=== PATIENT | male | born 1960 | race Caucasian/White ===

== ENCOUNTER 2018-12-20 08:52 | Inpatient (IN) ==
[2018-12-20] MEDS ORDERED: *HR* Etomidate 20 MG/10 ML AMPUL IVP ONE (08:56)
[2018-12-20] MEDS ORDERED: *HR* Midazolam HCl 2 MG/2 ML VIAL IV ONE (08:56)
[2018-12-20] MEDS ORDERED: *HR* Succinylcholine 200 MG/10 ML VIAL IVP ONE (08:56)
--- NOTE | 2018-12-20 09:15 | Emergency Department Note ---
Disposition Clinical Impression: Small cell lung cancer, COPD exacerbation, Acute respiratory failure with hypoxia and hypercapnia Disposition: Admitted As Inpatient Condition: Critical General Adult HPI - General Chief complaint: ED Altered Mental Status Stated complaint: Low 02/Fever/AMS Time Seen by Provider: 12/20/18 09:06 Source: patient Limitations: no limitations - History of Present Illness Pain Scale: 0 - Related Data Home Medications Medication Instructions Recorded Confirmed RX: Aspirin [Lo-Dose Aspirin EC] 81 mg PO DAILY 09/28/18 12/19/18 RX: Cyanocobalamin (Vitamin B-12) 100 mcg PO DAILY 09/28/18 12/19/18 [Vitamin B-12] RX: DULoxetine [Cymbalta] 30 mg PO DAILY 09/28/18 12/19/18 RX: Doxepin [Sinequan] 25 mg PO HS 09/28/18 12/19/18 RX: Gabapentin [Neurontin] 600 mg PO TID 09/28/18 12/19/18 RX: Guaifenesin/Dm/Pseudoephedrine 1 each PO BID 09/28/18 12/19/18 [Capmist Dm Tablet] RX: Meloxicam [Mobic] 15 mg PO DAILY 09/28/18 12/19/18 RX: Oxycodone HCl [Roxybond] 15 mg PO 5XD 09/28/18 12/19/18 RX: Tizanidine HCl 4 mg PO Q8H 09/28/18 12/19/18 RX: diazePAM [Valium] 5 mg PO BID 09/28/18 12/19/18 Previous Rx's Medication Instructions Recorded RX: amLODIPine [Norvasc] 5 mg PO DAILY #30 tablet 10/03/18 Prochlorperazine Maleate 10 mg PO Q8HR PRN #90 tablet 10/17/18 [Compazine] RX: Dexamethasone [Decadron] 4 mg PO BID PRN #45 tab 10/17/18 Albuterol Sulfate [Proair Hfa] 1 puff IH PRN PRN #1 inh 10/31/18 Ipratropium/Albuterol Neb [Duoneb] 3 ml IH Q4HR PRN 30 Days #120 10/31/18 vial.neb RX: Budesonide/Formoterol 160/4.5 2 puff IH BIDR #1 inh 10/31/18 [Symbicort 160/4.5] RX: Ondansetron HCl 8 mg PO Q8H PRN #45 tablet 11/21/18 RX: Doxycycline Hyclate 100 mg PO BID 7 Days #14 tablet 12/18/18 RX: GuaiFENesin/Dextromethorphan 10 ml PO QID PRN #240 ml 12/18/18 [Tussin Dm Syrup] Fluconazole [Diflucan] 100 mg PO DAILY #7 tablet 12/19/18 Nystatin [Nystatin Suspension] 100,000 units PO QID #120 ml 12/19/18 RX: predniSONE [PredniSONE] 20 mg PO DAILY #60 tablet 12/19/18 RX: predniSONE [PredniSONE] 30 mg PO DAILY #90 tablet 12/19/18 Sodium Chloride [Sodium Chloride 2 gm PO DAILY #60 tablet 12/19/18 Tab] Allergies Allergy/AdvReac Type Severity Reaction Status Date / Time Penicillins [PCN] Allergy See Verified 12/19/18 15:04 Comments venlafaxine AdvReac Gastrointestinal Verified 12/19/18 15:04 Upset Past Medical History - Past Medical History Medical history: Reports: arthritis, cancer, COPD, hypertension, other Psychiatric history: Reports: depression - Social History Smoking Status: Current every day smoker Smokeless Tobacco Status: No Alcohol use: Reports: none Drug use: Reports: none Physical Exam - General Limitations: no limitations General appearance: alert Course Vital Signs Temperature 97.7 F 12/20/18 08:59 Pulse Rate 104 12/20/18 08:59 Respiratory Rate 24 12/20/18 08:59 Blood Pressure 95/58 12/20/18 08:59 O2 Sat by Pulse Oximetry 89 12/20/18 08:59 Temperature 98.4 F 12/20/18 13:31 Pulse Rate 96 12/20/18 14:00 Respiratory Rate 20 12/20/18 14:00 Blood Pressure 88/74 12/20/18 14:00 O2 Sat by Pulse Oximetry 98 12/20/18 14:00 Oxygen Delivery Oxygen Delivery Ventilator Medical Decision Making - Lab Data Result diagrams: 12/20/18 09:47 12/20/18 09:47 Lab Results 12/20/18 12/20/18 12/20/18 Range/Units 09:31 09:47 09:47 WBC 5.2 D (4.3-11.1) K/mcL RBC 3.76 L (4.19-5.50) M/mcL Hgb 11.8 L D (12.9-16.9) g/dL Hct 36.7 L (37.5-50.1) % MCV 97.6 (83.0-100.0) fL MCH 31.4 (28.0-33.3) pg MCHC 32.2 (31.6-35.5) g/dL RDW 15.9 H (11.5-14.5) % Plt Count 129 L (140-400) K/mcL MPV 10.1 (9.4-12.4) fL Immature Gran % 0.6 (0-4) % Seg Neutrophils % 74.9 % Lymphocytes % 18.1 % Monocytes % 5.6 % Eosinophils % 0.2 % Basophils % 0.6 % Neutrophils # 3.9 (1.6-8.9) K/mcL Lymphocytes # 0.9 (0.6-4.6) K/mcL Monocytes # 0.3 (0.0-1.3) K/mcL Eosinophils # 0.0 (0.0-0.6) K/mcL Basophils # 0.0 (0.0-0.2) K/mcL PT 11.7 (9.4-12.1) Seconds INR 1.0 APTT 29.7 (26.0-36.0) Seconds Sample Site R Radial ABG pH 7.28 L (7.32-7.45) pH Units ABG pCO2 86 H* (35-45) mmHg ABG pO2 64 L (85-104) mmHg ABG HCO3 41 H (21-27) mEq/L ABG Total CO2 44 H (20-26) mEq/L ABG O2 Saturation 87 L (95-98) % ABG Base Excess 11 H (-2 to 3) mEq/L Vidal Test N/A O2 Delivery Device Cannula Blood Gas Modality Inspired O2 5.0 (1-15=lpm [id number]=%) Sodium (136-145) mEq/L Potassium (3.5-5.1) mEq/L Chloride (98-107) mEq/L Carbon Dioxide (23-29) mEq/L BUN (6-20) mg/dL Creatinine (0.70-1.30) mg/dL Est GFR ( Amer) (> 60) Est GFR (Non-Af Amer) (> 60) BUN/Creatinine Ratio (6-26) Glucose (70-105) mg/dL Calculated Osmolality (280-300) Lactic Acid (0.5-2.2) mmol/L Calcium (8.6-10.3) mg/dL Magnesium (1.6-2.6) mg/dL Total Bilirubin (0.3-1.0) mg/dL Direct Bilirubin (0.0-0.2) mg/dL Indirect Bilirubin (0.0-1.2) mg/dL AST (13-39) Units/L ALT (7-52) Units/L Alkaline Phosphatase (34-104) Units/L Troponin I (< 0.04) ng/mL B-Natriuretic Peptide (Less than 100) pg/mL Serum Total Protein (6.4-8.9) g/dL Albumin (3.5-5.7) g/dL Globulin (2.4-3.5) g/dL Albumin/Globulin Ratio (1.1-2.2) 12/20/18 12/20/18 12/20/18 Range/Units 09:47 09:47 09:47 WBC (4.3-11.1) K/mcL RBC (4.19-5.50) M/mcL Hgb (12.9-16.9) g/dL Hct (37.5-50.1) % MCV (83.0-100.0) fL MCH (28.0-33.3) pg MCHC (31.6-35.5) g/dL RDW (11.5-14.5) % Plt Count (140-400) K/mcL MPV (9.4-12.4) fL Immature Gran % (0-4) % Seg Neutrophils % % Lymphocytes % % Monocytes % % Eosinophils % % Basophils % % Neutrophils # (1.6-8.9) K/mcL Lymphocytes # (0.6-4.6) K/mcL Monocytes # (0.0-1.3) K/mcL Eosinophils # (0.0-0.6) K/mcL Basophils # (0.0-0.2) K/mcL PT (9.4-12.1) Seconds INR APTT (26.0-36.0) Seconds Sample Site ABG pH (7.32-7.45) pH Units ABG pCO2 (35-45) mmHg ABG pO2 (85-104) mmHg ABG HCO3 (21-27) mEq/L ABG Total CO2 (20-26) mEq/L ABG O2 Saturation (95-98) % ABG Base Excess (-2 to 3) mEq/L Vidal Test O2 Delivery Device Blood Gas Modality Inspired O2 (1-15=lpm lp16-245=%) Sodium 134 L (136-145) mEq/L Potassium 3.7 (3.5-5.1) mEq/L Chloride 91 L (98-107) mEq/L Carbon Dioxide 40 H* (23-29) mEq/L BUN 17 (6-20) mg/dL Creatinine 0.67 L (0.70-1.30) mg/dL Est GFR ( Amer) > 60 (> 60) Est GFR (Non-Af Amer) > 60 (> 60) BUN/Creatinine Ratio 25 (6-26) Glucose 128 H (70-105) mg/dL Calculated Osmolality 281 (280-300) Lactic Acid 0.9 (0.5-2.2) mmol/L Calcium 8.9 (8.6-10.3) mg/dL Magnesium 1.7 (1.6-2.6) mg/dL Total Bilirubin 0.5 (0.3-1.0) mg/dL Direct Bilirubin 0.1 (0.0-0.2) mg/dL Indirect Bilirubin 0.4 (0.0-1.2) mg/dL AST 21 (13-39) Units/L ALT 25 (7-52) Units/L Alkaline Phosphatase 96 (34-104) Units/L Troponin I < 0.03 (< 0.04) ng/mL B-Natriuretic Peptide 52 (Less than 100) pg/mL Serum Total Protein 5.7 L (6.4-8.9) g/dL Albumin 3.5 (3.5-5.7) g/dL Globulin 2.2 L (2.4-3.5) g/dL Albumin/Globulin Ratio 1.6 (1.1-2.2) 12/20/18 Range/Units 10:55 WBC (4.3-11.1) K/mcL RBC (4.19-5.50) M/mcL Hgb (12.9-16.9) g/dL Hct (37.5-50.1) % MCV (83.0-100.0) fL MCH (28.0-33.3) pg MCHC (31.6-35.5) g/dL RDW (11.5-14.5) % Plt Count (140-400) K/mcL MPV (9.4-12.4) fL Immature Gran % (0-4) % Seg Neutrophils % % Lymphocytes % % Monocytes % % Eosinophils % % Basophils % % Neutrophils # (1.6-8.9) K/mcL Lymphocytes # (0.6-4.6) K/mcL Monocytes # (0.0-1.3) K/mcL Eosinophils # (0.0-0.6) K/mcL Basophils # (0.0-0.2) K/mcL PT (9.4-12.1) Seconds INR APTT (26.0-36.0) Seconds Sample Site R Radial ABG pH 7.24 L (7.32-7.45) pH Units ABG pCO2 100 H* (35-45) mmHg ABG pO2 68 L (85-104) mmHg ABG HCO3 43 H (21-27) mEq/L ABG Total CO2 46 H (20-26) mEq/L ABG O2 Saturation 87 L (95-98) % ABG Base Excess 11 H (-2 to 3) mEq/L Vidal Test N/A O2 Delivery Device BiPAP Blood Gas Modality BiLevel Inspired O2 40.0 (1-15=lpm bu70-140=%) Sodium (136-145) mEq/L Potassium (3.5-5.1) mEq/L Chloride (98-107) mEq/L Carbon Dioxide (23-29) mEq/L BUN (6-20) mg/dL Creatinine (0.70-1.30) mg/dL Est GFR ( Amer) (> 60) Est GFR (Non-Af Amer) (> 60) BUN/Creatinine Ratio (6-26) Glucose (70-105) mg/dL Calculated Osmolality (280-300) Lactic Acid (0.5-2.2) mmol/L Calcium (8.6-10.3) mg/dL Magnesium (1.6-2.6) mg/dL Total Bilirubin (0.3-1.0) mg/dL Direct Bilirubin (0.0-0.2) mg/dL Indirect Bilirubin (0.0-1.2) mg/dL AST (13-39) Units/L ALT (7-52) Units/L Alkaline Phosphatase (34-104) Units/L Troponin I (< 0.04) ng/mL B-Natriuretic Peptide (Less than 100) pg/mL Serum Total Protein (6.4-8.9) g/dL Albumin (3.5-5.7) g/dL Globulin (2.4-3.5) g/dL Albumin/Globulin Ratio (1.1-2.2) Critical Care Time Critical Care Time: Yes Total Critical Care Time: 30 Attestation: The high probability of a clinically significant, sudden or life threatening deterioration of the [] system(s) required my full and direct attention, intervention and personal management. The aggregate critical care time was [] minutes. This time is in addition to time spent performing reported procedures but includes the following: [] Data Review and interpretation [] Patient assessment and monitoring of vital signs [] Documentation [] Medication orders and management Attestation Statement - Attestation Attestation: I examined this patient and my medical decision-making was reviewed with the Resident Physician. I agree with the documented findings, disposition and treatment plan as described except to the extent set forth below. [id number] time provided Patient arrives in the care of family. He is oxygen dependent currently being treated for lung cancer. He appears somewhat frail. He was hypoxic at triage. Recently treated with doxycycline for suspected pneumonia 11:19: The patient's carbon dioxide increased. He is increasingly somnolent. He was electively endotracheally intubated by the resident physician under my supervision. Patient will be admitted to the ICU.
[2018-12-20 09:34] LABS: ABG Base Excess 11 mEq/L (-2 to 3); ABG HCO3 41 mEq/L (21-27); ABG Oxygen Saturation 87 % (95-98); ABG PCO2 86 mmHg (35-45); ABG PH 7.28 pH Units (7.32-7.45); ABG PO2 64 mmHg (85-104); ABG TCO2 44 mEq/L (20-26)
[2018-12-20] MEDS ORDERED: Ipratropium/Albuterol Neb 3 ML IH ONE (09:46)
[2018-12-20 10:11] LABS: Basophils % 0.6 %; Eosinophils % 0.2 %; Hematocrit 36.7 % (37.5-50.1); Hemoglobin 11.8 g/dL (12.9-16.9); Immature Granulocytes % 0.6 % (0-4); Lymphocytes # 0.9 K/mcL (0.6-4.6); Lymphocytes % 18.1 %; Mean Corpuscular HGB Conc 32.2 g/dL (31.6-35.5); Mean Corpuscular Hemoglobin 31.4 pg (28.0-33.3); Mean Corpuscular Volume 97.6 fL (83.0-100.0); Mean Platelet Volume 10.1 fL (9.4-12.4); Monocytes # 0.3 K/mcL (0.0-1.3); Monocytes % 5.6 %; Neutrophils # 3.9 K/mcL (1.6-8.9); Platelet Count 129 K/mcL (140-400); Red Blood Count 3.76 M/mcL (4.19-5.50); Red Cell Distribution Width 15.9 % (11.5-14.5); Segmented Neutrophils % 74.9 %
[2018-12-20 10:23] LABS: Prothrombin Time 11.7 Seconds (9.4-12.1)
[2018-12-20 10:26] LABS: Activated Partial Thrombo Time 29.7 Seconds (26.0-36.0)
--- NOTE | 2018-12-20 10:38 | Emergency Department Note ---
Disposition Clinical Impression: Small cell lung cancer, COPD exacerbation, Acute respiratory failure with hypoxia and hypercapnia Disposition: Admitted As Inpatient Condition: Critical Time of Disposition: 11:27 General Adult HPI - General Chief complaint: ED Altered Mental Status Stated complaint: Low 02/Fever/AMS Time Seen by Provider: 12/20/18 09:06 Source: patient, family (Sister), EMS Mode of arrival: EMS Limitations: no limitations Nursing Notes Reviewed: Yes Vital Signs Reviewed: Yes - History of Present Illness HPI Narrative: 58-year-old male history of COPD on to liter in history of lung cancer presents emergency department via EMS with concern for difficulty in breathing and altered mental status. The sister states the patient was recently diagnosed 3 months ago and has been undergoing chemotherapy for his lung cancer. Last treatment was . He has received a total of 3 total treatments which she receives Tuesday every 3 weeks. His oncologist is Dr. Sullivan. She states over the past 2 days he has been running a fever of 100 with diffi culty breathing. Was evaluated at urgent care presumed to have pneumonia and placed on doxycycline. Reports no improvement. She has noted that his oxygen level has decreased and has required increased oxygen to 4 L. He seems more weak and sleepy today. No recent hospitalization in the past 90 days. No recent travel. No history of heart failure or blood clots. He is on chronic steroids. He has been using his inhaler is as directed. Does not take any anticoagulants. No report recent falls. Pain Scale: 0 - Related Data Home Medications Medication Instructions Recorded Confirmed Aspirin [Lo-Dose Aspirin EC] 81 mg PO DAILY 09/28/18 12/19/18 Cyanocobalamin (Vitamin B-12) 100 mcg PO DAILY 09/28/18 12/19/18 [Vitamin B-12] DULoxetine [Cymbalta] 30 mg PO DAILY 09/28/18 12/19/18 Doxepin [Sinequan] 25 mg PO HS 09/28/18 12/19/18 Gabapentin [Neurontin] 600 mg PO TID 09/28/18 12/19/18 Guaifenesin/Dm/Pseudoephedrine 1 each PO BID 09/28/18 12/19/18 [Capmist Dm Tablet] Meloxicam [Mobic] 15 mg PO DAILY 09/28/18 12/19/18 Oxycodone HCl [Roxybond] 15 mg PO 5XD 09/28/18 12/19/18 Tizanidine HCl 4 mg PO Q8H 09/28/18 12/19/18 diazePAM [Valium] 5 mg PO BID 09/28/18 12/19/18 Previous Rx's Medication Instructions Recorded amLODIPine [Norvasc] 5 mg PO DAILY #30 tablet 10/03/18 Dexamethasone [Decadron] 4 mg PO BID PRN #45 tab 10/17/18 Prochlorperazine Maleate 10 mg PO Q8HR PRN #90 tablet 10/17/18 [Compazine] Albuterol Sulfate [Proair Hfa] 1 puff IH PRN PRN #1 inh 10/31/18 Budesonide/Formoterol 160/4.5 2 puff IH BIDR #1 inh 10/31/18 [Symbicort 160/4.5] Ipratropium/Albuterol Neb [Duoneb] 3 ml IH Q4HR PRN 30 Days #120 10/31/18 vial.neb Ondansetron HCl 8 mg PO Q8H PRN #45 tablet 11/21/18 Doxycycline Hyclate 100 mg PO BID 7 Days #14 tablet 12/18/18 GuaiFENesin/Dextromethorphan 10 ml PO QID PRN #240 ml 12/18/18 [Tussin Dm Syrup] Fluconazole [Diflucan] 100 mg PO DAILY #7 tablet 12/19/18 Nystatin [Nystatin Suspension] 100,000 units PO QID #120 ml 12/19/18 Sodium Chloride [Sodium Chloride 2 gm PO DAILY #60 tablet 12/19/18 Tab] predniSONE [PredniSONE] 20 mg PO DAILY #60 tablet 12/19/18 predniSONE [PredniSONE] 30 mg PO DAILY #90 tablet 12/19/18 Allergies Allergy/AdvReac Type Severity Reaction Status Date / Time Penicillins [PCN] Allergy See Verified 12/19/18 15:04 Comments venlafaxine AdvReac Gastrointestinal Verified 12/19/18 15:04 Upset All systems ED: reviewed and negative except as stated. Review of Systems: As Per HPI Constitutional: Reports: fever, weakness. Denies: chills ENT ED: Denies: congestion Cardiovascular: Denies: chest pain Respiratory: Reports: cough, dyspnea Gastrointestinal: Denies: abdominal pain, nausea, vomiting Musculoskeletal: Denies: back pain Integumentary: Denies: rash Neurological: Reports: confusion Past Medical History - Past Medical History Attestation: Yes The following information was validated with the patient. Source: patient Medical history: Reports: arthritis, cancer, COPD, hypertension, other Psychiatric history: Reports: depression - Social History Smoking Status: Current every day smoker Smokeless Tobacco Status: No Alcohol use: Reports: none Drug use: Reports: none Physical Exam - General Limitations: no limitations General appearance: in no apparent distress, cachectic, other (Patient appears somnolent and easily arousable, he is protecting his airway) - Head Head exam: atraumatic, normocephalic, normal inspection - Eye Eye exam: Present: normal appearance, PERRL, EOMI - ENT ENT exam: normal exam, normal oropharynx, mucous membranes moist - Neck Neck exam: Present: normal inspection, full ROM, trachea midline - Chest Chest inspection: Present: normal inspection, symmetric chest wall rise - Respiratory Respiratory exam: Present: respiratory distress (Mild), wheezes, prolonged expiratory phase, other (Diminished breath sounds bilaterally with expiratory wheezing) - Cardiovascular Cardiovascular exam: Present: regular rate, normal rhythm, normal heart sounds - Abdominal Exam Abdominal exam: Present: soft, Non-Tender, normal bowel sounds. Absent: tenderness, distention, guarding, rebound, rigidity - Extremities Exam Extremities exam: Present: normal inspection, full ROM, normal capillary refill. Absent: tenderness, pedal edema - Neurological Exam Neurological exam: Present: alert - Expanded Neurological Exam Patient oriented to: Present: person Coma Scale Eye Opening: Spontaneous Coma Scale Motor Response: Obeys Commands Coma Scale Verbal Response: Confused Coma Scale Total: 14 - Psychiatric Psychiatric exam: Present: normal affect, normal mood - Skin Skin exam: Present: warm, dry, intact, normal color Course Course Narrative: Patient presents with history of lung cancer currently undergoing chemotherapy. Noted to be hypoxic with recent fever and difficulty in breathing. He presents with his sister. He is currently on 5 L with oxygen saturation 98%. He is however somnolent but does answer questions. He has diminished breath sounds. Concern for sepsis. No fevers here. Patient is mildly tachycardic. Workup initiated. ABG was performed which shows retention of CO2. Will place him on BiPAP including breathing treatment. - Reevaluation(s) Reevaluation #1: Review of lab shows chronic anemia. No leukocytosis. Lactate less than 1. Arterial blood gas shows a respiratory acidosis with elevated CO2 86. Suspect this is cause for his symptoms. He is also being treated for likely COPD exacerbation. Chest x-ray does not reveal any consolidation concerning for infiltrate or pneumonia or source for infection. Patient will require admission likely secondary for his COPD exacerbation. Time: 10:51 Reevaluation #2: Patient is increasingly more somnolent. GCS 5 at this time. Repeat arterial blood gas revealed persistent CO2 retention 99. After discussing with the patient's sister we have to reverted back to patient's initial wishes of a full code which was determined 3 weeks ago when he was capable of making decisions. Sister is in agreement with this plan. Patient's daughter is on the way and is aware of the plan. Patient was transferred to resuscitation bay where rapid sequence intubation was performed successively by resident physician Dr. Bae. Please see note for further details. Patient will require admission to the intensive care unit. Due to blood pressure will require Versed and Fentanyl sedation. Impression is respiratory failure secondary to hypercapnia, hypoxia, COPD exacerbation with history of Lung CA. Time: 11:24 - Consultations Consultation #1: Spoke with on-call petal shaper hand rasheed Etienne to admit to intensive care unit for respiratory failure secondary to hypercapnia and hypoxia with likely COPD exacerbation with underlying lung cancer. No further orders at this time. Time: 12:00 Vital Signs Temperature 97.7 F 12/20/18 08:59 Pulse Rate 104 12/20/18 08:59 Respiratory Rate 24 12/20/18 08:59 Blood Pressure 95/58 12/20/18 08:59 O2 Sat by Pulse Oximetry 89 12/20/18 08:59 Temperature 97.7 F 12/20/18 08:59 Pulse Rate 83 12/20/18 11:50 Respiratory Rate 18 12/20/18 11:50 Blood Pressure 103/77 12/20/18 11:50 O2 Sat by Pulse Oximetry 100 12/20/18 11:50 Oxygen Delivery Oxygen Delivery Ventilator Medical Decision Making - MDM Narrative Medical decision making narrative: Patient was discussed with my attending physician who agrees with ED management and final disposition. They independently evaluated the patient. Please refer to their attestation to this encounter for additional information. This note was generated by Dragon voice recognition software and as a result grammatical or spelling errors may occur using this program. - Medical Records Medical records reviewed: Yes I reviewed the patient's medical records. - Lab Data Lab results reviewed: Yes I reviewed the patient's lab results. Result diagrams: 12/20/18 09:47 12/20/18 09:47 Lab Results 12/20/18 12/20/18 12/20/18 Range/Units 09:31 09:47 09:47 WBC 5.2 D (4.3-11.1) K/mcL RBC 3.76 L (4.19-5.50) M/mcL Hgb 11.8 L D (12.9-16.9) g/dL Hct 36.7 L (37.5-50.1) % MCV 97.6 (83.0-100.0) fL MCH 31.4 (28.0-33.3) pg MCHC 32.2 (31.6-35.5) g/dL RDW 15.9 H (11.5-14.5) % Plt Count 129 L (140-400) K/mcL MPV 10.1 (9.4-12.4) fL Immature Gran % 0.6 (0-4) % Seg Neutrophils % 74.9 % Lymphocytes % 18.1 % Monocytes % 5.6 % Eosinophils % 0.2 % Basophils % 0.6 % Neutrophils # 3.9 (1.6-8.9) K/mcL Lymphocytes # 0.9 (0.6-4.6) K/mcL Monocytes # 0.3 (0.0-1.3) K/mcL Eosinophils # 0.0 (0.0-0.6) K/mcL Basophils # 0.0 (0.0-0.2) K/mcL PT 11.7 (9.4-12.1) Seconds INR 1.0 APTT 29.7 (26.0-36.0) Seconds Sample Site R Radial ABG pH 7.28 L (7.32-7.45) pH Units ABG pCO2 86 H* (35-45) mmHg ABG pO2 64 L (85-104) mmHg ABG HCO3 41 H (21-27) mEq/L ABG Total CO2 44 H (20-26) mEq/L ABG O2 Saturation 87 L (95-98) % ABG Base Excess 11 H (-2 to 3) mEq/L Vidal Test N/A O2 Delivery Device Cannula Blood Gas Modality Inspired O2 5.0 (1-15=lpm [id number]=%) Sodium (136-145) mEq/L Potassium (3.5-5.1) mEq/L Chloride (98-107) mEq/L Carbon Dioxide (23-29) mEq/L BUN (6-20) mg/dL Creatinine (0.70-1.30) mg/dL Est GFR ( Amer) (> 60) Est GFR (Non-Af Amer) (> 60) BUN/Creatinine Ratio (6-26) Glucose (70-105) mg/dL Calculated Osmolality (280-300) Lactic Acid (0.5-2.2) mmol/L Calcium (8.6-10.3) mg/dL Magnesium (1.6-2.6) mg/dL Total Bilirubin (0.3-1.0) mg/dL Direct Bilirubin (0.0-0.2) mg/dL Indirect Bilirubin (0.0-1.2) mg/dL AST (13-39) Units/L ALT (7-52) Units/L Alkaline Phosphatase (34-104) Units/L Troponin I (< 0.04) ng/mL B-Natriuretic Peptide (Less than 100) pg/mL Serum Total Protein (6.4-8.9) g/dL Albumin (3.5-5.7) g/dL Globulin (2.4-3.5) g/dL Albumin/Globulin Ratio (1.1-2.2) 12/20/18 12/20/18 12/20/18 Range/Units 09:47 09:47 09:47 WBC (4.3-11.1) K/mcL RBC (4.19-5.50) M/mcL Hgb (12.9-16.9) g/dL Hct (37.5-50.1) % MCV (83.0-100.0) fL MCH (28.0-33.3) pg MCHC (31.6-35.5) g/dL RDW (11.5-14.5) % Plt Count (140-400) K/mcL MPV (9.4-12.4) fL Immature Gran % (0-4) % Seg Neutrophils % % Lymphocytes % % Monocytes % % Eosinophils % % Basophils % % Neutrophils # (1.6-8.9) K/mcL Lymphocytes # (0.6-4.6) K/mcL Monocytes # (0.0-1.3) K/mcL Eosinophils # (0.0-0.6) K/mcL Basophils # (0.0-0.2) K/mcL PT (9.4-12.1) Seconds INR APTT (26.0-36.0) Seconds Sample Site ABG pH (7.32-7.45) pH Units ABG pCO2 (35-45) mmHg ABG pO2 (85-104) mmHg ABG HCO3 (21-27) mEq/L ABG Total CO2 (20-26) mEq/L ABG O2 Saturation (95-98) % ABG Base Excess (-2 to 3) mEq/L Vidal Test O2 Delivery Device Blood Gas Modality Inspired O2 (1-15=lpm [id number]=%) Sodium 134 L (136-145) mEq/L Potassium 3.7 (3.5-5.1) mEq/L Chloride 91 L (98-107) mEq/L Carbon Dioxide 40 H* (23-29) mEq/L BUN 17 (6-20) mg/dL Creatinine 0.67 L (0.70-1.30) mg/dL Est GFR ( Amer) > 60 (> 60) Est GFR (Non-Af Amer) > 60 (> 60) BUN/Creatinine Ratio 25 (6-26) Glucose 128 H (70-105) mg/dL Calculated Osmolality 281 (280-300) Lactic Acid 0.9 (0.5-2.2) mmol/L Calcium 8.9 (8.6-10.3) mg/dL Magnesium 1.7 (1.6-2.6) mg/dL Total Bilirubin 0.5 (0.3-1.0) mg/dL Direct Bilirubin 0.1 (0.0-0.2) mg/dL Indirect Bilirubin 0.4 (0.0-1.2) mg/dL AST 21 (13-39) Units/L ALT 25 (7-52) Units/L Alkaline Phosphatase 96 (34-104) Units/L Troponin I < 0.03 (< 0.04) ng/mL B-Natriuretic Peptide 52 (Less than 100) pg/mL Serum Total Protein 5.7 L (6.4-8.9) g/dL Albumin 3.5 (3.5-5.7) g/dL Globulin 2.2 L (2.4-3.5) g/dL Albumin/Globulin Ratio 1.6 (1.1-2.2) 12/20/18 Range/Units 10:55 WBC (4.3-11.1) K/mcL RBC (4.19-5.50) M/mcL Hgb (12.9-16.9) g/dL Hct (37.5-50.1) % MCV (83.0-100.0) fL MCH (28.0-33.3) pg MCHC (31.6-35.5) g/dL RDW (11.5-14.5) % Plt Count (140-400) K/mcL MPV (9.4-12.4) fL Immature Gran % (0-4) % Seg Neutrophils % % Lymphocytes % % Monocytes % % Eosinophils % % Basophils % % Neutrophils # (1.6-8.9) K/mcL Lymphocytes # (0.6-4.6) K/mcL Monocytes # (0.0-1.3) K/mcL Eosinophils # (0.0-0.6) K/mcL Basophils # (0.0-0.2) K/mcL PT (9.4-12.1) Seconds INR APTT (26.0-36.0) Seconds Sample Site R Radial ABG pH 7.24 L (7.32-7.45) pH Units ABG pCO2 100 H* (35-45) mmHg ABG pO2 68 L (85-104) mmHg ABG HCO3 43 H (21-27) mEq/L ABG Total CO2 46 H (20-26) mEq/L ABG O2 Saturation 87 L (95-98) % ABG Base Excess 11 H (-2 to 3) mEq/L Vidal Test N/A O2 Delivery Device BiPAP Blood Gas Modality BiLevel Inspired O2 40.0 (1-15=lpm [id number]=%) Sodium (136-145) mEq/L Potassium (3.5-5.1) mEq/L Chloride (98-107) mEq/L Carbon Dioxide (23-29) mEq/L BUN (6-20) mg/dL Creatinine (0.70-1.30) mg/dL Est GFR ( Amer) (> 60) Est GFR (Non-Af Amer) (> 60) BUN/Creatinine Ratio (6-26) Glucose (70-105) mg/dL Calculated Osmolality (280-300) Lactic Acid (0.5-2.2) mmol/L Calcium (8.6-10.3) mg/dL Magnesium (1.6-2.6) mg/dL Total Bilirubin (0.3-1.0) mg/dL Direct Bilirubin (0.0-0.2) mg/dL Indirect Bilirubin (0.0-1.2) mg/dL AST (13-39) Units/L ALT (7-52) Units/L Alkaline Phosphatase (34-104) Units/L Troponin I (< 0.04) ng/mL B-Natriuretic Peptide (Less than 100) pg/mL Serum Total Protein (6.4-8.9) g/dL Albumin (3.5-5.7) g/dL Globulin (2.4-3.5) g/dL Albumin/Globulin Ratio (1.1-2.2) - Radiology Data Radiology results reviewed: Yes I reviewed the patient's radiology results. Chest X-Ray 12/20/18 09:14 IMPRESSION: COPD with mild chronic interstitial lung markings. No definite acute pulmonary finding. Note that previously described nodule within the left upper lobe not evident on plain film. D/ / Enoc Nam MD / Enoc Nam MD Interpreting Provider: Enoc Nam MD - EKG Data EKG #1 EKG attestation: Yes I reviewed and interpreted this EKG. EKG results narrative: EKG performed at 0921 sinus tachycardia 100 beats per minute, normal axis, good R wave progression, no ST elevation or depression. Compared to prior EKG performed 09/28/2018 which shows similar consistent findings is sinus tachycardia 10 5 bpm. No acute ischemic changes.
[2018-12-20 10:52] LABS: Troponin I < 0.03 ng/mL (< 0.04)
[2018-12-20] MEDS ORDERED: 0.9 % Sodium Chloride 1,000 ML IVC ONE (10:53)
[2018-12-20 11:01] LABS: ABG Base Excess 11 mEq/L (-2 to 3); ABG HCO3 43 mEq/L (21-27); ABG Oxygen Saturation 87 % (95-98); ABG PCO2 100 mmHg (35-45); ABG PH 7.24 pH Units (7.32-7.45); ABG PO2 68 mmHg (85-104); ABG TCO2 46 mEq/L (20-26); Blood Gas Modality BiLevel
[2018-12-20 11:09] LABS: Alanine Aminotransferase 25 Units/L (7-52); Albumin 3.5 g/dL (3.5-5.7); Albumin/Globulin Ratio 1.6 (1.1-2.2); Alkaline Phosphatase 96 Units/L (34-104); Aspartate Amino Transferase 21 Units/L (13-39); BUN/Creatinine Ratio 25 (6-26); Bilirubin,Direct 0.1 mg/dL (0.0-0.2); Bilirubin,Indirect 0.4 mg/dL (0.0-1.2); Bilirubin,Total 0.5 mg/dL (0.3-1.0); Blood Urea Nitrogen 17 mg/dL (6-20); Calcium 8.9 mg/dL (8.6-10.3); Carbon Dioxide 40 mEq/L (23-29); Chloride 91 mEq/L (98-107); Glucose 128 mg/dL (70-105); Magnesium 1.7 mg/dL (1.6-2.6); Osmolality,Calculated 281 (280-300); Potassium 3.7 mEq/L (3.5-5.1); Sodium 134 mEq/L (136-145); Total Protein 5.7 g/dL (6.4-8.9); eGFR For Non-African Americans > 60 (> 60)
[2018-12-20 11:10] LABS: Globulin 2.2 g/dL (2.4-3.5)
--- NOTE | 2018-12-20 11:23 | Emergency Department Note ---
Disposition Clinical Impression: Small cell lung cancer, COPD exacerbation, Acute respiratory failure with hypoxia and hypercapnia Disposition: Admitted As Inpatient Condition: Critical General Adult HPI - General Chief complaint: ED Altered Mental Status Stated complaint: Low 02/Fever/AMS Time Seen by Provider: 12/20/18 09:06 Source: patient Mode of arrival: EMS Limitations: no limitations - History of Present Illness HPI Narrative: This is a procedure note only, please see Dr. Gonzalez and Dr. Moser's notes for complete H&P, workup, and disposition. Pain Scale: 0 - Related Data Home Medications Medication Instructions Recorded Confirmed RX: Aspirin [Lo-Dose Aspirin EC] 81 mg PO DAILY 09/28/18 12/19/18 RX: Cyanocobalamin (Vitamin B-12) 100 mcg PO DAILY 09/28/18 12/19/18 [Vitamin B-12] RX: DULoxetine [Cymbalta] 30 mg PO DAILY 09/28/18 12/19/18 RX: Doxepin [Sinequan] 25 mg PO HS 09/28/18 12/19/18 RX: Gabapentin [Neurontin] 600 mg PO TID 09/28/18 12/19/18 RX: Guaifenesin/Dm/Pseudoephedrine 1 each PO BID 09/28/18 12/19/18 [Capmist Dm Tablet] RX: Meloxicam [Mobic] 15 mg PO DAILY 09/28/18 12/19/18 RX: Oxycodone HCl [Roxybond] 15 mg PO 5XD 09/28/18 12/19/18 RX: Tizanidine HCl 4 mg PO Q8H 09/28/18 12/19/18 RX: diazePAM [Valium] 5 mg PO BID 09/28/18 12/19/18 Previous Rx's Medication Instructions Recorded RX: amLODIPine [Norvasc] 5 mg PO DAILY #30 tablet 10/03/18 Prochlorperazine Maleate 10 mg PO Q8HR PRN #90 tablet 10/17/18 [Compazine] RX: Dexamethasone [Decadron] 4 mg PO BID PRN #45 tab 10/17/18 Albuterol Sulfate [Proair Hfa] 1 puff IH PRN PRN #1 inh 10/31/18 Ipratropium/Albuterol Neb [Duoneb] 3 ml IH Q4HR PRN 30 Days #120 10/31/18 vial.neb RX: Budesonide/Formoterol 160/4.5 2 puff IH BIDR #1 inh 10/31/18 [Symbicort 160/4.5] RX: Ondansetron HCl 8 mg PO Q8H PRN #45 tablet 11/21/18 RX: Doxycycline Hyclate 100 mg PO BID 7 Days #14 tablet 12/18/18 RX: GuaiFENesin/Dextromethorphan 10 ml PO QID PRN #240 ml 12/18/18 [Tussin Dm Syrup] Fluconazole [Diflucan] 100 mg PO DAILY #7 tablet 12/19/18 Nystatin [Nystatin Suspension] 100,000 units PO QID #120 ml 12/19/18 RX: predniSONE [PredniSONE] 20 mg PO DAILY #60 tablet 12/19/18 RX: predniSONE [PredniSONE] 30 mg PO DAILY #90 tablet 12/19/18 Sodium Chloride [Sodium Chloride 2 gm PO DAILY #60 tablet 12/19/18 Tab] Allergies Allergy/AdvReac Type Severity Reaction Status Date / Time Penicillins [PCN] Allergy See Verified 12/19/18 15:04 Comments venlafaxine AdvReac Gastrointestinal Verified 12/19/18 15:04 Upset Constitutional: Reports: fever, weakness. Denies: chills ENT ED: Denies: congestion Cardiovascular: Denies: chest pain Respiratory: Reports: cough, dyspnea Gastrointestinal: Denies: abdominal pain, nausea, vomiting Musculoskeletal: Denies: back pain Integumentary: Denies: rash Neurological: Reports: confusion Past Medical History - Past Medical History Medical history: Reports: arthritis, cancer, COPD, hypertension, other Psychiatric history: Reports: depression - Social History Smoking Status: Current every day smoker Smokeless Tobacco Status: No Alcohol use: Reports: none Drug use: Reports: none Physical Exam - General Limitations: no limitations General appearance: alert Course Vital Signs Temperature 97.7 F 12/20/18 08:59 Pulse Rate 104 12/20/18 08:59 Respiratory Rate 24 12/20/18 08:59 Blood Pressure 95/58 12/20/18 08:59 O2 Sat by Pulse Oximetry 89 12/20/18 08:59 Temperature 97.7 F 12/20/18 08:59 Pulse Rate 88 12/20/18 11:20 Respiratory Rate 18 12/20/18 11:20 Blood Pressure 86/69 12/20/18 11:20 O2 Sat by Pulse Oximetry 100 12/20/18 11:20 Oxygen Delivery Oxygen Delivery Ventilator Procedures - Intubation Time out performed: Yes sedative: Etomidate Mg Given: 20 paralytic: Succinylcholine Mg Given: 60 Laryngoscope: Foster ET Tube Size: 7.5 Tube Secured Depth (cm): 23 Tube Secured Location: lips Tube Placement Confirmation: visualized tube passing through cords, equal breath sounds bilaterally, confirmation by capnometry Patient Tolerated Procedure: well, no complications Intubation Complications: none Medical Decision Making - Lab Data Result diagrams: 12/20/18 09:47 12/20/18 09:47 Lab Results 12/20/18 12/20/18 12/20/18 Range/Units 09:31 09:47 09:47 WBC 5.2 D (4.3-11.1) K/mcL RBC 3.76 L (4.19-5.50) M/mcL Hgb 11.8 L D (12.9-16.9) g/dL Hct 36.7 L (37.5-50.1) % MCV 97.6 (83.0-100.0) fL MCH 31.4 (28.0-33.3) pg MCHC 32.2 (31.6-35.5) g/dL RDW 15.9 H (11.5-14.5) % Plt Count 129 L (140-400) K/mcL MPV 10.1 (9.4-12.4) fL Immature Gran % 0.6 (0-4) % Seg Neutrophils % 74.9 % Lymphocytes % 18.1 % Monocytes % 5.6 % Eosinophils % 0.2 % Basophils % 0.6 % Neutrophils # 3.9 (1.6-8.9) K/mcL Lymphocytes # 0.9 (0.6-4.6) K/mcL Monocytes # 0.3 (0.0-1.3) K/mcL Eosinophils # 0.0 (0.0-0.6) K/mcL Basophils # 0.0 (0.0-0.2) K/mcL PT 11.7 (9.4-12.1) Seconds INR 1.0 APTT 29.7 (26.0-36.0) Seconds Sample Site R Radial ABG pH 7.28 L (7.32-7.45) pH Units ABG pCO2 86 H* (35-45) mmHg ABG pO2 64 L (85-104) mmHg ABG HCO3 41 H (21-27) mEq/L ABG Total CO2 44 H (20-26) mEq/L ABG O2 Saturation 87 L (95-98) % ABG Base Excess 11 H (-2 to 3) mEq/L Vidal Test N/A O2 Delivery Device Cannula Blood Gas Modality Inspired O2 5.0 (1-15=lpm [id number]=%) Sodium (136-145) mEq/L Potassium (3.5-5.1) mEq/L Chloride (98-107) mEq/L Carbon Dioxide (23-29) mEq/L BUN (6-20) mg/dL Creatinine (0.70-1.30) mg/dL Est GFR ( Amer) (> 60) Est GFR (Non-Af Amer) (> 60) BUN/Creatinine Ratio (6-26) Glucose (70-105) mg/dL Calculated Osmolality (280-300) Lactic Acid (0.5-2.2) mmol/L Calcium (8.6-10.3) mg/dL Magnesium (1.6-2.6) mg/dL Total Bilirubin (0.3-1.0) mg/dL Direct Bilirubin (0.0-0.2) mg/dL Indirect Bilirubin (0.0-1.2) mg/dL AST (13-39) Units/L ALT (7-52) Units/L Alkaline Phosphatase (34-104) Units/L Troponin I (< 0.04) ng/mL B-Natriuretic Peptide (Less than 100) pg/mL Serum Total Protein (6.4-8.9) g/dL Albumin (3.5-5.7) g/dL Globulin (2.4-3.5) g/dL Albumin/Globulin Ratio (1.1-2.2) 12/20/18 12/20/18 12/20/18 Range/Units 09:47 09:47 09:47 WBC (4.3-11.1) K/mcL RBC (4.19-5.50) M/mcL Hgb (12.9-16.9) g/dL Hct (37.5-50.1) % MCV (83.0-100.0) fL MCH (28.0-33.3) pg MCHC (31.6-35.5) g/dL RDW (11.5-14.5) % Plt Count (140-400) K/mcL MPV (9.4-12.4) fL Immature Gran % (0-4) % Seg Neutrophils % % Lymphocytes % % Monocytes % % Eosinophils % % Basophils % % Neutrophils # (1.6-8.9) K/mcL Lymphocytes # (0.6-4.6) K/mcL Monocytes # (0.0-1.3) K/mcL Eosinophils # (0.0-0.6) K/mcL Basophils # (0.0-0.2) K/mcL PT (9.4-12.1) Seconds INR APTT (26.0-36.0) Seconds Sample Site ABG pH (7.32-7.45) pH Units ABG pCO2 (35-45) mmHg ABG pO2 (85-104) mmHg ABG HCO3 (21-27) mEq/L ABG Total CO2 (20-26) mEq/L ABG O2 Saturation (95-98) % ABG Base Excess (-2 to 3) mEq/L Vidal Test O2 Delivery Device Blood Gas Modality Inspired O2 (1-15=lpm ky30-494=%) Sodium 134 L (136-145) mEq/L Potassium 3.7 (3.5-5.1) mEq/L Chloride 91 L (98-107) mEq/L Carbon Dioxide 40 H* (23-29) mEq/L BUN 17 (6-20) mg/dL Creatinine 0.67 L (0.70-1.30) mg/dL Est GFR ( Amer) > 60 (> 60) Est GFR (Non-Af Amer) > 60 (> 60) BUN/Creatinine Ratio 25 (6-26) Glucose 128 H (70-105) mg/dL Calculated Osmolality 281 (280-300) Lactic Acid 0.9 (0.5-2.2) mmol/L Calcium 8.9 (8.6-10.3) mg/dL Magnesium 1.7 (1.6-2.6) mg/dL Total Bilirubin 0.5 (0.3-1.0) mg/dL Direct Bilirubin 0.1 (0.0-0.2) mg/dL Indirect Bilirubin 0.4 (0.0-1.2) mg/dL AST 21 (13-39) Units/L ALT 25 (7-52) Units/L Alkaline Phosphatase 96 (34-104) Units/L Troponin I < 0.03 (< 0.04) ng/mL B-Natriuretic Peptide 52 (Less than 100) pg/mL Serum Total Protein 5.7 L (6.4-8.9) g/dL Albumin 3.5 (3.5-5.7) g/dL Globulin 2.2 L (2.4-3.5) g/dL Albumin/Globulin Ratio 1.6 (1.1-2.2) 12/20/18 Range/Units 10:55 WBC (4.3-11.1) K/mcL RBC (4.19-5.50) M/mcL Hgb (12.9-16.9) g/dL Hct (37.5-50.1) % MCV (83.0-100.0) fL MCH (28.0-33.3) pg MCHC (31.6-35.5) g/dL RDW (11.5-14.5) % Plt Count (140-400) K/mcL MPV (9.4-12.4) fL Immature Gran % (0-4) % Seg Neutrophils % % Lymphocytes % % Monocytes % % Eosinophils % % Basophils % % Neutrophils # (1.6-8.9) K/mcL Lymphocytes # (0.6-4.6) K/mcL Monocytes # (0.0-1.3) K/mcL Eosinophils # (0.0-0.6) K/mcL Basophils # (0.0-0.2) K/mcL PT (9.4-12.1) Seconds INR APTT (26.0-36.0) Seconds Sample Site R Radial ABG pH 7.24 L (7.32-7.45) pH Units ABG pCO2 100 H* (35-45) mmHg ABG pO2 68 L (85-104) mmHg ABG HCO3 43 H (21-27) mEq/L ABG Total CO2 46 H (20-26) mEq/L ABG O2 Saturation 87 L (95-98) % ABG Base Excess 11 H (-2 to 3) mEq/L Vdial Test N/A O2 Delivery Device BiPAP Blood Gas Modality BiLevel Inspired O2 40.0 (1-15=lpm ty75-580=%) Sodium (136-145) mEq/L Potassium (3.5-5.1) mEq/L Chloride (98-107) mEq/L Carbon Dioxide (23-29) mEq/L BUN (6-20) mg/dL Creatinine (0.70-1.30) mg/dL Est GFR ( Amer) (> 60) Est GFR (Non-Af Amer) (> 60) BUN/Creatinine Ratio (6-26) Glucose (70-105) mg/dL Calculated Osmolality (280-300) Lactic Acid (0.5-2.2) mmol/L Calcium (8.6-10.3) mg/dL Magnesium (1.6-2.6) mg/dL Total Bilirubin (0.3-1.0) mg/dL Direct Bilirubin (0.0-0.2) mg/dL Indirect Bilirubin (0.0-1.2) mg/dL AST (13-39) Units/L ALT (7-52) Units/L Alkaline Phosphatase (34-104) Units/L Troponin I (< 0.04) ng/mL B-Natriuretic Peptide (Less than 100) pg/mL Serum Total Protein (6.4-8.9) g/dL Albumin (3.5-5.7) g/dL Globulin (2.4-3.5) g/dL Albumin/Globulin Ratio (1.1-2.2)
[2018-12-20] MEDS: FentaNYL (PF) 1,000 MCG in 0.9 % Sodium Chloride 80 ML IVC SCH ×2 (11:51→23:56)
[2018-12-20] MEDS ORDERED: Artificial Tears SOLN 15 ML BOTTLE BOTH EYES PRN (11:58)
[2018-12-20] MEDS ORDERED: Naloxone 0.4 MG/ML INJ IVP PRN (13:08)
--- NOTE | 2018-12-20 13:19 | Pulmonology History & Physical ---
<Celina Pepe M - Last Filed: 12/20/18 15:27> Date of Encounter: 12/20/18 Time of Encounter: 12:00 Assessment and Plan (1) Acute respiratory failure with hypoxia and hypercapnia Current visit: Yes Status: Acute Likely due to COPD exacerbation and possible pnemonia ABG on BiPAP with pH 7.24, CO2 100, O2 68, bicarb 46 Currently intubated, sedated, on mechanical ventilation Continue q1h duonebs Start broad spectrum abx for possible pneumonia Will repeat ABG Check CTA chest to rule out pulmonary embolism as patient was tachycardic and h ypoxic initially and has cancer history (2) Acute respiratory acidosis Current visit: Yes Status: Acute pH 7.24 with CO2 100 Some metabolic compensation with bicarb 43 Continue current mechanical vent settings with adjustments per ABG (3) Sepsis Current visit: No Status: Acute Patient tachycardic and tachypneic in ER No leukocytosis, lactate 0.9, afebrile CXR with known left upper lobe cavitary lesion and severe emphysematous changes Patient treated as outpatient for pneumonia with doxycycline x2 days. This is the possible source Blood cultures x2 on 12/19 NTD, repeat blood cultures today pending Urine culture pending Check urine legionella and strep Ag, influenza Will check procalcitonin Will start IV cefepime, vanc, and levaquin Qualifiers: Sepsis type: sepsis due to unspecified organism Qualified Code(s): A41.9 - Sepsis, unspecified organism (4) Acute encephalopathy Current visit: Yes Status: Acute Patient presented with altered mental status and had GCS 5 prior to intubation Likely due to hypercapnea , CO2 100 on ABG Continue to monitor ABG. Pt currently intubated and sedated Pupils are unequal in size, which family states is chronic. Will check CT head without contrast as patient had confusion and history of Cancer (5) COPD exacerbation Current visit: Yes Status: Acute Intubated on mechanical vent Continue vent management and q1h Duonebs Patient on chronic steroids, 30mg PO qd as outpatient. Will start IV steroids Repeat ABG pending (6) Small cell lung cancer Current visit: Yes Status: Acute Small cell lung cancer, stage IV S/p cisplatin/etoposide cycle [address] Sullivan, Oncology (7) Hypertension Current visit: No Status: Acute WIll hold home medications at this time secondary to borderline blood pressures. Most recent blood pressure 112/85 Continue to monitor Qualifiers: Hypertension type: essential hypertension Qualified Code(s): I10 - Essential (primary) hypertension History of Present Illness Chief complaint: shortness of breath HPI: Mr. Salcedo is a 58 year old male with past medical history of COPD, stage IV small cell lung cancer status post cycle 3 of chemotherapy last week, hypertension, presenting to the emergency department via EMS with chief complaint of difficulty breathing and altered mental status. Patient was seen and examined at bedside and is intubated. History obtained from patient's daughter and review of medical records. The patient finished his third cycle of chemotherapy last week. His oncologist is Dr. Sullivan. For the past 3 days, the patient has been complaining of progressively worsening shortness of breath. For the past 2 days he has had a temperature as high as 100. He has been having a productive cough with thick mucus. 2 days ago, he went to urgent care and received doxycycline for presumed pneumonia. Yesterday he had a chest x-ray with his oncologist. Results show no acute findings and chronic hyperinflation with mild prominence of interstitial lung markings. Blood cultures were obtai saeid yesterday. He was given fluconazole and nystatin for thrush. He is on prednisone 30 mg daily for COPD and nebulizer treatments. Patient presenting today with worsening symptoms. In the emergency department, the patient was in respiratory distress and hypoxic. He was placed on 5 L of oxygen. ABG showed hypercapnia and the patient was placed on BiPAP with DuoNeb treatments. Patient became somnolent and GCS was 5. Repeat ABG showed CO2 retention of 99, worse then the prior. He was intubated and remains on Versed and fentanyl. Patient admitted to ICU for COPD exacerbation and acute respiratory with hypercapnia and hypoxia. Past Med Surg Social Fam HX - Past Medical History Source: old records reviewed, obtained from family Medical history: arthritis, cancer, COPD, hypertension, other Additional medical history: stage III lung cancer Psychiatric history: depression - Past Surgical History Additional surgical history: back surgery - Social History Smoking Status: Current every day smoker Smokeless Tobacco Status: No Alcohol use: none Drug use: none - Family History Mother Living Status: Hx Family Cardiac Disorders: No Hx Family Respiratory Disorders: No Hx Family Cancer: Yes Hx Family GI Disorders: No Hx Family Endocrine Disorder: No Hx Family Neuromuscular Disorders: No Hx Family Neurologic Disorders: No Hx Family HEENT Disorders: No Hx Family Autoimmune Disorders: No Father Living Status: Hx Family Cardiac Disorders: No Hx Family Respiratory Disorders: No Hx Family Cancer: Yes Hx Family GI Disorders: No Hx Family Endocrine Disorder: No Hx Family Neuromuscular Disorders: No Hx Family Neurologic Disorders: No Hx Family HEENT Disorders: No Hx Family Autoimmune Disorders: No Medications and Allergies Aspirin [Lo-Dose Aspirin EC] 81 mg PO DAILY 09/28/18 [History] Cyanocobalamin (Vitamin B-12) [Vitamin B-12] 100 mcg PO DAILY 09/28/18 [History] DULoxetine [Cymbalta] 30 mg PO DAILY 09/28/18 [History] Doxepin [Sinequan] 25 mg PO HS 09/28/18 [History] Gabapentin [Neurontin] 600 mg PO TID 09/28/18 [History] Guaifenesin/Dm/Pseudoephedrine [Capmist Dm Tablet] 1 each PO BID 09/28/18 [History] Meloxicam [Mobic] 15 mg PO DAILY 09/28/18 [History] Oxycodone HCl [Roxybond] 15 mg PO 5XD 09/28/18 [History] Tizanidine HCl 4 mg PO Q8H 09/28/18 [History] diazePAM [Valium] 5 mg PO BID 09/28/18 [History] amLODIPine [Norvasc] 5 mg PO DAILY #30 tablet 10/03/18 [Rx] Dexamethasone [Decadron] 4 mg PO BID PRN #45 tab 10/17/18 [Rx] Prochlorperazine Maleate [Compazine] 10 mg PO Q8HR PRN #90 tablet 10/17/18 [Rx] Albuterol Sulfate [Proair Hfa] 1 puff IH PRN PRN #1 inh 10/31/18 [Rx] Budesonide/Formoterol 160/4.5 [Symbicort 160/4.5] 2 puff IH BIDR #1 inh 10/31/18 [Rx] Ipratropium/Albuterol Neb [Duoneb] 3 ml IH Q4HR PRN 30 Days #120 vial.neb 10/31/18 [Rx] Ondansetron HCl 8 mg PO Q8H PRN #45 tablet 11/21/18 [Rx] Doxycycline Hyclate 100 mg PO BID 7 Days #14 tablet 12/18/18 [Rx] GuaiFENesin/Dextromethorphan [Tussin Dm Syrup] 10 ml PO QID PRN #240 ml 12/18/18 [Rx] Fluconazole [Diflucan] 100 mg PO DAILY #7 tablet 12/19/18 [Rx] Nystatin [Nystatin Suspension] 100,000 units PO QID #120 ml 12/19/18 [Rx] Sodium Chloride [Sodium Chloride Tab] 2 gm PO DAILY #60 tablet 12/19/18 [Rx] predniSONE [PredniSONE] 20 mg PO DAILY #60 tablet 12/19/18 [Rx] predniSONE [PredniSONE] 30 mg PO DAILY #90 tablet 12/19/18 [Rx] Allergy/AdvReac Type Severity Reaction Status Date / Time Penicillins [PCN] Allergy See Verified 12/19/18 15:04 Comments venlafaxine AdvReac Gastrointestinal Verified 12/19/18 15:04 Upset ROS unobtainable: due to endotracheal tube All Systems: The remainder of the systems were reviewed and are negative Physical Examination Vital Signs: Vital Signs, Last 4 Hours Pulse Resp BP Pulse Ox 12/20/18 11:50 83 18 103/77 100 12/20/18 11:37 16 89/69 100 12/20/18 11:34 85 18 107/96 100 12/20/18 11:27 88 18 92/75 100 12/20/18 11:20 88 18 86/69 100 12/20/18 10:54 90 18 91/68 98 12/20/18 10:03 14 101/66 96 12/20/18 09:15 103 18 101/66 89 12/20/18 09:13 88 General appearance: other (sedated, intubated) Eyes: nonicteric ENT: oropharynx moist Neck: supple, no JVD Effort: other (mechanically ventilated with decreased bilateral breath sounds with crackles at bilateral bases, no wheezing) Cardiovascular: regular rate and rhythm Gastrointestinal: normoactive bowel sounds, soft, non-tender, non-distended Integumentary: other (no rash. scab on righ knee with excoriation, healing on left mccray) Extremities: no cyanosis, no edema, pulses normal (bilateral radial and dorsalis pedis pulses equal) other (Unable to assess Neurologic status as patient is sedated and intubated. Pupillary size unequal, L>R, but reactive to light) Results - Laboratory Findings CBC and BMP: 12/20/18 09:47 12/20/18 09:47 ABG ABG pH 7.24 pH Units (7.32-7.45) L 12/20/18 10:55 ABG pCO2 100 mmHg (35-45) H* 12/20/18 10:55 ABG pO2 68 mmHg (85-104) L 12/20/18 10:55 ABG O2 Saturation 87 % (95-98) L 12/20/18 10:55 PT/INR, D-dimer PT 11.7 Seconds (9.4-12.1) 12/20/18 09:47 Abnormal lab findings: Abnormal lab results RBC 3.76 M/mcL (4.19-5.50) L 12/20/18 09:47 Hgb 11.8 g/dL (12.9-16.9) L D 12/20/18 09:47 Hct 36.7 % (37.5-50.1) L 12/20/18 09:47 RDW 15.9 % (11.5-14.5) H 12/20/18 09:47 Plt Count 129 K/mcL (140-400) L 12/20/18 09:47 ABG pH 7.24 pH Units (7.32-7.45) L 12/20/18 10:55 ABG pCO2 100 mmHg (35-45) H* 12/20/18 10:55 ABG pO2 68 mmHg (85-104) L 12/20/18 10:55 ABG HCO3 43 mEq/L (21-27) H 12/20/18 10:55 ABG Total CO2 46 mEq/L (20-26) H 12/20/18 10:55 ABG O2 Saturation 87 % (95-98) L 12/20/18 10:55 ABG Base Excess 11 mEq/L (-2 to 3) H 12/20/18 10:55 Sodium 134 mEq/L (136-145) L 12/20/18 09:47 Chloride 91 mEq/L (98-107) L 12/20/18 09:47 Carbon Dioxide 40 mEq/L (23-29) H* 12/20/18 09:47 Creatinine 0.67 mg/dL (0.70-1.30) L 12/20/18 09:47 Glucose 128 mg/dL (70-105) H 12/20/18 09:47 Serum Total Protein 5.7 g/dL (6.4-8.9) L 12/20/18 09:47 Globulin 2.2 g/dL (2.4-3.5) L 12/20/18 09:47 <Fidelina Parks S - Last Filed: 12/20/18 21:44> Date of Encounter: 12/20/18 History of Present Illness HPI: Mr. Salcedo is a 58 year old male All Systems: The remainder of the systems were reviewed and are negative Physical Examination Vital Signs: Vital Signs, Last 4 Hours Temp Pulse Resp BP Pulse Ox 12/20/18 21:19 20 86/64 99 12/20/18 21:00 99.0 F 114 20 86/64 99 12/20/18 20:00 111 20 88/65 99 12/20/18 19:33 20 82/68 98 12/20/18 19:00 110 20 86/68 98 12/20/18 18:20 20 100/75 99 12/20/18 18:00 107 20 100/75 100 Results - Laboratory Findings CBC and BMP: 12/20/18 09:47 12/20/18 09:47 ABG ABG pH 7.24 pH Units (7.32-7.45) L 12/20/18 10:55 ABG pCO2 100 mmHg (35-45) H* 12/20/18 10:55 ABG pO2 68 mmHg (85-104) L 12/20/18 10:55 ABG O2 Saturation 87 % (95-98) L 12/20/18 10:55 PT/INR, D-dimer PT 11.7 Seconds (9.4-12.1) 12/20/18 09:47 Abnormal lab findings: Abnormal lab results RBC 3.76 M/mcL (4.19-5.50) L 12/20/18 09:47 Hgb 11.8 g/dL (12.9-16.9) L D 12/20/18 09:47 Hct 36.7 % (37.5-50.1) L 12/20/18 09:47 RDW 15.9 % (11.5-14.5) H 12/20/18 09:47 Plt Count 129 K/mcL (140-400) L 12/20/18 09:47 Heparin Anti-Xa, Unfract 0.00 IU/mL (0.30-0.70) L 12/20/18 15:53 ABG pH 7.24 pH Units (7.32-7.45) L 12/20/18 10:55 ABG pCO2 100 mmHg (35-45) H* 12/20/18 10:55 ABG pO2 68 mmHg (85-104) L 12/20/18 10:55 ABG HCO3 43 mEq/L (21-27) H 12/20/18 10:55 ABG Total CO2 46 mEq/L (20-26) H 12/20/18 10:55 ABG O2 Saturation 87 % (95-98) L 12/20/18 10:55 ABG Base Excess 11 mEq/L (-2 to 3) H 12/20/18 10:55 Sodium 134 mEq/L (136-145) L 12/20/18 09:47 Chloride 91 mEq/L (98-107) L 12/20/18 09:47 Carbon Dioxide 40 mEq/L (23-29) H* 12/20/18 09:47 Creatinine 0.67 mg/dL (0.70-1.30) L 12/20/18 09:47 Glucose 128 mg/dL (70-105) H 12/20/18 09:47 Serum Total Protein 5.7 g/dL (6.4-8.9) L 12/20/18 09:47 Globulin 2.2 g/dL (2.4-3.5) L 12/20/18 09:47 Urine Protein 30 mg/dL (Neg-Trace) H 12/20/18 16:35 Urine Microscopic RBC 5-15 per hpf (0-3) H 12/20/18 16:35 Urine Microscopic WBC 5-15 per hpf (0-3) H 12/20/18 16:35 Ur Squamous Epith Cells Many per lpf (None-Few) H 12/20/18 16:35 Hyaline Casts Moderate per lpf (None-Few) H 12/20/18 16:35 Nasal Screen MRSA (PCR) Positive (Negative) A 12/20/18 14:20 - Attending Attestation I saw and evaluated this patient and my medical decision-making was reviewed with the Resident Physician. I agree with the documented findings, disposition and treatment plan as described except to the extent set forth below. We independently had [id number] contact with the patient I spent 45 minutes of Critical Care time with this patient. It involved decision making of high complexity to assess, manipulate, and support vital organ system failure and/or to prevent further life threatening deterioration of the patient's condition. The time involved in the performance of separately reportable procedures was not counted toward critical care time. Patient seen and examined at bedside Labs, radiology, chart personally reviewed. Management was reviewed during multidisciplinary critical care rounds. HAIR BOILER: Patient is intubated and ventilated he is following commands no evidence of significant toxic/metabolic encephalopathy no evidence of focal neurological deficit. Pulm: Patient has bilateral PE that caused this V/Q mismatch patient has acceptable oxygenation and ventilation with low tidal volume strategy . Current broad-spectrum antibiotics as patient presented with sepsis criteria Cards: Patient presented with sepsis criteria but no evidence of hypotension, no evidence of septic shock currently FEN-GI: Advance diet tomorrow. Renal: Labs and output were reviewed ID: To cover with broad-spectrum antibiotics Heme/Onc: Patient with small cell lung carcinoma undergoing chemoradiation therapy Endo: Glucose Monitored Integ/MSK: Skin Care per routine ICU Nursing Protocol to prevent ulcers. Lines: All lines examined without evidence of infection : Dispo: Critically ill CODE: Full Code
[2018-12-20] MEDS ORDERED: Ipratropium/Albuterol Neb 3 ML IH PRN (13:23)
[2018-12-20] MEDS ORDERED: Levofloxacin 750 MG/150 ML 750 MG/150 ML BAG IVPB SCH (13:45)
[2018-12-20] MEDS ORDERED: Isovue-370 500 ML BOTTLE IVP ONE (14:17)
[2018-12-20] MEDS ORDERED: *HR* Heparin 5,000 UNIT/ML VIAL IVP ONE (15:34)
[2018-12-20] MEDS ORDERED: *HR* Heparin 5,000 UNIT/ML VIAL IVP PRN ×2 (15:34)
--- NOTE | 2018-12-20 15:43 | Electrocardiograph Report ---
[address] [address] Test Date: 2018-12-20 Pat Name: Rishabh Salcedo Department: [facility] Room: 10 Gender: M [employer]: : 1960 Requested By: Everett Moser Order Number: [id number] Reading MD: Erin Skinner Measurements Intervals [place] Rate: 100 P: 41 [place]: 148 QRS: 34 QRSD: 99 T: 56 QT: 334 QTc: 431 Interpretive Statements Sinus tachycardia Baseline wander Electronically Signed On 12-20-2018 15:41:50 EDT by Erin Skinner
--- NOTE | 2018-12-20 15:44 | Event Note ---
Date of Encounter: 12/20/18 Time of Encounter: 15:35 Discussed with [facility] radiology results of the CTA chest. Patient has bilateral pulmonary embolism. Will obtain heparin anti factor XA lab and will start the patient on heparin drip at this time. CT head without acute intracranial abnormality. Patient is also positive for influenza A and will be started on Tamiflu.
[2018-12-20] MEDS ORDERED: Heparin 25,000 UNIT/250 ML D5W 25,000 UNIT/250 ML IV.SOLN IVC SCH (15:45)
--- NOTE | 2018-12-20 16:01 | Oncology Inp Consult Note ---
<Mary Ruelas L - Last Filed: 12/20/18 16:39> Date of Encounter: 12/20/18 Time of Encounter: 14:00 Assessment and Plan (1) Pulmonary embolism Status: Acute Assessment and plan: CTA reveals acute bilateral pulmonary emboli involving the lower lobe and right middle lobe segmental pulmonary arteries Plan: Started on heparin gtt Qualifiers: Qualified Code(s): I26.99 - Other pulmonary embolism without acute cor p ulmonale (2) Small cell lung cancer Status: Acute Assessment and plan: MSmall cell lung cancer, Stage IV. Initiated on cisplatin/etoposide cycle 1 and 2 with partial response. Most recently status post cycle #3 carboplatin/etoposide 12/14/2018, planning to add atezolizumab with cycle #4. Plan: Continue to monitor course of hospitalization and recovery of acute issues Further treatment to be explored on outpatient basis CTA does note findings consistent with a response to therapy manifested by interval decrease in size of a cavitary mass in the left upper lobe, decreased in size of a lingular mass and interval decrease in mediastinal adenopathy, multiple persistent bilateral pulmonary nodules (3) Acute respiratory failure with hypoxia and hypercapnia Status: Acute Assessment and plan: Likely multifactorial in setting of acute bilateral pulmonary emboli, COPD exacerbation, suspected pneumonia, influenza A Currently intubated On atb per ICU-cefepime, vanc, and levaquin Cultures pending, procal pending - Data of Consult Patient: new to practice Consult date: 12/20/18 Requesting Physician: Fidelina Parks MD Primary Care Provider: Jeferson Townsend MD - Consult Narrative Reason for consult: Small cell lung cancer History of present illness: Mr. Salcedo is a 58 year old with small cell lung cancer, Stage IV. Initiated on cisplatin/etoposide cycle 1 and 2 with partial response. Most recently status post cycle #3 carboplatin/etoposide 12/14/2018, planning to add atezolizumab with cycle #4. He presented to urgent care on 12/18/2018 with complaint of increasing SOB. Given rx for doxycycline. Presented to oncology visit on 12/19/2018 with continued productive cough, fever and SOB. He was given fluconazole and nystatin for thrush. Blood cultures obtained. CXR with no acute findings, lung hyperinflation. He presented to ER on 12/20/2018 for SOB and AMS. In the ER he was noted to have hypoxia and respiratory distress, ABG showed hypercapnia, he was placed on bipap. He became somnolent in ER with worsening hypercapnia and intubated. He was transferred to ICU. Past Med Surg Social Fam HX - Past Medical History Medical history: arthritis, cancer, COPD, hypertension, other Additional medical history: stage III lung cancer Psychiatric history: depression - Past Surgical History Additional surgical history: back surgery - Social History Smoking Status: Current every day smoker Smokeless Tobacco Status: No Alcohol use: none Drug use: none - Family History Father Living Status: Hx Family Cardiac Disorders: No Hx Family Respiratory Disorders: No Hx Family Cancer: Yes Hx Family GI Disorders: No Hx Family Endocrine Disorder: No Hx Family Neuromuscular Disorders: No Hx Family Neurologic Disorders: No Hx Family HEENT Disorders: No Hx Family Autoimmune Disorders: No Mother Living Status: Hx Family Cardiac Disorders: No Hx Family Respiratory Disorders: No Hx Family Cancer: Yes Hx Family GI Disorders: No Hx Family Endocrine Disorder: No Hx Family Neuromuscular Disorders: No Hx Family Neurologic Disorders: No Hx Family HEENT Disorders: No Hx Family Autoimmune Disorders: No Medications and Allergies RX: Aspirin [Lo-Dose Aspirin EC] 81 mg PO DAILY 09/28/18 [History] RX: Cyanocobalamin (Vitamin B-12) [Vitamin B-12] 100 mcg PO DAILY 09/28/18 [History] RX: DULoxetine [Cymbalta] 30 mg PO DAILY 09/28/18 [History] RX: Doxepin [Sinequan] 25 mg PO HS 09/28/18 [History] RX: Gabapentin [Neurontin] 600 mg PO TID 09/28/18 [History] RX: Guaifenesin/Dm/Pseudoephedrine [Capmist Dm Tablet] 1 each PO BID 09/28/18 [History] RX: Meloxicam [Mobic] 15 mg PO DAILY 09/28/18 [History] RX: Oxycodone HCl [Roxybond] 15 mg PO 5XD 09/28/18 [History] RX: Tizanidine HCl 4 mg PO Q8H 09/28/18 [History] RX: diazePAM [Valium] 5 mg PO BID 09/28/18 [History] RX: amLODIPine [Norvasc] 5 mg PO DAILY #30 tablet 10/03/18 [Rx] Prochlorperazine Maleate [Compazine] 10 mg PO Q8HR PRN #90 tablet 10/17/18 [Rx] RX: Dexamethasone [Decadron] 4 mg PO BID PRN #45 tab 10/17/18 [Rx] Albuterol Sulfate [Proair Hfa] 1 puff IH PRN PRN #1 inh 10/31/18 [Rx] Ipratropium/Albuterol Neb [Duoneb] 3 ml IH Q4HR PRN 30 Days #120 vial.neb 10/31/18 [Rx] RX: Budesonide/Formoterol 160/4.5 [Symbicort 160/4.5] 2 puff IH BIDR #1 inh [Rx] RX: Ondansetron HCl 8 mg PO Q8H PRN #45 tablet 11/21/18 [Rx] RX: Doxycycline Hyclate 100 mg PO BID 7 Days #14 tablet 12/18/18 [Rx] RX: GuaiFENesin/Dextromethorphan [Tussin Dm Syrup] 10 ml PO QID PRN #240 ml 12/18/18 [Rx] Fluconazole [Diflucan] 100 mg PO DAILY #7 tablet 12/19/18 [Rx] Nystatin [Nystatin Suspension] 100,000 units PO QID #120 ml 12/19/18 [Rx] RX: predniSONE [PredniSONE] 20 mg PO DAILY #60 tablet 12/19/18 [Rx] RX: predniSONE [PredniSONE] 30 mg PO DAILY #90 tablet 12/19/18 [Rx] Sodium Chloride [Sodium Chloride Tab] 2 gm PO DAILY #60 tablet 12/19/18 [Rx] Allergy/AdvReac Type Severity Reaction Status Date / Time Penicillins [PCN] Allergy See Verified 12/19/18 15:04 Comments venlafaxine AdvReac Gastrointestinal Verified 12/19/18 15:04 Upset ROS unobtainable: due to endotracheal tube Oncology - Exam - Constitutional General appearance: no acute distress, no febrile Exam: sedated and intubated - Head Head exam: Present: atraumatic - Respiratory Respiratory exam: Present: decreased breath sounds. Absent: respiratory distress - Cardiovascular Cardiovascular exam: Present: RRR, +S1, +S2 - GI/Abdominal GI/Abdominal exam: Present: normal bowel sounds, soft - Extremities Exam Extremities exam: Present: normal inspection. Absent: calf tenderness - Neurological Exam Additional comments: sedated - Psychiatric Additional comments: unable to assess - Skin Skin exam: Present: dry, intact, normal color, warm Consult Discharge Plan - Plan Referrals: Jeferson Townsend MD [Primary Care Provider] - Inpatient Charges Provider: Dr. Omayra Bustillos <ApolloTadeo - Last Filed: 12/20/18 17:33> Date of Encounter: 12/20/18 - Data of Consult Requesting Physician: Fidelina aPrks MD Primary Care Provider: Jeferson Townsend MD - Attending Attestation Patient with emphysema, metastatic small cell lung cancer status post recent chemotherapy with cisplatin etoposide, influenza positive, bilateral pulmonary embolism hypercapnia hypoxemia patient is intubated awake but lethargic. Prognosis guarded continue supportive treatment, imaging findings, care discussed with family and staff bedside. I examined this patient and my medical decision-making was reviewed with the Advanced Practice Nurse, Mary Ruelas. I agree with the documented findings, disposition and treatment plan as described except to the extent set forth below. Inpatient Charges Provider: Dr. Omayra Bustillos Consult - Inpatient: [id number]
[2018-12-20] MEDS: Cefepime HCl 1,000 MG in 0.9 % Sodium Chloride Mini Bag 100 ML IVP SCH (16:07)
[2018-12-20] MEDS: Artificial Tears SOLN 15 ML BOTTLE BOTH EYES SCH ×3 (16:08→21:25)
[2018-12-20 16:51] LABS: Bacteria,Urine None Seen per hpf (None-Few); Bilirubin,Urine Negative (Negative); Blood,Urine Negative (Negative); Clarity,Urine Clear (Clear); Color,Urine Dark Yellow (Yellow); Glucose,Urine (UA) Normal (Normal); Hyaline Casts,Urine Moderate per lpf (None-Few); Ketones,Urine Negative (Negative); Leukocyte Esterase,Urine Negative (Negative); Nitrite,Urine Negative (Negative); Protein,Urine 30 mg/dL (Neg-Trace); Squamous Epithelial Cell,Urine Many per lpf (None-Few); Urobilinogen,Urine Normal (Normal)
[2018-12-20] MEDS: *HR* Enoxaparin 80 MG/0.8 ML SYRINGE SQ SCH (18:06)
[2018-12-20] MEDS ORDERED: Perflutren Lipid Microsphere 1.3 ML in 0.9 % Sodium Chloride 8.7 ML IVP ONE (20:40)
[2018-12-20] MEDS: Chlorhexidine Rinse 15 ML MOUTHWASH MM SCH (21:26)
[2018-12-21] MEDS: Artificial Tears SOLN 15 ML BOTTLE BOTH EYES SCH ×7 (00:09→23:15)
[2018-12-21] MEDS: Cefepime HCl 1,000 MG in 0.9 % Sodium Chloride Mini Bag 100 ML IVP SCH ×2 (00:11→07:08)
[2018-12-21] MEDS: *HR* Enoxaparin 80 MG/0.8 ML SYRINGE SQ SCH ×2 (04:45→16:46)
[2018-12-21 04:55] LABS: Basophils % 0.5 %; Eosinophils % 0.2 %; Hematocrit 30.7 % (37.5-50.1); Lymphocytes # 1.4 K/mcL (0.6-4.6); Lymphocytes % 34.1 %; Mean Corpuscular HGB Conc 32.6 g/dL (31.6-35.5); Mean Corpuscular Hemoglobin 30.9 pg (28.0-33.3); Mean Corpuscular Volume 94.8 fL (83.0-100.0); Mean Platelet Volume 9.7 fL (9.4-12.4); Monocytes # 0.2 K/mcL (0.0-1.3); Monocytes % 4.2 %; Neutrophils # 2.4 K/mcL (1.6-8.9); Platelet Count 102 K/mcL (140-400); Red Blood Count 3.24 M/mcL (4.19-5.50); Red Cell Distribution Width 15.9 % (11.5-14.5)
[2018-12-21 05:14] LABS: BUN/Creatinine Ratio 37 (6-26); Blood Urea Nitrogen 21 mg/dL (6-20); Calcium 8.5 mg/dL (8.6-10.3); Carbon Dioxide 31 mEq/L (23-29); Chloride 97 mEq/L (98-107); Dohle Bodies Present (Not Present); Glucose 102 mg/dL (70-105); Osmolality,Calculated 279 (280-300); Platelet Estimate Slight Decrease (Normal); Potassium 3.6 mEq/L (3.5-5.1); Sodium 133 mEq/L (136-145); eGFR For Non-African Americans > 60 (> 60)
[2018-12-21 05:17] LABS: ABG Base Excess 10 mEq/L (-2 to 3); ABG HCO3 34 mEq/L (21-27); ABG Oxygen Saturation 96 % (95-98); ABG PCO2 42 mmHg (35-45); ABG PH 7.51 pH Units (7.32-7.45); ABG PO2 73 mmHg (85-104); ABG TCO2 35 mEq/L (20-26); Blood Gas Modality ASSIST CONTROL; Blood Gas PEEP 5 cm H2O; Blood Gas Respiration Rate 20; Blood Gas VT 600 cc
[2018-12-21] MEDS: Chlorhexidine Rinse 15 ML MOUTHWASH MM SCH ×2 (07:14→16:59)
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
[2018-12-21] MEDS ORDERED: diazePAM 5 MG TABLET PO PRN (11:07)
[2018-12-21] MEDS ORDERED: Ondansetron 4 MG/2 ML VIAL IVP PRN (11:36)
[2018-12-21] MEDS: Nystatin SUSP 5 ML UD.LIQ PO SCH ×3 (13:19→20:12)
[2018-12-21] MEDS: Gentamicin Oint 15 GM TUBE TP SCH (16:58)
[2018-12-21] MEDS ORDERED: Furosemide 20 MG/2 ML VIAL IVP ONE (18:11)
[2018-12-21 18:27] LABS: ABG Base Excess 11 mEq/L (-2 to 3); ABG HCO3 41 mEq/L (21-27); ABG Oxygen Saturation 88 % (95-98); ABG PCO2 90 mmHg (35-45); ABG PH 7.27 pH Units (7.32-7.45); ABG PO2 66 mmHg (85-104); ABG TCO2 44 mEq/L (20-26)
[2018-12-21] MEDS: *HR* OxyCODONE Immed Rel 15 MG TABLET PO PRN (20:11)
[2018-12-21] MEDS: Ipratropium/Albuterol Neb 3 ML IH SCH (20:37)
[2018-12-21 20:42] LABS: ABG Base Excess 12 mEq/L (-2 to 3); ABG HCO3 40 mEq/L (21-27); ABG Oxygen Saturation 91 % (95-98); ABG PCO2 72 mmHg (35-45); ABG PH 7.35 pH Units (7.32-7.45); ABG PO2 67 mmHg (85-104); ABG TCO2 42 mEq/L (20-26)
[2018-12-22] MEDS ORDERED: Furosemide 20 MG/2 ML VIAL IVP ONE (00:01)
[2018-12-22] MEDS: *HR* OxyCODONE Immed Rel 15 MG TABLET PO PRN ×6 (00:19→18:26)
[2018-12-22] MEDS: Ipratropium/Albuterol Neb 3 ML IH SCH ×7 (00:22→23:46)
[2018-12-22 05:53] LABS: Basophils % 0.3 %; Eosinophils % 0.7 %; Hematocrit 32.9 % (37.5-50.1); Hemoglobin 10.5 g/dL (12.9-16.9); Immature Granulocytes % 1.3 % (0-4); Mean Corpuscular HGB Conc 31.9 g/dL (31.6-35.5); Mean Corpuscular Hemoglobin 30.8 pg (28.0-33.3); Mean Corpuscular Volume 96.5 fL (83.0-100.0); Mean Platelet Volume 10.6 fL (9.4-12.4); Monocytes # 0.2 K/mcL (0.0-1.3); Monocytes % 5.3 %; Neutrophils # 1.8 K/mcL (1.6-8.9); Platelet Count 113 K/mcL (140-400); Red Blood Count 3.41 M/mcL (4.19-5.50); Red Cell Distribution Width 15.9 % (11.5-14.5); Segmented Neutrophils % 58.4 %
[2018-12-22] MEDS: *HR* Enoxaparin 80 MG/0.8 ML SYRINGE SQ SCH ×2 (05:55→18:26)
[2018-12-22 06:03] LABS: INR 1.2; Prothrombin Time 13.1 Seconds (9.4-12.1)
[2018-12-22 06:06] LABS: Activated Partial Thrombo Time 32.3 Seconds (26.0-36.0)
[2018-12-22 06:16] LABS: BUN/Creatinine Ratio 19 (6-26); Blood Urea Nitrogen 9 mg/dL (6-20); Carbon Dioxide 41 mEq/L (23-29); Chloride 92 mEq/L (98-107); Glucose 145 mg/dL (70-105); Osmolality,Calculated 285 (280-300); Potassium 3.2 mEq/L (3.5-5.1); Sodium 137 mEq/L (136-145); eGFR For Non-African Americans > 60 (> 60)
[2018-12-22 06:53] LABS: Platelet Estimate Decreased (Normal)
[2018-12-22 07:15] LABS: Calcium 8.5 mg/dL (8.6-10.3)
[2018-12-22] MEDS: Nystatin SUSP 5 ML UD.LIQ PO SCH ×4 (08:17→21:32)
[2018-12-22] MEDS: Gentamicin Oint 15 GM TUBE TP SCH (08:18)
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
[2018-12-22 14:14] LABS: ABG Base Excess 15 mEq/L (-2 to 3); ABG HCO3 44 mEq/L (21-27); ABG Oxygen Saturation 95 % (95-98); ABG PCO2 86 mmHg (35-45); ABG PH 7.32 pH Units (7.32-7.45); ABG PO2 90 mmHg (85-104); ABG TCO2 47 mEq/L (20-26)
[2018-12-22] MEDS: Gabapentin 300 MG CAPSULE PO SCH ×2 (15:09→21:33)
[2018-12-23] MEDS: Gabapentin 300 MG CAPSULE PO SCH ×4 (01:21→20:40)
[2018-12-23] MEDS: *HR* OxyCODONE Immed Rel 15 MG TABLET PO PRN ×2 (01:21→06:22)
[2018-12-23] MEDS: Ipratropium/Albuterol Neb 3 ML IH SCH ×6 (04:22→20:41)
[2018-12-23 06:03] LABS: Basophils % 0.6 %; Eosinophils % 0.6 %; Hematocrit 34.8 % (37.5-50.1); Immature Granulocytes % 0.9 % (0-4); Lymphocytes # 1.5 K/mcL (0.6-4.6); Mean Corpuscular HGB Conc 31.6 g/dL (31.6-35.5); Mean Corpuscular Hemoglobin 30.8 pg (28.0-33.3); Mean Corpuscular Volume 97.5 fL (83.0-100.0); Monocytes # 0.3 K/mcL (0.0-1.3); Monocytes % 7.3 %; Neutrophils # 1.6 K/mcL (1.6-8.9); Platelet Count 125 K/mcL (140-400); Red Blood Count 3.57 M/mcL (4.19-5.50); Red Cell Distribution Width 15.3 % (11.5-14.5); Segmented Neutrophils % 45.6 %
[2018-12-23] MEDS: *HR* Enoxaparin 80 MG/0.8 ML SYRINGE SQ SCH ×2 (06:23→17:07)
[2018-12-23 06:24] LABS: BUN/Creatinine Ratio 12 (6-26); Blood Urea Nitrogen 6 mg/dL (6-20); Carbon Dioxide 42 mEq/L (23-29); Chloride 90 mEq/L (98-107); Glucose 125 mg/dL (70-105); Osmolality,Calculated 285 (280-300); Potassium 4.6 mEq/L (3.5-5.1); Sodium 138 mEq/L (136-145); eGFR For Non-African Americans > 60 (> 60)
[2018-12-23 06:31] LABS: Anisocytosis 2+ (Not Present); Reactive Lymphocytes Present (Not Present)
[2018-12-23 06:32] LABS: Platelet Estimate Decreased (Normal); Stomatocytes 3+ (Not Present)
[2018-12-23] MEDS ORDERED: diazePAM 5 MG TABLET PO PRN (07:40)
[2018-12-23] MEDS ORDERED: Naloxone 0.4 MG/ML INJ IVP PRN (07:40)
[2018-12-23] MEDS ORDERED: Artificial Tears SOLN 15 ML BOTTLE BOTH EYES PRN (07:40)
[2018-12-23] MEDS ORDERED: *HR* OxyCODONE Immed Rel 15 MG TABLET PO PRN (07:40)
[2018-12-23] MEDS ORDERED: Ondansetron 4 MG/2 ML VIAL IVP PRN (07:40)
[2018-12-23] MEDS: amLODIPine 5 MG TABLET PO SCH (08:41)
[2018-12-23] MEDS: Aspirin Enteric Coated 81 MG Tablet PO SCH (08:41)
[2018-12-23] MEDS: Nystatin SUSP 5 ML UD.LIQ PO SCH ×4 (08:43→20:40)
[2018-12-23] MEDS ORDERED: Aspirin Enteric Coated 81 MG Tablet PO SCH (09:00)
[2018-12-23] MEDS ORDERED: amLODIPine 5 MG TABLET PO SCH (09:00)
--- NOTE | 2018-12-23 10:21 | Pulmonology Progress Note ---
Date of Encounter: 12/23/18 Time of Encounter: 10:21 Assessment and Plan (1) Acute respiratory failure with hypoxia and hypercapnia Current Visit: Yes Status: Acute Mr Salcedo presented with respiratory failure secondary to influenza A and acute bilateral pulmonary embolus he is a history of small cell lung cancer (stage IV) he had the improvement in the ICU prompting transfer to the [facility] telemetry but has become more encephalopathic I think that this is a combination of factors including rising hypercarbia and likely medication effect from sedative (narcotic and benzodiazepine) also cannot fully exclude possibility of developing sepsis. Recs: -Given anticoagulation agree with the urgent CT of head to rule out acute PLAYER MANAGER process -Continue BiPAP for now if continues to clinically decline with continued medical altered mental status will likely need intubation. To this end I recommend transferring patient back to ICU for closer monitoring. I have also adjusted his IPAP/EPAP hopefully improve minute ventilation -Clinically appears to be mildly volume overloaded will give one-time dose of 40 mg IV Lasix -Stop any PLAYER MANAGER depressant medication at this time and keep nothing by mouth for now -Obtained of cultures including urine blood and if possible sputum -Consider starting empiric antimicrobials for hospital associated pneumonia no clear evidence on chest x-ray but he is at very high risk for aspiration -Recommend checking ABG in 1-2 hours if worsening and becomes less responsive recommend intubation -Continue anticoagulation for PE -Continue antiviral treatment with Tamiflu tomorrow should complete therapy I updated the primary hospitalist service directly as well as the nursing staff in ICU nursing staff patient will need close monitoring until transfer to ICU Do not hesitate to call me with any questions or concerns [facility] [phone] (2) Acute encephalopathy Current Visit: Yes Status: Acute (3) Pulmonary embolism Current Visit: Yes Status: Acute Qualifiers: Pulmonary embolism type: other Chronicity: acute Acute cor pulmonale presence: without acute cor pulmonale Qualified Code(s): I26.99 - Other pulmonary embolism without acute cor pulmonale (4) Influenza A Current Visit: Yes Status: Acute Subjective Principal diagnosis: Pneumonia Interval history: I was called urgently evaluate the patient by the primary hospitalist service. Patient has had increasing lethargy over the morning. Per RT for BiPAP overnight but did not have it on this morning was noted to be saturating in the low 70s. Upon my arrival into the room patient is lethargic but able to be aroused wake up and follow some simple commands blood pressure is stable today as his heart rate he remains afebrile. Objective PUL Vital signs: Last Vital Signs Temp 99.6 F 12/23/18 09:04 Pulse 65 12/23/18 06:34 Resp 18 12/23/18 07:36 BP 136/70 12/23/18 06:34 Pulse Ox 96 12/23/18 07:36 The patient is sitting in bed he is lethargic able to be arousable however to voice wakes up opened his eyes and is able to follow commands and move all extremities there is no clear focal weakness on examination and his pupils are equal round and reactive to light Neck is supple He has breath sounds bilaterally with scattered rhonchi in the lung bases Heart sounds are audible without any murmur Abdomen is soft and nontender there are active bowel sounds appreciated No new rash or ecchymotic changes Lower extremity edema Distal pulses are easily palpable Results - Laboratory Findings CBC and BMP: 12/23/18 05:40 12/23/18 05:40 ABG ABG pH 7.32 pH Units (7.32-7.45) 12/22/18 14:10 ABG pCO2 86 mmHg (35-45) H* 12/22/18 14:10 ABG pO2 90 mmHg (85-104) 12/22/18 14:10 ABG O2 Saturation 95 % (95-98) 12/22/18 14:10 PT/INR, D-dimer PT 13.1 Seconds (9.4-12.1) H 12/22/18 05:13 Abnormal lab findings: Abnormal lab results WBC 3.4 K/mcL (4.3-11.1) L 12/23/18 05:40 RBC 3.57 M/mcL (4.19-5.50) L 12/23/18 05:40 Hgb 11.0 g/dL (12.9-16.9) L 12/23/18 05:40 Hct 34.8 % (37.5-50.1) L 12/23/18 05:40 RDW 15.3 % (11.5-14.5) H 12/23/18 05:40 Plt Count 125 K/mcL (140-400) L 12/23/18 05:40 Reactive Lymphocytes Present (Not Present) A 12/23/18 05:40 Dohle Bodies Present (Not Present) A 12/21/18 04:47 Platelet Estimate Decreased (Normal) L 12/23/18 05:40 Anisocytosis 2+ (Not Present) A 12/23/18 05:40 Stomatocytes 3+ (Not Present) A 12/23/18 05:40 PT 13.1 Seconds (9.4-12.1) H 12/22/18 05:13 Heparin Anti-Xa, Unfract 0.00 IU/mL (0.30-0.70) L 12/20/18 15:53 ABG pCO2 86 mmHg (35-45) H* 12/22/18 14:10 ABG HCO3 44 mEq/L (21-27) H 12/22/18 14:10 ABG Total CO2 47 mEq/L (20-26) H 12/22/18 14:10 ABG Base Excess 15 mEq/L (-2 to 3) H 12/22/18 14:10 Chloride 90 mEq/L (98-107) L 12/23/18 05:40 Carbon Dioxide 42 mEq/L (23-29) H* 12/23/18 05:40 Creatinine 0.49 mg/dL (0.70-1.30) L 12/23/18 05:40 Glucose 125 mg/dL (70-105) H 12/23/18 05:40 POC Glucose 115 mg/dL (70-99) H 12/22/18 12:10 Serum Total Protein 5.7 g/dL (6.4-8.9) L 12/20/18 09:47 Globulin 2.2 g/dL (2.4-3.5) L 12/20/18 09:47 Procalcitonin 0.18 ng/mL (<=0.07) H 12/20/18 15:44 Urine Protein 30 mg/dL (Neg-Trace) H 12/20/18 16:35 Urine Microscopic RBC 5-15 per hpf (0-3) H 12/20/18 16:35 Urine Microscopic WBC 5-15 per hpf (0-3) H 12/20/18 16:35 Ur Squamous Epith Cells Many per lpf (None-Few) H 12/20/18 16:35 Hyaline Casts Moderate per lpf (None-Few) H 12/20/18 16:35 Nasal Screen MRSA (PCR) Positive (Negative) A 12/20/18 14:20 - Diagnostic Findings Chest x-ray: report reviewed, image reviewed - Clinical Findings Intake & Output: Intake & Output 12/22/18 12/23/18 12/23/18 23:59 07:59 15:59 Intake Total 240 / 240 0 / 0 Output Total 575 / 575 Balance -335 / -335 0 / 0 Weight 65.2 kg Consult Discharge Plan - Plan Referrals: Jeferson Townsend MD [Primary Care Provider] -
[2018-12-23] MEDS ORDERED: Furosemide 40 MG/4 ML VIAL IVP STA (10:44)
[2018-12-23 10:46] LABS: ABG Base Excess 15 mEq/L (-2 to 3); ABG HCO3 45 mEq/L (21-27); ABG Oxygen Saturation 85 % (95-98); ABG PCO2 92 mmHg (35-45); ABG PO2 59 mmHg (85-104); ABG TCO2 48 mEq/L (20-26)
[2018-12-23] MEDS ORDERED: Furosemide 40 MG/4 ML VIAL ONE (10:48)
--- NOTE | 2018-12-23 11:06 | Internal Med Progress Note ---
Hospitalist Progress Note - Encounter Date of Encounter: 12/23/18 Time of Encounter: 09:03 - Subjective Interval History: Patient was seen and examined at bedside. He is drowsy and not following commands. Opens his eyes on deep palpation of his chest however falls quickly back to sleep. Not following commands. On BiPAP. Not responding to any questions. Was unable to obtain review of systems have urinary to mental status. Family at bedside it is discussed the plan of care and they understand that he is at low threshold for intubation again secondary to poor mental status - Exam Vitals: Temp Pulse Resp BP Pulse Ox 99.3 F 93 18 123/28 97 12/23/18 11:00 12/23/18 11:00 12/23/18 11:00 12/23/18 11:00 12/23/18 11:00 Exam: General: Patient lethargic, drowsy, not following any commands on BiPAP Head: atraumatic, normocephalic, Eye: Anicteric, pinpoint, EOMI Neck: normal inspection, trachea midline, full ROM, no JVD Chest: normal inspection, symmetric chest rise Respiratory: Decreased breath sounds bilaterally, crackles in the posterior lung field, no wheezing appreciated Cardiovascular: Regular rate and rhythm. s1 and s2 No clicks, rubs, gallops, or murmors. Abdomen: Bowel sounds present normoactive x-4 quadrants. Abdomen is soft, nondistended. no Epigastric tenderness. No guarding or rebound. No organomegaly noted, musculoskeletal: no edema, no calf tenderness Skin: warm, dry, intact. Neuro: Drowsy, lethargic, not following any commands, arousable on deep palpation of the chest. Falls back to sleep quickly, pupils are pinpoint could not appreciate reaction - Assessment and Plan (1) Acute respiratory failure with hypoxia and hypercapnia Current Visit: Yes Status: Acute Assessment and Plan: Acute respiratory failure with hypoxia and hypercapnia We will repeat ABG stat as mental status has worsened Continue with BiPAP Pulmonary was consulted will follow recommendations Blood cultures no growth to date Urine antigens negative Influenza positive on antivirals Chest x-ray STAT We will give Lasix IV once Nothing by mouth Strict aspiration precautions Elevate the head of the bed (2) Acute encephalopathy Current Visit: Yes Status: Acute Assessment and Plan: Acute encephalopathy most likely combination of medication induced and metabolic Most likely hyper and Will follow ABG CT head stat Neuro checks every 4 hours Avoid benzodiazepines and opiates ( last dose of opiate at around 630 AM) pulm reconsulted for Bipap vs intubation elevate HOB Aspiration, fall, seizure precautions ICU reconsulted as he will be transferred back to the ICU for close monitoring- will follow recommendation. (3) Influenza A Current Visit: Yes Status: Acute Assessment and Plan: continue with tamiflu (4) Pulmonary embolism Current Visit: Yes Status: Acute Assessment and Plan: continue with lovenox heme/onc on board TTE: Impressions: LVEF 60-65%. Mild left ventricular diastolic dysfunction. Normal right ventricular structure and function. No evidence of pulmonary hypertension. Atypical septal motion consistent with flattened septum with septal bounce. Clinical correlation is suggested. No significant valvular dysfunction. (5) Small cell lung cancer Current Visit: Yes Status: Acute Assessment and Plan: Small cell lung cancer, Stage IV. Initiated on cisplatin/etoposide cycle 1 and 2 with partial response. Most recently status post cycle #3 carboplatin/etoposide 12/14/2018, planning to add atezolizumab with cycle #4. oncology on board (6) Wound of left lower extremity Current Visit: Yes Status: Acute Assessment and Plan: wound care consulted by ICU team will follow recommendations. (7) DVT prophylaxis Current Visit: Yes Status: Acute Assessment and Plan: on therapeutic lovenox - Time Spent with Patient Total time spent is greater than 50% in coordination of care (as documented) at patient's floor/unit and/or counseling patient: Internal Medicine: Result - Labs CBC & Chem 7: 12/23/18 05:40 12/23/18 05:40 Labs: Short CBC 12/23/18 Range/Units 05:40 WBC 3.4 L (4.3-11.1) K/mcL Hgb 11.0 L (12.9-16.9) g/dL Hct 34.8 L (37.5-50.1) % Plt Count 125 L (140-400) K/mcL Neutrophils # 1.6 (1.6-8.9) K/mcL BMP 12/23/18 05:40 Sodium 138 Potassium 4.6 Chloride 90 L Carbon Dioxide 42 H* BUN 6 Creatinine 0.49 L Glucose 125 H Calcium 9.0 - ABG Interpretation ABG results: ABG ABG pH 7.30 pH Units (7.32-7.45) L 12/23/18 10:32 ABG pCO2 92 mmHg (35-45) H* 12/23/18 10:32 ABG pO2 59 mmHg (85-104) L 12/23/18 10:32 ABG O2 Saturation 85 % (95-98) L 12/23/18 10:32 PT/INR, D-dimer PT 13.1 Seconds (9.4-12.1) H 12/22/18 05:13 - Impressions Impressions Chest X-Ray 12/23/18 10:24 IMPRESSION: Extubation. Otherwise no change. D/ / Pankaj Pantoja MD / Pankaj Pantoja MD Interpreting Provider: Pankaj Pantoja MD Consult Discharge Plan - Plan Referrals: Jeferson Townsend MD [Primary Care Provider] - (4) Pulmonary embolism Qualifiers: Pulmonary embolism type: other Chronicity: acute Acute cor pulmonale presence: without acute cor pulmonale Qualified Code(s): I26.99 - Other pulmonary embolism without acute cor pulmonale (6) Wound of left lower extremity Qualifiers: Encounter type: initial encounter Qualified Code(s): S81.802A - Unspecified o pen wound, left lower leg, initial encounter
[2018-12-23 13:57] LABS: ABG Base Excess 17 mEq/L (-2 to 3); ABG HCO3 45 mEq/L (21-27); ABG Oxygen Saturation 93 % (95-98); ABG PCO2 78 mmHg (35-45); ABG PH 7.37 pH Units (7.32-7.45); ABG PO2 74 mmHg (85-104); ABG TCO2 48 mEq/L (20-26)
[2018-12-23] MEDS: Gentamicin Oint 15 GM TUBE TP SCH (15:50)
[2018-12-23] MEDS: Clindamycin 600 MG/50 ML 600 MG/50 ML IV.SOLN IVPB SCH (16:34)
[2018-12-23] MEDS: Aztreonam 2,000 MG in Water for inj. (sterile) 20 ML 20 ML IVP SCH (17:06)
[2018-12-23] MEDS: Ketorolac 15 MG/ML VIAL IVP PRN (18:40)
[2018-12-24] MEDS: Aztreonam 2,000 MG in Water for inj. (sterile) 20 ML 20 ML IVP SCH ×4 (00:01→23:25)
[2018-12-24] MEDS: Clindamycin 600 MG/50 ML 600 MG/50 ML IV.SOLN IVPB SCH ×4 (00:02→23:26)
[2018-12-24] MEDS: Ketorolac 15 MG/ML VIAL IVP PRN ×4 (00:15→17:37)
[2018-12-24] MEDS: Ipratropium/Albuterol Neb 3 ML IH SCH ×7 (00:26→23:27)
[2018-12-24] MEDS: *HR* Enoxaparin 80 MG/0.8 ML SYRINGE SQ SCH (04:12)
[2018-12-24 05:49] LABS: ABG Base Excess 16 mEq/L (-2 to 3); ABG HCO3 44 mEq/L (21-27); ABG Oxygen Saturation 94 % (95-98); ABG PCO2 68 mmHg (35-45); ABG PH 7.41 pH Units (7.32-7.45); ABG PO2 75 mmHg (85-104); ABG TCO2 46 mEq/L (20-26); Blood Gas PEEP 14 cm H2O; Blood Gas Pressure Support 8 cm H2O
[2018-12-24 07:05] LABS: Hematocrit 33.2 % (37.5-50.1); Hemoglobin 10.6 g/dL (12.9-16.9); Mean Corpuscular HGB Conc 31.9 g/dL (31.6-35.5); Mean Corpuscular Hemoglobin 30.9 pg (28.0-33.3); Mean Corpuscular Volume 96.8 fL (83.0-100.0); Mean Platelet Volume 10.2 fL (9.4-12.4); Platelet Count 134 K/mcL (140-400); Red Blood Count 3.43 M/mcL (4.19-5.50); Red Cell Distribution Width 15.4 % (11.5-14.5)
[2018-12-24 07:30] LABS: BUN/Creatinine Ratio 33 (6-26); Blood Urea Nitrogen 15 mg/dL (6-20); Calcium 9.1 mg/dL (8.6-10.3); Carbon Dioxide 44 mEq/L (23-29); Chloride 90 mEq/L (98-107); Glucose 107 mg/dL (70-105); Osmolality,Calculated 287 (280-300); Potassium 4.2 mEq/L (3.5-5.1); Sodium 138 mEq/L (136-145); eGFR For Non-African Americans > 60 (> 60)
[2018-12-24 07:47] LABS: Eosinophils # 0.1 K/mcL (0.0-0.6); Lymphocytes # 1.1 K/mcL (0.6-4.6); Monocytes # 0.1 K/mcL (0.0-1.3); Neutrophils # 1.5 K/mcL (1.6-8.9); Reactive Lymphocytes Present (Not Present); Toxic Granulation Present (Not Present)
[2018-12-24 07:49] LABS: Platelet Estimate Slight Decrease (Normal)
[2018-12-24] MEDS: Gabapentin 300 MG CAPSULE PO SCH ×3 (07:56→20:19)
[2018-12-24] MEDS: Aspirin Enteric Coated 81 MG Tablet PO SCH (07:57)
[2018-12-24] MEDS: Nystatin SUSP 5 ML UD.LIQ PO SCH ×4 (07:57→20:19)
[2018-12-24] MEDS: amLODIPine 5 MG TABLET PO SCH (07:57)
[2018-12-24] MEDS: Gentamicin Oint 15 GM TUBE TP SCH (07:58)
[2018-12-24] MEDS ORDERED: Furosemide 40 MG/4 ML VIAL IVP ONE (08:06)
--- NOTE | 2018-12-24 09:07 | Pulmonology Progress Note ---
Date of Encounter: 12/24/18 Time of Encounter: 09:07 Assessment and Plan (1) Acute respiratory failure with hypoxia and hypercapnia Current Visit: Yes Status: Acute Continue nasal cannula O2 and BiPAP as needed for work of breathing at this point I recommend patient use BiPAP at night and a time that he sleeping He will continue to respond to diuresis Possibly a component of pneumonia although cultures as far remain negative I suspect if no clear evidence of pneumonia the 24-40 hour. Antibiotics can be stopped (2) Acute encephalopathy Current Visit: Yes Status: Acute This is multifactorial and is resolving large part I suspect related to hypercarbia and hypoxia is resolving (3) Pulmonary embolism Current Visit: Yes Status: Acute Continue anticoagulation Qualifiers: Pulmonary embolism type: other Chronicity: acute Acute cor pulmonale presence: without acute cor pulmonale Qualified Code(s): I26.99 - Other pulmonary embolism without acute cor pulmonale (4) Influenza A Current Visit: Yes Status: Acute He has completed treatment for this Stable for transfer to second floor telemetry for ongoing care family updated at bedside Subjective Principal diagnosis: Pneumonia Interval history: Mr Salcedo has done well the last 24 hours he responded to BiPAP therapy much more awake now in fact he was sitting up eating breakfast when I came into the room. Has remained hemodynamically stable responsive to diuretic Objective PUL Vital signs: Last Vital Signs Temp 97.6 F 12/24/18 04:19 Pulse 92 12/24/18 08:00 Resp 24 12/24/18 08:00 BP 129/77 12/24/18 08:00 Pulse Ox 90 12/24/18 08:00 General appearance: no acute distress Eyes: nonicteric Neck: supple Auscultation: bilateral: rales (in lung bases ) Cardiovascular: regular rate and rhythm Gastrointestinal: soft, non-tender Integumentary: normal Extremities: no cyanosis, no clubbing, edema Musculoskeletal: no deformities normal mental status, non-focal exam mood appropriate Results - Laboratory Findings CBC and BMP: 12/24/18 06:33 12/24/18 06:33 ABG ABG pH 7.41 pH Units (7.32-7.45) 12/24/18 05:46 ABG pCO2 68 mmHg (35-45) H 12/24/18 05:46 ABG pO2 75 mmHg (85-104) L 12/24/18 05:46 ABG O2 Saturation 94 % (95-98) L 12/24/18 05:46 PT/INR, D-dimer PT 13.1 Seconds (9.4-12.1) H 12/22/18 05:13 Abnormal lab findings: Abnormal lab results WBC 2.8 K/mcL (4.3-11.1) L 12/24/18 06:33 RBC 3.43 M/mcL (4.19-5.50) L 12/24/18 06:33 Hgb 10.6 g/dL (12.9-16.9) L 12/24/18 06:33 Hct 33.2 % (37.5-50.1) L 12/24/18 06:33 RDW 15.4 % (11.5-14.5) H 12/24/18 06:33 Plt Count 134 K/mcL (140-400) L 12/24/18 06:33 Band Neutrophils % 10.0 % (0-4) H 12/24/18 06:33 Neutrophils # 1.5 K/mcL (1.6-8.9) L 12/24/18 06:33 Reactive Lymphocytes Present (Not Present) A 12/24/18 06:33 Toxic Granulation Present (Not Present) A 12/24/18 06:33 Dohle Bodies Present (Not Present) A 12/21/18 04:47 Platelet Estimate Slight Decrease (Normal) L 12/24/18 06:33 Anisocytosis 2+ (Not Present) A 12/23/18 05:40 Stomatocytes 3+ (Not Present) A 12/23/18 05:40 PT 13.1 Seconds (9.4-12.1) H 12/22/18 05:13 Heparin Anti-Xa, Unfract 0.00 IU/mL (0.30-0.70) L 12/20/18 15:53 ABG pCO2 68 mmHg (35-45) H 12/24/18 05:46 ABG pO2 75 mmHg (85-104) L 12/24/18 05:46 ABG HCO3 44 mEq/L (21-27) H 12/24/18 05:46 ABG Total CO2 46 mEq/L (20-26) H 12/24/18 05:46 ABG O2 Saturation 94 % (95-98) L 12/24/18 05:46 ABG Base Excess 16 mEq/L (-2 to 3) H 12/24/18 05:46 Chloride 90 mEq/L (98-107) L 12/24/18 06:33 Carbon Dioxide 44 mEq/L (23-29) H* 12/24/18 06:33 Creatinine 0.46 mg/dL (0.70-1.30) L 12/24/18 06:33 BUN/Creatinine Ratio 33 (6-26) H 12/24/18 06:33 Glucose 107 mg/dL (70-105) H 12/24/18 06:33 POC Glucose 111 mg/dL (70-99) H 12/24/18 00:02 Serum Total Protein 5.7 g/dL (6.4-8.9) L 12/20/18 09:47 Globulin 2.2 g/dL (2.4-3.5) L 12/20/18 09:47 Procalcitonin 0.18 ng/mL (<=0.07) H 12/20/18 15:44 Urine Protein 30 mg/dL (Neg-Trace) H 12/20/18 16:35 Urine Microscopic RBC 5-15 per hpf (0-3) H 12/20/18 16:35 Urine Microscopic WBC 5-15 per hpf (0-3) H 12/20/18 16:35 Ur Squamous Epith Cells Many per lpf (None-Few) H 12/20/18 16:35 Hyaline Casts Moderate per lpf (None-Few) H 12/20/18 16:35 Nasal Screen MRSA (PCR) Positive (Negative) A 12/20/18 14:20 - Microbiology Findings Microbiology Findings: Microbiology, Last 48 Hours 12/23/18 17:36 Blood Culture - Preliminary Peripheral Venipuncture Culture is incubating and being continuously monitored for growth. Final report to follow. 12/23/18 17:32 Blood Culture - Preliminary Peripheral Venipuncture Culture is incubating and being continuously monitored for growth. Final report to follow. - Clinical Findings Intake & Output: Intake & Output 12/23/18 12/24/18 12/24/18 23:59 07:59 15:59 Intake Total 320 / 320 320 / 320 70 / 70 Output Total 125 / 125 100 / 100 100 / 100 Balance 195 / 195 220 / 220 -30 / -30 Weight 62.7 kg Consult Discharge Plan - Plan Referrals: Jeferson Townsend MD [Primary Care Provider] -
[2018-12-24] MEDS ORDERED: Naloxone 0.4 MG/ML INJ IVP PRN (13:41)
[2018-12-24] MEDS ORDERED: Ondansetron 4 MG/2 ML VIAL IVP PRN (13:41)
[2018-12-24] MEDS ORDERED: Artificial Tears SOLN 15 ML BOTTLE BOTH EYES PRN (13:41)
--- NOTE | 2018-12-24 15:07 | Internal Med Progress Note ---
Hospitalist Progress Note - Encounter Date of Encounter: 12/24/18 Time of Encounter: 08:00 - Subjective Interval History: Patient was seen and examined at bedside. He is alert and oriented sitting up eating breakfast. He continues to follow commands. He has no complaints. Family at bedside and all questions was answered. Currently he denies any pain. And tolerating by mouth diet - Exam Vitals: Temp Pulse Resp BP Pulse Ox 97.8 F 96 20 111/83 93 12/24/18 11:00 12/24/18 11:00 12/24/18 11:40 12/24/18 11:40 12/24/18 11:40 Exam: General: Alert, oriented, eating breakfast Head: atraumatic, normocephalic, Eye: Anicteric, pinpoint, EOMI Neck: normal inspection, trachea midline, full ROM, no JVD Chest: normal inspection, symmetric chest rise Respiratory: Decreased breath sounds bilaterally, crackles in the posterior lung field, no wheezing appreciated Cardiovascular: Regular rate and rhythm. s1 and s2 No clicks, rubs, gallops, or murmors. Abdomen: Bowel sounds present normoactive x-4 quadrants. Abdomen is soft, nondistended. no Epigastric tenderness. No guarding or rebound. No organomegaly noted, musculoskeletal: no edema, no calf tenderness Skin: warm, dry, intact. Neuro: Alert and oriented, moving all extremities, no focal deficit - Assessment and Plan (1) Acute respiratory failure with hypoxia and hypercapnia Current Visit: Yes Status: Acute Assessment and Plan: Acute respiratory failure with hypoxia and hypercapnia requiring noninvasive mechanical ventilation Continue with BiPAP at night's and as needed for respiratory distress Oxygen via nasal cannula to keep sats above 92 Pulmonary recommendations appreciated Blood cultures no growth to date Urine antigens negative Influenza positive on antivirals Continue with antibiotics for now- if cultures remain negative and if no clear evidence of pneumonia the 24-48 hour discontinue antibiotics Strict aspiration precautions Elevate the head of the bed (2) Acute encephalopathy Current Visit: Yes Status: Acute Assessment and Plan: Acute encephalopathy most likely combination of medication induced and metabolic Most likely secondary to hypercapnia and pain medication induced CT head- without any acute abnormalities Neuro checks every 4 hours Avoid benzodiazepines and opiates ( last dose of opiate at around 630 AM) Continue with BiPAP that night elevate HOB Aspiration, fall, seizure precautions Pulmonary recommendations appreciated (3) Influenza A Current Visit: Yes Status: Acute Assessment and Plan: continue with tamiflu (4) Pulmonary embolism Current Visit: Yes Status: Acute Assessment and Plan: continue with lovenox heme/onc on board TTE: Impressions: LVEF 60-65%. Mild left ventricular diastolic dysfunction. Normal right ventricular structure and function. No evidence of pulmonary hypertension. Atypical septal motion consistent with flattened septum with septal bounce. Clinical correlation is suggested. No significant valvular dysfunction. (5) Small cell lung cancer Current Visit: Yes Status: Acute Assessment and Plan: Small cell lung cancer, Stage IV. Initiated on cisplatin/etoposide cycle 1 and 2 with partial response. Most recently status post cycle #3 carboplatin/etoposide 12/14/2018, planning to add atezolizumab with cycle #4. oncology on board (6) Wound of left lower extremity Current Visit: Yes Status: Acute Assessment and Plan: wound care consulted by ICU team will follow recommendations. (7) DVT prophylaxis Current Visit: Yes Status: Acute Assessment and Plan: on therapeutic lovenox - Time Spent with Patient Total time spent is greater than 50% in coordination of care (as documented) at patient's floor/unit and/or counseling patient: Internal Medicine: Result - Labs CBC & Chem 7: 12/24/18 06:33 12/24/18 06:33 Labs: Short CBC 12/24/18 Range/Units 06:33 WBC 2.8 L (4.3-11.1) K/mcL Hgb 10.6 L (12.9-16.9) g/dL Hct 33.2 L (37.5-50.1) % Plt Count 134 L (140-400) K/mcL Neutrophils # 1.5 L (1.6-8.9) K/mcL BMP 12/24/18 06:33 Sodium 138 Potassium 4.2 Chloride 90 L Carbon Dioxide 44 H* BUN 15 Creatinine 0.46 L Glucose 107 H Calcium 9.1 - ABG Interpretation ABG results: ABG ABG pH 7.41 pH Units (7.32-7.45) 12/24/18 05:46 ABG pCO2 68 mmHg (35-45) H 12/24/18 05:46 ABG pO2 75 mmHg (85-104) L 12/24/18 05:46 ABG O2 Saturation 94 % (95-98) L 12/24/18 05:46 PT/INR, D-dimer PT 13.1 Seconds (9.4-12.1) H 12/22/18 05:13 - Impressions Impressions Head CT 12/23/18 10:03 IMPRESSION: No acute intracranial abnormality. MRI would be more sensitive for acute ischemic change. D/ / 12/23/2018 15:28:21 Alfredo Dee MD / chtio Interpreting Provider: Alfredo Dee MD Consult Discharge Plan - Plan Referrals: Jeferson Townsend MD [Primary Care Provider] - (4) Pulmonary embolism Qualifiers: Pulmonary embolism type: other Chronicity: acute Acute cor pulmonale presence: without acute cor pulmonale Qualified Code(s): I26.99 - Other pulmonary embolism without acute cor pulmonale (6) Wound of left lower extremity Qualifiers: Encounter type: initial encounter Qualified Code(s): S81.802A - Unspecified open wound, left lower leg, initial encounter
[2018-12-24] MEDS: *HR* Enoxaparin 60 MG/0.6 ML SYRINGE SQ SCH (17:37)
[2018-12-25] MEDS: Ketorolac 15 MG/ML VIAL IVP PRN ×3 (03:32→20:40)
[2018-12-25] MEDS: Ipratropium/Albuterol Neb 3 ML IH SCH ×5 (03:42→19:49)
[2018-12-25 05:43] LABS: Basophils % 0.7 %; Eosinophils % 1.4 %; Hematocrit 31.4 % (37.5-50.1); Hemoglobin 9.9 g/dL (12.9-16.9); Immature Granulocytes % 0.7 % (0-4); Lymphocytes # 0.8 K/mcL (0.6-4.6); Lymphocytes % 27.4 %; Mean Corpuscular HGB Conc 31.5 g/dL (31.6-35.5); Mean Corpuscular Hemoglobin 30.6 pg (28.0-33.3); Mean Corpuscular Volume 96.9 fL (83.0-100.0); Mean Platelet Volume 9.7 fL (9.4-12.4); Monocytes # 0.2 K/mcL (0.0-1.3); Monocytes % 7.8 %; Neutrophils # 1.7 K/mcL (1.6-8.9); Platelet Count 155 K/mcL (140-400); Red Blood Count 3.24 M/mcL (4.19-5.50); Red Cell Distribution Width 15.2 % (11.5-14.5)
[2018-12-25] MEDS: *HR* Enoxaparin 60 MG/0.6 ML SYRINGE SQ SCH ×3 (06:01→18:08)
[2018-12-25 06:08] LABS: BUN/Creatinine Ratio 40 (6-26); Blood Urea Nitrogen 17 mg/dL (6-20); Calcium 8.6 mg/dL (8.6-10.3); Carbon Dioxide 44 mEq/L (23-29); Chloride 91 mEq/L (98-107); Glucose 155 mg/dL (70-105); Osmolality,Calculated 287 (280-300); Potassium 3.6 mEq/L (3.5-5.1); Sodium 136 mEq/L (136-145); eGFR For Non-African Americans > 60 (> 60)
[2018-12-25 06:10] LABS: Platelet Estimate Slight Decrease (Normal)
[2018-12-25] MEDS: Aztreonam 2,000 MG in Water for inj. (sterile) 20 ML 20 ML IVP SCH ×2 (07:56→15:43)
[2018-12-25] MEDS: Clindamycin 600 MG/50 ML 600 MG/50 ML IV.SOLN IVPB SCH ×2 (07:58→15:42)
[2018-12-25] MEDS: Nystatin SUSP 5 ML UD.LIQ PO SCH ×4 (07:59→20:40)
[2018-12-25] MEDS: Gabapentin 300 MG CAPSULE PO SCH ×3 (08:00→20:39)
[2018-12-25] MEDS: Aspirin Enteric Coated 81 MG Tablet PO SCH (08:01)
[2018-12-25] MEDS: amLODIPine 5 MG TABLET PO SCH (08:01)
[2018-12-25] MEDS: Gentamicin Oint 15 GM TUBE TP SCH (08:02)
--- NOTE | 2018-12-25 09:27 | Internal Med Progress Note ---
Hospitalist Progress Note - Encounter Date of Encounter: 12/25/18 Time of Encounter: 08:00 - Subjective Interval History: She was seen and examined at bedside. Reports that he is experiencing back pain. Is inquiring about pain medications, I discussed with the patient that the pain medications that he was on was a little bit too strong for him but we w ill try new pain medications at a lower dose to see if that will help his back pain. I encouraged him to get out of bed and will place a physical therapy consult. He is tolerating by mouth diet. He denies fever, chills, nausea, vomiting, diarrhea. Has had no chest pain or hemoptysis or shortness of breath. - Exam Vitals: Temp Pulse Resp BP Pulse Ox 98.1 F 96 25 136/83 90 12/25/18 07:50 12/25/18 08:00 12/25/18 08:00 12/25/18 08:00 12/25/18 08:00 Exam: General: Alert, oriented, speaking in full sentences, thin Head: atraumatic, normocephalic, Eye: Anicteric, pinpoint, EOMI Neck: normal inspection, trachea midline, full ROM, no JVD Chest: normal inspection, symmetric chest rise Respiratory: Decreased breath sounds bilaterally, crackles in the posterior lung field, no wheezing appreciated Cardiovascular: Regular rate and rhythm. s1 and s2 No clicks, rubs, gallops, or murmors. Abdomen: Bowel sounds present normoactive x-4 quadrants. Abdomen is soft, nondistended. no Epigastric tenderness. No guarding or rebound. No organomegaly noted, musculoskeletal: no edema, no calf tenderness Skin: warm, dry, intact. Neuro: Alert and oriented, moving all extremities, no focal deficit - Assessment and Plan (1) Acute respiratory failure with hypoxia and hypercapnia Current Visit: Yes Status: Acute Assessment and Plan: Acute respiratory failure with hypoxia and hypercapnia requiring noninvasive mechanical ventilation- improved Continue with BiPAP at night's and as needed for respiratory distress Oxygen via nasal cannula to keep sats above 92 Pulmonary recommendations appreciated Blood cultures x4 no growth to date Urine antigens negative Influenza positive on antivirals Continue with antibiotics for now- if cultures remain negative and if no clear evidence of pneumonia consider discontinuing antibiotics in the next 24 hours - day 6 on 12/25 Strict aspiration precautions Elevate the head of the bed (2) Acute encephalopathy Current Visit: Yes Status: Acute Assessment and Plan: Acute encephalopathy most likely combination of medication induced and metabolic Most likely secondary to hypercapnia and pain medication induced CT head- without any acute abnormalities Avoid benzodiazepines and opiates as much as possible. does have pain so will start him on low dose percocet for pain control - hold for RR <12, decreased mental status and oxygen saturation <92% Continue with BiPAP that night elevate HOB Aspiration, fall, seizure precautions Pulmonary recommendations appreciated (3) Influenza A Current Visit: Yes Status: Acute Assessment and Plan: continue with tamiflu to finish course (4) Pulmonary embolism Current Visit: Yes Status: Acute Assessment and Plan: continue with lovenox heme/onc on board TTE: Impressions: LVEF 60-65%. Mild left ventricular diastolic dysfunction. Normal right ventricular structure and function. No evidence of pulmonary hypertension. Atypical septal motion consistent with flattened septum with septal bounce. Clinical correlation is suggested. No significant valvular dysfunction. (5) Small cell lung cancer Current Visit: Yes Status: Acute Assessment and Plan: Small cell lung cancer, Stage IV. Initiated on cisplatin/etoposide cycle 1 and 2 with partial response. Most recently status post cycle #3 carboplatin/etoposide 12/14/2018, planning to add atezolizumab with cycle #4. oncology on board (6) Wound of left lower extremity Current Visit: Yes Status: Acute Assessment and Plan: wound care consulted by ICU team will follow recommendations. (7) DVT prophylaxis Current Visit: Yes Status: Acute Assessment and Plan: on therapeutic lovenox - Time Spent with Patient Total time spent is greater than 50% in coordination of care (as documented) at patient's floor/unit and/or counseling patient: Internal Medicine: Result - Labs CBC & Chem 7: 12/25/18 05:01 12/25/18 05:01 Labs: Short CBC 12/25/18 Range/Units 05:01 WBC 2.8 L (4.3-11.1) K/mcL Hgb 9.9 L (12.9-16.9) g/dL Hct 31.4 L (37.5-50.1) % Plt Count 155 (140-400) K/mcL Neutrophils # 1.7 (1.6-8.9) K/mcL BMP 12/25/18 05:01 Sodium 136 Potassium 3.6 Chloride 91 L Carbon Dioxide 44 H* BUN 17 Creatinine 0.42 L Glucose 155 H Calcium 8.6 - ABG Interpretation ABG results: ABG ABG pH 7.41 pH Units (7.32-7.45) 12/24/18 05:46 ABG pCO2 68 mmHg (35-45) H 12/24/18 05:46 ABG pO2 75 mmHg (85-104) L 12/24/18 05:46 ABG O2 Saturation 94 % (95-98) L 12/24/18 05:46 PT/INR, D-dimer PT 13.1 Seconds (9.4-12.1) H 12/22/18 05:13 Consult Discharge Plan - Plan Referrals: Jeferson Townsend MD [Primary Care Provider] - _ (4) Pulmonary embolism Qualifiers: Pulmonary embolism type: other Chronicity: acute Acute cor pulmonale presence: without acute cor pulmonale Qualified Code(s): I26.99 - Other pulmonary embolism without acute cor pulmonale (6) Wound of left lower extremity Qualifiers: Encounter type: initial encounter Qualified Code(s): S81.802A - Unspecified open wound, left lower leg, initial encounter
[2018-12-25] MEDS: *HR* OxyCODONE/APAP 5/325 TABLET PO PRN ×2 (12:11→19:41)
[2018-12-25] MEDS ORDERED: Aminoglycoside Consult 1 EACH MC ONE (13:55)
[2018-12-26] MEDS: Ipratropium/Albuterol Neb 3 ML IH SCH ×7 (00:14→23:47)
[2018-12-26] MEDS: *HR* OxyCODONE/APAP 5/325 TABLET PO PRN ×3 (05:03→21:12)
[2018-12-26] MEDS: *HR* Enoxaparin 60 MG/0.6 ML SYRINGE SQ SCH (05:03)
[2018-12-26] MEDS: Ketorolac 15 MG/ML VIAL IVP PRN ×3 (06:05→19:33)
[2018-12-26 07:18] LABS: Hematocrit 32.6 % (37.5-50.1); Hemoglobin 10.5 g/dL (12.9-16.9); Mean Corpuscular HGB Conc 32.2 g/dL (31.6-35.5); Mean Corpuscular Hemoglobin 30.8 pg (28.0-33.3); Mean Corpuscular Volume 95.6 fL (83.0-100.0); Mean Platelet Volume 9.9 fL (9.4-12.4); Platelet Count 202 K/mcL (140-400); Red Blood Count 3.41 M/mcL (4.19-5.50); Red Cell Distribution Width 15.2 % (11.5-14.5)
[2018-12-26 07:41] LABS: BUN/Creatinine Ratio 26 (6-26); Blood Urea Nitrogen 9 mg/dL (6-20); Calcium 8.7 mg/dL (8.6-10.3); Carbon Dioxide 39 mEq/L (23-29); Chloride 93 mEq/L (98-107); Glucose 99 mg/dL (70-105); Osmolality,Calculated 279 (280-300); Potassium 3.9 mEq/L (3.5-5.1); Sodium 135 mEq/L (136-145); eGFR For Non-African Americans > 60 (> 60)
--- NOTE | 2018-12-26 08:06 | Internal Med Progress Note ---
Hospitalist Progress Note - Encounter Date of Encounter: 12/26/18 Time of Encounter: 08:06 - Subjective Interval History: Pt states he still feels weak although is improving. No CP or palpitations. No N/V/D. Appetite is good. - Exam Vitals: Temp Pulse Resp BP Pulse Ox 97.5 F L 106 16 139/87 90 12/26/18 07:59 12/26/18 07:59 12/26/18 07:59 12/26/18 07:59 12/26/18 07:59 Exam: General: Alert, oriented, speaking in full sentences, thin Respiratory: Diminished breath sounds bilaterally, no crackles, does have expiratory wheezing on forced expiration Cardiovascular: Regular rate and rhythm. Abdomen: Abdomen is soft, nondistended. musculoskeletal: no edema, no calf tenderness Skin: warm, dry, intact. Neuro: Alert and oriented, moving all extremities, no focal deficit - Summary of Assessment and Plan Summary of Assessment and Plan: Influenza A: tamiflu 75 bid ending 12/26 COPD in acute exacerbation: - nebs q4h&prn - prednisone 40 daily, extended taper - completed azithromycin 500 po daily x5d - home inhalers Acute PEs: no s/sx RH strain on TTE - stop lovenox - start xarelto 15 bid x21d then 20 daily thereafter for 3m Acute hypoxic and hypercapneic respiratory failure: 2/2 influenza and acute PEs causing COPD exacerbation. Pt noted to be retaining CO2 and hypercarbic, causing confusion, improved with BiPAP - overnight bipap qualification - will need walk test tomorrow Deconditioning: PT/OT consults Smoker: nicotine patch prn Acute metabolic encephalopathy: resolved, 2/2 hypercapnia Small cell lung cancer, stage IV: s/p 3 cycles [place] based chemo, follow up Onc outpatient Wound: on LLE, wound RN following PPx: therapeutic FEN: regular, no MIVF Lines: PIV Consults: Code: Full Dispo: patient requires inpatient eval and management at this time. Anticipate 2-3 days. Will likely need swing bed / SNF Internal Medicine: Result - Labs CBC & Chem 7: 12/26/18 06:22 12/26/18 06:22 Labs: Short CBC 12/26/18 Range/Units 06:22 WBC 4.3 D (4.3-11.1) K/mcL Hgb 10.5 L (12.9-16.9) g/dL Hct 32.6 L (37.5-50.1) % Plt Count 202 (140-400) K/mcL BMP 12/26/18 06:22 Sodium 135 L Potassium 3.9 Chloride 93 L Carbon Dioxide 39 H BUN 9 Creatinine 0.34 L Glucose 99 Calcium 8.7 - ABG Interpretation ABG results: ABG ABG pH 7.41 pH Units (7.32-7.45) 12/24/18 05:46 ABG pCO2 68 mmHg (35-45) H 12/24/18 05:46 ABG pO2 75 mmHg (85-104) L 12/24/18 05:46 ABG O2 Saturation 94 % (95-98) L 12/24/18 05:46 PT/INR, D-dimer PT 13.1 Seconds (9.4-12.1) H 12/22/18 05:13 Consult Discharge Plan - Plan Referrals: Jeferson Townsend MD [Primary Care Provider] -
[2018-12-26] MEDS: amLODIPine 5 MG TABLET PO SCH (09:49)
[2018-12-26] MEDS: Aspirin Enteric Coated 81 MG Tablet PO SCH (09:49)
[2018-12-26] MEDS: Gabapentin 300 MG CAPSULE PO SCH ×3 (09:49→21:12)
[2018-12-26] MEDS: Nystatin SUSP 5 ML UD.LIQ PO SCH ×4 (09:50→21:12)
[2018-12-26] MEDS: Gentamicin Oint 15 GM TUBE TP SCH (09:54)
--- NOTE | 2018-12-26 16:36 | Oncology Inp Progress Note ---
<Mary Ruelas L - Last Filed: 12/28/18 13:27> Date of Encounter: 12/26/18 Time of Encounter: 15:00 (1) Pulmonary embolism Status: Acute Assessment and plan: CTA reveals acute bilateral pulmonary emboli involving the lower lobe and right middle lobe segmental pulmonary arteries Plan: Started on heparin gtt---transitioned to lovenox---hospitalist transitioned to xarelto last evening. Weaning as tolerated from O2-currently on 2 L nasal cannula Qualifiers: Pulmonary embolism type: other Chronicity: acute Acute cor pulmonale presence: without acute cor pulmonale Qualified Code(s): I26.99 - Other pulmonary embolism without acute cor pulmonale (2) Small cell lung cancer Status: Acute Assessment and plan: MSmall cell lung cancer, Stage IV. Initiated on cisplatin/etoposide cycle 1 and 2 with partial response. Most recently status post cycle #3 carboplatin/etoposide 12/14/2018, planning to add atezolizumab with cycle #4. Plan: Further treatment to be explored on outpatient basis once he has completed rehabilitation CTA does note findings consistent with a response to therapy manifested by interval decrease in size of a cavitary mass in the left upper lobe, decreased in size of a lingular mass and interval decrease in mediastinal adenopathy, multiple persistent bilateral pulmonary nodules (3) Acute respiratory failure with hypoxia and hypercapnia Status: Acute Assessment and plan: Improved Likely multifactorial in setting of acute bilateral pulmonary emboli, COPD exacerbation, suspected pneumonia, influenza A Weaned to 2L nasal cannula Did not qualify for night bipap On extended prednisone taper Completed azithromycin 500 po daily x5d Oncology: Subj Interval history: Patient is resting in bed. States he is gradually feeling better but overall is very weak. He has been able to stand up with assistance of therapy but is too weak to ambulate. He feels discouraged because of this. His appetite is poor. He is on 2L O2 per NC. Pain very uncontrolled, he had his pain medication regimen changed following his admission, his PCP helps to prescribed his pain medication, takes oxycodone 15 mg Q4-6 hours prior to admission. He is unsure as to why this was changed. He denies fevers, chills, chest pain, SOB, nausea, vomiting or diarrhea. - Constitutional General appearance: cooperative, no acute distress, thin, no febrile - Head Head exam: Present: atraumatic Additional comments: alopecia - ENT ENT exam: Present: mucous membranes moist, normal oropharynx - Respiratory Respiratory exam: Present: decreased breath sounds, CTAB. Absent: respiratory distress - Cardiovascular Cardiovascular exam: Present: RRR, +S1, +S2 - GI/Abdominal GI/Abdominal exam: Present: normal bowel sounds, soft. Absent: guarding, rebound, tenderness - Extremities Exam Extremities exam: Present: normal inspection. Absent: calf tenderness - Neurological Exam Neurological exam: Present: alert, oriented X3, no focal deficits, strengths equal and symetr throughout - Psychiatric Psychiatric exam: Present: normal affect, normal mood - Skin Skin exam: Present: dry, intact, pallor, warm Oncology: Obj Data - Labs CBC & Chem 7: 12/26/18 06:22 12/26/18 06:22 Consult Discharge Plan - Plan Instructions: Pulmonary Embolism (DC), Chronic Obstructive Pulmonary Disease (DC) Additional Instructions: Follow-up appointments: If there is not an appointment listed below, please call your physician and schedule a follow-up appointment. If you have congestive heart failure and your symptoms return, make an appointment with your physician. Medication List: Carry an up to date list of medications you are taking at all time. We have given you an updated medication list including any new medications that you have been prescribed. Please provide that list to your primary provider Symptoms: If your condition changes or you experience any of the following symptoms, notify your physician immediately: Unusual or worsening pain, fever, persistent nausea and vomiting, bleeding, increase in swelling (especially in your legs), sudden weight gain, extreme dizziness, chest pain, increased drainage or redness from a wound or incision. Go to the emergency department if you experience a problem with breathing. Weights: If you have a history of swelling or shortness of breath, weigh yourself daily and notify your physician if you have a weight gain of two or more pounds in one day or 5 or more pounds in a week. If you experience any of the warning signs for stroke: Sudden numbness or weakness of the face, arm or leg; especially on one side of the body, sudden confusion, trouble speaking or understanding, sudden trouble seeing in one or both eyes, sudden trouble walking, dizziness, loss of balance or coordination, sudden sever headache with no cause; Call 911 or go to the emergency room. Stroke is a medical emergency. Some risk factors for stroke: Age, cigarette smoking, diabetes, excessive alcohol consumption, family history, high blood pressure, overweight, physical inactivity, prior stroke, heart attack, diagnosis of carotid artery stenosis or other artery disease. If you smoke, STOP: Smoking or tobacco use significantly increases your risk of heart and lung disease. Your chance of disease greatly increases if you continue to smoke. For more information, call the [place] tobacco quit line for smoking cessation 10-17-QUIT-NOW ( ) Referrals: Jeferson Townsend MD [Primary Care Provider] - (in 1 week) Tadeo Bustillos MD [Partnered Physician] - 01/01/19 9:00 am Prescriptions: RX: diazePAM [Valium] 5 mg PO BID PRN 5 Days #10 tablet PRN Reason: Anxiety/ Muscle spasm Oxycodone HCl [Roxybond] 15 mg PO QID PRN 5 Days #20 tablet.orl PRN Reason: Severe Pain Rivaroxaban [Xarelto] 20 mg PO DAILY #30 tablet Inpatient Charges Provider: Dr. Carl Partida <Kala Partida S - Last Filed: 12/28/18 17:40> Date of Encounter: 12/28/18 Oncology: Obj Data - Labs CBC & Chem 7: 12/26/18 06:22 12/26/18 06:22 - Attending Attestation I examined this patient and my medical decision-making was reviewed with the Advanced Practice Nurse. I agree with the documented findings, disposition and treatment plan as described except to the extent set forth below. 1. Stage IV small cell lung cancer. 2 cycles of cisplatin and etoposide. From cycle 3 changed to carboplatin and etoposide which he completed 12/14/2018. 2. Admitted with influence IA respiratory distress. Workup revealed pulmonary embolus some acute He was transitioned from Lovenox to Xarelto 20 mg by mouth daily. 6 we will continue to watch him closely. If he does not have adequate response on Xarelto may switch him back to Lovenox 3. Cancer related pain. He was on oxycodone 15 mg by mouth every 6 hours when necessary and outpatient and will continue that. It is also getting Ativan through PCP
[2018-12-26] MEDS: *HR* Rivaroxaban 15 MG TABLET PO SCH (17:30)
[2018-12-27] MEDS: Ketorolac 15 MG/ML VIAL IVP PRN ×4 (02:36→20:55)
[2018-12-27] MEDS: Ipratropium/Albuterol Neb 3 ML IH SCH ×5 (03:51→20:13)
[2018-12-27] MEDS: *HR* OxyCODONE/APAP 5/325 TABLET PO PRN ×2 (05:17→13:08)
[2018-12-27] MEDS: Gabapentin 300 MG CAPSULE PO SCH ×3 (08:57→20:56)
[2018-12-27] MEDS: *HR* Rivaroxaban 15 MG TABLET PO SCH ×2 (08:58→18:38)
[2018-12-27] MEDS: Aspirin Enteric Coated 81 MG Tablet PO SCH (08:58)
[2018-12-27] MEDS: amLODIPine 5 MG TABLET PO SCH (08:58)
[2018-12-27] MEDS: Nystatin SUSP 5 ML UD.LIQ PO SCH ×4 (09:06→20:56)
[2018-12-27] MEDS: Gentamicin Oint 15 GM TUBE TP SCH (09:07)
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
--- NOTE | 2018-12-27 13:57 | Discharge Summary ---
- NOTES TO OUTPATIENT PROVIDER Notes to Outpatient Provider: Patient with history of small cell lung cancer stage IV, COPD, hypertension who was hospitalized here with sepsis, COPD exacerbation, acute hypoxic respiratory failure and acute encephalopathy and influenza A. He initially required endotracheal intubation and mechanical margaret tilation and was admitted to the ICU. He was also found to have acute bilateral pulmonary emboli with right heart strain. He was started on anticoagulation for this and is currently on Xarelto. [facility] and has been recovering well. He does remain hypercapnic and has been using BiPAP at night. He he did qualify for home BiPAP use based on O2 saturation studies done overnight. He has been evaluated by physical therapy and recommended placement to skilled rehabilitation. Patient will be discharged to skilled rehabilitation later today. Patient will be on Xarelto 15 mg twice daily for 20 more days and then will need to take 20 milligrams tablet once daily Orders not resulted at time of discharge: Pending orders 12/23/18 17:36 Culture,Blood [BC] Stat Date of Encounter: 12/27/18 Time of Encounter: 13:53 - Discharge Diagnosis (1) Acute respiratory failure with hypoxia and hypercapnia Priority: Primary Status: Acute (2) Small cell lung cancer Priority: Secondary Status: Acute (3) Acute encephalopathy Priority: Secondary Status: Resolved (4) Pulmonary embolism Priority: Secondary Status: Acute Qualifiers: Pulmonary embolism type: other Chronicity: acute Acute cor pulmonale presence: without acute cor pulmonale Qualified Code(s): I26.99 - Other pulmonary embolism without acute cor pulmonale (5) Influenza A Priority: Secondary Status: Acute (6) Wound of left lower extremity Priority: Secondary Status: Acute Qualifiers: Encounter type: initial encounter Qualified Code(s): S81.802A - Unspecified open wound, left lower leg, initial encounter (7) DVT prophylaxis Priority: Secondary Status: Acute (8) COPD exacerbation Priority: Secondary Status: Acute (9) Sepsis Priority: Secondary Status: Acute Qualifiers: Sepsis type: sepsis due to unspecified organism Qualified Code(s): A41.9 - Sepsis, unspecified organism Hospital course: Mr. Salcedo is a 58 year old male Patient with history of small cell lung cancer stage IV, COPD, hypertension who was hospitalized here with sepsis, COPD exacerbation, acute hypoxic respiratory failure and acute encephalopathy and influenza A. He initially required endotracheal intubation and mechanical ventilation and was admitted to the ICU. He was also found to have acute bilateral pulmonary emboli with right heart strain. He was started on anticoagulation for this and is currently on Xarelto. He was eventually extubated and transferred to the [facility] and has been recovering well. He does remain hypercapnic and has been using BiPAP at night. He he did qualify for home BiPAP use based on O2 saturation studies done overnight. He has been evaluated by physical therapy and recommended placement to skilled rehabilitation. Patient will be discharged to skilled rehabilitation later today. Patient will be on Xarelto 15 mg twice daily for 20 more days and then will need to take 20 milligrams tablet once daily Discharge discussed with: patient, nurse, case management - Time Spent with Patient Total time spent providing and/or coordinating discharge services: Time spent: Greater than 30 minutes (45 min) - Discharge Medications Prescriptions: New Artificial Tears SOLN [Akwa Tears] 1 drop BOTH EYES Q2HR PRN bottle PRN Reason: Dry Eyes Rivaroxaban [Xarelto] 15 mg PO BIDWM tablet Collagenase Oint [Santyl] 1 appl TP DAILY tube Gentamicin Oint [Garamycin] 1 appl TP DAILY tube Rivaroxaban [Xarelto] 20 mg PO DAILY #30 tablet Oxycodone HCl [Roxybond] 15 mg PO QID PRN 5 Days #20 tablet.orl PRN Reason: Severe Pain Continue Tizanidine HCl 4 mg PO Q8H Doxepin [Sinequan] 25 mg PO HS Cyanocobalamin (Vitamin B-12) [Vitamin B-12] 100 mcg PO DAILY Meloxicam [Mobic] 15 mg PO DAILY DULoxetine [Cymbalta] 30 mg PO DAILY Aspirin [Lo-Dose Aspirin EC] 81 mg PO DAILY Gabapentin [Neurontin] 600 mg PO TID amLODIPine [Norvasc] 5 mg PO DAILY #30 tablet Prochlorperazine Maleate [Compazine] 10 mg PO Q8HR PRN #90 tablet PRN Reason: Nausea Dexamethasone [Decadron] 4 mg PO BID PRN #45 tab PRN Reason: as directed Budesonide/Formoterol 160/4.5 [Symbicort 160/4.5] 2 puff IH BIDR #1 inh Ipratropium/Albuterol Neb [Duoneb] 3 ml IH Q4HR PRN 30 Days #120 vial.neb PRN Reason: sob Ondansetron HCl 8 mg PO Q8H PRN #45 tablet PRN Reason: Nausea GuaiFENesin/Dextromethorphan [Tussin Dm Syrup] 10 ml PO QID PRN #240 ml PRN Reason: cough and congestion Nystatin [Nystatin Suspension] 100,000 units PO QID #120 ml Sodium Chloride [Sodium Chloride Tab] 2 gm PO DAILY #60 tablet Albuterol Sulfate [Proair Hfa] 1 puff IH Q4H PRN PRN Reason: sob Fluconazole [Diflucan] 100 mg PO DAILY PRN PRN Reason: THRUSH Dronabinol [Marinol] 2.5 mg PO TID Changed diazePAM [Valium] 5 mg PO BID PRN 5 Days #10 tablet PRN Reason: Anxiety/ Muscle spasm Discontinued Guaifenesin/Dm/Pseudoephedrine [Capmist Dm Tablet] 1 each PO BID PRN PRN Reason: Congestion Oxycodone HCl [Roxybond] 15 mg PO 5XD predniSONE [PredniSONE] 30 mg PO DAILY #90 tablet Home Medications: Aspirin [Lo-Dose Aspirin EC] 81 mg PO DAILY 09/28/18 [History] Cyanocobalamin (Vitamin B-12) [Vitamin B-12] 100 mcg PO DAILY 09/28/18 [History] DULoxetine [Cymbalta] 30 mg PO DAILY 09/28/18 [History] Doxepin [Sinequan] 25 mg PO HS 09/28/18 [History] Gabapentin [Neurontin] 600 mg PO TID 09/28/18 [History] Meloxicam [Mobic] 15 mg PO DAILY 09/28/18 [History] Tizanidine HCl 4 mg PO Q8H 09/28/18 [History] amLODIPine [Norvasc] 5 mg PO DAILY #30 tablet 10/03/18 [Rx] Dexamethasone [Decadron] 4 mg PO BID PRN #45 tab 10/17/18 [Rx] Prochlorperazine Maleate [Compazine] 10 mg PO Q8HR PRN #90 tablet 10/17/18 [Rx] Budesonide/Formoterol 160/4.5 [Symbicort 160/4.5] 2 puff IH BIDR #1 inh 10/31/18 [Rx] Ipratropium/Albuterol Neb [Duoneb] 3 ml IH Q4HR PRN 30 Days #120 vial.neb 10/31/18 [Rx] Ondansetron HCl 8 mg PO Q8H PRN #45 tablet 11/21/18 [Rx] GuaiFENesin/Dextromethorphan [Tussin Dm Syrup] 10 ml PO QID PRN #240 ml 12/18/18 [Rx] Nystatin [Nystatin Suspension] 100,000 units PO QID #120 ml 12/19/18 [Rx] Sodium Chloride [Sodium Chloride Tab] 2 gm PO DAILY #60 tablet 12/19/18 [Rx] Albuterol Sulfate [Proair Hfa] 1 puff IH Q4H PRN 12/21/18 [History] Dronabinol [Marinol] 2.5 mg PO TID 12/21/18 [History] Fluconazole [Diflucan] 100 mg PO DAILY PRN 12/21/18 [History] Artificial Tears SOLN [Akwa Tears] 1 drop BOTH EYES Q2HR PRN bottle 12/27/18 [Rx] Collagenase Oint [Santyl] 1 appl TP DAILY tube 12/27/18 [Rx] Gentamicin Oint [Garamycin] 1 appl TP DAILY tube 12/27/18 [Rx] Rivaroxaban [Xarelto] 15 mg PO BIDWM tablet 12/27/18 [Rx] Rivaroxaban [Xarelto] 20 mg PO DAILY #30 tablet 12/27/18 [Rx] diazePAM [Valium] 5 mg PO BID PRN 5 Days #10 tablet 12/27/18 [Rx] Oxycodone HCl [Roxybond] 15 mg PO QID PRN 5 Days #20 tablet.orl 12/28/18 [Rx] Allergies/Adverse Reactions: Allergy/AdvReac Type Severity Reaction Status Date / Time Penicillins [PCN] Allergy See Verified 12/19/18 15:04 Comments venlafaxine AdvReac Gastrointestinal Verified 12/19/18 15:04 Upset Date of admission: 12/20/18 12:03 Primary care physician: Jeferson Townsend MD Consults: 12/20/18 19:18 Consult to Oncology [CONS] Routine Consulting Provider: [facility] Reason for Consult: known patient of Dr. Sullivan, small cell carcinoma, now has bilateral PE and influenza A Time Notified: 19:19 Call Completed: Yes 12/21/18 08:35 Consult to Wound Care [CONS] Routine Reason for Consult: Left lower extremity burn Call Completed: Yes 12/22/18 09:21 Consult to Nurse Navigator [CONS] Routine Comment: copd 12/25/18 09:25 Consult to Physical Therapy [CONS] Routine Comment: Evaluate, develop and implement POC Reason for Consult: dispostion Does patient have active BEDREST order?: No Is patient medically & hemodynamically stable?: Yes Patient assessed for mobility or mobilized this visit?: Yes Discharging clinician: Paul Brice Anticipated date of discharge: 12/28/18 - Constitutional Vitals: Temp Pulse Resp BP Pulse Ox 97.3 F L 97 16 112/98 88 12/27/18 11:00 12/27/18 11:00 12/27/18 11:47 12/27/18 11:00 12/27/18 11:47 General appearance: Present: mild distress, A&O X 3, answers questions appropriately Exam: . - Respiratory Respiratory exam: Present: prolonged expiratory phase, rhonchi, wheezes. Absent: accessory muscle use, rales - Cardiovascular Cardiovascular exam: Present: RRR, +S1, +S2. Absent: diastolic murmur, gallop, rubs, systolic murmur - Extremities Exam Extremities exam: Present: warm, radial pulses palpable and symmetrical. Absent: calf tenderness, cyanotic, pedal edema - Patient Status Disposition: Transfer SNF Condition: Critical Functional capacity at discharge: bed bound Overall status at discharge: patient is progressing back to baseline - Discharge Instructions Instructions: Pulmonary Embolism (DC) Follow Up With: Jeferson Townsend MD [Primary Care Provider] - (in 1 week) - Diet and Activity Activity: as per physical therapy, increase activity as tolerated, wear oxygen at all times Diet: advance to your usual diet
--- NOTE | 2018-12-27 14:08 | Physician Discharge Referral ---
ExtendedCare Referral Info Institutional Level of Care: Skilled - Diagnosis (1) Acute respiratory failure with hypoxia and hypercapnia Priority: Primary Status: Acute (2) Small cell lung cancer Priority: Secondary Status: Acute (3) Acute encephalopathy Priority: Secondary Status: Resolved (4) Pulmonary embolism Priority: Secondary Status: Acute (5) Influenza A Priority: Secondary Status: Acute (6) Wound of left lower extremity Priority: Secondary Status: Acute (7) DVT prophylaxis Priority: Secondary Status: Acute (8) COPD exacerbation Priority: Secondary Status: Acute (9) Sepsis Priority: Secondary Status: Acute Prognosis: Fair Aware of Diagnosis: Patient Aware of Prognosis: Patient - Transfer Medications Prescriptions: OxyCODONE/APAP 5/325 [Percocet 5/325 MG] 1 each PO Q8HR PRN 5 Days #20 tablet PRN Reason: Pain diazePAM [Valium] 5 mg PO BID PRN 5 Days #10 tablet PRN Reason: Anxiety/ Muscle spasm Home Medications: Aspirin [Lo-Dose Aspirin EC] 81 mg PO DAILY 09/28/18 [History] Cyanocobalamin (Vitamin B-12) [Vitamin B-12] 100 mcg PO DAILY 09/28/18 [History] DULoxetine [Cymbalta] 30 mg PO DAILY 09/28/18 [History] Doxepin [Sinequan] 25 mg PO HS 09/28/18 [History] Gabapentin [Neurontin] 600 mg PO TID 09/28/18 [History] Meloxicam [Mobic] 15 mg PO DAILY 09/28/18 [History] Tizanidine HCl 4 mg PO Q8H 09/28/18 [History] amLODIPine [Norvasc] 5 mg PO DAILY #30 tablet 10/03/18 [Rx] Dexamethasone [Decadron] 4 mg PO BID PRN #45 tab 10/17/18 [Rx] Prochlorperazine Maleate [Compazine] 10 mg PO Q8HR PRN #90 tablet 10/17/18 [Rx] Budesonide/Formoterol 160/4.5 [Symbicort 160/4.5] 2 puff IH BIDR #1 inh 10/31/18 [Rx] Ipratropium/Albuterol Neb [Duoneb] 3 ml IH Q4HR PRN 30 Days #120 vial.neb 10/31/18 [Rx] Ondansetron HCl 8 mg PO Q8H PRN #45 tablet 11/21/18 [Rx] GuaiFENesin/Dextromethorphan [Tussin Dm Syrup] 10 ml PO QID PRN #240 ml 12/18/18 [Rx] Nystatin [Nystatin Suspension] 100,000 units PO QID #120 ml 12/19/18 [Rx] Sodium Chloride [Sodium Chloride Tab] 2 gm PO DAILY #60 tablet 12/19/18 [Rx] Albuterol Sulfate [Proair Hfa] 1 puff IH Q4H PRN 12/21/18 [History] Dronabinol [Marinol] 2.5 mg PO TID 12/21/18 [History] Fluconazole [Diflucan] 100 mg PO DAILY PRN 12/21/18 [History] Artificial Tears SOLN [Akwa Tears] 1 drop BOTH EYES Q2HR PRN bottle 12/27/18 [Rx] Collagenase Oint [Santyl] 1 appl TP DAILY tube 12/27/18 [Rx] Gentamicin Oint [Garamycin] 1 appl TP DAILY tube 12/27/18 [Rx] OxyCODONE/APAP 5/325 [Percocet 5/325 MG] 1 each PO Q8HR PRN 5 Days #20 tablet 12/27/18 [Rx] Rivaroxaban [Xarelto] 15 mg PO BIDWM tablet 12/27/18 [Rx] diazePAM [Valium] 5 mg PO BID PRN 5 Days #10 tablet 12/27/18 [Rx] Allergies/Adverse Reactions: Allergy/AdvReac Type Severity Reaction Status Date / Time Penicillins [PCN] Allergy See Verified 12/19/18 15:04 Comments venlafaxine AdvReac Gastrointestinal Verified 12/19/18 15:04 Upset - Respiratory Orders Oxygen / L per min (3), Other (Use BiPAP when lying down and as needed) Smoking Cessation: Smoking cessation has been advised. For more information, call the [employer] Tobacco Quit Line at 6-100-OFBZ-NOW. - Advance Directives Code Status: Full Code - Mobility Orders Other (per PT) - Rehabiliation Orders Rehab Potential: Fair Rehab Orders: Evaluation for Physical Therapy, Evaluation for Occupational Therapy - Treatments List/Other: Patient will be on Xarelto 15 mg twice daily for 20 more days and then will need to take 20 milligrams tablet once daily - Diet Orders Cardiac CERTIFICATION: I certify that the transfer of the above named patient to an Extended Care Facility is necessary for the continuing treatment of the diagnosis listed. The above information is true and accurate reflection of patient's current condition. Confidential - Redisclosure prohibited without a patient's written consent.
[2018-12-27] MEDS ORDERED: *HR* OxyCODONE/APAP 7.5/325 TABLET PO PRN (19:44)
[2018-12-28] MEDS: Ipratropium/Albuterol Neb 3 ML IH SCH ×5 (00:20→15:15)
[2018-12-28] MEDS: Ketorolac 15 MG/ML VIAL IVP PRN ×3 (03:32→13:36)
[2018-12-28] MEDS: *HR* OxyCODONE/APAP 7.5/325 TABLET PO PRN ×3 (03:36→13:36)
[2018-12-28 06:28] VITALS: BP 124/87
[2018-12-28] MEDS: Gabapentin 300 MG CAPSULE PO SCH ×2 (08:21→13:36)
[2018-12-28] MEDS: *HR* Rivaroxaban 15 MG TABLET PO SCH (08:21)
[2018-12-28] MEDS: Aspirin Enteric Coated 81 MG Tablet PO SCH (08:21)
[2018-12-28] MEDS: amLODIPine 5 MG TABLET PO SCH (08:21)
[2018-12-28] MEDS: Nystatin SUSP 5 ML UD.LIQ PO SCH ×3 (08:23→13:37)
[2018-12-28] MEDS: Gentamicin Oint 15 GM TUBE TP SCH (08:23)
--- NOTE | 2018-12-28 11:47 | Event Note ---
Date of Encounter: 12/28/18 Time of Encounter: 11:46 Patient stayed in the hospital overnight due to issues with his pain medications. I have changed prescription on his pain medications and he will be discharged on oxycodone 15 mg up to 4 times daily as needed for severe pain. Patient is okay to be discharged at this point to skilled rehabilitation.
== END 2018-12-28 16:00 | DRG 871 ==
LOC: EMEROOARM 08:52 → ICNU 12:03 → SUATTDRO 12:03 → ICNU 13:13 → 3ANU 12-23 05:16 → ICNU 12-23 14:56 → 2NENU 12-25 20:17
PROVIDERS: ADMIT Internal Medicine Pulmonary Disease; ATTEND Internal Medicine

== ENCOUNTER 2019-03-20 18:05 | Inpatient (IN) ==
--- NOTE | 2019-03-20 18:55 | Emergency Department Note ---
Disposition Clinical Impression: Hypoxia, Pneumothorax on right Lung cancer Qualifiers: Laterality: left Lung location: upper lobe of lung Qualified Code(s): C34.12 - Malignant neoplasm of upper lobe, left bronchus or lung Disposition: Admitted As Inpatient Condition: Fair Time of Disposition: 18:55 General Adult HPI - General Chief complaint: ED Shortness of Breath/Dyspnea Time Seen by Provider: 03/20/19 18:12 Source: patient, EMS Limitations: no limitations Nursing Notes Reviewed: Yes Vital Signs Reviewed: Yes - History of Present Illness HPI Narrative: Attestation note: Patient was seen with the emergency medicine resident/nurse practitioner/physician funeral director's assistant/transitional resident/medical student: Dr. Salinas Espinoza. I was present for the significant portions of the performance and interpretation of procedures and EKGs. I have personally performed a face to face evaluation on this patient. I have reviewed and agree with history and physical examination patient management and disposition. Briefly the salient points of the case are as follows: 58-year-old male history of lung cancer comes in with chief complaint of hypoxia patient has a discharge no positive pressure BiPAP because he is a large bleb in his lungs. Patient was placed on facemask of oxygen which improved his oxygenation screening labs are pending. Patient is in just mild distress. Had a portable x-ray radiology called back to state he had a moderate left-sided pneumothorax. We will can speak with pulmonology to determine if they want us to do any intervention for observation with high flow oxygen and then reassessment. Providing 30 minutes critical care service for this patient. Disposition pending Pain Scale: 5 - Related Data Home Medications Medication Instructions Recorded Confirmed Cyanocobalamin (Vitamin B-12) 100 mcg PO DAILY 09/28/18 03/13/19 [Vitamin B-12] DULoxetine [Cymbalta] 30 mg PO DAILY 09/28/18 03/13/19 Albuterol Sulfate [Proair Hfa] 2 puff IH Q4H PRN 12/21/18 03/13/19 Gabapentin [Neurontin] 100 mg PO TID 02/26/19 03/13/19 amLODIPine [Norvasc] 2.5 mg PO PRN PRN 02/26/19 03/13/19 Sodium Chloride [Sodium Chloride 3 gm PO DAILY 03/12/19 03/13/19 Tab] Doxepin [Sinequan] 25 mg PO HS 03/13/19 03/13/19 Ipratropium/Albuterol Neb [Duoneb] 3 ml IH Q4HR PRN 03/13/19 03/13/19 Rivaroxaban [Xarelto] 20 mg PO 2130 03/13/19 03/13/19 Previous Rx's Medication Instructions Recorded Budesonide/Formoterol 160/4.5 2 puff IH BIDR #1 inh 10/31/18 [Symbicort 160/4.5] Ondansetron HCl 8 mg PO Q8H PRN #45 tablet 11/21/18 Dexamethasone [Decadron] 4 mg PO BID PRN #45 tab 01/29/19 Prochlorperazine Maleate 10 mg PO Q8HR PRN #90 tablet 01/29/19 [Compazine] predniSONE [PredniSONE] 20 mg PO DAILY #30 tablet 02/26/19 Dronabinol [Marinol] 2.5 mg PO TID 30 Days #90 capsule 03/16/19 Oxycodone HCl 15 mg PO Q4H PRN 7 Days #30 tablet 03/16/19 diazePAM [Valium] 5 mg PO BID PRN 10 Days #20 tablet 03/16/19 Allergies Allergy/AdvReac Type Severity Reaction Status Date / Time Penicillins [PCN] Allergy See Verified 03/12/19 09:04 Comments venlafaxine AdvReac Gastrointestinal Verified 03/12/19 09:04 Upset Past Medical History - Past Medical History Medical history: Reports: arthritis, cancer, COPD, hypertension, pulmonary embolus, other Psychiatric history: Reports: depression - Social History Smoking Status: Current every day smoker Smokeless Tobacco Status: No Alcohol use: Reports: none Drug use: Reports: none Physical Exam - General Limitations: no limitations General appearance: alert Course Vital Signs Temperature 98.7 F 03/20/19 18:13 Pulse Rate 109 03/20/19 18:13 Respiratory Rate 16 03/20/19 18:13 Blood Pressure 137/92 03/20/19 18:13 O2 Sat by Pulse Oximetry 95 03/20/19 18:13 Temperature 98.7 F 03/20/19 18:13 Pulse Rate 109 03/20/19 18:13 Respiratory Rate 16 03/20/19 18:13 Blood Pressure 137/92 03/20/19 18:13 O2 Sat by Pulse Oximetry 95 03/20/19 18:13 Oxygen Delivery Oxygen Delivery Simple Mask
[2019-03-20] MEDS ORDERED: Isovue-370 500 ML BOTTLE IVP ONE (18:59)
--- NOTE | 2019-03-20 19:18 | Emergency Department Note ---
Disposition Clinical Impression: Hypoxia, Pneumothorax on right Lung cancer Qualifiers: Laterality: left Lung location: upper lobe of lung Qualified Code(s): C34.12 - Malignant neoplasm of upper lobe, left bronchus or lung Disposition: Admitted As Inpatient Condition: Fair Referrals: Jeferson Townsend MD [Primary Care Provider] - Forms: ED Satisfaction Letter Time of Disposition: 23:12 General Adult HPI - General Chief complaint: ED Shortness of Breath/Dyspnea Stated complaint: jeffrey Time Seen by Provider: 03/20/19 18:12 Source: patient, EMS Mode of arrival: EMS Limitations: no limitations Nursing Notes Reviewed: Yes Vital Signs Reviewed: Yes - History of Present Illness HPI Narrative: 58-year-old male presents to the emergency department with low oxygenation and hypoxia. He has not been shortness of any shortness of breath. He says that he was doing his normal stuff [facility] checked his pulse ox and said it was in the 60s like old EMS. Patient's I have any pain is a have any other complaints. He is very anxious. Patient does have lung cancer stage IV is not currently undergoing chemotherapy due to recent hospital visits as he did have a broken hip. His last treatment was partially 6 weeks ago. He does have history of a bleb in his left upper lung and is told not to have any positive pressure. Patient otherwise not having any complaints at this time. This he has been mildly confusedhe has been tired more recently. Patient otherwise has no other complaints at this time. They have not noticed any fevers, chills, cough, congestion. Pain Scale: 5 - Related Data Home Medications Medication Instructions Recorded Confirmed Cyanocobalamin (Vitamin B-12) 100 mcg PO DAILY 09/28/18 03/13/19 [Vitamin B-12] DULoxetine [Cymbalta] 30 mg PO DAILY 09/28/18 03/13/19 Albuterol Sulfate [Proair Hfa] 2 puff IH Q4H PRN 12/21/18 03/13/19 Gabapentin [Neurontin] 100 mg PO TID 02/26/19 03/13/19 amLODIPine [Norvasc] 2.5 mg PO PRN PRN 02/26/19 03/13/19 Sodium Chloride [Sodium Chloride 3 gm PO DAILY 03/12/19 03/13/19 Tab] Doxepin [Sinequan] 25 mg PO HS 03/13/19 03/13/19 Ipratropium/Albuterol Neb [Duoneb] 3 ml IH Q4HR PRN 03/13/19 03/13/19 Rivaroxaban [Xarelto] 20 mg PO 2130 03/13/19 03/13/19 Previous Rx's Medication Instructions Recorded Budesonide/Formoterol 160/4.5 2 puff IH BIDR #1 inh 10/31/18 [Symbicort 160/4.5] Ondansetron HCl 8 mg PO Q8H PRN #45 tablet 11/21/18 Dexamethasone [Decadron] 4 mg PO BID PRN #45 tab 01/29/19 Prochlorperazine Maleate 10 mg PO Q8HR PRN #90 tablet 01/29/19 [Compazine] predniSONE [PredniSONE] 20 mg PO DAILY #30 tablet 02/26/19 Dronabinol [Marinol] 2.5 mg PO TID 30 Days #90 capsule 03/16/19 Oxycodone HCl 15 mg PO Q4H PRN 7 Days #30 tablet 03/16/19 diazePAM [Valium] 5 mg PO BID PRN 10 Days #20 tablet 03/16/19 Allergies Allergy/AdvReac Type Severity Reaction Status Date / Time Penicillins [PCN] Allergy See Verified 03/12/19 09:04 Comments venlafaxine AdvReac Gastrointestinal Verified 03/12/19 09:04 Upset All systems ED: reviewed and negative except as stated. Review of Systems: As Per HPI Past Medical History - Past Medical History Attestation: Yes The following information was validated with the patient. Source: patient Medical history: Reports: arthritis, cancer, COPD, hypertension, pulmonary embolus, other Psychiatric history: Reports: depression - Social History Smoking Status: Current every day smoker Smokeless Tobacco Status: No Alcohol use: Reports: none Drug use: Reports: none Physical Exam - General Limitations: no limitations General appearance: alert - Head Head exam: atraumatic, normocephalic, normal inspection - Eye Eye exam: Present: normal appearance, PERRL, EOMI - ENT ENT exam: normal exam, normal oropharynx, mucous membranes moist - Neck Neck exam: Present: normal inspection, full ROM, trachea midline - Chest Chest inspection: Present: normal inspection, symmetric chest wall rise - Respiratory Respiratory exam: Present: normal lung sounds bilaterally. Absent: respiratory distress, wheezes, stridor, accessory muscle use, prolonged expiratory phase - Cardiovascular Cardiovascular exam: Present: regular rate, normal rhythm, normal heart sounds - Abdominal Exam Abdominal exam: Present: soft, Non-Tender, normal bowel sounds. Absent: tenderness, distention, guarding, rebound, rigidity - Extremities Exam Extremities exam: Present: normal inspection, full ROM. Absent: tenderness, pedal edema - Back Exam Back exam: Present: normal inspection, full ROM. Absent: tenderness - Neurological Exam Neurological exam: Present: alert, oriented X3 - Skin Skin exam: Present: warm, dry, intact, normal color Course Course Narrative: We have CBC BMP troponin and EKG we will keep patient on oxygen at this time. We will get d-dimer. His physician pending results or patient stable this time and no respiratory distress. - Consultations Consultation #1: Spoke with on-call pulmonology Dr. Adamson who agreed with no chest tube or new mode R at this time due to patient having a pneumothorax. He recommended CT and then further treatment based on that. Patient is okay with this plan. Patient still stable. Spoke to him again and he was unable to review the CTs but he said if patient does need a chest tube he said maybe recommend getting IR involved. They did recommend that we try and wean down the oxygen to keep him around the 90% try and decrease his oxygen need. Time: 19:10 Consultation #2: Spoke with interventional radiology based on pneumothorax read on the CT scan. He recommended we get a repeat chest x-ray at it as it has been 2 hours later as long as the chest x-ray does not look like it is getting worse. He would recommend that we just admits and then's have interventional radiology look at it tomorrow to see if they want to put a tube in at that time. He did recommend that if you do need to put a tube and he recommended just a small pigtail catheter right over the V5 lead as does be her best to most safest area. At this time we will order a chest x-ray and see if the pneumothorax is worsening. Time: 22:10 Vital Signs Temperature 98.7 F 03/20/19 18:13 Pulse Rate 109 03/20/19 18:13 Respiratory Rate 16 03/20/19 18:13 Blood Pressure 137/92 03/20/19 18:13 O2 Sat by Pulse Oximetry 95 03/20/19 18:13 Temperature 98.7 F 03/20/19 18:13 Pulse Rate 93 03/20/19 21:20 Respiratory Rate 16 03/20/19 21:20 Blood Pressure 122/74 03/20/19 21:20 O2 Sat by Pulse Oximetry 99 03/20/19 21:20 Oxygen Delivery Oxygen Delivery Simple Mask Medical Decision Making - MDM Narrative Medical decision making narrative: 58-year-old male presented to the emergency department with hypoxia. Does not history of lung cancer. Chest x-ray did show pneumothorax we did do CT angiogram of the chest which also showed pneumothorax and no pulmonary and was not. D-dimer was elevated. All other patient's labs were negative he did have leukocytosis which is expected based on his cancer. Do not see any signs of infection at this time. We initially increased patient's oxygenation up to 8 L and she found the pneumothorax since then we have weaned him down to 2 L and he is sat is at 98%. Patient is stable at this time is in no respiratory distress. I did speak with pulmonology and they recommended that if patient worsens do recommend a pneumothorax but recommended we talked interventional radiology for possible placement or their recommendations. I spoke with interventional radiology they recommended repeat chest x-ray and if it is not worsening to watch overnight continue with oxygen and consider placement in the morning or see if it resolves on its own. If we are to place a chest tube he recommended over the V5 lead is here place that is most safest. And only placing a small pigtail catheter. Patient is stable at this time. I spoke with the hospitalist Dr. Payan who agreed to admit the patient to the ICU. Patient is admitted in stable condition. At this time the repeat chest x- ray was done and it shows stable to minimally increased pneumothorax this is based on the chest x-ray that was done approximately 5 hours ago. They recommend continued surveillance. This time we felt that is more beneficial to wait and continue to monitor the pneumothorax rather than place the pigtail catheter in at this time. Patient family are agreeable do this. Also with him being on Xarelto he is last dose was today at 8 AM. Based on this is also gives and is time for the blood thinners to be well throughout the system. Consult for interventional radiology was placed that they can evaluate in the morning to see if he does need a pigtail catheter placed at that time. Patient is stable at time of admission. Chest CTA 03/20/19 18:59 IMPRESSION: 1. Moderate left-sided pneumothorax. 2. Multifocal airspace disease identified on prior exam from February 13, 2019 has near completely resolved. Tree-in-bud nodular opacities within the left lower lobe most compatible with ongoing infectious/inflammatory process. 3. Secretions throughout the right mainstem bronchus extending into the right middle lobe and lower lobe bronchi most suggestive of aspiration. There is also bronchial wall thickening throughout the lungs which is most pronounced within the right lower lobe compatible with bronchitis. 4. Nodule within the superior aspect of the right lower lobe measuring 1 cm. While findings may be infectious/inflammatory, recommend follow-up per oncologic protocol given history of lung cancer. 5. Worsening mediastinal lymphadenopathy. D/ / Boy Hill MD / Boy Hill MD Interpreting Provider: Boy Hill MD Chest X-Ray 03/20/19 22:11 IMPRESSION: Moderate-sized left pneumothorax again identified at the left lung base, stable to minimally increased in size. Continued surveillance recommended. D/ / Darren Vaca MD / Darren Vaca MD Interpreting Provider: Darren Vaca MD - Medical Records Medical records reviewed: Yes I reviewed the patient's medical records. - Lab Data Lab results reviewed: Yes I reviewed the patient's lab results. Result diagrams: 03/20/19 18:22 03/20/19 18:22 Lab Results 03/20/19 03/20/19 03/20/19 Range/Units 18:22 18:22 18:22 WBC 12.1 H D (4.3-11.1) K/mcL RBC 3.32 L (4.19-5.50) M/mcL Hgb 9.9 L (12.9-16.9) g/dL Hct 31.9 L (37.5-50.1) % MCV 96.1 (83.0-100.0) fL MCH 29.8 (28.0-33.3) pg MCHC 31.0 L (31.6-35.5) g/dL RDW 14.6 H (11.5-14.5) % Plt Count 299 (140-400) K/mcL MPV 9.8 (9.4-12.4) fL Immature Gran % 0.7 (0-4) % Seg Neutrophils % 83.3 % Lymphocytes % 10.2 % Monocytes % 5.5 % Eosinophils % 0.2 % Basophils % 0.1 % Neutrophils # 10.1 H (1.6-8.9) K/mcL Lymphocytes # 1.2 (0.6-4.6) K/mcL Monocytes # 0.7 (0.0-1.3) K/mcL Eosinophils # 0.0 (0.0-0.6) K/mcL Basophils # 0.0 (0.0-0.2) K/mcL D-Dimer 1398 H (0-500) ng/mLFEU Sodium 135 L (136-145) mEq/L Potassium 4.5 (3.5-5.1) mEq/L Chloride 95 L (98-107) mEq/L Carbon Dioxide 36 H (23-29) mEq/L BUN 9 (6-20) mg/dL Creatinine 0.41 L (0.70-1.30) mg/dL Est GFR ( Amer) > 60 (> 60) Est GFR (Non-Af Amer) > 60 (> 60) BUN/Creatinine Ratio 22 (6-26) Glucose 147 H (70-105) mg/dL Calculated Osmolality 281 (280-300) Calcium 8.7 (8.6-10.3) mg/dL Troponin I < 0.03 (< 0.04) ng/mL - Radiology Data Radiology results reviewed: Yes I reviewed the patient's radiology results. - EKG Data EKG #1 EKG attestation: Yes I reviewed and interpreted this EKG. EKG results narrative: EKG done at 1817 review myself and the attending shows sinus tachycardia rate of 105, NM interval 145, QRS 90, QTC 427. There is no acute ST changes no acute T-wave changes no other signs of ischemia. No signs of hypertrophy, heart strain, heart block. No WPW/Brugada/HOCM. Otherwise no other signs on the EKG. Unchanged when compared with old EKG done 03/13/19
[2019-03-20 19:26] LABS: Basophils % 0.1 %; Eosinophils % 0.2 %; Hematocrit 31.9 % (37.5-50.1); Hemoglobin 9.9 g/dL (12.9-16.9); Immature Granulocytes % 0.7 % (0-4); Lymphocytes # 1.2 K/mcL (0.6-4.6); Lymphocytes % 10.2 %; Mean Corpuscular Hemoglobin 29.8 pg (28.0-33.3); Mean Corpuscular Volume 96.1 fL (83.0-100.0); Mean Platelet Volume 9.8 fL (9.4-12.4); Monocytes # 0.7 K/mcL (0.0-1.3); Monocytes % 5.5 %; Platelet Count 299 K/mcL (140-400); Red Blood Count 3.32 M/mcL (4.19-5.50); Red Cell Distribution Width 14.6 % (11.5-14.5); Segmented Neutrophils % 83.3 %
[2019-03-20 19:31] LABS: Neutrophils # 10.1 K/mcL (1.6-8.9); White Blood Count 12.1 K/mcL (4.3-11.1)
[2019-03-20 19:40] LABS: BUN/Creatinine Ratio 22 (6-26); Blood Urea Nitrogen 9 mg/dL (6-20); Calcium 8.7 mg/dL (8.6-10.3); Carbon Dioxide 36 mEq/L (23-29); Chloride 95 mEq/L (98-107); Glucose 147 mg/dL (70-105); Osmolality,Calculated 281 (280-300); Potassium 4.5 mEq/L (3.5-5.1); Sodium 135 mEq/L (136-145); Troponin I < 0.03 ng/mL (< 0.04); eGFR For African Americans > 60 (> 60); eGFR For Non-African Americans > 60 (> 60)
[2019-03-21] MEDS ORDERED: *HR* OxyCODONE Immed Rel 5 MG TABLET PO PRN (00:38)
[2019-03-21] MEDS ORDERED: *HR* HYDROcodone/Acet 5/325 mg TABLET PO PRN (00:38)
[2019-03-21] MEDS ORDERED: Naloxone 0.4 MG/ML INJ IVP PRN ×2 (00:38→16:03)
[2019-03-21] MEDS ORDERED: Acetaminophen 325 MG TABLET PO PRN ×2 (00:38→16:03)
--- NOTE | 2019-03-21 01:04 | Internal Med History&Physical ---
<Jameson Brower - Last Filed: 03/21/19 04:13> Date of Encounter: 03/21/19 Time of Encounter: 01:04 Internal Medicine - H&P: HPI History of present illness: Mr. Salcedo is a 58 year old male with a PMH of small cell lung carcinoma, COPD, arthritis, and HTN who presented to [facility] ED on 03/20/19 with hypoxia. He reported that he was doing his normal daily activities in [facility] facility when he checked his pulse ox, which indicated his O2 saturation was in the 60s. Denied any shortness of breath. Has a known history of a bleb in his left upper lung. Also has an lung cancer, stage IV. He is not currently undergoing therapy, and reports that his last treatment was 6 weeks ago. Upon arrival to the emergency department, vital signs were significant for an elevated heart rate at 109 bpm. All other vitals were within normal limits. Labs demonstrated an elevated white count at 12.1 with left shift, d-dimer 1398, and a sodium of 135. CXR demonstrated moderate sized left-sided pneumothorax identified at left lung base. Chest CTA demonstrated moderate left-sided pne umothorax, tree-in-bud nodular opacities within the left lower lobe most compatible with ongoing infectious/inflammatory process, secretions in right mainstem bronchus extending into right middle lobe and lower lobe bronchi suggestive of aspiration. EKG showed sinus tachycardia with no acute ST changes or other signs of ischemia. Interventional radiology was contacted from the ED; they recommended repeat chest x-ray and observation overnight. Patient is stable at this time. We will perform serial x-rays to monitor for increasing sized pneumothorax. Interventional radiology has been consulted; will assess patient in the morning for placement of a chest tube. During interview, patient is receiving oxygen via nasal cannula. She complains of some mild pain in his chest and his back. On physical exam, he has markedly diminished breath sounds on his left side, as well as crackles in the left lung base. No wheezes or rhonchi appreciated. He does not appear to be in any acute distress. We will repeat CXR in the morning and continue to observe in the ICU. Past Med Surg Social Fam HX - Past Medical History Medical history: arthritis, cancer, COPD, hypertension, pulmonary embolus, other Additional medical history: stage III lung cancer Psychiatric history: anxiety, depression - Past Surgical History Additional surgical history: back surgery - Social History Smoking Status: Current every day smoker Packs per day: 1/2 pack or less Smokeless Tobacco Status: No Alcohol use: none Drug use: none - Family History Mother Living Status: Hx Family Cardiac Disorders: No Hx Family Respiratory Disorders: No Hx Family Cancer: Yes (Breast) Hx Family GI Disorders: No Hx Family Endocrine Disorder: No Hx Family Neuromuscular Disorders: No Hx Family Neurologic Disorders: No Hx Family HEENT Disorders: No Hx Family Autoimmune Disorders: No Father Living Status: Hx Family Cardiac Disorders: No Hx Family Respiratory Disorders: No Hx Family Cancer: Yes (Bladder cancer) Hx Family GI Disorders: No Hx Family Endocrine Disorder: No Hx Family Neuromuscular Disorders: No Hx Family Neurologic Disorders: No Hx Family HEENT Disorders: No Hx Family Autoimmune Disorders: No Internal Medicine - H&P: Meds Cyanocobalamin (Vitamin B-12) [Vitamin B-12] 100 mcg PO DAILY 09/28/18 [History] DULoxetine [Cymbalta] 30 mg PO DAILY 09/28/18 [History] Budesonide/Formoterol 160/4.5 [Symbicort 160/4.5] 2 puff IH BIDR #1 inh 10/31/18 [Rx] Ondansetron HCl 8 mg PO Q8H PRN #45 tablet 11/21/18 [Rx] Albuterol Sulfate [Proair Hfa] 2 puff IH Q4H PRN 12/21/18 [History] Dexamethasone [Decadron] 4 mg PO BID PRN #45 tab 01/29/19 [Rx] Prochlorperazine Maleate [Compazine] 10 mg PO Q8HR PRN #90 tablet 01/29/19 [Rx] Gabapentin [Neurontin] 100 mg PO TID 02/26/19 [History] amLODIPine [Norvasc] 2.5 mg PO PRN PRN 02/26/19 [History] predniSONE [PredniSONE] 20 mg PO DAILY #30 tablet 02/26/19 [Rx] Sodium Chloride [Sodium Chloride Tab] 3 gm PO DAILY 03/12/19 [History] Doxepin [Sinequan] 25 mg PO HS 03/13/19 [History] Ipratropium/Albuterol Neb [Duoneb] 3 ml IH Q4HR PRN 03/13/19 [History] Rivaroxaban [Xarelto] 20 mg PO 2130 03/13/19 [History] Dronabinol [Marinol] 2.5 mg PO TID 30 Days #90 capsule 03/16/19 [Rx] Oxycodone HCl 15 mg PO Q4H PRN 7 Days #30 tablet 03/16/19 [Rx] diazePAM [Valium] 5 mg PO BID PRN 10 Days #20 tablet 03/16/19 [Rx] Allergy/AdvReac Type Severity Reaction Status Date / Time Penicillins [PCN] Allergy See Verified 03/20/19 23:12 Comments venlafaxine AdvReac Gastrointestinal Verified 03/20/19 23:12 Upset All Systems PM: A 10-system review of systems was performed and is negative for pertinent findings except as documented above in the HPI. - Constitutional Vitals: Temp Pulse Resp BP Pulse Ox 98.2 F 103 26 171/87 99 03/21/19 00:05 03/21/19 00:05 03/21/19 00:05 03/21/19 00:05 03/21/19 00:05 Exam: General: A&O X3, conversant, no acute distress Head: atraumatic, normocephalic Eye: PERRL, EOMI, conjuntiva pink, sclera anicteric Neck: Supple, trachea midline; No lymphadenopathy Respiratory: Markedly diminished breath sounds on the left, left basilar crackles; no wheezes or rhonchi Cardiovascular: RRR, +S1, +S2; no murmurs, rubs, gallops Abdomen: Soft, nontender Extremities: warm, radial pulses palpable and symmetrical Psychiatric: Normal affect, normal mood Skin: Dry, intact Internal Med - H&P Results - Labs CBC & Chem 7: 03/20/19 18:22 03/20/19 18:22 Labs: Short CBC 03/20/19 Range/Units 18:22 WBC 12.1 H D (4.3-11.1) K/mcL Hgb 9.9 L (12.9-16.9) g/dL Hct 31.9 L (37.5-50.1) % Plt Count 299 (140-400) K/mcL Neutrophils # 10.1 H (1.6-8.9) K/mcL BMP 06/11/19 18:22 Sodium 135 L Potassium 4.5 Chloride 95 L Carbon Dioxide 36 H BUN 9 Creatinine 0.41 L Glucose 147 H Calcium 8.7 Cardiac Enzymes 03/20/19 Range/Units 18:22 Troponin I < 0.03 (< 0.04) ng/mL - Impressions ITS Impressions Chest X-Ray 03/20/19 18:12 IMPRESSION: Moderate left pneumothorax, Critical results were called by Dr. Justin Calderon MD to Salinas Espinoza DO on 03/20/2019 at 18:41. D/ / 03/20/2019 18:54:36 Justin Calderon MD / [facility]any Interpreting Provider: Justin Calderon MD Chest CTA 03/20/19 18:59 IMPRESSION: 1. Moderate left-sided pneumothorax. 2. Multifocal airspace disease identified on prior exam from February 13, 2019 has near completely resolved. Tree-in-bud nodular opacities within the left lower lobe most compatible with ongoing infectious/inflammatory process. 3. Secretions throughout the right mainstem bronchus extending into the right middle lobe and lower lobe bronchi most suggestive of aspiration. There is also bronchial wall thickening throughout the lungs which is most pronounced within the right lower lobe compatible with bronchitis. 4. Nodule within the superior aspect of the right lower lobe measuring 1 cm. While findings may be infectious/inflammatory, recommend follow-up per oncologic protocol given history of lung cancer. 5. Worsening mediastinal lymphadenopathy. D/ / Boy Hill MD / Boy Hill MD Interpreting Provider: Boy Hill MD Chest X-Ray 03/20/19 22:11 IMPRESSION: Moderate-sized left pneumothorax again identified at the left lung base, stable to minimally increased in size. Continued surveillance recommended. D/ / Darren Vaca MD / Darren Vaca MD Interpreting Provider: Darren Vaca MD - Assessment and Plan (1) Pneumothorax Current Visit: Yes Status: Acute Assessment and plan: - As demonstrated on imaging; CXR performed in ED demonstrated a moderately sized pneumothorax without mediastinal shift - CT scan of the chest demonstrated moderate left-sided pneumothorax, as well as tree-in-bud opacities within left lower lobe - Patient does have a known history of a bleb in his left upper lung as well as a known history of stage IV lung cancer Plan: - Observe patient in the ICU overnight; repeat CXR in the morning - Continuous pulse ox and telemetry - Interventional radiology has been consulted for the placement of the chest tube tomorrow - IV Toradol for pain control - Consult pulmonology Qualifiers: Qualified Code(s): J93.9 - Pneumothorax, unspecified (2) Aspiration pneumonia Current Visit: Yes Status: Acute Assessment and plan: - Suspected based on leukocytosis and findings on imaging - Patient has been aspirating even small sips of water since he arrived to ICU - Aspiration precautions; All PO meds are being held - Consult speech therapy - Labs on arrival demonstrated an elevated white count at 12.1 with left shift - Will start IV antibiotics: Flagyl and Levaquin (patient has documented penicillin allergy) Qualifiers: Qualified Code(s): J69.0 - Pneumonitis due to inhalation of food and vomit (3) COPD (chronic obstructive pulmonary disease) Current Visit: No Status: Acute Assessment and plan: - Known history of COPD - Normally takes PO prednisone at home - PO meds are being held at this time - JUAN J Nieves Qualifiers: Qualified Code(s): J44.9 - Chronic obstructive pulmonary disease, unspecified (4) Small cell lung cancer Current Visit: No Status: Chronic Assessment and plan: - Patient has a known history of small cell lung cancer, stage IV - He is not currently undergoing a treatments - He states that his last treatment was approximately 6 weeks ago - Consult hemeon (5) History of pulmonary embolism Current Visit: Yes Status: Acute Assessment and plan: - Patient has previous history of pulmonary embolism - Normally takes Xarelto - Xarelto is being held for the time being in anticipation for possible procedure - Time Spent With Patient Total time spent is greater than 50% in coordination of care (as documented) at patient's floor/unit and/or counseling patient: <Maicol Lucio - Last Filed: 03/21/19 04:26> Date of Encounter: 03/21/19 Internal Medicine - H&P: HPI History of present illness: Mr. Salcedo is a 58 year old male All Systems PM: A 10-system review of systems was performed and is negative for pertinent findings except as documented above in the HPI. - Constitutional Vitals: Temp Pulse Resp BP Pulse Ox 98.2 F 102 19 132/81 99 03/21/19 00:05 03/21/19 03:00 03/21/19 03:00 03/21/19 03:00 03/21/19 03:00 Internal Med - H&P Results - Labs CBC & Chem 7: 03/20/19 18:22 03/20/19 18:22 Labs: Short CBC 03/20/19 Range/Units 18:22 WBC 12.1 H D (4.3-11.1) K/mcL Hgb 9.9 L (12.9-16.9) g/dL Hct 31.9 L (37.5-50.1) % Plt Count 299 (140-400) K/mcL Neutrophils # 10.1 H (1.6-8.9) K/mcL BMP 03/20/19 18:22 Sodium 135 L Potassium 4.5 Chloride 95 L Carbon Dioxide 36 H BUN 9 Creatinine 0.41 L Glucose 147 H Calcium 8.7 Cardiac Enzymes 03/20/19 Range/Units 18:22 Troponin I < 0.03 (< 0.04) ng/mL - Impressions ITS Impressions Chest X-Ray 03/20/19 18:12 IMPRESSION: Moderate left pneumothorax, Critical results were called by Dr. Justin Calderon MD to Salinas Espinoza DO on 03/20/2019 at 18:41. D/ / 03/20/2019 18:54:36 Justin Calderon MD / [facility] Interpreting Provider: Justin Calderon MD Chest CTA 03/20/19 18:59 IMPRESSION: 1. Moderate left-sided pneumothorax. 2. Multifocal airspace disease identified on prior exam from February 13, 2019 has near completely resolved. Tree-in-bud nodular opacities within the left lower lobe most compatible with ongoing infectious/inflammatory process. 3. Secretions throughout the right mainstem bronchus extending into the right middle lobe and lower lobe bronchi most suggestive of aspiration. There is also bronchial wall thickening throughout the lungs which is most pronounced within the right lower lobe compatible with bronchitis. 4. Nodule within the superior aspect of the right lower lobe measuring 1 cm. While findings may be infectious/inflammatory, recommend follow-up per oncologic protocol given history of lung cancer. 5. Worsening mediastinal lymphadenopathy. D/ / Boy Hill MD / Boy Hill MD Interpreting Provider: Boy Hill MD Chest X-Ray 03/20/19 22:11 IMPRESSION: Moderate-sized left pneumothorax again identified at the left lung base, stable to minimally increased in size. Continued surveillance recommended. D/ / Darren Vaca MD / Darren Vaca MD Interpreting Provider: Darren Vaca MD - Time Spent With Patient Total time spent is greater than 50% in coordination of care (as documented) at patient's floor/unit and/or counseling patient: - Attending Attestation I examined this patient and my medical decision-making was reviewed with the Resident Physician. I agree with the documented findings, disposition and treatment plan as described except to the extent set forth below. Patient is a 58-year-old male with history of small cell lung cancer who presents with hypoxia and shortness of breath. He states [facility]. He denies any falls or trauma. Medical history reviewed and does have a history of recent hip fracture and small cell lung cancer. Also has a history of PE on anticoagulation. Denies any significant family history. On exam patient is resting comfortably and does not appear to be in any respiratory distress. Lungs are diffusely diminished bilaterally. Heart is regular rate and rhythm with no murmurs, rubs, gallops. Stage II ulcer noted his left lower leg that does not appear to be acutely infected. Laboratory evaluation reveals mildly elevated leukocytosis that is new from March 16. Otherwise labs are stable. Chest CTA revealed moderate left sided lower lobe pneumothorax with tree-in-bud nodular opacities in the left lower lobe as w ell as secretion in the right mainstem bronchus concerning for aspiration. Assessment and plan: Pneumothorax: Spontaneous, appears to be isolated to the lower lobe. Overall patient is stable. No evidence of tension, blood pressure stable. He is hypoxic and will give high flow oxygen through [employer] to deliver as much oxygen as possible. Pulmonology and interventional radiology consult in the morning as given the location the ER did not feel comfortable placing a chest tube. Pneumonia: Suspected given the patients elevated white count and CT findings with shortness of breath and hypoxia we will treat empirically for pneumonia. Concern that this may be related to aspiration. Start Garrison Fitzgerald. Speech consult in AM
[2019-03-21] MEDS: Ketorolac 30 MG/ML VIAL IVP PRN ×4 (01:20→19:28)
[2019-03-21] MEDS ORDERED: Ipratropium/Albuterol Neb 3 ML IH PRN ×2 (03:44→16:03)
[2019-03-21] MEDS ORDERED: MetroNIDAZOLE 500 MG/100 ML 500 MG/100 ML BAG IVPB SCH (04:00)
[2019-03-21 05:15] LABS: Basophils % 0.1 %; Eosinophils # 0.1 K/mcL (0.0-0.6); Eosinophils % 0.9 %; Hematocrit 33.1 % (37.5-50.1); Hemoglobin 10.4 g/dL (12.9-16.9); Immature Granulocytes % 0.6 % (0-4); Lymphocytes # 1.4 K/mcL (0.6-4.6); Lymphocytes % 11.1 %; Mean Corpuscular HGB Conc 31.4 g/dL (31.6-35.5); Mean Corpuscular Hemoglobin 30.7 pg (28.0-33.3); Mean Corpuscular Volume 97.6 fL (83.0-100.0); Mean Platelet Volume 9.5 fL (9.4-12.4); Monocytes # 0.8 K/mcL (0.0-1.3); Monocytes % 5.9 %; Neutrophils # 10.4 K/mcL (1.6-8.9); Platelet Count 307 K/mcL (140-400); Red Blood Count 3.39 M/mcL (4.19-5.50); Red Cell Distribution Width 14.6 % (11.5-14.5); Segmented Neutrophils % 81.4 %; White Blood Count 12.8 K/mcL (4.3-11.1)
[2019-03-21 05:23] LABS: INR 1.1; Prothrombin Time 12.9 Seconds (9.4-12.1)
[2019-03-21 05:38] LABS: BUN/Creatinine Ratio 22 (6-26); Blood Urea Nitrogen 8 mg/dL (6-20); Calcium 9.1 mg/dL (8.6-10.3); Carbon Dioxide 42 mEq/L (23-29); Chloride 94 mEq/L (98-107); Glucose 117 mg/dL (70-105); Osmolality,Calculated 285 (280-300); Sodium 138 mEq/L (136-145); eGFR For African Americans > 60 (> 60); eGFR For Non-African Americans > 60 (> 60)
--- NOTE | 2019-03-21 06:44 | Pulmonology Consult Note ---
Date of Encounter: 03/21/19 Time of Encounter: 06:44 Assessment and Plan (1) Acute respiratory failure with hypoxia and hypercapnia Current Visit: No Status: Resolved This is secondary to pneumonia COPD exacerbation and pneumothorax. We will avoid positive pressure ventilation as much as possible giving severity of his underlying bullous emphysema he is currently tolerating high flow oxygen would aim for a higher FiO2/SaO2 ratio because of pneumothorax to improve nitrogen washout (2) Pneumothorax on left Current Visit: No Status: Acute Very difficult situation of bilateral bullous emphysema which is quite severe with history of pneumothoraces. Given underlying stage IV lung cancer and overall clinical debility is not a very good surgical candidate discussed with the cardiothoracic surgeon and the plan at this time would be on the left to place a larger bore test chest tube with talc slurry to hopefully prevent recurrence. I appreciate Dr Sutton (Thoracic Surgery) evaluating this patient and responding quickly with placement of large bore chest tube at bedside (3) Pneumonia Current Visit: Yes Status: Acute There is concern for aspiration patient is on broad-spectrum antibiotics cultures of been obtained we will de-escalate based upon clinical course patient will need formal speech and swallow evaluation Qualifiers: Qualified Code(s): J18.9 - Pneumonia, unspecified organism (4) Pulmonary embolism Current Visit: No Status: Chronic History of pulmonary embolus within the last 3 months in the context of malignancy he is high risk we will resume home NOAC with Lovenox bridge Qualifiers: Pulmonary embolism type: other Chronicity: acute Acute cor pulmonale presence: without acute cor pulmonale Qualified Code(s): I26.99 - Other pulmonary embolism without acute cor pulmonale (5) Acute exacerbation of chronic obstructive airways disease Current Visit: No Status: Resolved Continue schedule bronchodilators and will start IV systemic glucocorticoids Symbicort 160/4.5 twice a day (6) History of lung cancer Current Visit: No Status: Acute He is following with [facility] for this History of Present Illness Consult date: 03/21/19 Requesting physician: Jameson Brower Reason for consult: COPD Chief complaint: Difficulty in Breathing History of present illness: Mr. Salcedo is a pleasant 58-year-old gentleman who unfortunately suffers from chronic respiratory failure secondary to advanced emphysema and in fact he has severe bullous emphysema with history of pneumothorax in the past unfortunately he also suffers from stage IV small cell lung cancer and is being followed here is [facility] and had been undergoing chemotherapy. He was currently at the [facility] and noted to have low oxygen level was feeling more short of breath usually wears 2-4 L of oxygen at all times requiring up to 8 L when he presented to the emergency room yesterday chest x-ray was concerning for a left-sided pneumothorax which was confirmed by CT scan. Because of the location and size of the pneumothorax emergency medicine team and consulted interventional radiology for possible CT-guided placement this was deferred overnight and the panic patient was managed conservatively. When I evaluated the patient he was complaining of severe 8-10 out of 10 right-sided chest pain and it was having increased difficulty breathing he was awake and able to follow all commands and denied any other symptoms except that he has been having difficulty swallowing recently and was actually choking on food. He was otherwise hemodynamically stable with oxygen saturation in the 90s on 15 L high flow oxygen Past Med Surg Social Fam HX - Past Medical History Medical history: arthritis, cancer, COPD, hypertension, pulmonary embolus, other Additional medical history: stage III lung cancer Psychiatric history: anxiety, depression - Past Surgical History Additional surgical history: back surgery - Social History Smoking Status: Current every day smoker Packs per day: 1/2 pack or less Smokeless Tobacco Status: No Alcohol use: none Drug use: none - Family History Mother Living Status: Hx Family Cardiac Disorders: No Hx Family Respiratory Disorders: No Hx Family Cancer: Yes (Breast) Hx Family GI Disorders: No Hx Family Endocrine Disorder: No Hx Family Neuromuscular Disorders: No Hx Family Neurologic Disorders: No Hx Family HEENT Disorders: No Hx Family Autoimmune Disorders: No Father Living Status: Hx Family Cardiac Disorders: No Hx Family Respiratory Disorders: No Hx Family Cancer: Yes (Bladder cancer) Hx Family GI Disorders: No Hx Family Endocrine Disorder: No Hx Family Neuromuscular Disorders: No Hx Family Neurologic Disorders: No Hx Family HEENT Disorders: No Hx Family Autoimmune Disorders: No Medications and Allergies Cyanocobalamin (Vitamin B-12) [Vitamin B-12] 100 mcg PO DAILY 09/28/18 [History] DULoxetine [Cymbalta] 30 mg PO DAILY 09/28/18 [History] Budesonide/Formoterol 160/4.5 [Symbicort 160/4.5] 2 puff IH BIDR #1 inh 10/31/18 [Rx] Ondansetron HCl 8 mg PO Q8H PRN #45 tablet 11/21/18 [Rx] Albuterol Sulfate [Proair Hfa] 2 puff IH Q4H PRN 12/21/18 [History] Dexamethasone [Decadron] 4 mg PO BID PRN #45 tab 01/29/19 [Rx] Prochlorperazine Maleate [Compazine] 10 mg PO Q8HR PRN #90 tablet 01/29/19 [Rx] Gabapentin [Neurontin] 100 mg PO TID 02/26/19 [History] amLODIPine [Norvasc] 2.5 mg PO PRN PRN 02/26/19 [History] predniSONE [PredniSONE] 20 mg PO DAILY #30 tablet 02/26/19 [Rx] Sodium Chloride [Sodium Chloride Tab] 3 gm PO DAILY 03/12/19 [History] Doxepin [Sinequan] 25 mg PO HS 03/13/19 [History] Ipratropium/Albuterol Neb [Duoneb] 3 ml IH Q4HR PRN 03/13/19 [History] Rivaroxaban [Xarelto] 20 mg PO 2130 03/13/19 [History] Dronabinol [Marinol] 2.5 mg PO TID 30 Days #90 capsule 03/16/19 [Rx] Oxycodone HCl 15 mg PO Q4H PRN 7 Days #30 tablet 03/16/19 [Rx] diazePAM [Valium] 5 mg PO BID PRN 10 Days #20 tablet 03/16/19 [Rx] Allergy/AdvReac Type Severity Reaction Status Date / Time Penicillins [PCN] Allergy See Verified 03/20/19 23:12 Comments venlafaxine AdvReac Gastrointestinal Verified 03/20/19 23:12 Upset All Systems: The remainder of the systems were reviewed and are negative Physical Examination Vital Signs: Vital Signs, Last 4 Hours Temp Pulse Resp BP Pulse Ox 03/21/19 06:00 104 18 113/84 92 03/21/19 05:13 97 F L 03/21/19 05:00 100 22 138/84 95 03/21/19 04:00 101 20 130/80 93 03/21/19 03:00 102 19 132/81 99 General appearance: appears uncomfortable Eyes: nonicteric ENT: oropharynx moist Neck: supple, no JVD Effort: very labored Auscultation: bilateral: wheezes Cardiovascular: regular rate and rhythm Gastrointestinal: normoactive bowel sounds, soft, non-tender Integumentary: normal Extremities: no cyanosis, no edema, no clubbing Musculoskeletal: no deformities normal mental status, non-focal exam mood appropriate Results - Laboratory Findings CBC and BMP: 03/21/19 04:35 03/21/19 04:35 PT/INR, D-dimer PT 12.9 Seconds (9.4-12.1) H 03/21/19 04:35 1398 ng/mLFEU (0-500) H 03/20/19 18:22 Abnormal lab findings: Abnormal lab results WBC 12.8 K/mcL (4.3-11.1) H 03/21/19 04:35 RBC 3.39 M/mcL (4.19-5.50) L 03/21/19 04:35 Hgb 10.4 g/dL (12.9-16.9) L 03/21/19 04:35 Hct 33.1 % (37.5-50.1) L 03/21/19 04:35 MCHC 31.4 g/dL (31.6-35.5) L 03/21/19 04:35 RDW 14.6 % (11.5-14.5) H 03/21/19 04:35 10.4 K/mcL (1.6-8.9) H 03/21/19 04:35 PT 12.9 Seconds (9.4-12.1) H 03/21/19 04:35 1398 ng/mLFEU (0-500) H 03/20/19 18:22 Sodium 135 mEq/L (136-145) L 03/20/19 18:22 Chloride 94 mEq/L (98-107) L 03/21/19 04:35 Carbon Dioxide 42 mEq/L (23-29) H* 03/21/19 04:35 0.37 mg/dL (0.70-1.30) L 03/21/19 04:35 Glucose 117 mg/dL (70-105) H 03/21/19 04:35 POC Glucose 118 mg/dL (70-99) H 03/21/19 00:14 - Diagnostic Findings Chest x-ray: report reviewed, image reviewed CT scan - chest: report reviewed, image reviewed - Clinical Findings Intake & Output: Intake & Output 03/20/19 03/20/19 03/21/19 15:59 23:59 07:59 Intake Total 100 / 100 Output Total 550 / 550 Balance -450 / -450 Weight 64.637 kg 63.9 kg Consult Discharge Plan - Plan Referrals: Jeferson Townsend MD [Primary Care Provider] -
[2019-03-21] MEDS ORDERED: *HR* Midazolam HCl 2 MG/2 ML VIAL IVP ONE (07:19)
[2019-03-21] MEDS ORDERED: *HR* HYDROmorphone 2 MG/ML SYRINGE IVP ONE (08:18)
[2019-03-21] MEDS ORDERED: Levofloxacin 750 MG/150 ML 750 MG/150 ML BAG IVPB SCH (09:00)
--- NOTE | 2019-03-21 10:07 | Operative Note ---
Date of procedure: 03/21/19 Pre-op diagnosis: bullous emphysema wiht collapse Post-op diagnosis: same Procedure: left tube thoracostomy Complications: none Anesthesia: IV sedation Surgeon: John Sutton Was there an radiology physician assistant present: No Estimated blood loss (cc): 0 Specimen: o Condition: stable Disposition: ICU Procedure in Detail: This is a thoracic procedure on Mr. Salcedo. In the intensive care unit with cardiopulmonary monitoring is prepped with chlorhexidine and draped in the usual sterile fashion he was given 2 mg Versed IV 2 mg Tylenol on an IV. 40 mL 1% lidocaine plain were used to anesthetize the skin the subcutaneous tissue and the intercostal space. A small incision was made with a #10 scalpel blade and with blunt dissection the pleural space was entered. A [place] chest tube was placed at 8 cm where it met resistance. Chest tube was secured into place with Ethibond suture. Sterile dressings applied. Follow-up chest x-ray demonstrated the resolution of the pneumothorax.
--- NOTE | 2019-03-21 10:09 | Cardiothoracic Consult Note ---
Date of Encounter: 03/21/19 Time of Encounter: 10:07 Assessment and Plan (1) Bullous emphysema with collapse Current Visit: Yes Status: Acute The assessment and plan as outlined above was discussed with the patient and/or family members who expressed understanding and agreement. All questions were answered. I have reviewed the cta and chest xrays with with the fabric worker leader. I have obtained informed consent and will proceed with chest tube placement. (2) Pneumonia Current Visit: No Status: Suspected The assessment and plan as outlined above was discussed with the patient and/or family members who expressed understanding and agreement. All questions were answered. continue respiratory treatments and antibx per pulm/ccm Qualifiers: Pneumonia type: due to Pneumococcus Laterality: bilateral Lung location: lower lobe of lung Qualified Code(s): J13 - Pneumonia due to Streptococcus pneumoniae (3) Acute respiratory failure with hypoxia and hypercapnia Current Visit: No Status: Resolved The assessment and plan as outlined above was discussed with the patient and/or family members who expressed understanding and agreement. All questions were answered. changes will improve with chest tube placement and reexpansion of the lung - History of Present Illness Consult date: 03/21/19 Requesting physician: Abad Day Consult reason: pnthx Chief complaint: cp and sob History of present illness: Mr. Salcedo is a 58 year old male who presented to the [facility] system several days ago after having chest pain and shortness of breath for approximately 48 hours. On admission to the hospital was found to have a new left pneumothorax secondary to his severe emphysema. Since his admission. His pneumothorax has enlarged and his symptoms have worsened he now has a moderate size left pneumothorax. Past Med Surg Social Fam HX - Past Medical History Medical history: arthritis, cancer, COPD, hypertension, pulmonary embolus, other Additional medical history: stage III lung cancer. recurrent pnthx Psychiatric history: anxiety, depression - Past Surgical History Additional surgical history: back surgery. left femur sx - Social History Smoking Status: Current every day smoker Packs per day: 1/2 pack or less Smokeless Tobacco Status: No Alcohol use: none Drug use: none - Family History Mother Living Status: Hx Family Cardiac Disorders: No Hx Family Respiratory Disorders: No Hx Family Cancer: Yes (Breast) Hx Family GI Disorders: No Hx Family Endocrine Disorder: No Hx Family Neuromuscular Disorders: No Hx Family Neurologic Disorders: No Hx Family HEENT Disorders: No Hx Family Autoimmune Disorders: No Father Living Status: Hx Family Cardiac Disorders: No Hx Family Respiratory Disorders: No Hx Family Cancer: Yes (Bladder cancer) Hx Family GI Disorders: No Hx Family Endocrine Disorder: No Hx Family Neuromuscular Disorders: No Hx Family Neurologic Disorders: No Hx Family HEENT Disorders: No Hx Family Autoimmune Disorders: No - Additional Family History Additional family history: breast cancer. bladder cancer. hypertension Medications and Allergies Cyanocobalamin (Vitamin B-12) [Vitamin B-12] 100 mcg PO DAILY 09/28/18 [History] DULoxetine [Cymbalta] 30 mg PO DAILY 09/28/18 [History] Budesonide/Formoterol 160/4.5 [Symbicort 160/4.5] 2 puff IH BIDR #1 inh 10/31/18 [Rx] Ondansetron HCl 8 mg PO Q8H PRN #45 tablet 11/21/18 [Rx] Albuterol Sulfate [Proair Hfa] 2 puff IH Q4H PRN 12/21/18 [History] Dexamethasone [Decadron] 4 mg PO BID PRN #45 tab 01/29/19 [Rx] Prochlorperazine Maleate [Compazine] 10 mg PO Q8HR PRN #90 tablet 01/29/19 [Rx] Gabapentin [Neurontin] 100 mg PO TID 02/26/19 [History] amLODIPine [Norvasc] 2.5 mg PO PRN PRN 02/26/19 [History] predniSONE [PredniSONE] 20 mg PO DAILY #30 tablet 02/26/19 [Rx] Sodium Chloride [Sodium Chloride Tab] 3 gm PO DAILY 03/12/19 [History] Doxepin [Sinequan] 25 mg PO HS 03/13/19 [History] Ipratropium/Albuterol Neb [Duoneb] 3 ml IH Q4HR PRN 03/13/19 [History] Rivaroxaban [Xarelto] 20 mg PO 2130 03/13/19 [History] Dronabinol [Marinol] 2.5 mg PO TID 30 Days #90 capsule 03/16/19 [Rx] Oxycodone HCl 15 mg PO Q4H PRN 7 Days #30 tablet 03/16/19 [Rx] diazePAM [Valium] 5 mg PO BID PRN 10 Days #20 tablet 03/16/19 [Rx] Allergy/AdvReac Type Severity Reaction Status Date / Time Penicillins [PCN] Allergy See Verified 03/20/19 23:12 Comments venlafaxine AdvReac Gastrointestinal Verified 03/20/19 23:12 Upset All Systems Review: The remainder of the systems were reviewed and are negative - Constitutional Constitutional: anorexia, fatigue, lethargy, weakness - Cardiovascular Cardiovascular: dyspnea at rest, dyspnea on exertion - Respiratory Respiratory: cough - Musculoskeletal Musculoskeletal: muscle weakness, myalgias - Psychiatric Psychiatric: anxiety Physical Examination Vital Signs, Last 4 Hours Temp Pulse Resp BP Pulse Ox 03/21/19 08:00 104 28 129/78 100 03/21/19 07:30 100 03/21/19 07:00 97.5 F L General: Conversant, No Apparent Distress, Well developed, Well nourished HEENT: Atraumatic, Normocephaly, Trachea midline Cardiac: Reg Rate and Rhythm, Normal S1 and S2, No Murmur Lungs: Decreased breath sounds Neuro: Alert and responsive, No focal deficits noted, Cranial nerves intact, Motor nerves intact Vascular: Normal capillary refill Abdomen: Soft, Non-tender, Other (no peritoneal signs ) Musculoskeletal: Other (limited range of motion and pain with motion in the left thigh ) Extremities: No Clubbing, No Cyanosis, No Edema, Normal Pulses Results 03/21/19 04:35 03/21/19 04:35 Lab Results, Last 24 hours 03/20/19 03/20/19 03/20/19 18:22 18:22 18:22 WBC 12.1 H D Hgb 9.9 L Hct 31.9 L Plt Count 299 INR D-Dimer 1398 H Sodium 135 L Potassium 4.5 Chloride 95 L Carbon Dioxide 36 H BUN 9 Creatinine 0.41 L Glucose 147 H Calcium 8.7 Troponin I < 0.03 B-Natriuretic Peptide 03/21/19 03/21/19 03/21/19 04:35 04:35 04:35 WBC 12.8 H Hgb 10.4 L Hct 33.1 L Plt Count 307 INR 1.1 D-Dimer Sodium 138 Potassium 4.0 Chloride 94 L Carbon Dioxide 42 H* BUN 8 Creatinine 0.37 L Glucose 117 H Calcium 9.1 Troponin I B-Natriuretic Peptide 03/21/19 04:35 WBC Hgb Hct Plt Count INR D-Dimer Sodium Potassium Chloride Carbon Dioxide BUN Creatinine Glucose Calcium Troponin I B-Natriuretic Peptide 68 - Imaging Chest Xray: image reviewed Consult Discharge Plan - Plan Referrals: Jeferson Townsend MD [Primary Care Provider] -
[2019-03-21] MEDS: methylPREDNISolone 125 MG/2 ML VIAL IVP SCH ×3 (10:57→23:40)
[2019-03-21] MEDS ORDERED: *HR* Enoxaparin 60 MG/0.6 ML SYRINGE SQ SCH (12:00)
--- NOTE | 2019-03-21 12:12 | Oncology Inp Consult Note ---
<Lang Potter Jr - Last Filed: 03/21/19 14:03> Date of Encounter: 03/21/19 Time of Encounter: 12:08 Assessment and Plan (1) Small cell lung cancer Status: Chronic Assessment and plan: This is a 58 year old male patient of Dr Tadeo Bustillos at [facility] with small cell lung cancer, at least stage IV He is s/p cycle 5 chemoimmunotherapy 02/05/19. Subsequent chemo held due to weakness, hospitalizations and femur fracture. Held cycle 6 of treatment 03/15/19 for weakness and feeling unwell. Last time seen in clinic Status post treatment, intubation and extubation for influenza A in the hospital s/p rehab and in 02/25 with pneumococcal pneumonia Now admitted again for pneumothorax, pneumonia and COPD. Currently with chest tube in ICU. Patient's multiple comorbidities has made it difficult for him to continue treatment. Plan for now is to consult palliative care for care goals and code status discussion. Continue current plan, we will follow along (2) Failure to thrive Status: Acute Qualifiers: Failure to thrive age range: in adult Qualified Code(s): R62.7 - Adult failure to thrive - Data of Consult Patient: known to practice within the last 3 years Consult date: 03/21/19 Requesting Physician: John Payan MD Primary Care Provider: Jeferson Townsend MD - Consult Narrative Reason for consult: lung cancer, pneumothorax History of present illness: This is a 58-year-old male with past medical history of tobacco use, TIA, chronic pain, lumbar disc herniation, degenerative disc disease, hypertension, diagnosed with stage IV lung cancer, admitted for pneumothorax with chest tube, pneumonia and COPD. Oncology History: 1. CT scan showed mediastinal lymphadenopathy, aortopulmonary window lymph node measuring 5.2 x 3.6 cm in size. Bilateral mild hilar adenopathy, cavitary lesion in the left lung apex measuring 5.9 cm in size infiltrative lesion innumerable small nodules in the 3.2 cm mass left upper lobe anterior to the hilum. PET imaging that showed uptake in the AP window lymphadenopathy site, MIKEL mass, nodules and cavitary lesion in the rt lung in 10/28 MRI head no evidence of metastatic disease. He was placed on cisplatin/etoposide 11/21/18 cycle 1, switched to carboplatin /etoposide January 2019 He underwent repeat PET imaging after cycle 2 of chemotherapy that showed partial response to treatment with decrease in size of bilateral lung nodules and lymphadenopathy. He completed C3 and was hospitalized and tested positive for influenza A he was intubated and they drained extubated. He was also high. Hypoxemic due to increasing O2, also had bilateral pulmonary embolism.On xarelto. He was hospitalized with left femur fracture s/p surgery. On anticoagulation due to PE Readmitted to Hospital 03/20/19 with pneumothorax requiring chest tube Past Med Surg Social Fam HX - Past Medical History Medical history: arthritis, cancer, COPD, hypertension, pulmonary embolus, other Additional medical history: stage IV small cell lung cancer. recurrent pnthx Psychiatric history: anxiety, depression - Past Surgical History Additional surgical history: back surgery. left femur sx - Social History Smoking Status: Current every day smoker Packs per day: 1/2 pack or less Smokeless Tobacco Status: No Alcohol use: none Drug use: none - Family History Mother Living Status: Hx Family Cardiac Disorders: No Hx Family Respiratory Disorders: No Hx Family Cancer: Yes (Breast) Hx Family GI Disorders: No Hx Family Endocrine Disorder: No Hx Family Neuromuscular Disorders: No Hx Family Neurologic Disorders: No Hx Family HEENT Disorders: No Hx Family Autoimmune Disorders: No Father Living Status: Hx Family Cardiac Disorders: No Hx Family Respiratory Disorders: No Hx Family Cancer: Yes (Bladder cancer) Hx Family GI Disorders: No Hx Family Endocrine Disorder: No Hx Family Neuromuscular Disorders: No Hx Family Neurologic Disorders: No Hx Family HEENT Disorders: No Hx Family Autoimmune Disorders: No Medications and Allergies Cyanocobalamin (Vitamin B-12) [Vitamin B-12] 100 mcg PO DAILY 09/28/18 [History] DULoxetine [Cymbalta] 30 mg PO DAILY 09/28/18 [History] Budesonide/Formoterol 160/4.5 [Symbicort 160/4.5] 2 puff IH BIDR #1 inh 10/31/18 [Rx] Ondansetron HCl 8 mg PO Q8H PRN #45 tablet 11/21/18 [Rx] Albuterol Sulfate [Proair Hfa] 2 puff IH Q4H PRN 12/21/18 [History] Dexamethasone [Decadron] 4 mg PO BID PRN #45 tab 01/29/19 [Rx] Prochlorperazine Maleate [Compazine] 10 mg PO Q8HR PRN #90 tablet 01/29/19 [Rx] Gabapentin [Neurontin] 100 mg PO TID 02/26/19 [History] amLODIPine [Norvasc] 2.5 mg PO PRN PRN 02/26/19 [History] predniSONE [PredniSONE] 20 mg PO DAILY #30 tablet 02/26/19 [Rx] Sodium Chloride [Sodium Chloride Tab] 3 gm PO DAILY 03/12/19 [History] Doxepin [Sinequan] 25 mg PO HS 03/13/19 [History] Ipratropium/Albuterol Neb [Duoneb] 3 ml IH Q4HR PRN 03/13/19 [History] Rivaroxaban [Xarelto] 20 mg PO 2130 03/13/19 [History] Dronabinol [Marinol] 2.5 mg PO TID 30 Days #90 capsule 03/16/19 [Rx] Oxycodone HCl 15 mg PO Q4H PRN 7 Days #30 tablet 03/16/19 [Rx] diazePAM [Valium] 5 mg PO BID PRN 10 Days #20 tablet 03/16/19 [Rx] Allergy/AdvReac Type Severity Reaction Status Date / Time Penicillins [PCN] Allergy See Verified 03/20/19 23:12 Comments venlafaxine AdvReac Gastrointestinal Verified 03/20/19 23:12 Upset Constitutional: Present: fatigue, weakness, weight loss Cardiovascular: Present: chest pain Oncology - Exam - Constitutional General appearance: thin - Head Head exam: Present: normal inspection, normocephalic - Eye Eye exam: Present: PERRL - ENT ENT exam: Present: mucous membranes dry - Neck Neck exam: Present: full ROM - Respiratory Respiratory exam: Present: decreased breath sounds - Cardiovascular Cardiovascular exam: Present: RRR - GI/Abdominal GI/Abdominal exam: Present: hypoactive bowel sounds, soft - Extremities Exam Extremities exam: Present: joint swelling, pedal edema - Neurological Exam Neurological exam: Present: altered - Psychiatric Psychiatric exam: Present: normal affect - Skin Skin exam: Present: dry, warm Oncology Inpatient Results Labs: Laboratory Last Values WBC 12.8 K/mcL (4.3-11.1) H 03/21/19 04:35 RBC 3.39 M/mcL (4.19-5.50) L 03/21/19 04:35 Hgb 10.4 g/dL (12.9-16.9) L 03/21/19 04:35 Hct 33.1 % (37.5-50.1) L 03/21/19 04:35 MCV 97.6 fL (83.0-100.0) 03/21/19 04:35 MCH 30.7 pg (28.0-33.3) 03/21/19 04:35 MCHC 31.4 g/dL (31.6-35.5) L 03/21/19 04:35 RDW 14.6 % (11.5-14.5) H 03/21/19 04:35 Plt Count 307 K/mcL (140-400) 03/21/19 04:35 MPV 9.5 fL (9.4-12.4) 03/21/19 04:35 Immature Gran % 0.6 % (0-4) 03/21/19 04:35 Seg Neutrophils % 81.4 % 03/21/19 04:35 11.1 % 03/21/19 04:35 5.9 % 03/21/19 04:35 0.9 % 03/21/19 04:35 0.1 % 03/21/19 04:35 10.4 K/mcL (1.6-8.9) H 03/21/19 04:35 1.4 K/mcL (0.6-4.6) 03/21/19 04:35 0.8 K/mcL (0.0-1.3) 03/21/19 04:35 0.1 K/mcL (0.0-0.6) 03/21/19 04:35 0.0 K/mcL (0.0-0.2) 03/21/19 04:35 PT 12.9 Seconds (9.4-12.1) H 03/21/19 04:35 INR 1.1 03/21/19 04:35 1398 ng/mLFEU (0-500) H 03/20/19 18:22 Sodium 138 mEq/L (136-145) 03/21/19 04:35 Potassium 4.0 mEq/L (3.5-5.1) 03/21/19 04:35 Chloride 94 mEq/L (98-107) L 03/21/19 04:35 Carbon Dioxide 42 mEq/L (23-29) H* 03/21/19 04:35 BUN 8 mg/dL (6-20) 03/21/19 04:35 0.37 mg/dL (0.70-1.30) L 03/21/19 04:35 Est GFR ( Amer) > 60 (> 60) 03/21/19 04:35 Est GFR (Non-Af Amer) > 60 (> 60) 03/21/19 04:35 22 (6-26) 03/21/19 04:35 Glucose 117 mg/dL (70-105) H 03/21/19 04:35 POC Glucose 118 mg/dL (70-99) H 03/21/19 00:14 285 (280-300) 03/21/19 04:35 Calcium 9.1 mg/dL (8.6-10.3) 03/21/19 04:35 < 0.03 ng/mL (< 0.04) 03/20/19 18:22 B-Natriuretic Peptide 68 pg/mL (Less than 100) 03/21/19 04:35 Negative (Negative) 03/21/19 10:30 Consult Discharge Plan - Plan Referrals: Jeferson Townsend MD [Primary Care Provider] - Inpatient Charges Provider: Dr. Carl Partida Consult - Inpatient: [id number] <Kala Partida S - Last Filed: 03/21/19 15:22> Date of Encounter: 03/21/19 - Data of Consult Requesting Physician: John Payan MD Primary Care Provider: Jeferson Townsend MD Inpatient Charges Provider: Dr. Carl Partida Consult - Inpatient: [id number] - Attending Attestation I examined this patient and my medical decision-making was reviewed with the Advanced Practice Nurse. I agree with the documented findings, disposition and treatment plan as described except to the extent set forth below. 1. Stage IV small cell lung cancer.PET imaging that showed uptake in the AP window lymphadenopathy site, MIKEL mass, nodules and cavitary lesion in the rt lung in 10/28 post 5 cycles of chemotherapy. Started with cisplatin and top aside later switched to carboplatin and etoposide. Last dose 02/05/2019. Further treatment held due to toxicity and other comorbidities CT angiogram chest 03/20/2019 showed some worsening of mediastinal adenopathy. But some of this could be secondary to pneumonia. CT abdomen and pelvis 02/16/2019 showed no abdominal metastasis. 2. Currently hospitalized with left pneumonia and pneumothorax post chest tube. 3. Failure to thrive weight loss. Agree with palliative care. At this time no further recommendation from oncology. We will make appointment with Dr. Sullivan an outpatient if patient desires further treatment or workup
--- NOTE | 2019-03-21 16:46 | Electrocardiograph Report ---
[place] [id number] Test Date: 2019-03-20 Pat Name: Rishabh Salcedo Department: EXAM11 Room: 11 Gender: M Machine Fur [employer]er: : 1960 Requested By: Salinas Espinoza Order Number: [id number] Reading MD: Reid Velazquez Measurements Intervals [place] Rate: 105 P: 70 NH: 145 QRS: 122 QRSD: 90 T: 73 QT: 323 QTc: 427 Interpretive Statements Sinus tachycardia Electronically Signed On 03-21-2019 16:44:55 EDT by Reid Velazquez
--- NOTE | 2019-03-21 16:52 | Palliative - Consult Note ---
Date of Encounter: 03/21/19 Time of Encounter: 16:00 - Assessment and Plan (1) Generalized pain Current Visit: Yes Status: Acute Assessment and plan: Patient currently has Scotts for moderate pain and Oxycodone 10 mg for severe pa in. Has not utilized any at this point and time. Still appears sedated from medications he had during chest tube placement. Will monitor use of medications closely and evaluate effectiveness. (2) Generalized weakness Current Visit: No Status: Acute Assessment and plan: Will likely need to return to rehab. Will need PT/OT once stable (3) Goals of care, counseling/discussion Current Visit: No Status: Acute Assessment and plan: Patient is awake and oriented to person, place and situation. Needed reoriented to time. No family is present. He can answer questions, however, falls asleep during conversation. He came from [facility] where he was for care after hip fx. He does have adv directives in place. However, his power of transactional attorney has some conflicting verbage which I believe needs clarified. It states he was resuscitation, and aggressive care unless in vegetative state, but then also states Hospice care. He is not alert enough at this time to have that conversation. I did reach POA daughter Tonia Simmons. She states she is working tomorrow until 1700. Tuesday she is working until 1pm and states she could be at hospital at 1400 if needed. I discussed our role with his symptom management, goals of care and discharge planning. Patient may be more alert tomorrow to have conversation. Tonia stated that we can contact her at work ([phone]) - she will return call if not available. Will continue to follow. (4) Acute respiratory failure with hypoxia and hypercapnia Current Visit: No Status: Resolved (5) Small cell lung cancer Current Visit: No Status: Acute (6) Pneumothorax on left Current Visit: No Status: Acute (7) Hip fracture Current Visit: No Status: Acute Qualifiers: Qualified Code(s): S72.002D - Fracture of unspecified part of neck of left femur, subsequent encounter for closed fracture with routine healing (8) Aspiration pneumonia Current Visit: Yes Status: Acute Qualifiers: Qualified Code(s): J69.0 - Pneumonitis due to inhalation of food and vomit (9) Palliative care encounter Current Visit: Yes Status: Acute Palliative-CN HPI - Data of Consult Requesting Physician: John Payan MD Primary Care Provider: Jeferson Townsend MD - Consult Narrative History of present illness: Mr. Salcedo is a 58 year old male who presented from the [facility] where he was for hip fracture, with increasing shortness of breath and hypoxia. He has also been having difficulty swallowing, and had been choking on most food/liquids at the [facility]. He has history of small cell lung ca, bullous emphysema, chronic resp failure, degenerative disc disease, and chronic back pain. He had left femur fracture r/t fall and had surgery on 03/15/19. Was transferred to [facility]. He had PE in winter of 2017 and has been on Xarelto. He is seen and treated at the [facility] by Dr. Bustillos. He is on home o2 2-4 L, but this was increased to 8L prior to arrival to hospital. CT imaging demonstrated lt pneumothorax, and chest tube was place earlier today by Dr. Ballard. He was given Versed/Dilaudid, and did become hypoxic, and reversal agent was utilized. Upon my visit, patient is sitting in high-Fowlers position asleep. He is on nasal cannula. Appears to be oxygenating well and in no distress. Chest tube now present on the Left side. He awakens when name called, however does fall back to sleep during conversation. Vitals signs are stable. CC: John Payan MD - Time Spent with Patient Time: Total time spent is greater than 50% in coordination of care (as documented) at patient's floor/unit and/or counseling patient: Past Med Surg Social Fam HX - Past Medical History Medical history: arthritis, cancer, COPD, hypertension, pulmonary embolus, other Additional medical history: stage IV small cell lung cancer. recurrent pnthx Psychiatric history: anxiety, depression - Past Surgical History Additional surgical history: back surgery. left femur sx - Social History Smoking Status: Current every day smoker Packs per day: 1/2 pack or less Smokeless Tobacco Status: No Alcohol use: none Drug use: none - Family History Mother Living Status: Hx Family Cardiac Disorders: No Hx Family Respiratory Disorders: No Hx Family Cancer: Yes (Breast) Hx Family GI Disorders: No Hx Family Endocrine Disorder: No Hx Family Neuromuscular Disorders: No Hx Family Neurologic Disorders: No Hx Family HEENT Disorders: No Hx Family Autoimmune Disorders: No Father Living Status: Hx Family Cardiac Disorders: No Hx Family Respiratory Disorders: No Hx Family Cancer: Yes (Bladder cancer) Hx Family GI Disorders: No Hx Family Endocrine Disorder: No Hx Family Neuromuscular Disorders: No Hx Family Neurologic Disorders: No Hx Family HEENT Disorders: No Hx Family Autoimmune Disorders: No Medications and Allergies Cyanocobalamin (Vitamin B-12) [Vitamin B-12] 100 mcg PO DAILY 09/28/18 [History] DULoxetine [Cymbalta] 30 mg PO QAM 09/28/18 [History] Budesonide/Formoterol 160/4.5 [Symbicort 160/4.5] 2 puff IH BIDR #1 inh 10/31/18 [Rx] Ondansetron HCl 8 mg PO Q8H PRN #45 tablet 11/21/18 [Rx] Albuterol Sulfate [Proair Hfa] 2 puff IH Q4H PRN 12/21/18 [History] Dexamethasone [Decadron] 4 mg PO BID PRN #45 tab 01/29/19 [Rx] Prochlorperazine Maleate [Compazine] 10 mg PO Q8HR PRN #90 tablet 01/29/19 [Rx] Gabapentin [Neurontin] 100 mg PO TID 02/26/19 [History] predniSONE [PredniSONE] 20 mg PO DAILY #30 tablet 02/26/19 [Rx] Sodium Chloride [Sodium Chloride Tab] 3 gm PO DAILY 03/12/19 [History] Doxepin [Sinequan] 25 mg PO HS 03/13/19 [History] Ipratropium/Albuterol Neb [Duoneb] 3 ml IH Q4HR PRN 03/13/19 [History] Rivaroxaban [Xarelto] 20 mg PO 2130 03/13/19 [History] Dronabinol [Marinol] 2.5 mg PO TID 30 Days #90 capsule 03/16/19 [Rx] Oxycodone HCl 15 mg PO Q4H PRN 7 Days #30 tablet 03/16/19 [Rx] diazePAM [Valium] 5 mg PO BID PRN 10 Days #20 tablet 03/16/19 [Rx] Amlodipine Besylate 2.5 mg PO DAILY PRN 03/21/19 [History] Guaifenesin [Mucinex] 600 mg PO BID PRN 03/21/19 [History] Allergy/AdvReac Type Severity Reaction Status Date / Time Penicillins [PCN] Allergy See Verified 03/20/19 23:12 Comments venlafaxine AdvReac Gastrointestinal Verified 03/20/19 23:12 Upset - Constitutional Constitutional ROS PAL: decreased appetite, lethargy, weight loss - EENT Eyes: dry eye - Cardiovascular Cardiovascular ROS: dyspnea on exertion - Respiratory Respiratory: cough, dyspnea on exertion - Gastrointestinal Gastrointestinal: bloating - Musculoskeletal Musculoskeletal ROS IM: back pain, muscle weakness - Neurological Neurological ROS: disequilibrium, frequent falls, weakness Palliative Care-Exam - Constitutional Vitals: Temp Pulse Resp BP Pulse Ox 96.5 F L 103 20 136/98 90 03/21/19 15:15 03/21/19 15:00 03/21/19 15:00 03/21/19 15:00 03/21/19 15:00 General appearance: Present: no acute distress, thin - Head Head Exam: Present: normal inspection, normocephalic - Eye Eye exam: Present: normal appearance, PERRL - Respiratory Respiratory exam: Present: decreased breath sounds Additional comments: Faint expiratory wheezes left posterior chest. Left chest tube recently placed with bloody fluid draining - Cardiovascular Cardiovascular exam: Present: +S1, +S2 - GI/Abdominal Exam GI/Abdominal exam: Present: normal bowel sounds, soft - Extremities Exam Extremities exam: Present: normal capillary refill, normal inspection - Neurological Exam Neurological exam: Present: alert Additional comments: Oriented to person and place, reoriented to time. Drowsy and falls asleep with conversation - Skin Skin exam: Present: dry, pallor, warm Internal Medicine - CN: Reslt - Labs CBC & Chem 7: 03/21/19 04:35 03/21/19 04:35 Labs: Short CBC 03/20/19 03/21/19 Range/Units 18:22 04:35 WBC 12.1 H D 12.8 H (4.3-11.1) K/mcL Hgb 9.9 L 10.4 L (12.9-16.9) g/dL Hct 31.9 L 33.1 L (37.5-50.1) % Plt Count 299 307 (140-400) K/mcL Neutrophils # 10.1 H 10.4 H (1.6-8.9) K/mcL BMP 03/20/19 03/21/19 18:22 04:35 Sodium 135 L 138 Potassium 4.5 4.0 Chloride 95 L 94 L Carbon Dioxide 36 H 42 H* BUN 9 8 Creatinine 0.41 L 0.37 L Glucose 147 H 117 H Calcium 8.7 9.1 Cardiac Enzymes 03/20/19 Range/Units 18:22 Troponin I < 0.03 (< 0.04) ng/mL - ABG Interpretation ABG results: PT/INR, D-dimer PT 12.9 Seconds (9.4-12.1) H 03/21/19 04:35 1398 ng/mLFEU (0-500) H 03/20/19 18:22 - Impressions Impressions Chest X-Ray 03/20/19 18:12 IMPRESSION: Moderate left pneumothorax, Critical results were called by Dr. Justin Calderon MD to [facility] on 03/20/2019 at 18:41. D/ / 03/20/2019 18:54:36 [facility] Provider: Justin Calderon MD Chest CTA 03/20/19 18:59 IMPRESSION: 1. Moderate left-sided pneumothorax. 2. Multifocal airspace disease identified on prior exam from February 13, 2019 has near completely resolved. Tree-in-bud nodular opacities within the left lower lobe most compatible with ongoing infectious/inflammatory process. 3. Secretions throughout the right mainstem bronchus extending into the right middle lobe and lower lobe bronchi most suggestive of aspiration. There is also bronchial wall thickening throughout the lungs which is most pronounced within the right lower lobe compatible with bronchitis. 4. Nodule within the superior aspect of the right lower lobe measuring 1 cm. While findings may be infectious/inflammatory, recommend follow-up per oncologic protocol given history of lung cancer. 5. Worsening mediastinal lymphadenopathy. D/ / Boy Hill MD / Boy Hill MD Interpreting Provider: Boy Hill MD Chest X-Ray 03/20/19 22:11 IMPRESSION: Moderate-sized left pneumothorax again identified at the left lung base, stable to minimally increased in size. Continued surveillance recommended. D/ / Darren Vaca MD / Darren Vaca MD Interpreting Provider: Darren Vaca MD Chest X-Ray 03/21/19 05:46 IMPRESSION: Enlarging left-sided pneumothorax. There is now mediastinal shift which could represent a tension pneumothorax or may be secondary to partial right lung collapse. Critical results were called by Dr. Ilya Del Real MD to Jameson Brower DO on 03/21/2019 at 06:23. D/ / Ilya Del Real MD / Ilya Del Real MD Interpreting Provider: Ilya Del Real MD Chest X-Ray 03/21/19 08:58 IMPRESSION: Left thoracotomy tube placement with re-expansion of the left lung. D/ / 03/21/2019 09:24:25 Pankaj Pantoja MD / ryan Interpreting Provider: Pankaj Pantoja MD Consult Discharge Plan - Plan Referrals: Jeferson Townsend MD [Primary Care Provider] - Palliative Quality Palliative Quality: Screen for Code Status: NA (Patient very drowsy,, no family present), Screen for Goals of Care: NA, Screen for Pain: NA, If Pain Regimen Started, Initiate Bowel Regimen: NA, Screen for Nausea/Vomitting: NA Code Status: 03/21/19 00:38 Resuscitation Status: Active [RES] Routine Comment: Resuscitation Status: Full Code
[2019-03-21] MEDS: *HR* HYDROcodone/Acet 5/325 mg TABLET PO PRN (21:45)
[2019-03-21] MEDS: *HR* Enoxaparin 60 MG/0.6 ML SYRINGE SQ SCH (23:40)
[2019-03-21] MEDS: *HR* OxyCODONE Immed Rel 5 MG TABLET PO PRN (23:40)
[2019-03-22] MEDS ORDERED: diazePAM 5 MG TABLET PO ONE (00:01)
[2019-03-22 03:40] LABS: Hematocrit 33.1 % (37.5-50.1); Hemoglobin 10.1 g/dL (12.9-16.9); Immature Granulocytes % 0.4 % (0-4); Lymphocytes # 0.3 K/mcL (0.6-4.6); Lymphocytes % 2.4 %; Mean Corpuscular HGB Conc 30.5 g/dL (31.6-35.5); Mean Corpuscular Hemoglobin 30.5 pg (28.0-33.3); Mean Platelet Volume 9.4 fL (9.4-12.4); Monocytes # 0.3 K/mcL (0.0-1.3); Monocytes % 2.8 %; Neutrophils # 10.7 K/mcL (1.6-8.9); Platelet Count 332 K/mcL (140-400); Red Blood Count 3.31 M/mcL (4.19-5.50); Red Cell Distribution Width 14.3 % (11.5-14.5); Segmented Neutrophils % 94.4 %; White Blood Count 11.3 K/mcL (4.3-11.1)
[2019-03-22 04:08] LABS: BUN/Creatinine Ratio 28 (6-26); Blood Urea Nitrogen 11 mg/dL (6-20); Calcium 8.9 mg/dL (8.6-10.3); Carbon Dioxide 46 mEq/L (23-29); Chloride 90 mEq/L (98-107); Glucose 131 mg/dL (70-105); Osmolality,Calculated 287 (280-300); Potassium 4.4 mEq/L (3.5-5.1); Sodium 138 mEq/L (136-145); eGFR For African Americans > 60 (> 60); eGFR For Non-African Americans > 60 (> 60)
[2019-03-22 04:14] LABS: Platelet Estimate Normal (Normal)
[2019-03-22] MEDS: Levofloxacin 750 MG/150 ML 750 MG/150 ML BAG IVPB SCH (08:01)
[2019-03-22] MEDS: methylPREDNISolone 125 MG/2 ML VIAL IVP SCH ×3 (08:01→23:57)
[2019-03-22] MEDS: *HR* OxyCODONE Immed Rel 5 MG TABLET PO PRN ×3 (08:01→22:56)
--- NOTE | 2019-03-22 08:02 | Pulmonology Progress Note ---
<GeeMarek Becca - Last Filed: 03/22/19 17:13> Date of Encounter: 03/22/19 Time of Encounter: 08:02 Assessment and Plan (1) Acute respiratory failure with hypoxia and hypercapnia Current Visit: Yes Status: Resolved Patient originally presented in acute respiratory failure secondary to pneumonia, COPD exacerbation and pneumothorax Treatment was initiated with supplemental oxygen and breathing treatments, broad-spectrum antibiotics, chest tube placement The patient recovered well overnight, today was saturating and ventilating appropriately on nasal cannula He was transferred out of the ICU and is doing well, care handed off to hosp italist team Plan is to continue antibiotic regimen and de-escalate as necessary, continue supplemental oxygen (2) Acute exacerbation of chronic obstructive airways disease Current Visit: Yes Status: Acute Continue scheduled bronchodilators and systemic glucocorticoids (3) Pneumonia Current Visit: Yes Status: Suspected Continue antibiotic regimen as above Qualifiers: Pneumonia type: due to Pneumococcus Laterality: bilateral Lung location: lower lobe of lung Qualified Code(s): J13 - Pneumonia due to Streptococcus pneumoniae (4) Pneumothorax on left Current Visit: Yes Status: Acute Large-bore chest tube placed by Dr. Sutton cardiothoracic surgeon Chemical pleurodesis with talc slurry initiated today by Dr. Sutton We greatly appreciate his involvement and continued consultation on this patient (5) History of lung cancer Current Visit: No Status: Chronic (6) History of pulmonary embolism Current Visit: Yes Status: Acute History of pulmonary embolus within the last 3 months in the context of malignancy he is high risk we will resume home NOAC with Lovenox bridge Subjective Principal diagnosis: Pneumothorax Interval history: No acute events overnight, home Valium restarted for anxiety. Objective PUL Vital signs: Last Vital Signs Temp 98.1 F 03/22/19 07:10 Pulse 87 03/22/19 06:00 Resp 22 03/22/19 06:00 BP 148/94 03/22/19 06:00 Pulse Ox 99 03/22/19 06:00 General appearance: no acute distress Eyes: nonicteric ENT: oropharynx moist Effort: normal Auscultation: bilateral: other (Coarse lung sounds bilaterally, lung sounds diminished of the left) Cardiovascular: regular rate and rhythm Gastrointestinal: absent bowel sounds, soft, non-tender, non-distended Integumentary: normal Extremities: no cyanosis, no edema, pink and warm, pulses normal Musculoskeletal: no deformities normal mental status Results - Laboratory Findings CBC and BMP: 03/22/19 03:18 03/22/19 03:18 PT/INR, D-dimer PT 12.9 Seconds (9.4-12.1) H 03/21/19 04:35 1398 ng/mLFEU (0-500) H 03/20/19 18:22 Abnormal lab findings: Abnormal lab results WBC 11.3 K/mcL (4.3-11.1) H 03/22/19 03:18 RBC 3.31 M/mcL (4.19-5.50) L 03/22/19 03:18 Hgb 10.1 g/dL (12.9-16.9) L 03/22/19 03:18 Hct 33.1 % (37.5-50.1) L 03/22/19 03:18 MCHC 30.5 g/dL (31.6-35.5) L 03/22/19 03:18 RDW 14.6 % (11.5-14.5) H 03/21/19 04:35 10.7 K/mcL (1.6-8.9) H 03/22/19 03:18 0.3 K/mcL (0.6-4.6) L 03/22/19 03:18 PT 12.9 Seconds (9.4-12.1) H 03/21/19 04:35 1398 ng/mLFEU (0-500) H 03/20/19 18:22 Sodium 135 mEq/L (136-145) L 03/20/19 18:22 Chloride 90 mEq/L (98-107) L 03/22/19 03:18 Carbon Dioxide 46 mEq/L (23-29) H* 03/22/19 03:18 0.40 mg/dL (0.70-1.30) L 03/22/19 03:18 28 (6-26) H 03/22/19 03:18 Glucose 131 mg/dL (70-105) H 03/22/19 03:18 POC Glucose 118 mg/dL (70-99) H 03/21/19 00:14 - Clinical Findings Intake & Output: Intake & Output 03/21/19 03/22/19 03/22/19 23:59 07:59 15:59 Output Total 443 / 1476 4 / 4 Balance -443 / -1226 -4 / -4 Weight 64.8 kg Consult Discharge Plan - Plan Referrals: Jeferson Townsend MD [Primary Care Provider] - <Mikey Obrien M - Last Filed: 03/22/19 21:25> Date of Encounter: 03/22/19 Objective PUL Vital signs: Last Vital Signs Temp 98.1 F 03/22/19 07:10 Pulse 101 03/22/19 08:00 Resp 20 03/22/19 08:00 BP 128/96 03/22/19 08:00 Pulse Ox 95 03/22/19 08:00 Results - Laboratory Findings CBC and BMP: 03/22/19 03:18 03/22/19 03:18 PT/INR, D-dimer PT 12.9 Seconds (9.4-12.1) H 03/21/19 04:35 1398 ng/mLFEU (0-500) H 03/20/19 18:22 Abnormal lab findings: Abnormal lab results WBC 11.3 K/mcL (4.3-11.1) H 03/22/19 03:18 RBC 3.31 M/mcL (4.19-5.50) L 03/22/19 03:18 Hgb 10.1 g/dL (12.9-16.9) L 03/22/19 03:18 Hct 33.1 % (37.5-50.1) L 03/22/19 03:18 MCHC 30.5 g/dL (31.6-35.5) L 03/22/19 03:18 RDW 14.6 % (11.5-14.5) H 03/21/19 04:35 10.7 K/mcL (1.6-8.9) H 03/22/19 03:18 0.3 K/mcL (0.6-4.6) L 03/22/19 03:18 PT 12.9 Seconds (9.4-12.1) H 03/21/19 04:35 1398 ng/mLFEU (0-500) H 03/20/19 18:22 Sodium 135 mEq/L (136-145) L 03/20/19 18:22 Chloride 90 mEq/L (98-107) L 03/22/19 03:18 Carbon Dioxide 46 mEq/L (23-29) H* 03/22/19 03:18 0.40 mg/dL (0.70-1.30) L 03/22/19 03:18 28 (6-26) H 03/22/19 03:18 Glucose 131 mg/dL (70-105) H 03/22/19 03:18 POC Glucose 118 mg/dL (70-99) H 03/21/19 00:14 - Clinical Findings Intake & Output: Intake & Output 03/21/19 03/22/19 03/22/19 23:59 07:59 15:59 Intake Total 150 / 150 Output Total 443 / 1476 4 / 4 Balance -443 / -1226 -4 / 146 150 / 146 Weight 64.8 kg - Attending Attestation I examined this patient and my medical decision-making was reviewed with the Resident Physician. I agree with the documented findings, disposition and treatment plan as described except to the extent set forth below. Patient seen and examined. Labs, radiology, chart personally reviewed. Agree with resident's history and physical, assessment, plan with following comments: WRAPPER DIPPER: Patient follows commands, I feel patient is over medicated regarding his home medication to control his pain and for that reason, will need to cut his dose. Pulmonary: Acceptable oxygenation and ventilation and has been managed by thoracic surgeon. Continue bronchodilator. Cardiovascular: stable GI: Nutrition per dietary and GI prophylaxis per routine Heme: DVT prophylaxis per routine ID: Continue antibiotics and plan to de-escalation Renal; urine out put and renal function reviewed Endorcine: blood glucose is monitored Lines: all lines checked and no evidence of infections Skin: skin care to prevent pressure ulcers per nursing routine care Dispo: Floor Code: Full. Prognosis. Overall is poor.
[2019-03-22] MEDS ORDERED: TALC IX ONE ×2 (11:00)
[2019-03-22] MEDS ORDERED: SODIUM CHLORIDE IX ONE ×2 (11:00)
[2019-03-22] MEDS ORDERED: LIDOCAINE IX ONE ×2 (11:00)
--- NOTE | 2019-03-22 11:11 | Operative Note ---
Date of procedure: 03/22/19 Pre-op diagnosis: bullous empysema with collapse Post-op diagnosis: same Procedure: talc pleurodesis Anesthesia: local Surgeon: John Sutton Was there an commercial lines account assistant present: No Estimated blood loss (cc): 0 Specimen: 0 Condition: stable Disposition: ICU Procedure in Detail: This is a procedure on Rishabh Salcedo. With cardiopulmonary monitoring, the chest tube was prepped with alcohol. 4 g of talc suspended in 60 mL of normal saline including 10 milliliters of 1% lidocaine plain was injected into the chest tube. Heart rate, respiratory rate, and pulse ox oximeter remained stable. Orders were left with the nurse to keep the chest tube clamped until 2 PM, then unclamp to 20 cm of suction.
[2019-03-22] MEDS: *HR* Enoxaparin 60 MG/0.6 ML SYRINGE SQ SCH ×2 (12:22→23:58)
[2019-03-22] MEDS: diazePAM 2 MG TABLET PO PRN (12:28)
[2019-03-22] MEDS: Ketorolac 30 MG/ML VIAL IVP PRN ×2 (12:30→19:49)
--- NOTE | 2019-03-22 13:42 | Oncology Inp Progress Note ---
Date of Encounter: 03/22/19 Time of Encounter: 09:00 (1) Small cell lung cancer Current Visit: No Status: Chronic Assessment and plan: On palliative chemoimmunotherapy-treatments held, due to recent fall, fracture, further hospitalization due to left-sided pneumothorax, shortness of breath. He status post chest tube placement/pleurodesis, minimally short of breath. Palliative care following patine. I addressed hospice with patient as he is not able to continue with Rx without complications-infection/PE/fall, and issues including COPD/pneumothorax needing CT placement. He reported that he i snot open to hospice yet, but will discuss with his sister. He had discussed with us to delay chemotherapy in the past due to not feeling any improvement. Continue supportive care and f/u in clinic Oncology: Subj Interval history: PAtient ia awake pain left chest, minimally short of breath on O2 - Constitutional General appearance: mild distress - Head Head exam: Present: atraumatic, normal inspection - Eye Eye exam: Present: sclera anicteric - Respiratory Additional comments: CT. Decr ae - Cardiovascular Cardiovascular exam: Present: +S1, +S2 - GI/Abdominal GI/Abdominal exam: Present: normal bowel sounds, soft - Neurological Exam Neurological exam: Present: alert, CN II-XII intact, oriented X3 Oncology: Obj Data - Labs CBC & Chem 7: 03/22/19 03:18 03/22/19 03:18 Consult Discharge Plan - Plan Referrals: Jeferson Townsend MD [Primary Care Provider] - Inpatient Charges Provider: Dr. Omayra Bustillos Follow up - Inpatient: [id number]
--- NOTE | 2019-03-22 14:06 | Palliative Progress Note ---
Date of Encounter: 03/22/19 Time of Encounter: 09:30 - Assessment and plan (1) Generalized pain Current Visit: Yes Status: Acute Assessment and plan: Patient s/p left hip fracture and repair. Was in rehab doing well and ambulating with a walker. C/O left hip stiffness. Informed of PRN pain medications for comfort. Encouraged patient to request as needed. Patient also with left side CT in place. (2) Goals of care, counseling/discussion Current Visit: Yes Status: Acute Assessment and plan: Met with patients caregiver/sister at bedside. Discussed patients POC. Patient alert and states that overall desires are to continue treatment for lung cancer for as long as possible. I explained that patient with multiple comorbidities collins s made treatment challenging. Called patients daughter/POA Tonia Simmons. Family meeting set-up for Tuesday in the AM. She will call me in the AM to set-up time. I updated her on POC and patients desires and stated that further treatment maybe challenging d/t patients medical issues. Will discuss with Oncology. (3) Small cell lung cancer Current Visit: No Status: Acute Assessment and plan: Patient with multiple comorbid conditions that has delayed Oncology treatment. (4) Pneumothorax on left Current Visit: Yes Status: Acute Assessment and plan: Patient with left side chest tube for pneumothorax. Underwent talc pleurodesis this AM. (5) COPD (chronic obstructive pulmonary disease) Current Visit: No Status: Acute Qualifiers: Qualified Code(s): J44.9 - Chronic obstructive pulmonary disease, unspecified (6) Palliative care encounter Current Visit: Yes Status: Acute - Time Spent With Patient Total time spent is greater than 50% in coordination of care (as documented) at patient's floor/unit and/or counseling patient: 25 - 35 minutes - Subjective Interval history: Patient sitting up in bed. States he needs to pee! Urinal between his legs. Positive bladder distention. Caregiver/sister at bedside. - Constitutional Vitals: Abnormal lab results WBC 11.3 K/mcL (4.3-11.1) H 03/22/19 03:18 RBC 3.31 M/mcL (4.19-5.50) L 03/22/19 03:18 Hgb 10.1 g/dL (12.9-16.9) L 03/22/19 03:18 Hct 33.1 % (37.5-50.1) L 03/22/19 03:18 MCHC 30.5 g/dL (31.6-35.5) L 03/22/19 03:18 RDW 14.6 % (11.5-14.5) H 03/21/19 04:35 10.7 K/mcL (1.6-8.9) H 03/22/19 03:18 0.3 K/mcL (0.6-4.6) L 03/22/19 03:18 PT 12.9 Seconds (9.4-12.1) H 03/21/19 04:35 1398 ng/mLFEU (0-500) H 03/20/19 18:22 Sodium 135 mEq/L (136-145) L 03/20/19 18:22 Chloride 90 mEq/L (98-107) L 03/22/19 03:18 Carbon Dioxide 46 mEq/L (23-29) H* 03/22/19 03:18 0.40 mg/dL (0.70-1.30) L 03/22/19 03:18 28 (6-26) H 03/22/19 03:18 Glucose 131 mg/dL (70-105) H 03/22/19 03:18 POC Glucose 118 mg/dL (70-99) H 03/21/19 00:14 - Head Head exam: Present: atraumatic, normal inspection, normocephalic - Eye Eye exam: Present: PERRL - ENT ENT exam: Present: mucous membranes moist - Neck Neck exam: Present: full ROM - Respiratory Respiratory exam: Present: decreased breath sounds, prolonged expiratory phase Additional comments: CT intact to left chest wall. Dressing CDI. Collection unit with 30ml of bloody drainage. - Expanded Respiratory Exam Location: decreased breath sounds: Left, Lower, Upper - Cardiovascular Cardiovascular exam: Present: RRR, +S1, +S2, tachycardia - GI/Abdominal GI/Abdominal exam: Present: distended, normal bowel sounds Additional comments: + Bladder distention - Rectal Rectal exam: Present: deferred - Extremities Exam Extremities exam: Present: tenderness - Neurological Exam Neurological exam: Present: alert, oriented X3 - Psychiatric Psychiatric exam: Present: flat affect - Skin Skin exam: Present: pallor, warm Palliative Quality Palliative Quality: Screen for Code Status: NA (Patient very drowsy,, no family present), Screen for Goals of Care: NA, Screen for Pain: NA, If Pain Regimen Started, Initiate Bowel Regimen: NA, Screen for Nausea/Vomitting: NA Code Status: 03/21/19 00:38 Resuscitation Status: Active [RES] Routine Comment: Resuscitation Status: Full Code - Labs CBC & Chem 7: 03/22/19 03:18 03/22/19 03:18 Labs: Laboratory Results - last 24 hr 03/22/19 03/22/19 03:18 03:18 WBC 11.3 H RBC 3.31 L Hgb 10.1 L Hct 33.1 L MCV 100.0 MCH 30.5 MCHC 30.5 L RDW 14.3 Plt Count 332 MPV 9.4 Immature Gran % 0.4 Seg Neutrophils % 94.4 Lymphocytes % 2.4 Monocytes % 2.8 Eosinophils % 0.0 Basophils % 0.0 Neutrophils # 10.7 H Lymphocytes # 0.3 L Monocytes # 0.3 Eosinophils # 0.0 Basophils # 0.0 Platelet Estimate Normal Sodium 138 Potassium 4.4 Chloride 90 L Carbon Dioxide 46 H* BUN 11 Creatinine 0.40 L Est GFR ( Amer) > 60 Est GFR (Non-Af Amer) > 60 BUN/Creatinine Ratio 28 H Glucose 131 H Calculated Osmolality 287 Calcium 8.9 - ABG Interpretation ABG results: PT/INR, D-dimer PT 12.9 Seconds (9.4-12.1) H 03/21/19 04:35 1398 ng/mLFEU (0-500) H 03/20/19 18:22 Consult Discharge Plan - Plan Referrals: Jeferson Townsend MD [Primary Care Provider] -
[2019-03-23] MEDS ORDERED: Ondansetron 4 MG/2 ML VIAL IVP ONE (00:28)
[2019-03-23] MEDS: *HR* OxyCODONE Immed Rel 5 MG TABLET PO PRN ×3 (04:57→23:26)
[2019-03-23 06:23] LABS: Basophils % 0.1 %; Hematocrit 30.3 % (37.5-50.1); Hemoglobin 9.4 g/dL (12.9-16.9); Immature Granulocytes % 0.5 % (0-4); Lymphocytes # 0.4 K/mcL (0.6-4.6); Lymphocytes % 3.3 %; Mean Corpuscular Hemoglobin 30.2 pg (28.0-33.3); Mean Corpuscular Volume 97.4 fL (83.0-100.0); Mean Platelet Volume 9.7 fL (9.4-12.4); Monocytes # 0.3 K/mcL (0.0-1.3); Monocytes % 2.9 %; Neutrophils # 10.3 K/mcL (1.6-8.9); Platelet Count 353 K/mcL (140-400); Red Blood Count 3.11 M/mcL (4.19-5.50); Red Cell Distribution Width 14.2 % (11.5-14.5); Segmented Neutrophils % 93.2 %
[2019-03-23 06:58] LABS: BUN/Creatinine Ratio 44 (6-26); Blood Urea Nitrogen 16 mg/dL (6-20); Calcium 9.2 mg/dL (8.6-10.3); Carbon Dioxide > 45 mEq/L (23-29); Chloride 91 mEq/L (98-107); Glucose 176 mg/dL (70-105); Osmolality,Calculated 291 (280-300); Potassium 4.3 mEq/L (3.5-5.1); Sodium 138 mEq/L (136-145); eGFR For African Americans > 60 (> 60); eGFR For Non-African Americans > 60 (> 60)
--- NOTE | 2019-03-23 08:12 | Cardiothoracic Progress Note ---
Date of Encounter: 03/23/19 Time of Encounter: 08:10 - Assessment and plan (1) Bullous emphysema with collapse Current Visit: Yes Status: Acute The assessment and plan as outlined above was discussed with the patient and/or family members who expressed understanding and agreement. All questions were answered. improving. will clamp chest tube tonight, orders written. if am chest xray stable, will remove the chest tube. orders on chart for physical therapy.. (2) BPH with urinary obstruction Current Visit: Yes Status: Acute The assessment and plan as outlined above was discussed with the patient and/or family members who expressed understanding and agreement. All questions were answered. continue flomax upon discharge. - Subjective Interval history: denies: f/c/s. n/v. voiding improving. no cough. minimal cw pain. Vital Signs, Last 4 Hours Temp Pulse Resp BP Pulse Ox 03/23/19 07:32 98 F 96 15 141/97 97 03/23/19 05:12 140/84 03/23/19 05:09 97.9 F 95 22 94 Oxgyen Flow Rate Oxygen Flow Rate (LPM) 2 Clinical Data, last 8 Hours Output, Chest Tube Drainage 0 Amount [Left Lateral Chest] Output, Urine Amount 325 Weight 03/21/19 03/22/19 03/23/19 23:59 23:59 23:59 Weight 63.9 kg 67.2 kg 65.1 kg - Physical Examination General: Conversant, No Apparent Distress HEENT: Atraumatic, Normocephaly Cardiac: Reg Rate and Rhythm, Normal S1 and S2 Incision: No signs of infection, Dry/intact dressing Chest tubes: Minimal drainage Lungs: Decreased breath sounds Neuro: Alert and responsive, No focal deficits noted, Cranial nerves intact, Motor nerves intact Abdomen: Soft, Non-tender - Labs 03/23/19 05:49 03/23/19 05:49 Lab Results, Last 24 hours 03/23/19 03/23/19 05:49 05:49 WBC 11.0 Hgb 9.4 L Hct 30.3 L Plt Count 353 Sodium 138 Potassium 4.3 Chloride 91 L Carbon Dioxide > 45 H* BUN 16 Creatinine 0.36 L Glucose 176 H Calcium 9.2 Consult Discharge Plan - Plan Referrals: Jeferson Townsend MD [Primary Care Provider] -
[2019-03-23] MEDS: MethylPREDNISolone 40 MG/ML VIAL IVP SCH ×3 (08:28→23:27)
[2019-03-23] MEDS: Levofloxacin 750 MG/150 ML 750 MG/150 ML BAG IVPB SCH (08:29)
[2019-03-23] MEDS: methylPREDNISolone 125 MG/2 ML VIAL IVP SCH (08:48)
[2019-03-23] MEDS: *HR* HYDROcodone/Acet 5/325 mg TABLET PO PRN ×2 (09:56→20:59)
[2019-03-23] MEDS: 0.9 % Sodium Chloride 1,000 ML IVC SCH ×2 (09:59→23:25)
[2019-03-23 10:10] LABS: ABG Base Excess 19 mEq/L (-2 to 3); ABG HCO3 46 mEq/L (21-27); ABG Oxygen Saturation 86 % (95-98); ABG PCO2 69 mmHg (35-45); ABG PH 7.43 pH Units (7.32-7.45); ABG PO2 54 mmHg (85-104); ABG TCO2 48 mEq/L (20-26)
[2019-03-23] MEDS: diazePAM 2 MG TABLET PO PRN (11:28)
[2019-03-23] MEDS: *HR* Enoxaparin 60 MG/0.6 ML SYRINGE SQ SCH ×2 (11:28→23:26)
[2019-03-23 11:49] LABS: Bilirubin,Urine Negative (Negative); Blood,Urine Negative (Negative); Color,Urine Yellow (Yellow); Glucose,Urine (UA) 100 mg/dL (Normal); Ketones,Urine Negative (Negative); Leukocyte Esterase,Urine Small (Negative); Nitrite,Urine Negative (Negative); PH,Urine 6.5 pH Units (5.0-8.0); Protein,Urine Negative (Neg-Trace); Specific Gravity,Urine 1.023 (1.010-1.025); Urobilinogen,Urine Normal (Normal)
[2019-03-23 11:58] LABS: Hyaline Casts,Urine None Seen per lpf (None-Few); Squamous Epithelial Cell,Urine Many per lpf (None-Few); WBC,Urine 15-30 per hpf (0-3)
[2019-03-23 12:16] LABS: Clarity,Urine Clear (Clear)
[2019-03-23 12:38] LABS: Bacteria,Urine Few per hpf (None-Few)
--- NOTE | 2019-03-23 13:09 | Internal Med Progress Note ---
Hospitalist Progress Note - Encounter Date of Encounter: 03/23/19 Time of Encounter: 11:09 - Subjective Interval History: Patient sitting on bed complaining of nausea. Sister at bedside. Heart rate slight elevated. Oxygen by nasal cannula 2 L. Review the lab with normal white count, high carbon dioxide. Complained of generalized weakness tiredness and not feeling good. Denies fever or chills vomiting chest pain abdominal pain diarrhea - Exam Vitals: Temp Pulse Resp BP Pulse Ox 97.6 F 114 16 146/102 97 03/23/19 11:28 03/23/19 11:28 03/23/19 11:28 03/23/19 11:28 03/23/19 11:28 Exam: General: A&O X3, conversant, appeared tired and slight dehydrated Head: atraumatic, normocephalic Eye: PERRL, EOMI, conjuntiva pink, sclera anicteric Dry oral mucosa Neck: Supple, trachea midline; No lymphadenopathy Respiratory: Markedly diminished breath sounds on the left, left basilar crackles; no wheezes or rhonchi Cardiovascular: Tachycardia but regular rhythm +S1, +S2; no murmurs, rubs, gallops Abdomen: Soft, nontender positive bowel sounds Extremities: warm, radial pulses palpable and symmetrical Psychiatric: Normal affect, normal mood Skin: Dry, intact - Assessment and Plan (1) Acute respiratory failure with hypoxia and hypercapnia Current Visit: Yes Status: Acute (2) Acute exacerbation of chronic obstructive airways disease Current Visit: Yes Status: Acute (3) Pneumonia Current Visit: Yes Status: Acute (4) Pneumothorax on left Current Visit: Yes Status: Acute (5) History of lung cancer Current Visit: Yes Status: Acute (6) History of pulmonary embolism Current Visit: Yes Status: Acute - Summary of Assessment and Plan Summary of Assessment and Plan: Assessment and Plan Acute respiratory failure with hypoxia and hypercapnia On admission was presented in acute respiratory failure secondary to pneumonia, COPD exacerbation and pneumothorax. Patient was admitted to ICU. Treatment was initiated with supplemental oxygen and breathing treatments, broad-spectrum antibiotics. chest tube placement for pneumothorax. Patient was transferred out to the floor on 03/22/2019 and a started to recover Lab trending up CO2-therefore reconsulted library technical assistant for opinion. Continue oxygen supplementation. Will plan to de-escalate antibiotic eventually. Acute exacerbation of chronic obstructive airways disease Continue scheduled bronchodilators and systemic glucocorticoids. Decreased IV steroid dose 40 mg IV every 8 hours. Continue DuoNeb and oxygen supplementation. ABG ordered. Pneumonia- multifocal. Continue antibiotic regimen as above Respiratory panel, urine Legionella and streptococcal ordered IMPRESSION: 1. Moderate left-sided pneumothorax. 2. Multifocal airspace disease identified on prior exam from February 13, 2019 has near completely resolved. Tree-in-bud nodular opacities within the left lower lobe most compatible with ongoing infectious/inflammatory process. 3. Secretions throughout the right mainstem bronchus extending into the right middle lobe and lower lobe bronchi most suggestive of aspiration. There is also bronchial wall thickening throughout the lungs which is most pronounced within the right lower lobe compatible with bronchitis. 4. Nodule within the superior aspect of the right lower lobe measuring 1 cm. While findings may be infectious/inflammatory, recommend follow-up per oncologic protocol given history of lung cancer. 5. Worsening mediastinal lymphadenopathy. Pneumothorax on left Large-bore chest tube placed by Dr. Sutton cardiothoracic surgeon Chemical pleurodesis with talc slurry initiated today by Dr. Meier chest x-ray today. History of lung cancer Small lung cancer. On palliative chemoimmunotherapy-treatments held, due to rec ent fall, fracture, further hospitalization due to left-sided pneumothorax, shortness of breath. Due to multiple comorbidities patient is less likely to tolerate chemotherapy therefore oncology team discuss in length and address hospice consideration. Palliative care on board and has meeting with family today to discuss about code status. History of pulmonary embolism History of pulmonary embolus within the last 3 months in the context of malignancy he is high risk we will resume home NOAC with Lovenox bridge. Will resume oral anticoagulant 24-hour after the chest tube removal. scd for dvt px - Time Spent with Patient Total time spent is greater than 50% in coordination of care (as documented) at patient's floor/unit and/or counseling patient: 25 - 35 minutes Plan of Care Discussed with: patient Internal Medicine: Result - Labs CBC & Chem 7: 03/23/19 05:49 03/23/19 05:49 Labs: Short CBC 03/23/19 Range/Units 05:49 WBC 11.0 (4.3-11.1) K/mcL Hgb 9.4 L (12.9-16.9) g/dL Hct 30.3 L (37.5-50.1) % Plt Count 353 (140-400) K/mcL Neutrophils # 10.3 H (1.6-8.9) K/mcL BMP 03/23/19 05:49 Sodium 138 Potassium 4.3 Chloride 91 L Carbon Dioxide > 45 H* BUN 16 Creatinine 0.36 L Glucose 176 H Calcium 9.2 Urine 03/23/19 Range/Units 10:50 Urine Color Yellow (Yellow) Urine Clarity Clear (Clear) Urine pH 6.5 (5.0-8.0) pH Units Ur Specific [place] 1.023 (1.010-1.025) Urine Protein Negative (Neg-Trace) mg/dL Urine Glucose (UA) 100 H (Normal) mg/dL - ABG Interpretation ABG results: ABG ABG pH 7.43 pH Units (7.32-7.45) 03/23/19 10:04 ABG pCO2 69 mmHg (35-45) H 03/23/19 10:04 ABG pO2 54 mmHg (85-104) L 03/23/19 10:04 ABG O2 Saturation 86 % (95-98) L 03/23/19 10:04 PT/INR, D-dimer PT 12.9 Seconds (9.4-12.1) H 03/21/19 04:35 1398 ng/mLFEU (0-500) H 03/20/19 18:22 - Impressions Impressions Chest X-Ray 03/20/19 18:12 IMPRESSION: Moderate left pneumothorax, Critical results were called by Dr. Justin Calderon MD to [facility] on 03/20/2019 at 18:41. D/ / 03/20/2019 18:54:36 Justin Calderon MD / [email or web address] Interpreting Provider: Justin Calderon MD Consult Discharge Plan - Plan Referrals: Jeferson Townsend MD [Primary Care Provider] -
[2019-03-23] MEDS: *HR* Promethazine 25 MG/ML VIAL IVP PRN ×2 (15:18→21:15)
--- NOTE | 2019-03-23 15:39 | Palliative Progress Note ---
Date of Encounter: 03/23/19 Time of Encounter: 15:00 - Assessment and plan (1) Generalized pain Current Visit: Yes Status: Acute Assessment and plan: Patient s/p left hip fracture and repair. Was in rehab doing well and ambulating with a walker. C/O left hip stiffness. Informed of PRN pain medications for comfort. Encouraged patient to request as needed. Patient also with left side CT in place. Utilized one dose of Ivor on past 24 hrs and 3 doses of Oxycodone. Tolerating well. (2) Goals of care, counseling/discussion Current Visit: Yes Status: Acute Assessment and plan: Conducted 30 minute meeting with daughter/SEVEN Randall and son Micky via [employer] in the palliative conference room. Loss Control Consultantsvetlana Reeder present as well. Patients caregiver/sister Breonna remained at patients bedside. Discussed patients POC. Patient alert and informs children that overall desires are to continue treatment for lung cancer for as long as possible. I explained that patient has multiple comorbid conditions that have made treatment challenging. All patients children agree that patient has failed in his health and abilities to continue consistent Oncology treatment. They are aware that patient is not likely to do well but want to respect his decision to not give up and go to Hospice. Plan is to continue physical therapy and transition back to ECF for continued rehab. Children know patients desires and will support patient. - As per patient wishes, he remains Full Code. - Return to ECF if able to maintain PT/OT expectations - Will revisit discussions if patient condition worsens. (3) Small cell lung cancer Current Visit: No Status: Acute Assessment and plan: Patient with multiple comorbid conditions that has delayed Oncology treatment. (4) Pneumothorax on left Current Visit: Yes Status: Acute Assessment and plan: Patient with left side chest tube for pneumothorax. Underwent talc pleurodesis. Possible DC of CT tube in AM. (5) COPD (chronic obstructive pulmonary disease) Current Visit: No Status: Acute Qualifiers: Qualified Code(s): J44.9 - Chronic obstructive pulmonary disease, unspecified (6) Palliative care encounter Current Visit: Yes Status: Acute - Time Spent With Patient Total time spent is greater than 50% in coordination of care (as documented) at patient's floor/unit and/or counseling patient: 25 - 35 minutes - Subjective Interval history: Patient sitting up on BSC. Caregiver/Sister Breonna at his side. Patient reports having brief episode of dizziness and fast HR. Patient states feeling better now. +BM. - Constitutional Vitals: Abnormal lab results WBC 11.3 K/mcL (4.3-11.1) H 03/22/19 03:18 RBC 3.11 M/mcL (4.19-5.50) L 03/23/19 05:49 Hgb 9.4 g/dL (12.9-16.9) L 03/23/19 05:49 Hct 30.3 % (37.5-50.1) L 03/23/19 05:49 MCHC 31.0 g/dL (31.6-35.5) L 03/23/19 05:49 RDW 14.6 % (11.5-14.5) H 03/21/19 04:35 10.3 K/mcL (1.6-8.9) H 03/23/19 05:49 0.4 K/mcL (0.6-4.6) L 03/23/19 05:49 PT 12.9 Seconds (9.4-12.1) H 03/21/19 04:35 1398 ng/mLFEU (0-500) H 03/20/19 18:22 ABG pCO2 69 mmHg (35-45) H 03/23/19 10:04 ABG pO2 54 mmHg (85-104) L 03/23/19 10:04 ABG HCO3 46 mEq/L (21-27) H 03/23/19 10:04 ABG Total CO2 48 mEq/L (20-26) H 03/23/19 10:04 ABG O2 Saturation 86 % (95-98) L 03/23/19 10:04 ABG Base Excess 19 mEq/L (-2 to 3) H 03/23/19 10:04 Sodium 135 mEq/L (136-145) L 03/20/19 18:22 Chloride 91 mEq/L (98-107) L 03/23/19 05:49 Carbon Dioxide > 45 mEq/L (23-29) H* 03/23/19 05:49 0.36 mg/dL (0.70-1.30) L 03/23/19 05:49 44 (6-26) H 03/23/19 05:49 Glucose 176 mg/dL (70-105) H 03/23/19 05:49 POC Glucose 118 mg/dL (70-99) H 03/21/19 00:14 100 mg/dL (Normal) H 03/23/19 10:50 Ur Leukocyte Esterase Small (Negative) H 03/23/19 10:50 3-5 per hpf (0-3) H 03/23/19 10:50 15-30 per hpf (0-3) H 03/23/19 10:50 Ur Squamous Epith Cells Many per lpf (None-Few) H 03/23/19 10:50 Ur Culture Indicated? YES (NO) A 03/23/19 10:50 - Head Head exam: Present: atraumatic, normal inspection, normocephalic - Eye Eye exam: Present: PERRL Pupils: Present: PERRL - ENT ENT exam: Present: mucous membranes moist - Neck Neck exam: Present: full ROM - Respiratory Respiratory exam: Present: decreased breath sounds - Expanded Respiratory Exam Location: decreased breath sounds: Left, Upper, Lower (CT tube in ) - Cardiovascular Cardiovascular exam: Present: RRR, +S1, +S2, tachycardia - GI/Abdominal GI/Abdominal exam: Present: normal bowel sounds, soft - Extremities Exam Extremities exam: Present: full ROM - Neurological Exam Neurological exam: Present: alert, oriented X3 - Psychiatric Psychiatric exam: Present: flat affect - Skin Skin exam: Present: pallor, warm Palliative Quality Palliative Quality: Screen for Code Status: Yes (Patient very drowsy,, no family present), Screen for Goals of Care: Yes, Screen for Pain: Yes, Screen for Nausea/Vomitting: Yes Code Status: 03/21/19 00:38 Resuscitation Status: Active [RES] Routine Comment: Resuscitation Status: Full Code - Labs CBC & Chem 7: 03/23/19 05:49 03/23/19 05:49 Labs: Laboratory Results - last 24 hr 03/23/19 03/23/19 03/23/19 05:49 05:49 10:04 WBC 11.0 RBC 3.11 L Hgb 9.4 L Hct 30.3 L MCV 97.4 MCH 30.2 MCHC 31.0 L RDW 14.2 Plt Count 353 MPV 9.7 Immature Gran % 0.5 Seg Neutrophils % 93.2 Lymphocytes % 3.3 Monocytes % 2.9 Eosinophils % 0.0 Basophils % 0.1 Neutrophils # 10.3 H Lymphocytes # 0.4 L Monocytes # 0.3 Eosinophils # 0.0 Basophils # 0.0 Sample Site R Radial ABG pH 7.43 ABG pCO2 69 H ABG pO2 54 L ABG HCO3 46 H ABG Total CO2 48 H ABG O2 Saturation 86 L ABG Base Excess 19 H O2 Delivery Device Cannula Inspired O2 2.0 Sodium 138 Potassium 4.3 Chloride 91 L Carbon Dioxide > 45 H* BUN 16 Creatinine 0.36 L Est GFR ( Amer) > 60 Est GFR (Non-Af Amer) > 60 BUN/Creatinine Ratio 44 H Glucose 176 H Calculated Osmolality 291 Calcium 9.2 Urine Color Urine Clarity Urine pH Ur Specific [place] Urine Protein Urine Glucose (UA) Urine Ketones Urine Blood Urine Nitrite Urine Bilirubin Urine Urobilinogen Ur Leukocyte Esterase Urine Microscopic RBC Urine Microscopic WBC Ur Squamous Epith Cells Urine Bacteria Hyaline Casts Ur Culture Indicated? 03/23/19 10:50 WBC RBC Hgb Hct MCV MCH MCHC RDW Plt Count MPV Immature Gran % Seg Neutrophils % Lymphocytes % Monocytes % Eosinophils % Basophils % Neutrophils # Lymphocytes # Monocytes # Eosinophils # Basophils # Sample Site ABG pH ABG pCO2 ABG pO2 ABG HCO3 ABG Total CO2 ABG O2 Saturation ABG Base Excess O2 Delivery Device Inspired O2 Sodium Potassium Chloride Carbon Dioxide BUN Creatinine Est GFR ( Amer) Est GFR (Non-Af Amer) BUN/Creatinine Ratio Glucose Calculated Osmolality Calcium Urine Color Yellow Urine Clarity Clear Urine pH 6.5 Ur Specific [place] 1.023 Urine Protein Negative Urine Glucose (UA) 100 H Urine Ketones Negative Urine Blood Negative Urine Nitrite Negative Urine Bilirubin Negative Urine Urobilinogen Normal Ur Leukocyte Esterase Small H Urine Microscopic RBC 3-5 H Urine Microscopic WBC 15-30 H Ur Squamous Epith Cells Many H Urine Bacteria Few Hyaline Casts None Seen Ur Culture Indicated? YES A - ABG Interpretation ABG results: ABG ABG pH 7.43 pH Units (7.32-7.45) 03/23/19 10:04 ABG pCO2 69 mmHg (35-45) H 03/23/19 10:04 ABG pO2 54 mmHg (85-104) L 03/23/19 10:04 ABG O2 Saturation 86 % (95-98) L 03/23/19 10:04 PT/INR, D-dimer PT 12.9 Seconds (9.4-12.1) H 03/21/19 04:35 1398 ng/mLFEU (0-500) H 03/20/19 18:22 Consult Discharge Plan - Plan Referrals: Jeferson Townsend MD [Primary Care Provider] -
[2019-03-23] MEDS ORDERED: amLODIPine 5 MG TABLET PO PRN (16:00)
[2019-03-23] MEDS ORDERED: Ipratropium/Albuterol Neb 3 ML IH PRN ×2 (16:00→16:15)
--- NOTE | 2019-03-23 16:46 | Pulmonology Progress Note ---
Date of Encounter: 03/23/19 Time of Encounter: 10:30 Assessment and Plan (1) COPD (chronic obstructive pulmonary disease) Current Visit: No Status: Chronic I was called by the nurse to check this patient because of his respiratory status and he is in distress. They evaluated him after he had an ABG which is acceptable and it could be sometimes with an anxiety and hyperventilation have some respiratory alkalosis. Patient denies any symptoms at this time and please call for any questions. Continue bronchodilators. Qualifiers: Qualified Code(s): J44.9 - Chronic obstructive pulmonary disease, unspecified Subjective Principal diagnosis: Pneumothorax Interval history: Patient stated he is feeling better now and his pain under control Objective PUL Vital signs: Last Vital Signs Temp 97.6 F 03/23/19 16:33 Pulse 100 03/23/19 16:33 Resp 16 03/23/19 16:33 BP 148/101 03/23/19 16:33 Pulse Ox 95 03/23/19 16:33 General appearance: appears uncomfortable Eyes: nonicteric ENT: oropharynx dry Neck: supple Effort: mildly labored Auscultation: bilateral: diminished breath sounds, rhonchi Percussion: bilateral: not dull Cardiovascular: regular rate and rhythm Gastrointestinal: normoactive bowel sounds, non-distended Extremities: no cyanosis non-focal exam anxious Results - Laboratory Findings CBC and BMP: 03/23/19 05:49 03/23/19 05:49 ABG ABG pH 7.43 pH Units (7.32-7.45) 03/23/19 10:04 ABG pCO2 69 mmHg (35-45) H 03/23/19 10:04 ABG pO2 54 mmHg (85-104) L 03/23/19 10:04 ABG O2 Saturation 86 % (95-98) L 03/23/19 10:04 PT/INR, D-dimer PT 12.9 Seconds (9.4-12.1) H 03/21/19 04:35 1398 ng/mLFEU (0-500) H 03/20/19 18:22 Abnormal lab findings: Abnormal lab results WBC 11.3 K/mcL (4.3-11.1) H 03/22/19 03:18 RBC 3.11 M/mcL (4.19-5.50) L 03/23/19 05:49 Hgb 9.4 g/dL (12.9-16.9) L 03/23/19 05:49 Hct 30.3 % (37.5-50.1) L 03/23/19 05:49 MCHC 31.0 g/dL (31.6-35.5) L 03/23/19 05:49 RDW 14.6 % (11.5-14.5) H 03/21/19 04:35 10.3 K/mcL (1.6-8.9) H 03/23/19 05:49 0.4 K/mcL (0.6-4.6) L 03/23/19 05:49 PT 12.9 Seconds (9.4-12.1) H 03/21/19 04:35 1398 ng/mLFEU (0-500) H 03/20/19 18:22 ABG pCO2 69 mmHg (35-45) H 03/23/19 10:04 ABG pO2 54 mmHg (85-104) L 03/23/19 10:04 ABG HCO3 46 mEq/L (21-27) H 03/23/19 10:04 ABG Total CO2 48 mEq/L (20-26) H 03/23/19 10:04 ABG O2 Saturation 86 % (95-98) L 03/23/19 10:04 ABG Base Excess 19 mEq/L (-2 to 3) H 03/23/19 10:04 Sodium 135 mEq/L (136-145) L 03/20/19 18:22 Chloride 91 mEq/L (98-107) L 03/23/19 05:49 Carbon Dioxide > 45 mEq/L (23-29) H* 03/23/19 05:49 0.36 mg/dL (0.70-1.30) L 03/23/19 05:49 44 (6-26) H 03/23/19 05:49 Glucose 176 mg/dL (70-105) H 03/23/19 05:49 POC Glucose 118 mg/dL (70-99) H 03/21/19 00:14 100 mg/dL (Normal) H 03/23/19 10:50 Ur Leukocyte Esterase Small (Negative) H 03/23/19 10:50 3-5 per hpf (0-3) H 03/23/19 10:50 15-30 per hpf (0-3) H 03/23/19 10:50 Ur Squamous Epith Cells Many per lpf (None-Few) H 03/23/19 10:50 Ur Culture Indicated? YES (NO) A 03/23/19 10:50 - Microbiology Findings Microbiology Findings: Microbiology, Last 48 Hours 03/23/19 10:50 Urine Culture - Preliminary Urine,Clean Catch Culture is incubating. - Clinical Findings Intake & Output: Intake & Output 03/23/19 03/23/19 03/23/19 07:59 15:59 23:59 Intake Total 240 / 240 Output Total 334 / 642 308 / 642 Balance -334 / -402 -68 / -402 Weight 65.1 kg Consult Discharge Plan - Plan Referrals: Jeferson Townsend MD [Primary Care Provider] -
[2019-03-23 20:51] LABS: Adenovirus Not Detected (Not Detect); Bordetella Pertussis Not Detected (Not Detect); Chlamydophila pneumoniae Not Detected (Not Detect); Coronavirus 229E Not Detected (Not Detect); Coronavirus HKU1 Not Detected (Not Detect); Coronavirus NL63 Not Detected (Not Detect); Coronavirus OC43 Not Detected (Not Detect); Human Metapneumovirus Not Detected (Not Detect); Human Rhinovirus/Enterovirus Not Detected (Not Detect); Influenza A Subtype 2009 H1 Not Detected (Not Detect); Influenza A Untypeable Not Detected (Not Detect); Influenza B Not Detected (Not Detect); Mycoplasma pneumoniae Not Detected (Not Detect); Parainfluenza Virus 1 Not Detected (Not Detect); Parainfluenza Virus 2 Not Detected (Not Detect); Parainfluenza Virus 3 Not Detected (Not Detect); Parainfluenza Virus 4 Not Detected (Not Detect); Respiratory Syncytial Virus Not Detected (Not Detect)
[2019-03-23] MEDS: Gabapentin 100 MG CAPSULE PO SCH (20:59)
[2019-03-23] MEDS: Budesonide/Formoterol 160/4.5 1 PUFF INH IH SCH (21:55)
[2019-03-24 01:18] LABS: Basophils % 0.1 %; Hemoglobin 8.5 g/dL (12.9-16.9); Immature Granulocytes % 0.5 % (0-4); Lymphocytes # 0.3 K/mcL (0.6-4.6); Lymphocytes % 2.6 %; Mean Corpuscular HGB Conc 30.4 g/dL (31.6-35.5); Mean Corpuscular Hemoglobin 29.4 pg (28.0-33.3); Mean Corpuscular Volume 96.9 fL (83.0-100.0); Mean Platelet Volume 9.5 fL (9.4-12.4); Monocytes # 0.7 K/mcL (0.0-1.3); Neutrophils # 12.1 K/mcL (1.6-8.9); Platelet Count 348 K/mcL (140-400); Red Blood Count 2.89 M/mcL (4.19-5.50); Red Cell Distribution Width 14.5 % (11.5-14.5); Segmented Neutrophils % 91.8 %; White Blood Count 13.2 K/mcL (4.3-11.1)
[2019-03-24 01:41] LABS: BUN/Creatinine Ratio 57 (6-26); Blood Urea Nitrogen 16 mg/dL (6-20); Calcium 8.6 mg/dL (8.6-10.3); Carbon Dioxide 41 mEq/L (23-29); Chloride 95 mEq/L (98-107); Glucose 154 mg/dL (70-105); Osmolality,Calculated 294 (280-300); Potassium 4.1 mEq/L (3.5-5.1); Sodium 140 mEq/L (136-145); eGFR For African Americans > 60 (> 60); eGFR For Non-African Americans > 60 (> 60)
[2019-03-24] MEDS: *HR* HYDROcodone/Acet 5/325 mg TABLET PO PRN ×2 (03:17→12:33)
[2019-03-24] MEDS: *HR* Promethazine 25 MG/ML VIAL IVP PRN ×2 (03:48→16:39)
[2019-03-24] MEDS: Budesonide/Formoterol 160/4.5 1 PUFF INH IH SCH ×2 (07:33→20:52)
[2019-03-24] MEDS: MethylPREDNISolone 40 MG/ML VIAL IVP SCH ×2 (07:47→18:11)
[2019-03-24] MEDS: Levofloxacin 750 MG/150 ML 750 MG/150 ML BAG IVPB SCH (07:48)
[2019-03-24] MEDS: 0.9 % Sodium Chloride 1,000 ML IVC SCH ×5 (07:48→17:45)
[2019-03-24] MEDS: Gabapentin 100 MG CAPSULE PO SCH ×3 (07:49→21:32)
--- NOTE | 2019-03-24 10:31 | Internal Med Progress Note ---
Hospitalist Progress Note - Encounter Date of Encounter: 03/24/19 Time of Encounter: 10:29 - Subjective Interval History: Last night patient had episode of bloody lose motion. Low blood pressure, hemoglobin dropped down 6.5. Daughter at bedside. Review the lab and vitals. On IV fluid at present. Chest tube in place . Denies fever chills vomiting headache chest pain abdominal pain urinary complaint. Complaint of fatigue generalized weakness. He also denies hematemesis melena Hemoptysis. - Exam Vitals: Temp Pulse Resp BP Pulse Ox 97.9 F 113 18 100/50 98 03/24/19 06:21 03/24/19 07:44 03/24/19 07:33 03/24/19 07:44 03/24/19 07:33 Exam: General: A&O X3, limited conversant, appeared tired . Appear pale Head: atraumatic, normocephalic Eye: PERRL, EOMI, conjuntiva pale Dry oral mucosa Neck: Supple, trachea midline Respiratory: Markedly diminished breath sounds on the left, left basilar crackles; no wheezes or rhonchi Cardiovascular: Tachycardia but regular rhythm +S1, +S2; no murmurs, rubs, gallops Abdomen: Soft, nontender positive bowel sounds Extremities: warm, radial pulses palpable and symmetrical. No pedal edema Psychiatric: Flat affect Skin: Dry, intact - Assessment and Plan (1) Acute respiratory failure with hypoxia and hypercapnia Current Visit: Yes Status: Acute (2) Acute exacerbation of chronic obstructive airways disease Current Visit: Yes Status: Acute (3) Pneumonia Current Visit: Yes Status: Acute (4) Pneumothorax on left Current Visit: Yes Status: Acute (5) History of lung cancer Current Visit: Yes Status: Acute (6) History of pulmonary embolism Current Visit: Yes Status: Acute (7) GI bleed Current Visit: Yes Status: Acute - Summary of Assessment and Plan Summary of Assessment and Plan: Assessment and Plan GI bleed- Acute episode of blood per rectum. Acute blood loss anemia. No blood thinner. Started SCD for DVT prophylaxis. Patient is symptomatic with her blood pressure and tachycardia hemoglobin dropped 6.5. Talk to patient and he is okay for blood transfusion therefore 2 unit PRC stat ordered. IV fluid hunger M Arnold per hour. A strict I&O's. Consulted GI specialist. PPI drip. nothing by mouth. Acute respiratory failure with hypoxia and hypercapnia On admission was presented in acute respiratory failure secondary to pneumonia, COPD exacerbation and pneumothorax. Patient was admitted to ICU. Treatment was initiated with supplemental oxygen and breathing treatments, broad-spectrum antibiotics. chest tube placement for pneumothorax. Patient was transferred out to the floor on 03/22/2019 and a started to recover Lab trending down CO2-therefore reconsulted french edge operator for opinion- consider due to his breathing pattern due to anxiety and no further advice. Monitor patient. Continue oxygen supplementation. Continue Levaquin. Acute exacerbation of chronic obstructive airways disease Continue scheduled bronchodilators and systemic glucocorticoids. Decreased IV steroid dose 40 mg IV every 12 hours. Continue DuoNeb and oxygen supplementation. ABG reviewed Pneumonia- multifocal. Continue antibiotic regimen as above Respiratory panel, urine Legionella and streptococcal ordered IMPRESSION: 1. Moderate left-sided pneumothorax. 2. Multifocal airspace disease identified on prior exam from February 13, 2019 has near completely resolved. Tree-in-bud nodular opacities within the left lower lobe most compatible with ongoing infectious/inflammatory process. 3. Secretions throughout the right mainstem bronchus extending into the right middle lobe and lower lobe bronchi most suggestive of aspiration. There is also bronchial wall thickening throughout the lungs which is most pronounced within the right lower lobe compatible with bronchitis. 4. Nodule within the superior aspect of the right lower lobe measuring 1 cm. While findings may be infectious/inflammatory, recommend follow-up per oncologic protocol given history of lung cancer. 5. Worsening mediastinal lymphadenopathy. Pneumothorax on left Large-bore chest tube placed by Dr. Sutton cardiothoracic surgeon Chemical pleurodesis with talc slurry initiated by Dr. Sutton Repeat chest x-ray Chest tube removal as per CT surgeon advice History of lung cancer Small lung cancer. On palliative chemoimmunotherapy-treatments held, due to recent fall, fracture, further hospitalization due to left-sided pneumothorax, shortness of breath. Due to multiple comorbidities patient is less likely to tolerate chemotherapy therefore oncology team discussed in length and address hospice consideration. Palliative care on board and has meeting with family today to discuss about code status-patient wants to remain full code and continue to wish for aggressive treatment. History of pulmonary embolism History of pulmonary embolus within the last 3 months in the context of malignancy he is high risk we will resume home NOAC with Lovenox bridge. Will resume oral anticoagulant 24-hour after the chest tube removal. Left hip fracture-status post repair. He has been ambulating with walker at rehabilitation. Palliative care team for pain management. Adequately controlled pain at this time. scd for dvt px Spent more than 35 minute inpatient care and communication with patient and family, nursing staff,consultation. - Time Spent with Patient Total time spent is greater than 50% in coordination of care (as documented) at patient's floor/unit and/or counseling patient: Greater than 35 minutes Plan of Care Discussed with: patient Internal Medicine: Result - Labs CBC & Chem 7: 03/24/19 09:46 03/24/19 00:47 Labs: Short CBC 03/24/19 03/24/19 Range/Units 00:47 09:46 WBC 13.2 H (4.3-11.1) K/mcL Hgb 8.5 L 6.5 L D (12.9-16.9) g/dL Hct 28.0 L (37.5-50.1) % Plt Count 348 (140-400) K/mcL Neutrophils # 12.1 H (1.6-8.9) K/mcL BMP 03/24/19 00:47 Sodium 140 Potassium 4.1 Chloride 95 L Carbon Dioxide 41 H* BUN 16 Creatinine 0.28 L Glucose 154 H Calcium 8.6 Urine 03/23/19 Range/Units 10:50 Urine Color Yellow (Yellow) Urine Clarity Clear (Clear) Urine pH 6.5 (5.0-8.0) pH Units Ur Specific Venus 1.023 (1.010-1.025) Urine Protein Negative (Neg-Trace) mg/dL Urine Glucose (UA) 100 H (Normal) mg/dL - ABG Interpretation ABG results: ABG ABG pH 7.43 pH Units (7.32-7.45) 03/23/19 10:04 ABG pCO2 69 mmHg (35-45) H 03/23/19 10:04 ABG pO2 54 mmHg (85-104) L 03/23/19 10:04 ABG O2 Saturation 86 % (95-98) L 03/23/19 10:04 PT/INR, D-dimer PT 12.9 Seconds (9.4-12.1) H 03/21/19 04:35 1398 ng/mLFEU (0-500) H 03/20/19 18:22 - Impressions Impressions Chest X-Ray 03/24/19 08:01 IMPRESSION: No discernible pneumothorax. Chest tube unchanged in position. Unchanged right basilar airspace disease. Possible tiny amount of mediastinal air on the right at the level of the right hilum, attention to this on short-term follow-up chest x-ray recommended. D/ / Micky Lindsay MD / Micky Lindsay MD Interpreting Provider: Micky Lindsay MD Consult Discharge Plan - Plan Referrals: Jeferson Townsend MD [Primary Care Provider] -
[2019-03-24] MEDS ORDERED: 0.9 % Sodium Chloride 250 ML ONE (11:43)
--- NOTE | 2019-03-24 12:06 | Cardiothoracic Progress Note ---
Date of Encounter: 03/24/19 Time of Encounter: 12:03 - Assessment and plan (1) Bullous emphysema with collapse Current Visit: Yes Status: Acute The assessment and plan as outlined above was discussed with the patient and/or family members who expressed understanding and agreement. All questions were answered. iremoved chest tube. follow up with chest xray in the am . (2) BPH with urinary obstruction Current Visit: Yes Status: Acute The assessment and plan as outlined above was discussed with the patient and/or family members who expressed understanding and agreement. All questions were answered. continue flomax upon discharge. - Subjective Interval history: denies: f/c/s. n/v. voiding improving. no cough. minimal cw pain. feels lethargic and lightheaded Vital Signs, Last 4 Hours Temp Pulse Resp BP Pulse Ox 03/24/19 11:07 97.8 F 102 17 90/64 97 03/24/19 10:49 90/63 Oxgyen Flow Rate Oxygen Flow Rate (LPM) 3.5 Clinical Data, last 8 Hours Output, Chest Tube Drainage 6 Amount [Left Lateral Chest] Weight 03/22/19 03/23/19 03/24/19 23:59 23:59 23:59 Weight 67.2 kg 65.1 kg 67.2 kg - Physical Examination General: Conversant, No Apparent Distress, Well developed, Well nourished Cardiac: Reg Rate and Rhythm, No Murmur Incision: No signs of infection, Dry/intact dressing Chest tubes: Minimal drainage Lungs: Decreased breath sounds Neuro: Alert and responsive, No focal deficits noted, Cranial nerves intact, Motor nerves intact Abdomen: Soft Extremities: No Edema - Labs 03/24/19 09:46 03/24/19 00:47 Lab Results, Last 24 hours 03/24/19 03/24/19 03/24/19 00:47 00:47 09:46 WBC 13.2 H Hgb 8.5 L 6.5 L D Hct 28.0 L Plt Count 348 Sodium 140 Potassium 4.1 Chloride 95 L Carbon Dioxide 41 H* BUN 16 Creatinine 0.28 L Glucose 154 H Calcium 8.6 - Imaging Chest Xray: image reviewed Consult Discharge Plan - Plan Referrals: Jeferson Townsend MD [Primary Care Provider] -
[2019-03-24] MEDS: Pantoprazole 40 MG in 0.9 % Sodium Chloride Mini Bag 100 ML IVC SCH ×3 (12:35→23:11)
--- NOTE | 2019-03-24 14:10 | Anesthesia Evaluation PreOp ---
Date of Encounter: 03/24/19 Time of Encounter: 14:07 - Past History Planned Operation: EGD re acute GI bleed Cardiac History: Denies any Significant Hx Pulmonary History: COPD (with acute exacerbation), Other (acute respiratory failure, pneumonia, small cell lung ca, L pneumothorax with chest tube removal this am, anika PE in 12/2018 as well) Other Medical History: Other (acute blood loss anemia) Anesthesia History: No Prior Anesthetic Complications, Past Anesthesia (L hip IM nail 03/14/19) Alcohol Use: none Drug use: none Medications and Allergies Cyanocobalamin (Vitamin B-12) [Vitamin B-12] 100 mcg PO DAILY 09/28/18 [History] DULoxetine [Cymbalta] 30 mg PO QAM 09/28/18 [History] Budesonide/Formoterol 160/4.5 [Symbicort 160/4.5] 2 puff IH BIDR #1 inh 10/31/18 [Rx] Ondansetron HCl 8 mg PO Q8H PRN #45 tablet 11/21/18 [Rx] Albuterol Sulfate [Proair Hfa] 2 puff IH Q4H PRN 12/21/18 [History] Dexamethasone [Decadron] 4 mg PO BID PRN #45 tab 01/29/19 [Rx] Prochlorperazine Maleate [Compazine] 10 mg PO Q8HR PRN #90 tablet 01/29/19 [Rx] Gabapentin [Neurontin] 100 mg PO TID 02/26/19 [History] predniSONE [PredniSONE] 20 mg PO DAILY #30 tablet 02/26/19 [Rx] Sodium Chloride [Sodium Chloride Tab] 3 gm PO DAILY 03/12/19 [History] Doxepin [Sinequan] 25 mg PO HS 03/13/19 [History] Ipratropium/Albuterol Neb [Duoneb] 3 ml IH Q4HR PRN 03/13/19 [History] Rivaroxaban [Xarelto] 20 mg PO 2130 03/13/19 [History] Dronabinol [Marinol] 2.5 mg PO TID 30 Days #90 capsule 03/16/19 [Rx] diazePAM [Valium] 5 mg PO BID PRN 10 Days #20 tablet 03/16/19 [Rx] Amlodipine Besylate 2.5 mg PO DAILY PRN 03/21/19 [History] Guaifenesin [Mucinex] 600 mg PO BID PRN 03/21/19 [History] Allergy/AdvReac Type Severity Reaction Status Date / Time Penicillins [PCN] Allergy See Verified 03/20/19 23:12 Comments venlafaxine AdvReac Gastrointestinal Verified 03/20/19 23:12 Upset - Meds/Allergy Pre-op Review Medications Reviewed: Yes Allergies Reviewed: Yes Beta Blockers on Current Med List: No Anesthesia Results - Labs 03/24/19 17:03 03/24/19 00:47 - Imaging EKG: report reviewed (Sinus tachycardia Electronically Signed On 03-21-2019 16:44:55 EDT by Reid Velazquez) Chest x-ray: report reviewed (03/24/19 XR/XR chest 1V IMPRESSION: No discernible pneumothorax. Chest tube unchanged in position. Unchanged right basilar airspace disease. Possible tiny amount of mediastinal air on the right at the level of the right hilum, attention to this on short-t erm follow-up chest x-ray recommended.) Additional studies: 12/2018 Impressions: LVEF 60-65%. Mild left ventricular diastolic dysfunction. Normal right ventricular structure and function. No evidence of pulmonary hypertension. Atypical septal motion consistent with flattened septum with septal bounce. Clinical correlation is suggested. No significant valvular dysfunction. Anesthesia Exam Vital Signs/O2 Sat/Glucose, Most Current Temp Pulse Resp BP Pulse Ox 03/24/19 14:22 97.8 F 100 16 110/68 95 03/24/19 14:07 98.1 F 88 16 108/60 96 03/24/19 14:00 97.8 F 102 16 110/64 95 03/24/19 12:40 97.8 F 132 16 96/52 93 03/24/19 12:35 97.9 F 119 14 94 03/24/19 12:20 128 16 92/54 03/24/19 12:16 97.9 F 124 20 110/60 03/24/19 11:07 97.8 F 102 17 90/64 97 03/24/19 10:49 90/63 Weight: 67kg NPO (# of Hours): >8 - HEENT Pupil (Motor): Pupils equal, EOMI Mallampati: II Teeth: Edentulous Denture Type: Upper: Complete Oral Opening: Greater than 3 - SYSTEMS SUPPORT SPECIALIST LOC: Oriented - Cardiac Rhythm: Regular - Pulmonary Respiratory Effort: Labored Anesthesia Assess/Plan ASA Score: 4 Level of consciousness: Cooperative Anesthetic Plan: General, MAC (I had a lenghty discussion with patient and family about the patient's pulmonary status and informed them that he is very high risk for periop cardiopulmonary complications including prolonged int ubation, ICU stay and , they expressed understanding and still wish to proceed.) Monitoring Plan: Standard Monitors Recovery Plan: PACU
--- NOTE | 2019-03-24 15:30 | Gastroenterology Consult Note ---
Date of Encounter: 03/24/19 Time of Encounter: 15:00 - Assessment and plan (1) GI bleed Current Visit: Yes Status: Acute Assessment and plan: Acute GI bleed is patient with a history of small cell lung cancer metastatic and history of PE, now with lower GI bleed. Patient has been getting Lovenox for his history of Pul. embolism. His been given 2 units of blood currently hemodynamically stable. Patient will have an urgent EGD done in the OR to rule out upper GI cause for his bleed and if negative then he will need a colonoscopy meanwhile continue to follow his H&H and transfuse as needed and also continue PPI infusion Qualifiers: GI bleed type/associated pathology: unspecified gastrointestinal hemorrhage type Qualified Code(s): K92.2 - Gastrointestinal hemorrhage, unspecified - Time Spent With Patient Total time spent is greater than 50% in coordination of care (as documented) at patient's floor/unit and/or counseling patient: GI History of Present Illness - Data of Consult Requesting Physician: John Payan MD - Consult Narrative History of present illness: Mr. Salcedo is a 58 year old male 8 year old male patient of Dr Tadeo Bustillos at [facility] with small cell lung cancer, at least stage IV He is s/p cycle 5 chemoimmunotherapy 02/05/19. Subsequent chemo held due to weakness, hospitalizations and femur fracture. Held cycle 6 of treatment 03/15/19 for weakness and feeling unwell. Last time seen in clinic Status post treatment, intubation and extubation for influenza A in the hospital s/p rehab and in 02/25 with pneumococcal pneumonia Now admitted again for pneumothorax, pneumonia and COPD.Last night patient had episode of bloody lose motion. Low blood pressure, hemoglobin dropped down 6.5. Has been given 2 units of blood (second unit is being transfused). Currently patient has been transferred to the ICU his heart rate is now 106 earlier it was up to 120s 130s blood pressure has also improved. Denies any abdominal pain Past Med Surg Social Fam HX - Past Medical History Medical history: arthritis, cancer, COPD, hypertension, pulmonary embolus, other Additional medical history: stage IV small cell lung cancer. recurrent pnthx Psychiatric history: anxiety, depression - Past Surgical History Additional surgical history: back surgery. left femur sx - Social History Smoking Status: Current every day smoker Packs per day: 1/2 pack or less Smokeless Tobacco Status: No Alcohol use: none Drug use: none - Family History Mother Living Status: Hx Family Cardiac Disorders: No Hx Family Respiratory Disorders: No Hx Family Cancer: Yes (Breast) Hx Family GI Disorders: No Hx Family Endocrine Disorder: No Hx Family Neuromuscular Disorders: No Hx Family Neurologic Disorders: No Hx Family HEENT Disorders: No Hx Family Autoimmune Disorders: No Father Living Status: Hx Family Cardiac Disorders: No Hx Family Respiratory Disorders: No Hx Family Cancer: Yes (Bladder cancer) Hx Family GI Disorders: No Hx Family Endocrine Disorder: No Hx Family Neuromuscular Disorders: No Hx Family Neurologic Disorders: No Hx Family HEENT Disorders: No Hx Family Autoimmune Disorders: No Review of Systems: GI: as per [place] GENERAL: weak in general EYES: denies yellow discoloration ENT: denies pain with swallowing or difficulty swallowing CARDIO: denies chest pain, palpitations RESP: Shortness of breath and also wheezing NEURO: denies any focal weakness HEME: Denies any bruising MS: denies joint pain, joint swelling or back pain. DERM: denies rash or itching - Constitutional Vitals: Temp Pulse Resp BP Pulse Ox 97.8 F 100 16 110/68 95 03/24/19 14:22 03/24/19 14:22 03/24/19 14:22 03/24/19 14:22 03/24/19 14:22 Exam: CONSTITUTIONAL:alert, pale looking mild shortness of breath.HEAD:normocephalic.EYES:no jaundice.NECK:no obvious swelling.HEART:Mildly tachycardia..LUNGS:bilateral mild wheezing.ABD OMEN:non distended, soft, non tander, no masses pulpable, no organomegaly.RECTAL EXAM:Deferred.EXTREMITIES:no clubbing, cyanosis or edema.SKIN:no stigmata of chronic liver disease.NEUROLOGIC:no obvious focal defect. Results - Labs CBC & Chem 7: 03/24/19 09:46 03/24/19 00:47 Labs: Last Result 03/24/19 08:20 Stool Occult Blood Positive A Entire Visit 03/24/19 09:46 Hgb 6.5 L D - ABG ABG results: ABG ABG pH 7.43 pH Units (7.32-7.45) 03/23/19 10:04 ABG pCO2 69 mmHg (35-45) H 03/23/19 10:04 ABG pO2 54 mmHg (85-104) L 03/23/19 10:04 ABG O2 Saturation 86 % (95-98) L 03/23/19 10:04 PT/INR, D-dimer PT 12.9 Seconds (9.4-12.1) H 03/21/19 04:35 1398 ng/mLFEU (0-500) H 03/20/19 18:22 - Impressions Impressions Chest X-Ray 03/24/19 08:01 IMPRESSION: No discernible pneumothorax. Chest tube unchanged in position. Unchanged right basilar airspace disease. Possible tiny amount of mediastinal air on the right at the level of the right hilum, attention to this on short-term follow-up chest x-ray recommended. D/ / Micky Lindsay MD / Micky Lindsay MD Interpreting Provider: Micky Lindsay MD Consult Discharge Plan - Plan Referrals: Jeferson Townsend MD [Primary Care Provider] -
[2019-03-24] MEDS ORDERED: *HR* EPINEPHrine 1 MG/10 ML SYRINGE INTRATRACH PRN (15:50)
[2019-03-24] MEDS ORDERED: Tetracaine/Benzocaine/Butamben 1 SPRAY AEROSOL MM ONE (16:19)
[2019-03-24 17:18] LABS: Basophils % 0.2 %; Hematocrit 28.1 % (37.5-50.1); Immature Granulocytes % 2.3 % (0-4); Lymphocytes # 0.9 K/mcL (0.6-4.6); Lymphocytes % 4.9 %; Mean Corpuscular HGB Conc 32.7 g/dL (31.6-35.5); Mean Corpuscular Volume 91.5 fL (83.0-100.0); Mean Platelet Volume 9.8 fL (9.4-12.4); Monocytes # 1.4 K/mcL (0.0-1.3); Monocytes % 7.4 %; Neutrophils # 15.7 K/mcL (1.6-8.9); Nucleated Red Blood Cells 0.3 /100 WBC (0); Platelet Count 239 K/mcL (140-400); Red Blood Count 3.07 M/mcL (4.19-5.50); Red Cell Distribution Width 16.8 % (11.5-14.5); Segmented Neutrophils % 85.2 %; White Blood Count 18.4 K/mcL (4.3-11.1)
[2019-03-24 17:19] LABS: Hemoglobin 9.2 g/dL (12.9-16.9)
--- NOTE | 2019-03-24 17:28 | Anesthesia Evaluation Post Op ---
Date of Encounter: 03/24/19 Time of Encounter: 16:40 - Vital Signs Vital Signs: Vital Signs/O2 Sat, Most Current Temp Pulse Resp BP Pulse Ox 97.3 F L 89 31 157/96 91 03/24/19 15:34 03/24/19 17:00 03/24/19 17:00 03/24/19 17:00 03/24/19 17:00 - Lungs Lungs: Rales - Airway Airway: Non-obstructed - Cardiovascular Regular Rate - Mental Status Mental Status: Baseline Status - Nausea Vomiting Nausea Vomiting: Present - Hydration Hydration: NPO - Discharge PostOp Status: Transfer Patient to floor
--- NOTE | 2019-03-24 17:37 | Event Note ---
Date of Encounter: 03/24/19 Time of Encounter: 17:37 Patient had another episode of massive bleed per rectum then became hemodynamically unstable with low blood pressure tachycardia while getting first unit of blood transfusion. Normal saline IV bolus given. Will transfuse patient 2 unit PRC. 2 more unit PRC type and screen. Updated GI team immediately. And patient was transferred to ICU. Talk to patient and his sister who is power of pretzel cooker. Patient remained conscious.
[2019-03-24] MEDS ORDERED: Pantoprazole 40 MG VIAL IVP SCH (18:00)
[2019-03-24] MEDS: OXYCODONE Oral CONC 10 MG/0.5 ML ORAL.SYG SL PRN (18:48)
[2019-03-24] MEDS ORDERED: diazePAM 10 MG/2 ML SYRINGE IVP PRN (22:56)
[2019-03-24 23:48] LABS: Hematocrit 26.7 % (37.5-50.1); Hemoglobin 8.6 g/dL (12.9-16.9)
[2019-03-25] MEDS: OXYCODONE Oral CONC 10 MG/0.5 ML ORAL.SYG SL PRN ×4 (01:04→19:43)
[2019-03-25] MEDS: 0.9 % Sodium Chloride 1,000 ML IVC SCH ×5 (02:29→12:00)
[2019-03-25] MEDS: Pantoprazole 40 MG in 0.9 % Sodium Chloride Mini Bag 100 ML IVC SCH ×5 (04:28→21:13)
[2019-03-25 05:13] LABS: Basophils % 0.1 %; Hematocrit 24.1 % (37.5-50.1); Hemoglobin 7.7 g/dL (12.9-16.9); Immature Granulocytes % 1.1 % (0-4); Lymphocytes # 1.2 K/mcL (0.6-4.6); Lymphocytes % 8.3 %; Mean Corpuscular Hemoglobin 29.5 pg (28.0-33.3); Mean Corpuscular Volume 92.3 fL (83.0-100.0); Mean Platelet Volume 9.6 fL (9.4-12.4); Monocytes % 6.7 %; Neutrophils # 12.5 K/mcL (1.6-8.9); Nucleated Red Blood Cells 0.3 /100 WBC (0); Platelet Count 244 K/mcL (140-400); Red Blood Count 2.61 M/mcL (4.19-5.50); Red Cell Distribution Width 17.2 % (11.5-14.5); Segmented Neutrophils % 83.8 %
[2019-03-25 05:35] LABS: BUN/Creatinine Ratio 58 (6-26); Blood Urea Nitrogen 22 mg/dL (6-20); Carbon Dioxide 35 mEq/L (23-29); Chloride 102 mEq/L (98-107); Glucose 148 mg/dL (70-105); Osmolality,Calculated 298 (280-300); Potassium 4.2 mEq/L (3.5-5.1); Sodium 141 mEq/L (136-145); eGFR For African Americans > 60 (> 60); eGFR For Non-African Americans > 60 (> 60)
[2019-03-25] MEDS: MethylPREDNISolone 40 MG/ML VIAL IVP SCH (06:03)
[2019-03-25] MEDS: Gabapentin 100 MG CAPSULE PO SCH ×3 (07:49→20:04)
[2019-03-25] MEDS: Levofloxacin 750 MG/150 ML 750 MG/150 ML BAG IVPB SCH (08:47)
--- NOTE | 2019-03-25 09:03 | Pulmonology Progress Note ---
<GeeMarek Becca - Last Filed: 03/25/19 10:15> Date of Encounter: 03/25/19 Time of Encounter: 09:03 Assessment and Plan (1) GI bleed Current Visit: Yes Status: Acute Patient was transferred from the ICU to the medical floor several days ago He was transferred on Lovenox due to history of PE He was returned to the ICU yesterday due to GI bleed, Lovenox discontinued Gastroenterology performed an endoscopy yesterday, treated bleeding gastric ulcer Hemoglobin this morning 7.7, but otherwise the patient is hemodynamically stable Every 6 H&H's starting at noon We will allow gastroenterology to reevaluate and make recommendations and watch hemoglobin If hemoglobin remains stable and she had makes recommendations we may transfer the patient back to the floor this afternoon Qualifiers: GI bleed type/associated pathology: gastric ulcer Qualified Code(s): K25.4 - Chronic or unspecified gastric ulcer with hemorrhage (2) Anemia Current Visit: Yes Status: Acute Qualifiers: Other causes of anemia: acute posthemorrhagic Qualified Code(s): D62 - Acute posthemorrhagic anemia (3) History of lung cancer Current Visit: No Status: Chronic (4) History of pulmonary embolism Current Visit: Yes Status: Acute Patient had PE within the last 3 months He is high risk due to malignancy However due to her gastric bleed we cannot anticoagulate IVC filter may need to be considered in this patient once he stabilized (5) Closed left hip fracture Current Visit: No Status: Chronic History of recent hip fracture, PT/OT are following, no acute sequela Qualifiers: Encounter type: subsequent encounter Subjective Principal diagnosis: Pneumothorax Interval history: No acute events overnight, the patient's hemoglobin did drop. We will monitor hemoglobin and confer with gastroenterology, he remained stable and hemoglobin does not continue to drop we will likely transfer to the floor. Objective PUL Vital signs: Last Vital Signs Temp 97.7 F 03/25/19 08:37 Pulse 93 03/25/19 06:00 Resp 25 03/25/19 06:00 BP 151/85 03/25/19 06:00 Pulse Ox 99 03/25/19 06:00 General appearance: no acute distress, alert Eyes: nonicteric ENT: oropharynx dry Neck: supple Effort: normal Auscultation: bilateral: clear, diminished breath sounds Cardiovascular: regular rate and rhythm Gastrointestinal: soft, non-tender, non-distended Integumentary: normal Extremities: no cyanosis, no edema, pink and warm, pulses normal Musculoskeletal: no deformities non-focal exam, pupils equal and round Results - Laboratory Findings CBC and BMP: 03/25/19 04:30 03/25/19 04:30 ABG ABG pH 7.43 pH Units (7.32-7.45) 03/23/19 10:04 ABG pCO2 69 mmHg (35-45) H 03/23/19 10:04 ABG pO2 54 mmHg (85-104) L 03/23/19 10:04 ABG O2 Saturation 86 % (95-98) L 03/23/19 10:04 PT/INR, D-dimer PT 12.9 Seconds (9.4-12.1) H 03/21/19 04:35 1398 ng/mLFEU (0-500) H 03/20/19 18:22 Abnormal lab findings: Abnormal lab results WBC 15.0 K/mcL (4.3-11.1) H 03/25/19 04:30 RBC 2.61 M/mcL (4.19-5.50) L 03/25/19 04:30 Hgb 7.7 g/dL (12.9-16.9) L 03/25/19 04:30 Hct 24.1 % (37.5-50.1) L 03/25/19 04:30 MCHC 30.4 g/dL (31.6-35.5) L 03/24/19 00:47 RDW 17.2 % (11.5-14.5) H 03/25/19 04:30 12.5 K/mcL (1.6-8.9) H 03/25/19 04:30 0.3 K/mcL (0.6-4.6) L 03/24/19 00:47 1.4 K/mcL (0.0-1.3) H 03/24/19 17:03 Nucleated RBCs/100 WBC 0.3 /100 WBC (0) H 03/25/19 04:30 PT 12.9 Seconds (9.4-12.1) H 03/21/19 04:35 1398 ng/mLFEU (0-500) H 03/20/19 18:22 ABG pCO2 69 mmHg (35-45) H 03/23/19 10:04 ABG pO2 54 mmHg (85-104) L 03/23/19 10:04 ABG HCO3 46 mEq/L (21-27) H 03/23/19 10:04 ABG Total CO2 48 mEq/L (20-26) H 03/23/19 10:04 ABG O2 Saturation 86 % (95-98) L 03/23/19 10:04 ABG Base Excess 19 mEq/L (-2 to 3) H 03/23/19 10:04 Sodium 135 mEq/L (136-145) L 03/20/19 18:22 Chloride 95 mEq/L (98-107) L 03/24/19 00:47 Carbon Dioxide 35 mEq/L (23-29) H 03/25/19 04:30 BUN 22 mg/dL (6-20) H 03/25/19 04:30 0.38 mg/dL (0.70-1.30) L 03/25/19 04:30 58 (6-26) H 03/25/19 04:30 Glucose 148 mg/dL (70-105) H 03/25/19 04:30 POC Glucose 330 mg/dL (70-99) H 03/24/19 04:37 Calcium 8.0 mg/dL (8.6-10.3) L 03/25/19 04:30 100 mg/dL (Normal) H 03/23/19 10:50 Ur Leukocyte Esterase Small (Negative) H 03/23/19 10:50 3-5 per hpf (0-3) H 03/23/19 10:50 15-30 per hpf (0-3) H 03/23/19 10:50 Ur Squamous Epith Cells Many per lpf (None-Few) H 03/23/19 10:50 Ur Culture Indicated? YES (NO) A 03/23/19 10:50 Positive (Negative) A 03/24/19 08:20 Crossmatch See Detail 03/24/19 10:44 - Microbiology Findings Microbiology Findings: Microbiology, Last 48 Hours 03/23/19 10:50 Urine Culture - Preliminary Urine,Clean Catch Culture is incubating. 03/23/19 10:50 Legionella Antigen - Final Urine,Clean Catch Streptococcus pneumoniae Antigen (M - Final - Clinical Findings Intake & Output: Intake & Output 03/24/19 03/25/19 03/25/19 23:59 07:59 15:59 Intake Total 1486 / 2970 1100 / 1100 Output Total 550 / 1156 250 / 250 Balance 936 / 1814 850 / 850 Weight 49.3 kg Consult Discharge Plan - Plan Referrals: Jeferson Townsend MD [Primary Care Provider] - <Mikey Obrien Nestor - Last Filed: 03/26/19 08:20> Date of Encounter: 03/25/19 Assessment and Plan (1) COPD (chronic obstructive pulmonary disease) Current Visit: No Status: Chronic Qualifiers: Qualified Code(s): J44.9 - Chronic obstructive pulmonary disease, unspecified Objective PUL Vital signs: Last Vital Signs Temp 97.7 F 03/25/19 08:37 Pulse 93 03/25/19 06:00 Resp 25 03/25/19 06:00 BP 151/85 03/25/19 06:00 Pulse Ox 99 03/25/19 06:00 Results - Laboratory Findings CBC and BMP: 03/26/19 06:40 03/26/19 06:40 ABG ABG pH 7.43 pH Units (7.32-7.45) 03/23/19 10:04 ABG pCO2 69 mmHg (35-45) H 03/23/19 10:04 ABG pO2 54 mmHg (85-104) L 03/23/19 10:04 ABG O2 Saturation 86 % (95-98) L 03/23/19 10:04 PT/INR, D-dimer PT 12.9 Seconds (9.4-12.1) H 03/21/19 04:35 1398 ng/mLFEU (0-500) H 03/20/19 18:22 Abnormal lab findings: Abnormal lab results WBC 15.0 K/mcL (4.3-11.1) H 03/25/19 04:30 RBC 2.61 M/mcL (4.19-5.50) L 03/25/19 04:30 Hgb 7.7 g/dL (12.9-16.9) L 03/25/19 04:30 Hct 24.1 % (37.5-50.1) L 03/25/19 04:30 MCHC 30.4 g/dL (31.6-35.5) L 03/24/19 00:47 RDW 17.2 % (11.5-14.5) H 03/25/19 04:30 12.5 K/mcL (1.6-8.9) H 03/25/19 04:30 0.3 K/mcL (0.6-4.6) L 03/24/19 00:47 1.4 K/mcL (0.0-1.3) H 03/24/19 17:03 Nucleated RBCs/100 WBC 0.3 /100 WBC (0) H 03/25/19 04:30 PT 12.9 Seconds (9.4-12.1) H 03/21/19 04:35 1398 ng/mLFEU (0-500) H 03/20/19 18:22 ABG pCO2 69 mmHg (35-45) H 03/23/19 10:04 ABG pO2 54 mmHg (85-104) L 03/23/19 10:04 ABG HCO3 46 mEq/L (21-27) H 03/23/19 10:04 ABG Total CO2 48 mEq/L (20-26) H 03/23/19 10:04 ABG O2 Saturation 86 % (95-98) L 03/23/19 10:04 ABG Base Excess 19 mEq/L (-2 to 3) H 03/23/19 10:04 Sodium 135 mEq/L (136-145) L 03/20/19 18:22 Chloride 95 mEq/L (98-107) L 03/24/19 00:47 Carbon Dioxide 35 mEq/L (23-29) H 03/25/19 04:30 BUN 22 mg/dL (6-20) H 03/25/19 04:30 0.38 mg/dL (0.70-1.30) L 03/25/19 04:30 58 (6-26) H 03/25/19 04:30 Glucose 148 mg/dL (70-105) H 03/25/19 04:30 POC Glucose 330 mg/dL (70-99) H 03/24/19 04:37 Calcium 8.0 mg/dL (8.6-10.3) L 03/25/19 04:30 100 mg/dL (Normal) H 03/23/19 10:50 Ur Leukocyte Esterase Small (Negative) H 03/23/19 10:50 3-5 per hpf (0-3) H 03/23/19 10:50 15-30 per hpf (0-3) H 03/23/19 10:50 Ur Squamous Epith Cells Many per lpf (None-Few) H 03/23/19 10:50 Ur Culture Indicated? YES (NO) A 03/23/19 10:50 Positive (Negative) A 03/24/19 08:20 Crossmatch See Detail 03/24/19 10:44 - Microbiology Findings Microbiology Findings: Microbiology, Last 48 Hours 03/23/19 10:50 Urine Culture - Preliminary Urine,Clean Catch Culture is incubating. 03/23/19 10:50 Legionella Antigen - Final Urine,Clean Catch Streptococcus pneumoniae Antigen (M - Final - Clinical Findings Intake & Output: Intake & Output 03/24/19 03/25/19 03/25/19 23:59 07:59 15:59 Intake Total 1486 / 2970 1100 / 1100 Output Total 550 / 1156 250 / 250 Balance 936 / 1814 850 / 850 Weight 49.3 kg - Attending Attestation I examined this patient and my medical decision-making was reviewed with the Resident Physician. I agree with the documented findings, disposition and treatment plan as described except to the extent set forth below. Patient seen and examined. Labs, radiology, chart personally reviewed. 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 Cardiovascular: stable GI: Nutrition per dietary and GI prophylaxis per routine. We will wait for GI recommendation regarding his diet. Continue PPI. Heme: DVT prophylaxis per routine. Patient has history of pulmonary embolism in the past and at this time with his GI bleed anticoagulation is on hold will be on mechanical DVT prophylaxis. Monitor H&H and transfuse to keep his hemoglobin at least around 8. Renal; urine out put and renal function reviewed Endorcine: blood glucose is monitored Lines: all lines checked and no evidence of infections Skin: skin care to prevent pressure ulcers per nursing routine care Dispo: There is no plan for EGD then patient can be transferred to the floor. Code: Full. Prognosis. Guarded.
--- NOTE | 2019-03-25 09:25 | Cardiothoracic Progress Note ---
Date of Encounter: 03/25/19 Time of Encounter: 09:23 - Assessment and plan (1) Bullous emphysema with collapse Current Visit: Yes Status: Acute The assessment and plan as outlined above was discussed with the patient and/or family members who expressed understanding and agreement. All questions were answered. will sign off. xray stable. (2) BPH with urinary obstruction Current Visit: Yes Status: Acute The assessment and plan as outlined above was discussed with the patient and/or family members who expressed understanding and agreement. All questions were answered. continue flomax upon discharge. - Subjective Interval history: anxious to go home . no other complaints Vital Signs, Last 4 Hours Temp Pulse Resp BP Pulse Ox 03/25/19 08:37 97.7 F 03/25/19 06:00 93 25 151/85 99 Oxgyen Flow Rate Oxygen Flow Rate (LPM) 3 Clinical Data, last 8 Hours Output, Urine Amount 250 Weight 03/23/19 03/24/19 03/25/19 23:59 23:59 23:59 Weight 65.1 kg 67.2 kg 49.3 kg - Physical Examination General: Conversant, No Apparent Distress HEENT: Atraumatic, Normocephaly, Other (minimal temportal mm waisting ) Cardiac: Reg Rate and Rhythm, Normal S1 and S2 Incision: No signs of infection, Dry/intact dressing Lungs: Decreased breath sounds Neuro: Alert and responsive, No focal deficits noted, Cranial nerves intact, Motor nerves intact Abdomen: Soft, Non-tender, Other (no peritoneal signs ) - Labs 03/25/19 04:30 03/25/19 04:30 Lab Results, Last 24 hours 03/24/19 03/24/19 03/24/19 09:46 17:03 22:46 WBC 18.4 H Hgb 6.5 L D 9.2 L D 8.6 L Hct 28.1 L 26.7 L Plt Count 239 Sodium Potassium Chloride Carbon Dioxide BUN Creatinine Glucose Calcium 03/25/19 03/25/19 04:30 04:30 WBC 15.0 H Hgb 7.7 L Hct 24.1 L Plt Count 244 Sodium 141 Potassium 4.2 Chloride 102 Carbon Dioxide 35 H BUN 22 H Creatinine 0.38 L Glucose 148 H Calcium 8.0 L - Imaging Chest Xray: image reviewed Consult Discharge Plan - Plan Referrals: Jeferson Townsend MD [Primary Care Provider] -
[2019-03-25] MEDS ORDERED: 0.9 % Sodium Chloride 250 ML ONE (09:57)
--- NOTE | 2019-03-25 10:38 | Internal Med Progress Note ---
Hospitalist Progress Note - Encounter Date of Encounter: 03/25/19 Time of Encounter: 10:43 - Subjective Interval History: Patient was transferred out from medical floor to ICU due to GI bleed. Patient did had upper endoscopy done yesterday. No active bleed overnight. Patient denies any melena hematochezia or hematemesis. Review the lab with hemoglobin 7.7. Review the vitals stable. Patient complained of generalized weakness tired and fatigued otherwise denies fever chills vomiting headache chest pain shortness of breath abdominal pain. - Exam Vitals: Temp Pulse Resp BP Pulse Ox 97.7 F 76 21 157/92 97 03/25/19 10:16 03/25/19 10:16 03/25/19 10:16 03/25/19 10:16 03/25/19 10:16 Exam: General: A&O X3, limited conversant, appeared tired . Appear pale Head: atraumatic, normocephalic Eye: PERRL, EOMI, conjuntiva pale Dry oral mucosa Neck: Supple, trachea midline Respiratory: diminished breath sounds bilaterally but more on the left side. Left-sided crackles but no wheeze Cardiovascular: Regular rate and rhythm. +S1, +S2; no murmurs Abdomen: Soft, nontender positive bowel sounds Extremities: warm, radial pulses palpable and symmetrical. No pedal edema Psychiatric: Flat affect Skin: Dry, intact - Assessment and Plan (1) GI bleed Current Visit: Yes Status: Acute (2) Acute respiratory failure with hypoxia and hypercapnia Current Visit: Yes Status: Acute (3) Acute exacerbation of chronic obstructive airways disease Current Visit: Yes Status: Acute (4) Pneumonia Current Visit: Yes Status: Acute (5) Pneumothorax on left Current Visit: Yes Status: Acute (6) History of lung cancer Current Visit: Yes Status: Acute (7) History of pulmonary embolism Current Visit: Yes Status: Acute - Summary of Assessment and Plan Summary of Assessment and Plan: Assessment and Plan GI bleed Acute episode of blood per rectum. Acute blood loss anemia. No blood thinner. Stopped Lovenox. Started SCD for DVT prophylaxis. Had 2 unit PRC transfusions restart. Patient was transferred to ICU. Had upper GI endoscopy done with nonbleeding due to normal and gastric ulcer with large clot. Morning hemoglobin 7.7 therefore 1 unit transfusion ordered. Continue serial hemoglobin every 6 ho urs. No active bleeding overnight. Keep nothing by mouth and continue PPI drip. On board GI specialist Acute respiratory failure with hypoxia and hypercapnia On admission patient was presented in acute respiratory failure secondary to pneumonia, COPD exacerbation and pneumothorax. Patient was admitted to ICU. Treatment was initiated with supplemental oxygen and breathing treatments, broad-spectrum antibiotics. chest tube placement for pneumothorax-removed on 2018. Cardiothoracic surgeon signed off. Patient was transferred out to the floor on 03/22/2019 and a started to recover Continue oxygen supplementation. Continue Levaquin. Acute exacerbation of chronic obstructive airways disease Continue scheduled bronchodilators and systemic glucocorticoids. No active wheezing. Steroid is stopped due to concern of active GI bleed. Continue DuoNeb and oxygen supplementation. ABG reviewed Pneumonia- streptococcal Continue antibiotic regimen as above Respiratory panel, urine Legionella negative . positive streptococcal IMPRESSION: 1. Moderate left-sided pneumothorax. 2. Multifocal airspace disease identified on prior exam from February 13, 2019 has near completely resolved. Tree-in-bud nodular opacities within the left lower lobe most compatible with ongoing infectious/inflammatory process. 3. Secretions throughout the right mainstem bronchus extending into the right middle lobe and lower lobe bronchi most suggestive of aspiration. There is also bronchial wall thickening throughout the lungs which is most pronounced within the right lower lobe compatible with bronchitis. 4. Nodule within the superior aspect of the right lower lobe measuring 1 cm. While findings may be infectious/inflammatory, recommend follow-up per oncologic protocol given history of lung cancer. 5. Worsening mediastinal lymphadenopathy. Pneumothorax on left Large-bore chest tube placed by Dr. Sutton cardiothoracic surgeon Chemical pleurodesis with talc slurry initiated by Dr. Sutton Chest tube removed by CT surgeon History of lung cancer Small lung cancer. On palliative chemoimmunotherapy-treatments held, due to recent fall, fracture, further hospitalization due to left-sided pneumothorax, shortness of breath. Due to multiple comorbidities patient is less likely to tolerate chemotherapy therefore oncology team discussed in length and address hospice consideration. Palliative care on board and had meeting with family to discuss about code status-patient wants to remain full code and continue to wish for aggressive treatment. History of pulmonary embolism History of pulmonary embolus within the last 3 months in the context of malignancy he is high risk no a/c at this time. high risk for bleeding as well. resume oral anticoagulant after discussion with pt and family with risk and benefits once acute illness resolves. Left hip fracture-status post repair. He has been ambulating with walker at rehabilitation. Palliative care team for pain management. Adequately controlled pain at this time. scd for dvt px - Time Spent with Patient Total time spent is greater than 50% in coordination of care (as documented) at patient's floor/unit and/or counseling patient: 25 - 35 minutes Plan of Care Discussed with: patient Internal Medicine: Result - Labs CBC & Chem 7: 03/25/19 13:27 03/25/19 04:30 Labs: Short CBC 03/24/19 03/24/19 03/25/19 Range/Units 17:03 22:46 04:30 WBC 18.4 H 15.0 H (4.3-11.1) K/mcL Hgb 9.2 L D 8.6 L 7.7 L (12.9-16.9) g/dL Hct 28.1 L 26.7 L 24.1 L (37.5-50.1) % Plt Count 239 244 (140-400) K/mcL Neutrophils # 15.7 H 12.5 H (1.6-8.9) K/mcL BMP 03/25/19 04:30 Sodium 141 Potassium 4.2 Chloride 102 Carbon Dioxide 35 H BUN 22 H Creatinine 0.38 L Glucose 148 H Calcium 8.0 L - ABG Interpretation ABG results: ABG ABG pH 7.43 pH Units (7.32-7.45) 03/23/19 10:04 ABG pCO2 69 mmHg (35-45) H 03/23/19 10:04 ABG pO2 54 mmHg (85-104) L 03/23/19 10:04 ABG O2 Saturation 86 % (95-98) L 03/23/19 10:04 PT/INR, D-dimer PT 12.9 Seconds (9.4-12.1) H 03/21/19 04:35 1398 ng/mLFEU (0-500) H 03/20/19 18:22 - Impressions Impressions Chest X-Ray 03/25/19 08:00 IMPRESSION: Interval removal of left-sided chest tube. Heart size is normal. Continued right basilar opacity. Prior suspected mediastinal air is not redemonstrated. D/ / Lola Keith MD / Lola Keith MD Interpreting Provider: Lola Keith MD Consult Discharge Plan - Plan Referrals: Jeferson Townsend MD [Primary Care Provider] - __ (1) GI bleed Qualifiers: GI bleed type/associated pathology: gastric ulcer Qualified Code(s): K25.4 - Chronic or unspecified gastric ulcer with hemorrhage
[2019-03-25] MEDS: Budesonide/Formoterol 160/4.5 1 PUFF INH IH SCH ×2 (10:51→20:11)
--- NOTE | 2019-03-25 13:33 | Event Note ---
Date of Encounter: 03/25/19 Time of Encounter: 13:15 Met with patient and patient's daughter present at bedside. Reports feeling much better since yesterday's surgical intervention. Desires to proceed with PT/OT/rehab, cancer treatment, and remain FULL CODE. Palliative care will continue to follow from a distance.
[2019-03-25 13:41] LABS: Hematocrit 28.7 % (37.5-50.1); Hemoglobin 9.2 g/dL (12.9-16.9)
[2019-03-25 17:59] LABS: Hemoglobin 9.8 g/dL (12.9-16.9)
[2019-03-25] MEDS ORDERED: *HR* EPINEPHrine 1 MG/10 ML SYRINGE INTRATRACH PRN (19:02)
[2019-03-25] MEDS ORDERED: Acetaminophen 325 MG TABLET PO PRN (19:02)
[2019-03-25] MEDS ORDERED: Naloxone 0.4 MG/ML INJ IVP PRN (19:02)
[2019-03-25] MEDS ORDERED: Ipratropium/Albuterol Neb 3 ML IH PRN (19:02)
[2019-03-25] MEDS ORDERED: diazePAM 10 MG/2 ML SYRINGE IVP PRN (19:02)
[2019-03-26] MEDS: 0.9 % Sodium Chloride 1,000 ML IVC SCH ×2 (00:01→10:30)
[2019-03-26 01:05] LABS: Hematocrit 27.6 % (37.5-50.1)
[2019-03-26] MEDS: OXYCODONE Oral CONC 10 MG/0.5 ML ORAL.SYG SL PRN ×2 (01:56→08:05)
[2019-03-26] MEDS: Pantoprazole 40 MG in 0.9 % Sodium Chloride Mini Bag 100 ML IVC SCH ×3 (02:07→12:01)
[2019-03-26 06:54] LABS: Basophils % 0.1 %; Eosinophils % 0.1 %; Hematocrit 29.5 % (37.5-50.1); Hemoglobin 9.6 g/dL (12.9-16.9); Immature Granulocytes % 0.8 % (0-4); Lymphocytes # 1.6 K/mcL (0.6-4.6); Lymphocytes % 9.1 %; Mean Corpuscular HGB Conc 32.5 g/dL (31.6-35.5); Mean Corpuscular Hemoglobin 29.7 pg (28.0-33.3); Mean Corpuscular Volume 91.3 fL (83.0-100.0); Mean Platelet Volume 9.4 fL (9.4-12.4); Monocytes # 0.9 K/mcL (0.0-1.3); Neutrophils # 14.7 K/mcL (1.6-8.9); Nucleated Red Blood Cells 0.8 /100 WBC (0); Platelet Count 210 K/mcL (140-400); Red Blood Count 3.23 M/mcL (4.19-5.50); Segmented Neutrophils % 84.9 %; White Blood Count 17.3 K/mcL (4.3-11.1)
[2019-03-26 07:15] LABS: BUN/Creatinine Ratio 47 (6-26); Blood Urea Nitrogen 14 mg/dL (6-20); Calcium 8.2 mg/dL (8.6-10.3); Carbon Dioxide 33 mEq/L (23-29); Chloride 100 mEq/L (98-107); Glucose 94 mg/dL (70-105); Osmolality,Calculated 286 (280-300); Potassium 3.5 mEq/L (3.5-5.1); Sodium 138 mEq/L (136-145); eGFR For African Americans > 60 (> 60); eGFR For Non-African Americans > 60 (> 60)
[2019-03-26] MEDS: Budesonide/Formoterol 160/4.5 1 PUFF INH IH SCH ×2 (07:52→19:59)
[2019-03-26] MEDS: Gabapentin 100 MG CAPSULE PO SCH ×3 (08:04→20:32)
[2019-03-26] MEDS: levoFLOXacin 750 MG TABLET PO SCH (08:35)
[2019-03-26] MEDS ORDERED: Levofloxacin 750 MG/150 ML 750 MG/150 ML BAG IVPB SCH (09:00)
--- NOTE | 2019-03-26 10:48 | Palliative - Consult Note ---
Date of Encounter: 03/26/19 - Assessment and Plan (1) Generalized pain Current Visit: Yes Status: Acute (2) Generalized weakness Current Visit: No Status: Acute (3) Goals of care, counseling/discussion Current Visit: Yes Status: Acute (4) Acute respiratory failure with hypoxia and hypercapnia Current Visit: Yes Status: Resolved (5) Small cell lung cancer Current Visit: No Status: Acute (6) Pneumothorax on left Current Visit: Yes Status: Acute (7) Hip fracture Current Visit: No Status: Acute Qualifiers: Qualified Code(s): S72.002D - Fracture of unspecified part of neck of left femur, subsequent encounter for closed fracture with routine healing (8) Aspiration pneumonia Current Visit: Yes Status: Acute Qualifiers: Qualified Code(s): J69.0 - Pneumonitis due to inhalation of food and vomit (9) Palliative care encounter Current Visit: Yes Status: Acute Palliative-CN HPI - Data of Consult Requesting Physician: Earl Becerra Primary Care Provider: Jeferson Townsend MD - Consult Narrative History of present illness: Mr. Salcedo is a 58 year old male CC: Earl Becerra - Time Spent with Patient Time: Total time spent is greater than 50% in coordination of care (as documented) at patient's floor/unit and/or counseling patient: Past Med Surg Social Fam HX - Past Medical History Medical history: arthritis, cancer, COPD, hypertension, pulmonary embolus, other Additional medical history: stage IV small cell lung cancer. recurrent pnthx Psychiatric history: anxiety, depression - Past Surgical History Additional surgical history: back surgery. left femur sx - Social History Smoking Status: Current every day smoker Packs per day: 1/2 pack or less Smokeless Tobacco Status: No Alcohol use: none Drug use: none - Family History Mother Living Status: Hx Family Cardiac Disorders: No Hx Family Respiratory Disorders: No Hx Family Cancer: Yes (Breast) Hx Family GI Disorders: No Hx Family Endocrine Disorder: No Hx Family Neuromuscular Disorders: No Hx Family Neurologic Disorders: No Hx Family HEENT Disorders: No Hx Family Autoimmune Disorders: No Father Living Status: Hx Family Cardiac Disorders: No Hx Family Respiratory Disorders: No Hx Family Cancer: Yes (Bladder cancer) Hx Family GI Disorders: No Hx Family Endocrine Disorder: No Hx Family Neuromuscular Disorders: No Hx Family Neurologic Disorders: No Hx Family HEENT Disorders: No Hx Family Autoimmune Disorders: No Medications and Allergies Cyanocobalamin (Vitamin B-12) [Vitamin B-12] 100 mcg PO DAILY 09/28/18 [History] DULoxetine [Cymbalta] 30 mg PO QAM 09/28/18 [History] Budesonide/Formoterol 160/4.5 [Symbicort 160/4.5] 2 puff IH BIDR #1 inh 10/31/18 [Rx] Ondansetron HCl 8 mg PO Q8H PRN #45 tablet 11/21/18 [Rx] Albuterol Sulfate [Proair Hfa] 2 puff IH Q4H PRN 12/21/18 [History] Dexamethasone [Decadron] 4 mg PO BID PRN #45 tab 01/29/19 [Rx] Prochlorperazine Maleate [Compazine] 10 mg PO Q8HR PRN #90 tablet 01/29/19 [Rx] Gabapentin [Neurontin] 100 mg PO TID 02/26/19 [History] predniSONE [PredniSONE] 20 mg PO DAILY #30 tablet 02/26/19 [Rx] Sodium Chloride [Sodium Chloride Tab] 3 gm PO DAILY 03/12/19 [History] Doxepin [Sinequan] 25 mg PO HS 03/13/19 [History] Ipratropium/Albuterol Neb [Duoneb] 3 ml IH Q4HR PRN 03/13/19 [History] Rivaroxaban [Xarelto] 20 mg PO 2130 03/13/19 [History] Dronabinol [Marinol] 2.5 mg PO TID 30 Days #90 capsule 03/16/19 [Rx] Amlodipine Besylate 2.5 mg PO DAILY PRN 03/21/19 [History] Guaifenesin [Mucinex] 600 mg PO BID PRN 03/21/19 [History] Allergy/AdvReac Type Severity Reaction Status Date / Time Penicillins [PCN] Allergy See Verified 03/20/19 23:12 Comments venlafaxine AdvReac Gastrointestinal Verified 03/20/19 23:12 Upset All systems: reviewed and no additional remarkable complaints except as stated Palliative Care-Exam - Constitutional Vitals: Temp Pulse Resp BP Pulse Ox 98.2 F 85 16 137/89 95 03/26/19 07:16 03/26/19 07:16 03/26/19 07:52 03/26/19 07:16 03/26/19 07:52 General appearance: Present: mild distress Internal Medicine - CN: Reslt - Labs CBC & Chem 7: 03/26/19 06:40 03/26/19 06:40 Labs: Short CBC 03/25/19 03/25/19 03/26/19 Range/Units 13:27 17:43 00:43 WBC (4.3-11.1) K/mcL Hgb 9.2 L D 9.8 L 9.0 L (12.9-16.9) g/dL Hct 28.7 L 30.0 L 27.6 L (37.5-50.1) % Plt Count (140-400) K/mcL Neutrophils # (1.6-8.9) K/mcL 03/26/19 Range/Units 06:40 WBC 17.3 H (4.3-11.1) K/mcL Hgb 9.6 L (12.9-16.9) g/dL Hct 29.5 L (37.5-50.1) % Plt Count 210 (140-400) K/mcL Neutrophils # 14.7 H (1.6-8.9) K/mcL BMP 03/26/19 06:40 Sodium 138 Potassium 3.5 Chloride 100 Carbon Dioxide 33 H BUN 14 Creatinine 0.30 L Glucose 94 Calcium 8.2 L - ABG Interpretation ABG results: ABG ABG pH 7.43 pH Units (7.32-7.45) 03/23/19 10:04 ABG pCO2 69 mmHg (35-45) H 03/23/19 10:04 ABG pO2 54 mmHg (85-104) L 03/23/19 10:04 ABG O2 Saturation 86 % (95-98) L 03/23/19 10:04 PT/INR, D-dimer PT 12.9 Seconds (9.4-12.1) H 03/21/19 04:35 1398 ng/mLFEU (0-500) H 03/20/19 18:22 Consult Discharge Plan - Plan Referrals: Jeferson Townsend MD [Primary Care Provider] - Palliative Quality Palliative Quality: Screen for Code Status: Yes (Patient very drowsy,, no family present), Screen for Goals of Care: Yes, Screen for Pain: Yes, If Pain Regimen Started, Initiate Bowel Regimen: NA, Screen for Nausea/Vomitting: Yes Code Status: 03/21/19 00:38 Resuscitation Status: Active [RES] Routine Comment: Resuscitation Status: Full Code
[2019-03-26] MEDS: *HR* Promethazine 25 MG/ML VIAL IVP PRN (12:00)
--- NOTE | 2019-03-26 12:21 | Internal Med Progress Note ---
Hospitalist Progress Note - Encounter Date of Encounter: 03/26/19 Time of Encounter: 12:07 - Subjective Interval History: Pt today is grumpy/brusque which his sister says is not normal and that he would usually be friendly/pleasant, and that in the past this was a sign of increased CO2 levels. Pt states he was awakened numerous times in night and that he is tired. Denies N/V/D, leg swelling improving, and no CP, no fever. - Exam Vitals: Temp Pulse Resp BP Pulse Ox 98.1 F 98 26 145/97 91 03/26/19 11:30 03/26/19 11:30 03/26/19 11:30 03/26/19 11:30 03/26/19 11:30 Exam: General: A&O X3, limited conversant, appeared tired Dry oral mucosa Neck: Supple, trachea midline Respiratory: diminished breath sounds bilaterally but more on the left side. Left-sided basilar crackles but no wheeze Cardiovascular: Regular rate and rhythm. Abdomen: Soft, nontender Extremities: warm, radial pulses palpable and symmetrical. No pedal edema Psychiatric: Flat affect, grumpy Skin: Dry, intact - Summary of Assessment and Plan Summary of Assessment and Plan: Rishabh Salcedo is a 58 M w hx stage IV SCLC, bullous emphysema and chronic hypoxic respiratory failure, and recent PE 12/2018, who p/w hypoxia and exertional dyspnea, found on CXR to have moderate L PTX as well as infiltrate suggestive of pneumonia, UAg positive for strep, concerning for pneumococcal pneumonia causing COPD exacerbation and acute hypoxic and hypercapneic respiratory failure and pneumothorax requiring chest tube. Hospital stay complicated by GI bleed requiring transfusion and holding DOAC. Upper GI Bleed: 2/2 gastric ulcer. - holding AC for now - s/p transfusion 3u thus far, stable today COPD in acute exacerbation: improved, no wheezing today - no steroids 2/2 bleed above - continue nebs Strep Pneumo Pneumonia: levaquin 750 po daily, last dose 03/29 Pneumothorax on left: resolved s/p chest tube and chemical pleurodesis by CT Surg Dr Sutton Acute on chronic respiratory failure with hypoxia and hypercapnia: - supplemental O2, wean as able - IS - walk test prior to discharge Small cell lung cancer: on palliative chemoimmunotherapy-treatments held due to recent fall/fracture and then pneumothorax. Onc suggested palliative consult, a nd per palliative discussion pt to remain full code pursuing aggressive therapy Pulmonary embolism: 12/2018, will need to resume DOAC closer to hospital discharge once bleeding resolved Left hip fracture-status post repair. He has been ambulating with walker at rehabilitation. Palliative care team for pain management. Adequately controlled pain at this time. PPx: SCD FEN: full liquid, no MIVF Lines: PIV Consults: GI, CT Surg, Pulm Code: Full Dispo: patient requires inpatient eval and management at this time. Anticipate 2-3 days. Will return to SNF. Internal Medicine: Result - Labs CBC & Chem 7: 03/26/19 06:40 03/26/19 06:40 Labs: Short CBC 03/25/19 03/25/19 03/26/19 Range/Units 13:27 17:43 00:43 WBC (4.3-11.1) K/mcL Hgb 9.2 L D 9.8 L 9.0 L (12.9-16.9) g/dL Hct 28.7 L 30.0 L 27.6 L (37.5-50.1) % Plt Count (140-400) K/mcL Neutrophils # (1.6-8.9) K/mcL 03/26/19 Range/Units 06:40 WBC 17.3 H (4.3-11.1) K/mcL Hgb 9.6 L (12.9-16.9) g/dL Hct 29.5 L (37.5-50.1) % Plt Count 210 (140-400) K/mcL Neutrophils # 14.7 H (1.6-8.9) K/mcL BMP 03/26/19 06:40 Sodium 138 Potassium 3.5 Chloride 100 Carbon Dioxide 33 H BUN 14 Creatinine 0.30 L Glucose 94 Calcium 8.2 L - ABG Interpretation ABG results: ABG ABG pH 7.43 pH Units (7.32-7.45) 03/23/19 10:04 ABG pCO2 69 mmHg (35-45) H 03/23/19 10:04 ABG pO2 54 mmHg (85-104) L 03/23/19 10:04 ABG O2 Saturation 86 % (95-98) L 03/23/19 10:04 PT/INR, D-dimer PT 12.9 Seconds (9.4-12.1) H 03/21/19 04:35 1398 ng/mLFEU (0-500) H 03/20/19 18:22 Consult Discharge Plan - Plan Referrals: Jeferson Townsend MD [Primary Care Provider] -
[2019-03-26] MEDS: *HR* OxyCODONE Immed Rel 5 MG TABLET PO PRN ×2 (15:20→21:42)
[2019-03-26] MEDS ORDERED: Sodium Chloride for inhalation 3 ML VIAL IH ONE (17:16)
[2019-03-26] MEDS ORDERED: *HR* Heparin 5,000 UNIT/ML VIAL IVP ONE (17:17)
[2019-03-26] MEDS ORDERED: *HR* Heparin 5,000 UNIT/ML VIAL IVP PRN ×2 (17:17)
[2019-03-26] MEDS ORDERED: Furosemide 40 MG/4 ML VIAL IVP ONE (17:24)
[2019-03-26] MEDS ORDERED: Heparin 25,000 UNIT/250 ML D5W 25,000 UNIT/250 ML IV.SOLN IVC SCH (17:30)
[2019-03-26 17:38] LABS: Hematocrit 29.9 % (37.5-50.1); Hemoglobin 9.7 g/dL (12.9-16.9); Mean Corpuscular HGB Conc 32.4 g/dL (31.6-35.5); Mean Corpuscular Hemoglobin 29.5 pg (28.0-33.3); Mean Corpuscular Volume 90.9 fL (83.0-100.0); Mean Platelet Volume 9.3 fL (9.4-12.4); Platelet Count 201 K/mcL (140-400); Red Blood Count 3.29 M/mcL (4.19-5.50); Red Cell Distribution Width 15.9 % (11.5-14.5); White Blood Count 16.3 K/mcL (4.3-11.1)
[2019-03-26 17:41] LABS: ABG Base Excess 9 mEq/L (-2 to 3); ABG HCO3 33 mEq/L (21-27); ABG Oxygen Saturation 93 % (95-98); ABG PCO2 43 mmHg (35-45); ABG PH 7.49 pH Units (7.32-7.45); ABG PO2 63 mmHg (85-104); ABG TCO2 35 mEq/L (20-26)
[2019-03-26 17:45] LABS: Heparin anti-factor XA UFH 0.01 IU/mL (0.30-0.70); INR 1.2; Prothrombin Time 13.8 Seconds (9.4-12.1)
[2019-03-26] MEDS: Pantoprazole 40 MG VIAL IVP SCH (19:55)
[2019-03-26] MEDS ORDERED: Ipratropium/Albuterol Neb 3 ML IH SCH (20:00)
[2019-03-26] MEDS: 3% Sodium Chloride Inhalation 4 ML VIAL.NEB IH SCH ×2 (20:15→23:15)
[2019-03-26] MEDS: Levalbuterol Neb 1.25 MG/3 ML IH SCH (22:12)
[2019-03-27] MEDS: Magnesium Oxide 400 MG TABLET PO SCH ×2 (01:16→09:22)
[2019-03-27] MEDS: Levalbuterol Neb 1.25 MG/3 ML IH SCH ×4 (04:12→21:03)
[2019-03-27] MEDS: 3% Sodium Chloride Inhalation 4 ML VIAL.NEB IH SCH ×4 (04:13→15:23)
[2019-03-27] MEDS: *HR* OxyCODONE Immed Rel 5 MG TABLET PO PRN ×4 (04:29→20:47)
[2019-03-27 04:36] LABS: Basophils % 0.1 %; Eosinophils % 0.2 %; Hematocrit 29.4 % (37.5-50.1); Hemoglobin 9.6 g/dL (12.9-16.9); Immature Granulocytes % 0.8 % (0-4); Lymphocytes # 1.4 K/mcL (0.6-4.6); Lymphocytes % 9.3 %; Mean Corpuscular HGB Conc 32.7 g/dL (31.6-35.5); Mean Corpuscular Hemoglobin 30.4 pg (28.0-33.3); Monocytes # 0.7 K/mcL (0.0-1.3); Monocytes % 4.7 %; Nucleated Red Blood Cells 0.2 /100 WBC (0); Platelet Count 193 K/mcL (140-400); Red Blood Count 3.16 M/mcL (4.19-5.50); Red Cell Distribution Width 15.8 % (11.5-14.5); Segmented Neutrophils % 84.9 %; White Blood Count 15.3 K/mcL (4.3-11.1)
[2019-03-27 04:55] LABS: BUN/Creatinine Ratio 26 (6-26); Blood Urea Nitrogen 9 mg/dL (6-20); Calcium 8.5 mg/dL (8.6-10.3); Carbon Dioxide 37 mEq/L (23-29); Chloride 93 mEq/L (98-107); Glucose 123 mg/dL (70-105); Osmolality,Calculated 282 (280-300); Potassium 3.1 mEq/L (3.5-5.1); Sodium 136 mEq/L (136-145); eGFR For African Americans > 60 (> 60); eGFR For Non-African Americans > 60 (> 60)
[2019-03-27] MEDS: Pantoprazole 40 MG VIAL IVP SCH ×2 (06:24→18:57)
--- NOTE | 2019-03-27 07:35 | Internal Med Progress Note ---
Hospitalist Progress Note - Encounter Date of Encounter: 03/27/19 Time of Encounter: 07:35 - Subjective Interval History: Today is feeling much better than yesterday. He is still coughing up lots of mucus. No fevers, N/V/D, or CP. - Exam Vitals: Temp Pulse Resp BP Pulse Ox 98.2 F 95 15 113/82 94 03/27/19 07:33 03/27/19 07:33 03/27/19 07:33 03/27/19 07:33 03/27/19 07:33 Exam: General: A&O X3, pleasant and conversant, appears tired Respiratory: diminished breath sounds bilaterally with bibasilar rhonchi Cardiovascular: Regular rate and rhythm. Abdomen: Soft, nontender Extremities: warm, radial pulses palpable and symmetrical. No pedal edema Psychiatric: affect today is less flat Skin: Dry, intact - Summary of Assessment and Plan Summary of Assessment and Plan: Rishabh Salcedo is a 58 M w hx stage IV SCLC, bullous emphysema and chronic hypoxic respiratory failure, and recent PE 12/2018, who p/w hypoxia and e xertional dyspnea, found on CXR to have moderate L PTX as well as infiltrate suggestive of pneumonia, UAg positive for strep, concerning for pneumococcal pneumonia causing COPD exacerbation and acute hypoxic and hypercapneic respiratory failure and pneumothorax requiring chest tube. Hospital stay co mplicated by GI bleed requiring transfusion and holding DOAC, and transient mucous plug causing significant hypoxia. Acute on chronic respiratory failure with hypoxia and hypercapnia: acute hypoxia yesterday eventually resolved with expectoration of significant amount of mucus suggesting mucous plug. CT yesterday shows continued RML/RLL consolidations suggestive of pneumonia - supplemental O2, wean as able to home 3L - IS, PP, mucinex, hypertonic nebs Strep Pneumo Pneumonia: levaquin 750 po daily, still mucopurulent sputum - extend levaquin 750 po daily to 04/02 - sputum culture Upper GI Bleed: 2/2 gastric ulcer. s/p transfusion 3u thus far, stable for two days - holding AC for now, per discussion w pt and family to resume closer to discharge COPD in acute exacerbation: improved, no wheezing today - no steroids 2/2 bleed above - continue scheduled nebs Pneumothorax on left: resolved s/p chest tube and chemical pleurodesis by CT Surg Dr Sutton Small cell lung cancer: on palliative chemoimmunotherapy-treatments held due to recent fall/fracture and then pneumothorax. Onc suggested palliative consult, and per palliative discussion pt to remain full code pursuing aggressive therapy Pulmonary embolism: 12/2018, will resume Xarelto in a few days Left hip fracture-status post repair. He has been ambulating with walker at rehabilitation. Palliative care team for pain management. Adequately controlled pain at this time. PPx: SCD FEN: full liquid, no MIVF Lines: PIV Consults: GI, CT Surg, Pulm Code: Full Dispo: patient requires inpatient eval and management at this time. Anticipate 2-3 days. Will return to SNF. Internal Medicine: Result - Labs CBC & Chem 7: 03/27/19 03:02 03/27/19 03:02 Labs: Short CBC 03/26/19 03/27/19 Range/Units 17:24 03:02 WBC 16.3 H 15.3 H (4.3-11.1) K/mcL Hgb 9.7 L 9.6 L (12.9-16.9) g/dL Hct 29.9 L 29.4 L (37.5-50.1) % Plt Count 201 193 (140-400) K/mcL Neutrophils # 13.0 H (1.6-8.9) K/mcL BMP 03/27/19 03:02 Sodium 136 Potassium 3.1 L Chloride 93 L Carbon Dioxide 37 H BUN 9 Creatinine 0.34 L Glucose 123 H Calcium 8.5 L - ABG Interpretation ABG results: ABG ABG pH 7.49 pH Units (7.32-7.45) H 03/26/19 17:37 ABG pCO2 43 mmHg (35-45) 03/26/19 17:37 ABG pO2 63 mmHg (85-104) L 03/26/19 17:37 ABG O2 Saturation 93 % (95-98) L 03/26/19 17:37 PT/INR, D-dimer PT 13.8 Seconds (9.4-12.1) H 03/26/19 17:24 1398 ng/mLFEU (0-500) H 03/20/19 18:22 - Impressions Impressions Chest X-Ray 03/26/19 12:04 IMPRESSION: Stable chest with right lower lobe atelectasis/collapse. No pneumothorax appreciated. Biapical pleuroparenchymal scarring. D/ / Iván Torres MD / Iván Torres MD Interpreting Provider: Iván Torres MD Chest X-Ray 03/26/19 16:57 IMPRESSION: Bibasilar airspace disease suspicious for pneumonia. Improved aeration of the right lower lobe. D/ / Thanh Zeng MD / Thanh Zeng MD Interpreting Provider: Thanh Zeng MD Chest CT 03/26/19 17:18 IMPRESSION: 1. Right middle lobe and right lower lobe airspace consolidations. In the proper clinical setting, finding would be indicative of multilobar pneumonia. Mild right hilar adenopathy is likely reactive adenopathy. 2. Small bilateral pleural effusions. 3. Centrilobular and paraseptal emphysema. D/ / 03/26/2019 18:13:40 Monroe Fer[facility] MD / [facility] Interpreting Provider: Monroe Ferrera MD Consult Discharge Plan - Plan Referrals: Jeferson Townsend MD [Primary Care Provider] -
[2019-03-27] MEDS: levoFLOXacin 750 MG TABLET PO SCH (09:22)
[2019-03-27] MEDS: Gabapentin 100 MG CAPSULE PO SCH ×3 (09:23→20:46)
[2019-03-27] MEDS: Budesonide/Formoterol 160/4.5 1 PUFF INH IH SCH ×2 (09:38→21:04)
--- NOTE | 2019-03-27 10:00 | Oncology Inp Progress Note ---
Date of Encounter: 03/27/19 Time of Encounter: 08:40 (1) Small cell lung cancer Current Visit: Yes Status: Acute Assessment and plan: On palliative chemoimmunotherapy-treatments held, due to recent fall, fracture, further hospitalization due to left-sided pneumothorax, shortness of breath. He status post chest tube placement/pleurodesis, minimally short of breath. Palliative care following patine. I addressed hospice with patient as he is not able to continue with Rx without complications-infection/PE/fall, and issues including COPD/pneumothorax needing CT placement. He reported that he is not open to hospice yet, but will discuss with his sister. He had discussed with us to delay chemotherapy in the past due to not feeling any improvement. Continue supportive care and f/u in clinic Plan: F/U Dr. Sullivan as an outpatient. (2) Pneumonia Current Visit: No Status: Acute Assessment and plan: Worsening shortness of breath yesterday. CXR and CT suspicious for pneumonia (RML, RLL consolidation). Plan: Continue Levaquin per primary team. Qualifiers: Laterality: right Lung location: unspecified part of lung Qualified Code(s): J18.9 - Pneumonia, unspecified organism Oncology: Subj Interval history: Mr. Salcedo is awake and alert in bed this morning, with family at bedside. He notes that it was a bad evening and night. He states that felt like he was going to . His chest xray and CT chest note pneumonia. He was transitioned back to [place] 3L this morning. Respirations easy while at rest. He denies fever or chills. He denies needs from oncology and wishes to follow-up with Dr. Sullivan after discharge to discuss treatment. He did meet with palliative care and is not interested in hospice at this time. Family is supportive of patient's decision. - Additional findings Additional findings: General: Alert and oriented, emaciated. Mental Status: Affect appropriate for circumstances Skin: No rashes or petechiae. Pale. Lymph nodes: No cervical, supraclavicular, axillary, or inguinal adenopathy. Lungs: CTA/diminished at bases. Cardiovascular: Tachycardic. HR 100s No gallops, murmurs, or rubs. Neurologic: Alert, cranial nerves II-XII intact; no focal weakness or sensory abnormalities. Oncology: Obj Data - Labs CBC & Chem 7: 03/27/19 03:02 03/27/19 03:02 Consult Discharge Plan - Plan Referrals: Jeferson Townsend MD [Primary Care Provider] - Inpatient Charges Provider: Helena Parks [facility] Follow up - Inpatient: [id number]
--- NOTE | 2019-03-27 10:18 | Palliative Progress Note ---
Date of Encounter: 03/27/19 Time of Encounter: 09:55 - Assessment and plan (1) Generalized pain Current Visit: No Status: Acute Assessment and plan: Patient s/p left hip fracture and repair. Was in rehab doing well and ambulating with a walker. C/O left hip stiffness. Informed of PRN pain medications for comfort. Encouraged patient to request as needed. No doses of Oxycodone requested. Tolerating well. (2) Depression Current Visit: Yes Status: Acute Assessment and plan: Patient with multiple health issues that have delayed Oncology lung cancer treatment. Recovering from left pneumonthorax and GI bleed. Now with right lung pneumonia. Patient frail. Will increase Cymbalta to 60 mg daily. Qualifiers: Depression Type: unspecified Qualified Code(s): F32.9 - Major depressive disorder, single episode, unspecified (3) Goals of care, counseling/discussion Current Visit: Yes Status: Acute Assessment and plan: Conducted beside 15 minute meeting with patient and family. Patient has GI bleed over weekend and received blood transfusion. HGB stable in the 9s. I explained that patient has right middle and lower lobe pneumonia. He also multiple co-morbid conditions that have made Oncology treatment challenging. Patient is feeling depressed about his health and abilities. He desires to stay strong and is not likely to do well but wants to not give up and go to Hospice yet. Plan is to try and continue physical therapy and transition back to ECF for continued rehab. Children know patients desires and will support patient. - As per patient wishes, he remains Full Code. - Return to ECF if able to maintain PT/OT expectations - Will revisit discussions if patient condition worsens. (4) Small cell lung cancer Current Visit: Yes Status: Acute Assessment and plan: Patient with multiple comorbid conditions that has delayed Oncology treatment. (5) COPD (chronic obstructive pulmonary disease) Current Visit: Yes Status: Chronic Qualifiers: Qualified Code(s): J44.9 - Chronic obstructive pulmonary disease, unspecified (6) Palliative care encounter Current Visit: Yes Status: Acute (7) Pneumonia Current Visit: Yes Status: Acute Qualifiers: Pneumonia type: due to unspecified organism Laterality: right Lung location: middle lobe of lung Qualified Code(s): J18.1 - Lobar pneumonia, unspecified organism - Time Spent With Patient Total time spent is greater than 50% in coordination of care (as documented) at patient's floor/unit and/or counseling patient: - Subjective Interval history: Patient sitting up in bed. Patient reports having episode of excessive sputum production which resulted in severe SOB and dyspnea. Currently on 3L NC. Patient states feeling better now. Family at bedside. - Constitutional Vitals: Abnormal lab results WBC 15.3 K/mcL (4.3-11.1) H 03/27/19 03:02 RBC 3.16 M/mcL (4.19-5.50) L 03/27/19 03:02 Hgb 9.6 g/dL (12.9-16.9) L 03/27/19 03:02 Hct 29.4 % (37.5-50.1) L 03/27/19 03:02 MCHC 30.4 g/dL (31.6-35.5) L 03/24/19 00:47 RDW 15.8 % (11.5-14.5) H 03/27/19 03:02 MPV 9.3 fL (9.4-12.4) L 03/26/19 17:24 13.0 K/mcL (1.6-8.9) H 03/27/19 03:02 0.3 K/mcL (0.6-4.6) L 03/24/19 00:47 1.4 K/mcL (0.0-1.3) H 03/24/19 17:03 Nucleated RBCs/100 WBC 0.2 /100 WBC (0) H 03/27/19 03:02 PT 13.8 Seconds (9.4-12.1) H 03/26/19 17:24 1398 ng/mLFEU (0-500) H 03/20/19 18:22 Heparin Anti-Xa, Unfract 0.01 IU/mL (0.30-0.70) L 03/26/19 17:24 ABG pH 7.49 pH Units (7.32-7.45) H 03/26/19 17:37 ABG pCO2 69 mmHg (35-45) H 03/23/19 10:04 ABG pO2 63 mmHg (85-104) L 03/26/19 17:37 ABG HCO3 33 mEq/L (21-27) H 03/26/19 17:37 ABG Total CO2 35 mEq/L (20-26) H 03/26/19 17:37 ABG O2 Saturation 93 % (95-98) L 03/26/19 17:37 ABG Base Excess 9 mEq/L (-2 to 3) H 03/26/19 17:37 Sodium 135 mEq/L (136-145) L 03/20/19 18:22 Potassium 3.1 mEq/L (3.5-5.1) L 03/27/19 03:02 Chloride 93 mEq/L (98-107) L 03/27/19 03:02 Carbon Dioxide 37 mEq/L (23-29) H 03/27/19 03:02 BUN 22 mg/dL (6-20) H 03/25/19 04:30 0.34 mg/dL (0.70-1.30) L 03/27/19 03:02 47 (6-26) H 03/26/19 06:40 Glucose 123 mg/dL (70-105) H 03/27/19 03:02 POC Glucose 177 mg/dL (70-99) H 03/26/19 11:32 Calcium 8.5 mg/dL (8.6-10.3) L 03/27/19 03:02 Magnesium 1.5 mg/dL (1.6-2.6) L 03/26/19 21:46 100 mg/dL (Normal) H 03/23/19 10:50 Ur Leukocyte Esterase Small (Negative) H 03/23/19 10:50 3-5 per hpf (0-3) H 03/23/19 10:50 15-30 per hpf (0-3) H 03/23/19 10:50 Ur Squamous Epith Cells Many per lpf (None-Few) H 03/23/19 10:50 Ur Culture Indicated? YES (NO) A 03/23/19 10:50 Positive (Negative) A 03/24/19 08:20 Crossmatch See Detail 03/24/19 10:44 - Head Head exam: Present: atraumatic, normal inspection, normocephalic - Eye Eye exam: Present: PERRL - ENT ENT exam: Present: mucous membranes moist - Respiratory Respiratory exam: Present: decreased breath sounds - Expanded Respiratory Exam Location: decreased breath sounds: Left, Right, Lower, dullness to percussion: Right, Lower - Cardiovascular Cardiovascular exam: Present: RRR, +S1, +S2 - GI/Abdominal GI/Abdominal exam: Present: normal bowel sounds, soft - Extremities Exam Extremities exam: Present: full ROM (general weakness) - Back Exam Back exam: Present: tenderness - Neurological Exam Neurological exam: Present: alert, oriented X3 - Psychiatric Psychiatric exam: Present: flat affect - Skin Skin exam: Present: pallor, warm Palliative Quality Palliative Quality: Screen for Code Status: Yes (Patient very drowsy,, no family present), Screen for Goals of Care: Yes, Screen for Pain: Yes, If Pain Regimen Started, Initiate Bowel Regimen: NA, Screen for Nausea/Vomitting: Yes Code Status: 03/21/19 00:38 Resuscitation Status: Active [RES] Routine Comment: Resuscitation Status: Full Code - Labs CBC & Chem 7: 03/27/19 03:02 03/27/19 03:02 Labs: Laboratory Results - last 24 hr 03/26/19 03/26/19 03/26/19 07:22 11:32 17:24 WBC 16.3 H RBC 3.29 L Hgb 9.7 L Hct 29.9 L MCV 90.9 MCH 29.5 MCHC 32.4 RDW 15.9 H Plt Count 201 MPV 9.3 L Immature Gran % Seg Neutrophils % Lymphocytes % Monocytes % Eosinophils % Basophils % Neutrophils # Lymphocytes # Monocytes # Eosinophils # Basophils # Nucleated RBCs/100 WBC PT INR Heparin Anti-Xa, Unfract Sample Site ABG pH ABG pCO2 ABG pO2 ABG HCO3 ABG Total CO2 ABG O2 Saturation ABG Base Excess Vidal Test O2 Delivery Device Inspired O2 Sodium Potassium Chloride Carbon Dioxide BUN Creatinine Est GFR ( Amer) Est GFR (Non-Af Amer) BUN/Creatinine Ratio Glucose POC Glucose 94 177 H Calculated Osmolality Calcium Magnesium 03/26/19 03/26/19 03/26/19 17:24 17:37 21:46 WBC RBC Hgb Hct MCV MCH MCHC RDW Plt Count MPV Immature Gran % Seg Neutrophils % Lymphocytes % Monocytes % Eosinophils % Basophils % Neutrophils # Lymphocytes # Monocytes # Eosinophils # Basophils # Nucleated RBCs/100 WBC PT 13.8 H INR 1.2 Heparin Anti-Xa, Unfract 0.01 L Sample Site R Brach ABG pH 7.49 H ABG pCO2 43 ABG pO2 63 L ABG HCO3 33 H ABG Total CO2 35 H ABG O2 Saturation 93 L ABG Base Excess 9 H Vidal Test Positive O2 Delivery Device Oxy Mask Inspired O2 6.0 Sodium Potassium Chloride Carbon Dioxide BUN Creatinine Est GFR ( Amer) Est GFR (Non-Af Amer) BUN/Creatinine Ratio Glucose POC Glucose Calculated Osmolality Calcium Magnesium 1.5 L 03/27/19 03/27/19 03:02 03:02 WBC 15.3 H RBC 3.16 L Hgb 9.6 L Hct 29.4 L MCV 93.0 MCH 30.4 MCHC 32.7 RDW 15.8 H Plt Count 193 MPV 10.0 Immature Gran % 0.8 Seg Neutrophils % 84.9 Lymphocytes % 9.3 Monocytes % 4.7 Eosinophils % 0.2 Basophils % 0.1 Neutrophils # 13.0 H Lymphocytes # 1.4 Monocytes # 0.7 Eosinophils # 0.0 Basophils # 0.0 Nucleated RBCs/100 WBC 0.2 H PT INR Heparin Anti-Xa, Unfract Sample Site ABG pH ABG pCO2 ABG pO2 ABG HCO3 ABG Total CO2 ABG O2 Saturation ABG Base Excess Vidal Test O2 Delivery Device Inspired O2 Sodium 136 Potassium 3.1 L Chloride 93 L Carbon Dioxide 37 H BUN 9 Creatinine 0.34 L Est GFR ( Amer) > 60 Est GFR (Non-Af Amer) > 60 BUN/Creatinine Ratio 26 Glucose 123 H POC Glucose Calculated Osmolality 282 Calcium 8.5 L Magnesium - Impressions Impressions Chest X-Ray 03/26/19 12:04 IMPRESSION: Stable chest with right lower lobe atelectasis/collapse. No pneumothorax appreciated. Biapical pleuroparenchymal scarring. D/ / Iván Torres MD / Iván Torres MD Interpreting Provider: Iván Torres MD Chest X-Ray 03/26/19 16:57 IMPRESSION: Bibasilar airspace disease suspicious for pneumonia. Improved aeration of the right lower lobe. D/ / Thanh Zeng MD / Thanh Zeng MD Interpreting Provider: Thanh Zeng MD Chest CT 03/26/19 17:18 IMPRESSION: 1. Right middle lobe and right lower lobe airspace consolidations. In the proper clinical setting, finding would be indicative of multilobar pneumonia. Mild right hilar adenopathy is likely reactive adenopathy. 2. Small bilateral pleural effusions. 3. Centrilobular and paraseptal emphysema. D/ / 03/26/2019 18:13:40 Monroe Ferrera MD / [facility] Interpreting Provider: Monroe Ferrera MD - ABG Interpretation ABG results: ABG ABG pH 7.49 pH Units (7.32-7.45) H 03/26/19 17:37 ABG pCO2 43 mmHg (35-45) 03/26/19 17:37 ABG pO2 63 mmHg (85-104) L 03/26/19 17:37 ABG O2 Saturation 93 % (95-98) L 03/26/19 17:37 PT/INR, D-dimer PT 13.8 Seconds (9.4-12.1) H 03/26/19 17:24 1398 ng/mLFEU (0-500) H 03/20/19 18:22 Consult Discharge Plan - Plan Referrals: Jeferson Townsend MD [Primary Care Provider] -
[2019-03-27] MEDS ORDERED: Potassium Chloride Elixir 20 MEQ/15 ML UDC PO ONE (12:00)
[2019-03-27] MEDS ORDERED: diazePAM 2 MG TABLET PO PRN (14:25)
[2019-03-27] MEDS: Nystatin SUSP 5 ML UD.LIQ PO SCH ×2 (16:18→20:47)
[2019-03-28] MEDS: Levalbuterol Neb 1.25 MG/3 ML IH SCH ×4 (03:47→20:20)
[2019-03-28] MEDS ORDERED: Potassium Chloride Elixir 20 MEQ/15 ML UDC PO SCH (03:50)
[2019-03-28 04:39] LABS: ABG Base Excess 14 mEq/L (-2 to 3); ABG HCO3 41 mEq/L (21-27); ABG Oxygen Saturation 92 % (95-98); ABG PCO2 64 mmHg (35-45); ABG PH 7.41 pH Units (7.32-7.45); ABG PO2 67 mmHg (85-104); ABG TCO2 43 mEq/L (20-26)
[2019-03-28 04:51] LABS: Hematocrit 27.7 % (37.5-50.1); Hemoglobin 8.8 g/dL (12.9-16.9); Mean Corpuscular HGB Conc 31.8 g/dL (31.6-35.5); Mean Corpuscular Hemoglobin 30.1 pg (28.0-33.3); Mean Corpuscular Volume 94.9 fL (83.0-100.0); Mean Platelet Volume 9.7 fL (9.4-12.4); Platelet Count 184 K/mcL (140-400); Red Blood Count 2.92 M/mcL (4.19-5.50); Red Cell Distribution Width 15.5 % (11.5-14.5); White Blood Count 12.3 K/mcL (4.3-11.1)
--- NOTE | 2019-03-28 04:59 | Event Note ---
Date of Encounter: 03/28/19 Time of Encounter: 03:32 Alerted by patient's nurse PAULINE Caldwell that patient's sister wish to talk to me due to patient being unusually drowsy. Patient is easy to arouse and is A&O 3 when awake. Went to see the patient immediately who was resting in bed. Patient awoke to my voice. Pt. stated that he was having lower back pain and pain in his legs. Pts. K was 3.1 yesterday. Lab called to draw a.m. labs now. PO K elixir ordered daily and will begin this morning if K is still low. Pts. sister also concerned about infection. Pt. appears to have PNA on imaging and is receiving PO levaquin. Sister also concerned for aspiration PNA. Pt. has penicillin allergy (hives) so Ancef ruled out d/t close cross-reactivity to penicillin. Rocephin ordered to cover aspiration PNA and discussed w/Pharmacy as a better choice d/t allergy. Pts. WBC 15.3 yesterday, down from 16.3 on 03/26. 12.3 this a.m. Other concern is pts. new hypotension. Bilateral pleural effusions present on CT so IV fluids will need to be used judiciously if bolus is required. This was discussed w/the pt. and sister. Nurse instructed to continue monitoring this pt. very closely and alert me immediately of any adverse changes.
[2019-03-28] MEDS ORDERED: cefTRIAXone 2,000 MG in 0.9 % Sodium Chloride Mini Bag 100 ML IVPB SCH (05:00)
[2019-03-28] MEDS: Pantoprazole 40 MG VIAL IVP SCH ×2 (05:03→17:44)
[2019-03-28] MEDS: cefTRIAXone 2,000 MG in Water for inj. (sterile) 20 ML 20 ML IVP SCH (05:06)
[2019-03-28 05:16] LABS: BUN/Creatinine Ratio 38 (6-26); Blood Urea Nitrogen 8 mg/dL (6-20); Calcium 8.4 mg/dL (8.6-10.3); Carbon Dioxide 36 mEq/L (23-29); Chloride 95 mEq/L (98-107); Glucose 126 mg/dL (70-105); Magnesium 1.8 mg/dL (1.6-2.6); Osmolality,Calculated 282 (280-300); Potassium 4.2 mEq/L (3.5-5.1); Sodium 136 mEq/L (136-145); eGFR For African Americans > 60 (> 60); eGFR For Non-African Americans > 60 (> 60)
[2019-03-28] MEDS: *HR* OxyCODONE Immed Rel 5 MG TABLET PO PRN ×4 (05:19→19:37)
[2019-03-28] MEDS ORDERED: Potassium Chloride Elixir 20 MEQ/15 ML UDC PO ONE (05:52)
--- NOTE | 2019-03-28 07:36 | Internal Med Progress Note ---
Hospitalist Progress Note - Encounter Date of Encounter: 03/28/19 Time of Encounter: 07:36 - Subjective Interval History: Pt today reports being tired but otherwise is doing OK, no SOB, decreasing mucus production. No N/V/D. Interested in advancing diet today. - Exam Vitals: Temp Pulse Resp BP Pulse Ox 98.5 F 95 19 103/64 94 03/28/19 07:11 03/28/19 07:11 03/28/19 07:11 03/28/19 07:11 03/28/19 07:11 Exam: General: A&O X3, pleasant and conversant, appears tired Respiratory: diminished breath sounds bilaterally with bibasilar rhonchi Cardiovascular: Regular rate and rhythm. Abdomen: Soft, nontender Extremities: warm, radial pulses palpable and symmetrical. No pedal edema Psychiatric: affect today remains flat Skin: Dry, intact - Summary of Assessment and Plan Summary of Assessment and Plan: Rishabh Salcedo is a 58 M w hx stage IV SCLC, bullous emphysema and chronic hypoxic respiratory failure, and recent PE 12/2018, who p/w hypoxia and exertional dyspnea, found on CXR to have moderate L PTX as well as infiltrate suggestive of pneumonia, UAg positive for strep, concerning for pneumococcal pneumonia causing COPD exacerbation and acute hypoxic and hypercapneic respiratory failure c/b pneumothorax requiring chest tube. Hospital stay complicated by GI bleed requiring transfusion and holding DOAC, and transient mucous plug causing significant hypoxia. Chronic respiratory failure with hypoxia and hypercapnia: acute component resolved, treating mucous plugging and PNA as below. Overnight was reported to have somnolence and ABG shows mild increase in CO2 retention but clinically appears stable to in - home 3L O2 - IS, PP, mucinex, hypertonic nebs - repeat VBG later today if does not wake up more throughout the day, unfortunately pt is very high risk for another PTX if needs bipap Strep Pneumo Pneumonia: levaquin 750 po daily and overnight was started on Rocephin - levaquin 750 po daily, last dose 04/02 - Rocephin 2g daily, last dose 04/02 - sputum culture pending Upper GI Bleed: 2/2 gastric ulcer, s/p transfusion 3u prior to EGD, Hb stable for two days although today is 0.8g less despite no brbpr/melena, will monitor - holding AC for now, consider restart tomorrow if Hb stable COPD: continue scheduled nebs, home inhalers Pneumothorax on left: resolved s/p chest tube and chemical pleurodesis by CT Surg Dr Sutton Small cell lung cancer: on palliative chemoimmunotherapy-treatments held due to recent fall/fracture and then pneumothorax. Onc suggested palliative consult, and per palliative discussion pt to remain full code pursuing aggressive therapy Pulmonary embolism: 12/2018, will resume Xarelto as above Left hip fracture s/p repair: ambulating w walker at rehab prior to admit, adequately controlled pain at this time, PT/OT attempting to work w pt PPx: SCD FEN: advance to softs, no MIVF Lines: PIV Consults: GI, CT Surg, Pulm Code: Full Dispo: patient requires inpatient eval and management at this time. Anticipate additional 2-3 days. Will return to SNF. Internal Medicine: Result - Labs CBC & Chem 7: 03/28/19 04:37 03/28/19 04:37 Labs: Short CBC 03/28/19 Range/Units 04:37 WBC 12.3 H (4.3-11.1) K/mcL Hgb 8.8 L (12.9-16.9) g/dL Hct 27.7 L (37.5-50.1) % Plt Count 184 (140-400) K/mcL BMP 03/28/19 04:37 Sodium 136 Potassium 4.2 Chloride 95 L Carbon Dioxide 36 H BUN 8 Creatinine 0.21 L Glucose 126 H Calcium 8.4 L - ABG Interpretation ABG results: ABG ABG pH 7.41 pH Units (7.32-7.45) 03/28/19 04:35 ABG pCO2 64 mmHg (35-45) H 03/28/19 04:35 ABG pO2 67 mmHg (85-104) L 03/28/19 04:35 ABG O2 Saturation 92 % (95-98) L 03/28/19 04:35 PT/INR, D-dimer PT 13.8 Seconds (9.4-12.1) H 03/26/19 17:24 1398 ng/mLFEU (0-500) H 03/20/19 18:22 Consult Discharge Plan - Plan Referrals: Jeferson Townsend MD [Primary Care Provider] -
[2019-03-28] MEDS: Nystatin SUSP 5 ML UD.LIQ PO SCH ×3 (09:05→19:33)
[2019-03-28] MEDS: levoFLOXacin 750 MG TABLET PO SCH (09:06)
[2019-03-28] MEDS: Magnesium Oxide 400 MG TABLET PO SCH (09:06)
[2019-03-28] MEDS: Gabapentin 100 MG CAPSULE PO SCH ×3 (09:06→19:34)
[2019-03-28] MEDS: *HR* Promethazine 25 MG/ML VIAL IVP PRN (10:24)
[2019-03-28] MEDS: Budesonide/Formoterol 160/4.5 1 PUFF INH IH SCH ×2 (10:46→20:20)
[2019-03-28 18:44] LABS: VBG HCO3 36 mEq/L (21-27); VBG PCO2 57 mmHg (41-51); VBG PH 7.41 pH Units (7.32-7.42); VBG PO2 181 mmHg (25-50)
[2019-03-29] MEDS ORDERED: Acetaminophen IV 500 MG/50 ML INFUS..BTL IVPB ONE (01:42)
[2019-03-29 02:02] LABS: ABG Base Excess 16 mEq/L (-2 to 3); ABG HCO3 44 mEq/L (21-27); ABG Oxygen Saturation 94 % (95-98); ABG PCO2 71 mmHg (35-45); ABG PO2 73 mmHg (85-104); ABG TCO2 46 mEq/L (20-26)
[2019-03-29] MEDS: Levalbuterol Neb 1.25 MG/3 ML IH SCH ×4 (03:32→22:46)
[2019-03-29 05:18] LABS: Hematocrit 27.6 % (37.5-50.1); Hemoglobin 8.8 g/dL (12.9-16.9); Mean Corpuscular HGB Conc 31.9 g/dL (31.6-35.5); Mean Corpuscular Hemoglobin 30.4 pg (28.0-33.3); Mean Corpuscular Volume 95.5 fL (83.0-100.0); Mean Platelet Volume 9.7 fL (9.4-12.4); Platelet Count 199 K/mcL (140-400); Red Blood Count 2.89 M/mcL (4.19-5.50); Red Cell Distribution Width 14.7 % (11.5-14.5)
[2019-03-29 05:36] LABS: BUN/Creatinine Ratio 32 (6-26); Blood Urea Nitrogen 8 mg/dL (6-20); Calcium 8.6 mg/dL (8.6-10.3); Carbon Dioxide 39 mEq/L (23-29); Chloride 91 mEq/L (98-107); Glucose 124 mg/dL (70-105); Osmolality,Calculated 280 (280-300); Potassium 4.1 mEq/L (3.5-5.1); Sodium 135 mEq/L (136-145); eGFR For African Americans > 60 (> 60); eGFR For Non-African Americans > 60 (> 60)
[2019-03-29] MEDS: Pantoprazole 40 MG VIAL IVP SCH (06:14)
[2019-03-29 06:43] LABS: Magnesium 1.6 mg/dL (1.6-2.6)
[2019-03-29] MEDS: *HR* OxyCODONE Immed Rel 5 MG TABLET PO PRN ×4 (07:24→22:51)
--- NOTE | 2019-03-29 07:30 | Internal Med Progress Note ---
Hospitalist Progress Note - Encounter Date of Encounter: 03/29/19 Time of Encounter: 07:30 - Subjective Interval History: Pt today feels good, is awake and smiling, more conversant than in previous days, not tired/sluggish, denies CP/SOB/N/V/D/edema. No more bleeding. Review of tele overnight shows that pt had a few short runs of SVT, self limited, pt u naware. - Exam Vitals: Temp Pulse Resp BP Pulse Ox 99 F 94 20 100/75 97 03/29/19 05:00 03/29/19 07:27 03/29/19 07:27 03/29/19 07:27 03/29/19 07:27 Exam: General: A&O X3, more pleasant and conversant, in good spirits today Respiratory: decent aeration today bilaterally, with improving bibasilar rhonchi Cardiovascular: Regular rate and rhythm. Abdomen: Soft, nontender Extremities: warm, radial pulses palpable and symmetrical. No pedal edema Skin: Dry, intact - Summary of Assessment and Plan Summary of Assessment and Plan: Rishabh Salcedo is a 58 M w hx stage IV SCLC, bullous emphysema and chronic hypoxic respiratory failure, and recent PE 12/2018, who p/w hypoxia and exertional dyspnea, found on CXR to have moderate L PTX as well as infiltrate suggestive of pneumonia, UAg positive for strep, concerning for pneumococcal pneumonia causing COPD exacerbation and acute hypoxic and hypercapneic respiratory failure c/b pneumothorax requiring chest tube. Hospital stay complicated by GI bleed requiring transfusion and holding DOAC, and transient mucous plug causing significant hypoxia. Chronic respiratory failure with hypoxia and hypercapnia: acute component resolved - home 3L O2 - IS, PP, mucinex Strep Pneumo Pneumonia: still w sputum production but SpCx unremarkable, lung exam and pt clinical status both improving - levaquin 750 po daily, last dose 04/02 - d/c rocephin - start omnicef 300 bid, last doses 04/02 Hypomagnesemia: replace and monitor Pulmonary embolism: 12/2018 - resume Xarelto today SVT: noted on tele overnight, pt asymptomatic, replete lytes, if recurs can start low dose BB PUD: c/b bleeding ulcer requiring transfusion 3u prior to EGD/APC, Hb stable several days, continue PPI COPD: continue scheduled nebs, home inhalers Pneumothorax on left: resolved s/p chest tube and chemical pleurodesis by CT Surg Dr Sutton Small cell lung cancer: on palliative chemoimmunotherapy-treatments held due to recent fall/fracture and then pneumothorax. Onc suggested palliative consult, and per palliative discussion pt to remain full code pursuing aggressive therapy Left hip fracture s/p repair: ambulating w walker at rehab prior to admit, adequately controlled pain at this time, PT/OT attempting to work w pt PPx: Xarelto FEN: softs, no MIVF Lines: PIV Consults: GI, CT Surg, Pulm Code: Full Dispo: patient requires inpatient eval and management at this time. Anticipate 1-2 days. Will return to SNF. Internal Medicine: Result - Labs CBC & Chem 7: 03/29/19 05:07 03/29/19 05:07 Labs: Short CBC 03/29/19 Range/Units 05:07 WBC 10.0 (4.3-11.1) K/mcL Hgb 8.8 L (12.9-16.9) g/dL Hct 27.6 L (37.5-50.1) % Plt Count 199 (140-400) K/mcL BMP 03/29/19 05:07 Sodium 135 L Potassium 4.1 Chloride 91 L Carbon Dioxide 39 H BUN 8 Creatinine 0.25 L Glucose 124 H Calcium 8.6 - ABG Interpretation ABG results: ABG ABG pH 7.40 pH Units (7.32-7.45) 03/29/19 01:17 ABG pCO2 71 mmHg (35-45) H* 03/29/19 01:17 ABG pO2 73 mmHg (85-104) L 03/29/19 01:17 ABG O2 Saturation 94 % (95-98) L 03/29/19 01:17 PT/INR, D-dimer PT 13.8 Seconds (9.4-12.1) H 03/26/19 17:24 1398 ng/mLFEU (0-500) H 03/20/19 18:22 - Impressions Impressions Chest CT 03/26/19 17:18 IMPRESSION: 1. Right middle lobe and right lower lobe airspace consolidations. In the proper clinical setting, finding would be indicative of multilobar pneumonia. Mild right hilar adenopathy is likely reactive adenopathy. 2. Small bilateral pleural effusions. 3. Centrilobular and paraseptal emphysema. D/ / 03/26/2019 18:13:40 Monroe Ferrera MD / earnold Interpreting Provider: Monroe Ferrera MD Consult Discharge Plan - Plan Referrals: Jeferson Townsend MD [Primary Care Provider] -
[2019-03-29] MEDS: Magnesium Oxide 400 MG TABLET PO SCH (08:08)
[2019-03-29] MEDS: cefTRIAXone 2,000 MG in Water for inj. (sterile) 20 ML 20 ML IVP SCH (08:09)
[2019-03-29] MEDS: Gabapentin 100 MG CAPSULE PO SCH ×3 (08:09→20:21)
[2019-03-29] MEDS: levoFLOXacin 750 MG TABLET PO SCH (08:09)
[2019-03-29] MEDS: Nystatin SUSP 5 ML UD.LIQ PO SCH ×3 (09:04→20:22)
[2019-03-29] MEDS: Budesonide/Formoterol 160/4.5 1 PUFF INH IH SCH ×2 (10:32→22:45)
[2019-03-29] MEDS: *HR* Rivaroxaban 10 MG TABLET PO SCH (11:35)
--- NOTE | 2019-03-29 14:47 | Event Note ---
Date of Encounter: 03/29/19 Time of Encounter: 14:30 Patient appears overall better today. Had self-limiting run of SVT early this AM. HBG - 8.8. Participated in PT functional assessment and desires to return to [facility] for rehab. Patient desires to remain FULL CODE. Oncology as well as Palliative care have spoken at length with the patient about custodial goals and patient and his sister/caregiver desire rehab then transition home. Patient will f/u as outpatient with Oncology. DC plan in place and patients goals of care established for now. Palliative care will sign-off. Please re-consult for any additional needs. We appreciate the consult.
--- NOTE | 2019-03-29 16:04 | Electrocardiograph Report ---
[address] [address] Test Date: 2019-03-29 Pat Name: Rishabh Salcedo Department: 111 Room: 2NE17 Gender: M Quiller Operator: : [id number] Requested By: Enoc Patel Order Number: [id number] Reading MD: Reid Velazquez Measurements Intervals [place] Rate: 90 P: 51 DE: 153 QRS: 22 QRSD: 99 T: 45 QT: 335 QTc: 383 Interpretive Statements SINUS RHYTHM Electronically Signed On 03-29-2019 16:02:56 EDT by Reid Velazquez
--- NOTE | 2019-03-29 17:55 | Orthopedics Progress Note ---
Date of Encounter: 03/29/19 Time of Encounter: 17:53 Subjective Principal diagnosis: Pneumothorax Interval history: S: Patient admitted for pneumothorax Patient is seen today and has no complaints. Improving pain to the left hip. O: Left hip incision is healing nicely. No significant pain with passive motion of the left hip. Neurovascularly intact distally. X-ray of the left hip are pending. A: Post internal fixation of left hip, 2 weeks out P: Physical therapy and occupational therapy when able Weightbearing as tolerated on the bilateral lower extremities. Follow-up with me in the office in 4 weeks for clinical reevaluation or sooner if needed. Objective Vital signs: Vital Signs Temp Pulse Resp BP Pulse Ox 03/29/19 17:05 107 17 98/55 93 03/29/19 15:26 16 97 03/29/19 11:17 93 21 90/58 97 03/29/19 10:33 16 98 03/29/19 07:27 94 20 100/75 97 03/29/19 05:00 99 F 96 13 101/69 95 03/29/19 03:32 18 93 03/29/19 01:08 99 F 82 13 102/69 96 03/28/19 20:30 99.2 F 116 12 104/69 91 03/28/19 20:22 18 92 Intake and Output 03/29/19 03/29/19 03/29/19 07:59 15:59 23:59 Intake Total 120 / 584 464 / 584 Output Total 500 / 850 350 / 850 Balance -380 / -266 114 / -266 Intake: IV Fluids 104 / 104 Magnesium Sulfate 2 GM In 0.9 % 104 / 104 Sodium Chloride 100 ML @ 104 mls/hr IVPB Q1H [facility] Rx#: [id number] Oral 120 / 480 360 / 480 Output: Urine 500 / 850 350 / 850 Other: Meal Lunch Percent of Meal Consumed 50% Weight 64.8 kg Patient Weight 03/29/19 23:59 Weight 64.8 kg - Labs CBC & BMP: 03/29/19 05:07 03/29/19 05:07 Labs: Abnormal lab results WBC 12.3 K/mcL (4.3-11.1) H 03/28/19 04:37 RBC 2.89 M/mcL (4.19-5.50) L 03/29/19 05:07 Hgb 8.8 g/dL (12.9-16.9) L 03/29/19 05:07 Hct 27.6 % (37.5-50.1) L 03/29/19 05:07 MCHC 30.4 g/dL (31.6-35.5) L 03/24/19 00:47 RDW 14.7 % (11.5-14.5) H 03/29/19 05:07 MPV 9.3 fL (9.4-12.4) L 03/26/19 17:24 13.0 K/mcL (1.6-8.9) H 03/27/19 03:02 0.3 K/mcL (0.6-4.6) L 03/24/19 00:47 1.4 K/mcL (0.0-1.3) H 03/24/19 17:03 Nucleated RBCs/100 WBC 0.2 /100 WBC (0) H 03/27/19 03:02 PT 13.8 Seconds (9.4-12.1) H 03/26/19 17:24 1398 ng/mLFEU (0-500) H 03/20/19 18:22 Heparin Anti-Xa, Unfract 0.01 IU/mL (0.30-0.70) L 03/26/19 17:24 ABG pH 7.49 pH Units (7.32-7.45) H 03/26/19 17:37 ABG pCO2 71 mmHg (35-45) H* 03/29/19 01:17 ABG pO2 73 mmHg (85-104) L 03/29/19 01:17 ABG HCO3 44 mEq/L (21-27) H 03/29/19 01:17 ABG Total CO2 46 mEq/L (20-26) H 03/29/19 01:17 ABG O2 Saturation 94 % (95-98) L 03/29/19 01:17 ABG Base Excess 16 mEq/L (-2 to 3) H 03/29/19 01:17 VBG pCO2 57 mmHg (41-51) H 03/28/19 18:40 VBG pO2 181 mmHg (25-50) H 03/28/19 18:40 VBG HCO3 36 mEq/L (21-27) H 03/28/19 18:40 Sodium 135 mEq/L (136-145) L 03/29/19 05:07 Potassium 3.1 mEq/L (3.5-5.1) L 03/27/19 03:02 Chloride 91 mEq/L (98-107) L 03/29/19 05:07 Carbon Dioxide 39 mEq/L (23-29) H 03/29/19 05:07 BUN 22 mg/dL (6-20) H 03/25/19 04:30 0.25 mg/dL (0.70-1.30) L 03/29/19 05:07 32 (6-26) H 03/29/19 05:07 Glucose 124 mg/dL (70-105) H 03/29/19 05:07 POC Glucose 177 mg/dL (70-99) H 03/26/19 11:32 Calcium 8.4 mg/dL (8.6-10.3) L 03/28/19 04:37 Magnesium 1.5 mg/dL (1.6-2.6) L 03/26/19 21:46 100 mg/dL (Normal) H 03/23/19 10:50 Ur Leukocyte Esterase Small (Negative) H 03/23/19 10:50 3-5 per hpf (0-3) H 03/23/19 10:50 15-30 per hpf (0-3) H 03/23/19 10:50 Ur Squamous Epith Cells Many per lpf (None-Few) H 03/23/19 10:50 Ur Culture Indicated? YES (NO) A 03/23/19 10:50 Positive (Negative) A 03/24/19 08:20 Crossmatch See Detail 03/24/19 10:44 Consult Discharge Plan - Plan Referrals: Jeferson Townsend MD [Primary Care Provider] -
[2019-03-29] MEDS: Cefdinir 300 MG CAPSULE PO SCH (20:21)
[2019-03-30] MEDS: *HR* OxyCODONE Immed Rel 5 MG TABLET PO PRN ×3 (02:58→11:46)
[2019-03-30] MEDS: Levalbuterol Neb 1.25 MG/3 ML IH SCH ×3 (03:42→15:29)
[2019-03-30 04:59] LABS: Hematocrit 27.4 % (37.5-50.1); Hemoglobin 8.5 g/dL (12.9-16.9); Mean Corpuscular Hemoglobin 29.7 pg (28.0-33.3); Mean Corpuscular Volume 95.8 fL (83.0-100.0); Mean Platelet Volume 9.8 fL (9.4-12.4); Platelet Count 248 K/mcL (140-400); Red Blood Count 2.86 M/mcL (4.19-5.50); Red Cell Distribution Width 14.5 % (11.5-14.5)
[2019-03-30 05:15] LABS: BUN/Creatinine Ratio 27 (6-26); Blood Urea Nitrogen 8 mg/dL (6-20); Calcium 8.4 mg/dL (8.6-10.3); Carbon Dioxide 38 mEq/L (23-29); Chloride 91 mEq/L (98-107); Glucose 119 mg/dL (70-105); Osmolality,Calculated 273 (280-300); Potassium 4.3 mEq/L (3.5-5.1); Sodium 132 mEq/L (136-145); eGFR For African Americans > 60 (> 60); eGFR For Non-African Americans > 60 (> 60)
[2019-03-30 07:20] VITALS: BP 102/68
[2019-03-30] MEDS: Cefdinir 300 MG CAPSULE PO SCH (08:22)
[2019-03-30] MEDS: levoFLOXacin 750 MG TABLET PO SCH (08:23)
[2019-03-30] MEDS: Magnesium Oxide 400 MG TABLET PO SCH (08:23)
[2019-03-30] MEDS: Nystatin SUSP 5 ML UD.LIQ PO SCH (08:24)
[2019-03-30] MEDS: *HR* Rivaroxaban 10 MG TABLET PO SCH (08:28)
--- NOTE | 2019-03-30 08:31 | Discharge Summary ---
- NOTES TO OUTPATIENT PROVIDER Notes to Outpatient Provider: Metastatic small cell pt came in with pneumothorax, improved s/p chest tube now removed. Had PNA on levaquin/omnicef, bleeding gastric ulcer on PPI and resumed Xarelto for hx PEs. Date of Encounter: 03/30/19 Time of Encounter: 08:24 Hospital course: Dear Doctors, I recently had the opportunity to care for this patient during their recent hospital stay at [facility]. Rishabh Salcedo is a 58 M w hx stage IV SCLC, bullous emphysema and chronic hypoxic respiratory failure, recent fall and hip fracture, and recent PE 12/2018, who presented at time of admission on 03/20 with hypoxia and exertional dyspnea. In the ED, pt found on CXR to have moderate L PTX as well as infiltrate suggestive of pneumonia, UAg positive for strep, concerning for pneumococcal pneumonia causing COPD exacerbation and acute hypoxic and hypercapneic respiratory failure c/b pneumothorax requiring chest tube. In the hospital, CT Surg placed chest tube on 03/22 with improvement in symptoms; removed on 03/24. Hospital stay complicated by GI bleed requiring transfusions and holding DOAC, with EGD revealing bleeding gastric ulcer treated w APC. Pt also had transient mucous plugging causing significant hypoxia which improved with hypertonic saline nebs and pulmonary hygiene. Did have a few asymptomatic episodes of SVT noted during admission which did not require intervention. He will return to SNF for ongoing therapy. Dx: pneumococcal pneumonia, COPD exacerbation, acute on chronic hypoxic and hypercapneic respiratory failure, acute pneumothorax, acute blood loss anemia 2/2 bleeding gastric ulcer, SVT, mucous plugging Pertinent consults: Palliative, Onc, Cardiothoracic, Pulm, GI Pertinent tests: temporary chest tube, EGD showing gastric ulcer Follow up: Onc 1 week, Ortho 4 weeks Tests pending: none Med changes: - continue Xarelto 20 daily - new tamsulosin 0.4 daily - new levaquin 750 daily, last dose 04/02 - new omnicef 300 bid, last doses 04/02 Mental status: awake, fully oriented Code status: Precision Assembler Bench spent on discharge: 35 minutes It has been my pleasure participating in this patient's care. Please contact me with any questions or concerns regarding their hospital stay. Sincerely, Earl Becerra MD - Discharge Medications Prescriptions: New Tamsulosin [Flomax] 0.4 mg PO DAILY #30 capsule levoFLOXacin [Levaquin] 750 mg PO DAILY #3 tablet Cefdinir [Omnicef] 300 mg PO BID #7 capsule Continued Cyanocobalamin (Vitamin B-12) [Vitamin B-12] 100 mcg PO DAILY DULoxetine [Cymbalta] 30 mg PO QAM Budesonide/Formoterol 160/4.5 [Symbicort 160/4.5] 2 puff IH BIDR #1 inh Ondansetron HCl 8 mg PO Q8H PRN #45 tablet PRN Reason: Nausea Albuterol Sulfate [Proair Hfa] 2 puff IH Q4H PRN PRN Reason: Shortness Of Breath Dexamethasone [Decadron] 4 mg PO BID PRN #45 tab PRN Reason: as directed Prochlorperazine Maleate [Compazine] 10 mg PO Q8HR PRN #90 tablet PRN Reason: Nausea Gabapentin [Neurontin] 100 mg PO TID predniSONE [PredniSONE] 20 mg PO DAILY #30 tablet Sodium Chloride [Sodium Chloride Tab] 3 gm PO DAILY Doxepin [Sinequan] 25 mg PO HS Rivaroxaban [Xarelto] 20 mg PO 2130 Ipratropium/Albuterol Neb [Duoneb] 3 ml IH Q4HR PRN PRN Reason: Shortness Of Breath Dronabinol [Marinol] 2.5 mg PO TID 30 Days #90 capsule Amlodipine Besylate 2.5 mg PO DAILY PRN PRN Reason: if systolic above 130 Guaifenesin [Mucinex] 600 mg PO BID PRN PRN Reason: Congestion Home Medications: Cyanocobalamin (Vitamin B-12) [Vitamin B-12] 100 mcg PO DAILY 09/28/18 [History] DULoxetine [Cymbalta] 30 mg PO QAM 09/28/18 [History] Budesonide/Formoterol 160/4.5 [Symbicort 160/4.5] 2 puff IH BIDR #1 inh 10/31/18 [Rx] Ondansetron HCl 8 mg PO Q8H PRN #45 tablet 11/21/18 [Rx] Albuterol Sulfate [Proair Hfa] 2 puff IH Q4H PRN 12/21/18 [History] Dexamethasone [Decadron] 4 mg PO BID PRN #45 tab 01/29/19 [Rx] Prochlorperazine Maleate [Compazine] 10 mg PO Q8HR PRN #90 tablet 01/29/19 [Rx] Gabapentin [Neurontin] 100 mg PO TID 02/26/19 [History] predniSONE [PredniSONE] 20 mg PO DAILY #30 tablet 02/26/19 [Rx] Sodium Chloride [Sodium Chloride Tab] 3 gm PO DAILY 03/12/19 [History] Doxepin [Sinequan] 25 mg PO HS 03/13/19 [History] Ipratropium/Albuterol Neb [Duoneb] 3 ml IH Q4HR PRN 03/13/19 [History] Rivaroxaban [Xarelto] 20 mg PO 2130 03/13/19 [History] Dronabinol [Marinol] 2.5 mg PO TID 30 Days #90 capsule 03/16/19 [Rx] Amlodipine Besylate 2.5 mg PO DAILY PRN 03/21/19 [History] Guaifenesin [Mucinex] 600 mg PO BID PRN 03/21/19 [History] Cefdinir [Omnicef] 300 mg PO BID #7 capsule 03/30/19 [Rx] Tamsulosin [Flomax] 0.4 mg PO DAILY #30 capsule 03/30/19 [Rx] levoFLOXacin [Levaquin] 750 mg PO DAILY #3 tablet 03/30/19 [Rx] Allergies/Adverse Reactions: Allergy/AdvReac Type Severity Reaction Status Date / Time Penicillins [PCN] Allergy See Verified 03/20/19 23:12 Comments venlafaxine AdvReac Gastrointestinal Verified 03/20/19 23:12 Upset Date of admission: 03/21/19 01:29 Primary care physician: Jeferson Townsend MD Consults: 03/20/19 23:06 Consult to Interventional Radiology [CONS] Stat Consulting Provider: Radiology Interventional [place]s Reason for Consult: Possible pigtail for L PTX Time Notified: 22:30 Call Completed: Yes 03/21/19 04:19 Consult to Oncology [CONS] Routine Consulting Provider: Oncology [facility] Reason for Consult: Stage 4 lung cancer Call Completed: No Consult to Pulmonology [CONS] Routine Consulting Provider: Pulm [facility] [place] Reason for Consult: pneumothorax Call Completed: No 03/21/19 04:26 Consult to Speech Therapy [CONS] Routine Comment: Evaluate, develop and implement POC Reason for Consult: Patient has been aspirating, even with small sips of water Call Completed: No 03/21/19 08:23 Consult to Cardiothoracic Surgery [CONS] Routine Consulting Provider: John Sutton Reason for Consult: pneumothorax Time Notified: 08:24 Call Completed: No 03/21/19 11:13 Consult to Certified Welder [CONS] Routine Reason for SW Consult: coordination of care when returning to [place] 03/21/19 12:24 Consult to Palliative Care [CONS] Routine Comment: Consulting Provider: Palliative Care [place] Reason for Consult: Stage IV small cell mateus cancer, goals of care, code status, pain control Time Notified: 12:25 Call Completed: Yes 03/22/19 10:57 Consult to Occupational Therapy [CONS] Routine Comment: Evaluate, develop and implement POC Reason for Consult: s/p hip fracture and repair, requires mobility rehab Does patient have active BEDREST order?: No Is patient medically & hemodynamically stable?: Yes Patient assessed for mobility or mobilized this visit?: No Consult to Physical Therapy [CONS] Routine Comment: Evaluate, develop and implement POC Reason for Consult: s/p hip fracture and repair, requires mobility rehab Does patient have active BEDREST order?: No Is patient medically & hemodynamically stable?: Yes Patient assessed for mobility or mobilized this visit?: No 03/24/19 10:27 Consult to Gastroenterology [CONS] Stat Consulting Provider: Gastroenternic [place] Reason for Consult: GI bleed Time Notified: 10:27 Call Completed: Yes - Constitutional Vitals: Temp Pulse Resp BP Pulse Ox 98.2 F 99 16 102/68 98 03/30/19 07:17 03/30/19 07:17 03/30/19 07:17 03/30/19 07:17 03/30/19 07:17 Exam: General: A&O X3, pleasant and conversant, in good spirits Respiratory: decent aeration today bilaterally, with improving bibasilar rhonchi Cardiovascular: Regular rate and rhythm. Abdomen: Soft, nontender Extremities: warm, radial pulses palpable and symmetrical. No pedal edema Skin: Dry, intact - Patient Status Disposition: Transfer SNF Condition: Serious Functional capacity at discharge: uses cane/walker Overall status at discharge: patient is progressing back to baseline - Discharge Instructions Follow Up With: Jeferson Townsend MD [Primary Care Provider] - Harpal Santos MD [Partnered Physician] - (4 weeks) Tadeo Bustillos MD [Partnered Physician] - (1 week) - Diet and Activity Activity: increase activity as tolerated Diet: advance to your usual diet
--- NOTE | 2019-03-30 08:37 | Physician Discharge Referral ---
ExtendedCare Referral Info Transfer To: SNF Provider in Charge after Transfer: PCP Institutional Level of Care: Skilled - Diagnosis (1) Small cell lung cancer Priority: Primary Status: Chronic - Transfer Medications Prescriptions: Tamsulosin [Flomax] 0.4 mg PO DAILY #30 capsule levoFLOXacin [Levaquin] 750 mg PO DAILY #3 tablet Cefdinir [Omnicef] 300 mg PO BID #7 capsule Home Medications: Cyanocobalamin (Vitamin B-12) [Vitamin B-12] 100 mcg PO DAILY 09/28/18 [History] DULoxetine [Cymbalta] 30 mg PO QAM 09/28/18 [History] Budesonide/Formoterol 160/4.5 [Symbicort 160/4.5] 2 puff IH BIDR #1 inh 10/31/18 [Rx] Ondansetron HCl 8 mg PO Q8H PRN #45 tablet 11/21/18 [Rx] Albuterol Sulfate [Proair Hfa] 2 puff IH Q4H PRN 12/21/18 [History] Dexamethasone [Decadron] 4 mg PO BID PRN #45 tab 01/29/19 [Rx] Prochlorperazine Maleate [Compazine] 10 mg PO Q8HR PRN #90 tablet 01/29/19 [Rx] Gabapentin [Neurontin] 100 mg PO TID 02/26/19 [History] predniSONE [PredniSONE] 20 mg PO DAILY #30 tablet 02/26/19 [Rx] Sodium Chloride [Sodium Chloride Tab] 3 gm PO DAILY 03/12/19 [History] Doxepin [Sinequan] 25 mg PO HS 03/13/19 [History] Ipratropium/Albuterol Neb [Duoneb] 3 ml IH Q4HR PRN 03/13/19 [History] Rivaroxaban [Xarelto] 20 mg PO 2130 03/13/19 [History] Dronabinol [Marinol] 2.5 mg PO TID 30 Days #90 capsule 03/16/19 [Rx] Amlodipine Besylate 2.5 mg PO DAILY PRN 03/21/19 [History] Guaifenesin [Mucinex] 600 mg PO BID PRN 03/21/19 [History] Cefdinir [Omnicef] 300 mg PO BID #7 capsule 03/30/19 [Rx] Tamsulosin [Flomax] 0.4 mg PO DAILY #30 capsule 03/30/19 [Rx] levoFLOXacin [Levaquin] 750 mg PO DAILY #3 tablet 03/30/19 [Rx] Allergies/Adverse Reactions: Allergy/AdvReac Type Severity Reaction Status Date / Time Penicillins [PCN] Allergy See Verified 03/20/19 23:12 Comments venlafaxine AdvReac Gastrointestinal Verified 03/20/19 23:12 Upset - Respiratory Orders Smoking Cessation: Smoking cessation has been advised. For more information, call the [place] Tobacco Quit Line at 8-830-ABCU-NOW. - Ancillary Orders May use pressure relief devices daily prn, May go on ABNER w/family/respon republican w/meds at nurse discretion PRN, May consult with Dentist, Assisted Living Housekeeper, Director Of Culture PRN - Advance Directives Code Status: Full Code - Mobility Orders Ambulate - Rehabiliation Orders Rehab Potential: Good Rehab Orders: Evaluation for Physical Therapy, Evaluation for Occupational Therapy - Diet Orders Regular CERTIFICATION: I certify that the transfer of the above named patient to an Extended Care Facility is necessary for the continuing treatment of the diagnosis listed. The above information is true and accurate reflection of patient's current condition. Confidential - Redisclosure prohibited without a patient's written consent.
[2019-03-30] MEDS: Budesonide/Formoterol 160/4.5 1 PUFF INH IH SCH (10:47)
[2019-03-30] MEDS: Gabapentin 100 MG CAPSULE PO SCH (11:42)
== END 2019-03-30 17:34 | DRG 199 ==
LOC: ICNU 18:05 → EMEROOARM 18:05 → ICNU 23:54 → SUATTDRO 03-21 01:29 → 2NENU 03-22 11:27 → ICNU 03-24 15:11 → 2NENU 03-25 15:36
PROVIDERS: ADMIT Family Medicine; ATTEND Internal Medicine